=== PATIENT | male | born 1950 | race Caucasian/White ===

== ENCOUNTER 2024-08-12 08:40 | Outpatient (AMB) | payer OTHER, SELFPAY ==
--- OUTSIDE RECORDS SUMMARY | 2024-08-12 08:44 | XMS_ITS | Encounter Summary ---
Author Name [facility] [place] [facility] [place] [facility] [place] Address [address] [place] [address] Care Team Providers Care Train Planner Name Role Phone LUCITA BLANCHARD Primary Care Provider Unavailab le Insurance Providers: All historical and current Section Date Range: From patient's date of to the date document was created. This section includes the names of all active insurance providers for the patient. Insurance Provider Type of Coverage Plan Name Start of Policy Coverage End of Policy Coverage Group Number Member ID Insurance Provider's Telephone Number Policy Mills's Name Patient's Relationship to Policy Mills AN[place] OF [place] ([place]) [facility] H[facility]PS HIRE COUNT Y INS Dec 22, [id number] ARCHIE , SPOUSE BCBS AR [employer] CE ORGANIZAT ION HAMPS HIRE COUNT Y INS Dec 22, 2020 [id number] [phone] BEULAH OLIVARES SPOUSE BCBS [facility] [employer] CE ORGANIZAT ION HAMPS HIRE COUNT Y INS Dec 22, 2020 [id number] ALEJANDRA OLIVARES SPOUSE [place] PRESCRIPT ION HAMPS HIRE COUNT Y INS Dec 22, 2020 [id number] BEULAH OLIVARES SPOUSE [place] PRESCRIPT ION HAMPS HIRE COUNT Y INS Dec 22, 2020 [id number] BEULAH OLIVARES SPOUSE [place] PRESCRIPT ION HAMPS HIRE COUNT Y INS Dec 22, 2020 [id number] JOSETTE OLIVARES PATIENT [place] PRESCRIPT ION HAMPS HIRE COUNT Y INS Dec 22, 2020 [id number] BEULAH OLIVARES SPOUSE [employer] ([id number]) PRESCRIPT ION L4TA* Sep 22, 2013 [id number] [id number] [phone] BEULAH OLIVARES SPOUSE [employer] ([id number]) PRESCRIPT ION L4TA* Sep 22, 2013 L4TA [id number] BEULAH OLIVARES SPOUSE MEDICARE (WNR) MEDICARE (M) PART A Feb 23, 2016 PART A [id number] JOSETTE OLIVARES PATIENT MEDICARE (WNR) MEDICARE (M) PART A Feb 23, 2016 PART A [id number] [phone] JOSETTE OLIVARES PATIENT Selected Encounter This section includes the information on record at [place] for the Encounter. Date/Time Encounter Type Encounter Description Reason Pro vider Source November 04, 2023 12:30 PM Outpatient Encounter CARDIOLOGY IHE Encounter Template Text not used by [place] Plan of Treatment: Future Appointments (+ 6 months) and Future Tests (+/- 45 days) The Plan of Treatment section includes future care activities for the patient from all [place] treatmentfacilities. This section includes future appointments and future orders which are active, pending or scheduled. Future Appointments This section includes appointments that were scheduled to occur 6 months from the date of the Encounter, up to a maximum of 20 appointments. The data comes from all [place] treatment facilities. Appointment Date/Time Appointment Type Appointme nt Facility Name November 06, 2023 10:30 AM AMBULATORY [place]ICINE [place] [facility] November 14, 2023 12:30 PM AMBULATORY - NONE [place] [facility] November 19, 2023 01:00 PM [facility] Nov 26, 2023 01:00 PM [facility]UL[place] - [place]IC[place] [facility] Nov 26, 2023 01:00 PM AMBULATORY - NONE [place] [facility] [place] [facility] Dec 03, 2023 09:00 AM AMBULATORY - MEDICINE [place] [facility] [place] [place] [facility] Dec 06, 2023 10:30 AM AMBULATORY - NONE [place] [facility] [place] [facility] Dec 06, 2023 11:00 AM AMBULATORY - NONE [place] [facility] [facility] Jan 08, 2024 10:30 AM AMBULATORY - MEDICINE [place] [facility] [place] [place] [facility] Jan 16, 2024 03:00 PM AMBULATORY - MEDICINE [place] [facility] [place] [place] [facility] Feb 03, 2024 12:30 PM AMBULATORY - MEDICINE [place] [facility] [place] [place] [facility] Feb 11, 2024 01:00 PM AMBULATORY - MEDICINE [facility] Feb 19, 2024 12:00 PM AMBULATORY - MEDICINE [place] [facility] Feb 26, 2024 10:00 AM AMBULATORY - MEDICINE [place] [facility] [place] [place] [facility] Apr 29, 2024 01:30 PM AMBULATORY - MEDICINE [facility] ([facility] Lab Results: +/- 30 days of the encounter This section includes the Chemistry and Hematology Lab Results on record with [place] for the patient. Radiology Reports and Pathology Reports are provided separately, in subsequent sections. Lab Results This section contains the Chemistry/Hematology Results that were resulted 30 days before or 30 daysafter the date of the Encounter. Date/Time Source Result Type Result - Unit Interpretation Reference Range Comment November 19, 2023 01:46 PM [facility] ([facility]) PT & INR (PROTIME) Specimen Type: PLASMA No comment entered. Ordering Provider: KEITH BLANCHARD Report Released Date/Time: November 19, 2023 01:37 PM Reporting Lab: [place] [facility] [facility] [address] [facility] [address] [facility]forming [facility]: [facility] [address] [address] INR 1.1 PROTIME 12.0 s 10.0-13.1 November 19, 2023 01:41 PM [facility] ([facility]) CERULOPLASMIN Specimen Type: SERUM No comment entered. Ordering Provider: KEITH BLANCHARD Report Released Date/Time: November 19, 2023 01:37 PM Reporting Lab: [facility] [address] [facility] [address] Performing Lab: [facility] [address] [facility] [address] CERULOPLASMIN 18 mg/dL L 20-60 November 19, 2023 01:41 PM [facility] ([facility]) HEPATITIS B SURFACE ANTIBODY (HBsAb)- Specimen Type: SERUM No comment entered. Ordering Provider: KEITH BLANCHARD Report Released Date/Time: November 19, 2023 01:37 PM Reporting Lab: [address] [address] Performing Lab: [facility] November 19, 2023 01:41 PM [place] ([facility]) HEPATITIS B SURFACE ANTIGEN (HBsAg)- Specimen Type: SERUM Comment: A 'Reactive' result indicates HBsAb results >/= 12.0 mIU/mL and immunity to HBV infection. A Reactive result ( Positive prior to 04/06/13) is diagnostic of acute or chronic hepatitis B infection. The presence of Hepatitis B surface antigen is frequently associated with infectivity. Ordering Provider: KEITH BLANCHARD Report Released Date/Time: November 19, 2023 01:37 PM Reporting Lab: [address] [address] Performing Lab: [address] [address] HBsAg Non Reactive Non Reactive November 19, 2023 01:41 PM [facility] ([facility]) VIDAL SCREEN/TITER Specimen Type: SERUM No comment entered. Ordering Provider: KEITH BLANCHARD Report Released Date/Time: November 19, 2023 01:37 PM Reporting Lab: [facility] [address] [facility] [address] Performing Lab: [facility] [address] [facility] [address] VIDAL SCREEN NEG November 19, 2023 01:41 PM [facility] ([facility]) ALPHA 1 ANTITRYPSIN Specimen Type: SERUM No comment entered. Ordering Provider: KEITH BLANCHARD Report Released Date/Time: November 19, 2023 01:37 PM Reporting Lab: [facility] [address] [facility] [address] Performing Lab: [facility] [place] [address] [facility] [address] ALPHA 1 ANTITRYPSIN 125 mg/dL 90-200 November 19, 2023 01:41 PM [facility] ([facility]) HEPATITIS A ANTIBODY (IGG) Specimen Type: SERUM Comment: Hep A IgG: A 'Reactive' result indicates previous exposure to Hepatitis A virus through infection or vaccination. Ordering Provider: KEITH BLANCHARD Report Released Date/Time: November 19, 2023 01:37 PM Reporting Lab: [address] [address] Performing Lab: [facility] [address] [facility] [address] HEPATITIS A ANTIBODY (IGG) REACTIVE Non Reactive November 19, 2023 01:41 PM [facility] ([facility]) PSA Specimen Type: SERUM No comment entered. Ordering Provider: KEITH BLANCHARD Report Released Date/Time: November 19, 2023 01:30 PM Reporting Lab: [address] [address] Performing Lab: [address] [address] PSA 159.64 ng/mL H 0.00-4.00 November 19, 2023 01:41 PM [facility] ([facility]) HEPATITIS C ANTIBODY (HCV)-ARC Specimen Type: SERUM Comment: Hep C Ab: No HCV antibody detected. If recent infection is suspected or other evidence suggests HCV infection, consider HCV nucleic acid testing Ordering Provider: KEITH BLANCHARD Report Released Date/Time: November 19, 2023 01:37 PM Reporting Lab: [address] [address] Performing Lab: [facility] [address] [address] HEPATITIS C ANTIBODY NON-REACTIVE NON-REACTIV E November 19, 2023 01:41 PM [facility] ([facility]) FERRITIN Specimen Type: SERUM No comment entered. Ordering Provider: KEITH BLANCHARD Report Released Date/Time: November 19, 2023 01:37 PM Reporting Lab: [facility] [address] Performing Lab: [facility] [address] FERRITIN 221 ng/mL 20-300 November 19, 2023 01:41 PM [facility] ([facility]) IRON & TIBC PANEL Specimen Type: SERUM No comment entered. Ordering Provider: KEITH BLANCHARD Report Released Date/Time: November 19, 2023 01:37 PM Reporting Lab: [facility] [address] [address] Performing Lab: [facility] [address] TIBC 300 ug/dL 204-475 IRON 101 ug/dL 40-160 Transferrin Saturation 33.7 20.0-50.0 November 19, 2023 01:41 PM [facility] ([facility]) ALBUMIN Specimen Type: SERUM No comment entered. Ordering Provider: KEITH BLANCHARD Report Released Date/Time: November 19, 2023 01:37 PM Reporting Lab: [facility] [address] Performing Lab: [facility] [address] ALBUMIN 3.9 g/dL 3.5-5.0 November 19, 2023 01:41 PM [facility] ([facility]) LIVER FUNCTION Specimen Type: SERUM No comment entered. Ordering Provider: KEITH BLANCHARD Report Released Date/Time: November 19, 2023 01:37 PM Reporting Lab: [facility] [address] [address] Performing Lab: [facility] [address] PROTEIN,TOTAL 6.6 g/dL 6.0-8.3 ALBUMIN 3.9 g/dL 3.5-5.0 ALKALINE PHOSPHATASE 125 U/L 40-150 AST 13 U/L 5-34 ALT <6 U/L BILIRUBIN, TOTAL 0.8 mg/dL 0.2-1.2 November 19, 2023 01:41 PM [facility] ([facility]) BASIC METABOLIC PANEL (non-fasting) Specimen Type: SERUM No comment entered. Ordering Provider: KEITH BLANCHARD Report Released Date/Time: November 19, 2023 01:37 PM Reporting Lab: [address] [address] Performing Lab: [place] [phone] UREA NITROGEN 14 mg/dL 7-25 GLUCOSE 149 mg/dL H 65-100 SODIUM 139 mmol/L 135-145 POTASSIUM 4.1 mmol/L 3.5-5.0 CHLORIDE 108 mmol/L 100-110 CO2 23 meq/L 20-30 CREATININE, Serum 0.73 mg/dL 0.50-1.40 eGFR(CKD-EPI 2020) >90 mL/min >60 November 19, 2023 01:41 PM [facility] ([facility]) CBC AND DIFF (AUTO) Specimen Type: BLOOD No comment entered. Ordering Provider: KEITH BLANCHARD Report Released Date/Time: November 19, 2023 01:37 PM Reporting Lab: [address] [address] Performing Lab: [address] [address] WBC 6.28 10*3/uL 4.50-11.00 RBC 4.40 10*6/uL 4.23-5.66 HGB 13.9 g/dL 12.8-17 HCT 42.0 39.2-50.4 MCV 95.5 fL 82-99 MCHC 33.1 g/dL 30.8-35.1 PLT 192 10*3/uL 140-360 RDW-CV 13.3 12.0-16.0 [place], Abs 0.52 10*3/uL 0.30-1.10 MCH 31.6 pg 26.2-32.6 Neut % 72.2 43.7-75.8 Lymph % 17.7 14.0-42.3 [place] % 8.3 5.1-13.7 Eos % 1.0 0.4-6.8 Baso % 0.3 0.1-2.0 Neut, Abs 4.54 10*3/uL 2.20-7.60 Lymph, Abs 1.11 10*3/uL 1.00-3.20 Eos, Abs 0.06 10*3/uL 0.03-0.44 Baso, Abs 0.02 10*3/uL 0.01-0.13 Immature Gran % 0.5 0.0-0.7 Immature Gran, Abs 0.03 10*3/uL 0.00-0.06 Encounter Notes: All associated encounter notes This section contains the clinical notes associated to the Encounter. Date/Time Encounter Note(s) Provider Source November 04, 2023 10:29 AM ADDENDUM: LOCAL TITLE: Addendum STANDARD TITLE: ADDENDUM DATE OF NOTE: NOVEMBER 04, 2023@10:29:39 ENTRY DATE: NOVEMBER 04, 2023@10:29:40 AUTHOR: ELLI LRAKIN EXP COSIGNER: URGENCY: STATUS: COMPLETED Can you swethaldy add the following email address to the Veterans demographics please and thank you! [email or web address] ELLI LARKIN RN Referral Coordination Initiative Nurse Signed: 11/04/2023 10:30 Receipt Acknowledged By: 11/04/2023 10:43 /es/ YANA BATEMAN ADVANCED DIRECTOR OF STRATEGIC MARKETING --- Original Document --- 11/04/23 PATIENT LETTER (T): JOSETTE OLIVARES [address], [place], [address] Dear Josette Olivares, This is a reminder of your upcoming TELEHEALTH TO HOME VIDEO APPOINTMENT with your VA Provider on: Date/Time: TUESDAY NOVEMBER 14, 2023 12:30 PM [facility]: V01 BLANCA VALLE MD 1 Telephone Ext.: [phone] Please DO NOT COME TO THE [facility] for this appointment. This is a TELEHEALTH TO HOME APPOINTMENT. Your VA Provider will send you an EMAIL LINK to connect to the VIRTUAL medical room for this appointment with your computer, tablet or smart phone. Please ensure you are in a safe and private location where you have internet access and able to speak freely with your provider. Please have ready, a list of your current medical prescriptions , a list of all over the counter medications you take. Please contact the Patient Call Center at [phone]( follow the prompts), Saturday-Saturday, 8:00AM-4:00PM if you have questions regarding this appointment, need to change the appointment or if you cannot keep this appointment. The Call Center can also help if you have questions regarding your health or medical condition. Thank you. Respectfully, The staff at [facility] the staff at the [facility] ELLI LARKIN [place] [facility] November 04, 2023 08:55 AM LETTERS: LOCAL TITLE: PATIENT LETTER (T) STANDARD TITLE: LETTERS DATE OF NOTE: NOVEMBER 04, 2023@08:55 ENTRY DATE: NOVEMBER 04, 2023@08:55:40 AUTHOR: ELLI LARKIN EXP COSIGNER: URGENCY: STATUS: COMPLETED PATIENT LETTER (T) Has ADDENDA DEPARTMENT OF [facility] Toll Free Number Primary Care Telephone Assistance can be reached at extension [phone] [facility] scheduling can be reached at extension [phone] [facility] scheduling can be reached at ext [phone] JOSETTE OLIVARES [address], [place], [address] Dear Josette Olivares, This is a reminder of your upcoming TELEHEALTH TO HOME VIDEO APPOINTMENT with your VA Provider on: Date/Time: TUESDAY NOVEMBER 14, 2023 12:30 PM [facility]: V01 BLANCA VALLE MD 1 Telephone Ext.: [phone] Please DO NOT COME TO THE [facility] for this appointment. This is a TELEHEALTH TO HOME APPOINTMENT. Your VA Provider will send you an EMAIL LINK to connect to the VIRTUAL medical room for this appointment with your computer, tablet or smart phone. Please ensure you are in a safe and private location where you have internet access and able to speak freely with your provider. Please have ready, a list of your current medical prescriptions , a list of all over the counter medications you take. Please contact the Patient Call Center at [phone]( follow the prompts), Saturday-Saturday, 8:00AM-4:00PM if you have questions regarding this appointment, need to change the appointment or if you cannot keep this appointment. The Call Center can also help if you have questions regarding your health or medical condition. Thank you. Respectfully, The staff at [facility] the staff at the [facility] 11/04/2023 ADDENDUM STATUS: COMPLETED Can you kinldy add the following email address to the Veterans demographics please and thank you! /es/ ELLI LARKIN RN Referral Coordination Initiative Nurse Signed: 11/04/2023 10:30 Receipt Acknowledged By: * AWAITING SIGNATURE * YANA BATEMAN Sincerely, Your Primary Care Team [facility] [address] [facility] [address] [place] [address] [place] [address] [phone] [place] [facility] [address] [place] [address] [place] [address] [facility] [address] [facility] [place] [address] [place] [address] ELLI LARKIN [facility]
--- OUTSIDE RECORDS SUMMARY | 2024-08-12 08:45 | XMS_ITS | Encounter Summary ---
Author Name [facility] [place] [facility] [place] Address [address] [place] [address] Care Team Providers Care Rotary Shear Cutter Name Role Phone LUCITA BLANCHARD Primary Care [...] Relationship to Policy [place] ANTHEM [place] OF [place] ([place]UECARD) [facility] CE ORGANIZAT ION HAMPS HIRE COUNT Y INS Dec 22, 2020 [id number] ARCHIE , SPOUSE BCBS [employer] MAINTENAN CE ORGANIZAT ION HAMPS HIRE COUNT Y INS Dec 22, 2020 [id number] BEULAH ALMANZA SPOUSE BCBS OF [facility] MAINTENA[place] CE ORGANIZAT ION HAMPS HIRE COUNT Y INS Dec 22, 2020 [id number] ALEJANDRA ALMANZA SPOUSE [employer] PRESCRIPT ION HAMPS HIRE COUNT Y INS Dec 22, 2020 RX21AT [id number] [phone] BEULAH ALMANZA SPOUSE [employer] PRESCRIPT ION HAMPS HIRE COUNT Y INS Dec 22, 2020 RX21AT [id number] BEULAH ALMANZA SPOUSE [employer] PRESCRIPT ION HAMPS HIRE COUNT Y INS Dec 22, 2020 RX21AT [id number] JOSETTE ALMANZA PATIENT [employer] PRESCRIPT ION HAMPS HIRE COUNT Y INS Dec 22, 2020 RX21AT [id number] [phone] BEULAH ALMANZA SPOUSE [employer] ([id number]) PRESCRIPT ION L4TA* Sep 22, 2013 L4TA [id number] [phone] BEULAH ALMANZA SPOUSE [employer] ([id number]) PRESCRIPT ION L4TA* Sep 22, 2013 L4TA [id number] [phone] BEULAH ALMANZA SPOUSE MEDICARE (WN) MEDICARE (M) PART A Feb 23, 2016 PART A [id number] VE JOSETTE ALMANZA PATIENT MEDICARE (WNR) MEDICARE (M) PART A Feb 23, 2016 PART A [id number] VE JOSETTE ALMANZA PATIENT Selected Encounter This section includes the information on record at [place] for the Encounter. Date/Time Encounter Type Encounter Description Reason Provider Source Jun 05, 2024 01:30 PM COMPRE OPH EXAM EST PT 1/> OPTOMETRY ICD-10-CM E11.9 Type 2 diabetes mellitus without complications JOHN ZAMORA Kunal Encounter Template Text not used by [place] Assessments - Encounter Diagnoses This section includes the primary and secondary diagnoses documented for the Encounter. Date/Time Primary/Secondary Diagnosis Diagnosis Name Provider Source Jul 04, 2024 07:25 AM PRIMARY Type 2 diabetes mellitus without complications JOHN ZAMORA [facility] Jul 04, 2024 07:25 AM SECONDARY Dry eye syndrome of bilateral lacrimal glands JOHN ZAMORA [facility] [place] [facility] Jul 04, 2024 07:25 AM SECONDARY Endothelial corneal dystrophy, bilateral JOHN ZAMORA [facility] Jul 04, 2024 07:25 AM SECONDARY Presbyopia JOHN ZAMORA [place] [facility] [place] [facility] Jul 04, 2024 07:25 AM SECONDARY Presence of intraocular lens JOHN ZAMORA [place] [facility] [place] [facility] Plan of Treatment: Future Appointments (+ 6 months) and Future Tests (+/- 45 days) The Plan of Treatment section includes future care activities for the patient from all [place] treatmentfacilities. This section includes future appointments and future orders which are active, pending or scheduled. Future Appointments This section includes appointments that were scheduled to occur 6 months from the date of the Encounter, up to a maximum of 20 appointments. The data comes from all [place] treatment facilities. Appointment Date/Time Appointment Type Appointme nt Facility Name Jul 09, 2024 10:30 AM AM[place]ULATORY - [place]ICINE [place] [facility] [place] [facility] Jul 27, 2024 01:30 PM AMBULATORY - MEDICINE [facility] Aug 12, 2024 08:30 AM AMBULATORY - [place]ICINE [place] [facility] [place] [facility] Sep 10, 2024 11:00 AM AMBULATORY - [place]ICINE [place] [facility] [place] [facility] November 12, 2024 02:00 PM AMBULATORY - NONE [place] [facility] [place] [facility] Encounter Notes: All associated encounter notes This section contains the clinical notes associated to the Encounter. Date/Time Encounter Note(s) Provider Source Jun 05, 2024 01:27 PM OPTOMETRY NOTE: LOCAL TITLE: OPTOMETRY NOTE STANDARD TITLE: OPTOMETRY NOTE DATE OF NOTE: JUN 05, 2024@13:27 ENTRY DATE: JUN 05, 2024@13:27:20 AUTHOR: JOHN ZAMORA EXP COSIGNER: URGENCY: STATUS: COMPLETED Eye Examination for: JOSETTE ALMANZA, 74 year old WHITE MALE MHx: Code Description R97.20 Elevated PSA (SCT [id number]) C61. 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 ([facility] [id number]) E55.9 Vitamin D Deficiency ([facility] [id number]) E53.8 Vitamin B12 Deficiency ([facility] [id number]) I35.0 Aortic valve stenosis ([facility] [id number]) Q61.8 Kidney lesion ([facility] [id number]) Q45.2 Pancreatic cyst ([facility] [id number]) M54.16 Lumbar radiculopathy ([facility] [id number]) K76.0 Fatty liver ([facility] [id number]) E11.9 Diabetes mellitus type 2 ([facility] [id number]) E78.5 Hyperlipidemia ([facility] [id number]) G20.A1 Parkinsons disease ([facility] [id number]) I10. Benign hypertension ([facility] [id number]) SYSTEMIC MEDICATIONS/OCULAR MEDICATIONS: Active Outpatient Medications (including Supplies): Active Outpatient Medications Status === 1) ABIRATERONE ACETATE 250MG TAB TAKE FOUR TABLETS BY MOUTH ACTIVE ONCE DAILY DIRECTED BY PROVIDER 2) ACCU-CHEK GUIDE (GLUCOSE) TEST STRIP USE 1 STRIP TO TEST ACTIVE BLOOD SUGARS TWICE A WEEK NEEDED Indication: DIABETES 3) AMMONIUM LACTATE 12% LOTION APPLY SMALL AMOUNT TOPICALLY ACTIVE ONCE DAILY FOR DRY IRRITATED SKIN APPLY TO SKIN OF FEET ANKLE AND LOWER LEGS DAILY Indication: FOR DRY SKIN 4) ATORVASTATIN CALCIUM 80MG TAB TAKE ONE-HALF TABLET BY MOUTH ACTIVE AT BEDTIME FOR CHOLESTEROL 5) BRIEF,PROTECTIVE SUPER ABS LG ATTENDS USE 1 BRIEF ACTIVE DIRECTED ONCE DAILY NEEDED FOR PERSONAL CARE 6) CARBIDOPA 25/LEVODOPA 100MG TAB TAKE 3 TABLETS BY MOUTH FOUR ACTIVE TIMES A DAY ### 7) CARBIDOPA 50/LEVODOPA 200MG SA TAB TAKE 1 TABLET BY MOUTH AT ACTIVE BEDTIME Indication: FOR PARKINSON'S DISEASE 8) CHOLECALCIF 25MCG (D3-1,000UNIT) TAB TAKE ONE TABLET BY ACTIVE MOUTH ONCE DAILY FOR VITAMIN SUPPLEMENTATION 9) CLOTRIMAZOLE 1% TOP SOLN APPLY 1 DROP TOPICALLY ONCE DAILY ACTIVE FOR FUNGAL INFECTION APPLY TO TOE NAIL WHEN DRY Indication: TOE NAIL FUNGUS 10) CYANOCOBALAMIN 1000MCG TAB TAKE ONE TABLET BY MOUTH ONCE ACTIVE DAILY FOR VITAMIN SUPPLEMENTATION 11) DOXYCYCLINE HYCLATE 50MG CAP TAKE ONE CAPSULE BY MOUTH TWICE ACTIVE DAILY Indication: FOR INFECTION CAUSED BY BACTERIA 12) MELATONIN 3MG CAP/TAB TAKE ONE TABLET BY MOUTH AT BEDTIME ACTIVE 13) METFORMIN HCL 1000MG TAB TAKE ONE TABLET BY MOUTH ONCE DAILY ACTIVE (S) (NOTE DOSE) Indication: FOR TYPE 2 DIABETES MELLITUS 14) PRAMIPEXOLE DIHYDROCHLORIDE 0.5MG TAB TAKE ONE TABLET BY ACTIVE MOUTH THREE TIMES A DAY 15) PREDNISONE 5MG TAB TAKE ONE TABLET BY MOUTH ONCE DAILY ACTIVE DIRECTED WITH ABIRATERONE. TAKE WITH FOOD OR MILK. 16) RASAGILINE MESYLATE 0.5MG TAB TAKE ONE TABLET BY MOUTH ONCE ACTIVE DAILY 17) TAMSULOSIN HCL 0.4MG CAP TAKE ONE CAPSULE BY MOUTH ONCE ACTIVE DAILY Indication: FOR ENLARGED PROSTATE Active Non-VA Medications Status === 1) Non-VA ALBUTEROL 90MCG (CFC-F) 200D ORAL INHL 2 PUFFS BY ACTIVE MOUTH EVERY 4 HOURS NEEDED 2) Non-VA FISH OIL 1000MG (500MG DHA/EPA) CAP 1000MG BY MOUTH ACTIVE ONCE DAILY 3) Non-VA FLUTICASONE PROP 50MCG 120D NASAL INHL 1 SPRAY INTO ACTIVE EACH NOSTRIL ONCE DAILY NEEDED 4) Non-VA TRIAMCINOLONE ACETONIDE 0.1% CREAM THIN LAYER ACTIVE TOPICALLY TWICE DAILY NEEDED 21 Total Medications ALLERGIES: PENICILLIN VITALS (most recent, as listed in the electronic record): B/P: 106/68 (04/29/2024 13:37) Pulse: 87 (04/29/2024 13:37) Temperature: 97 F [36.1 C] (04/29/2024 13:37) Weight: 168.6 lb [76.48 kg] (04/29/2024 13:37) Height: 67 in [170.2 cm] (09/04/2021 09:55) BMI: BMI: 26.5 PERTINENT LABS: HEMOGLOBIN A1C TREND Collection DT Spec HGBA1c 02/03/2024 13:41 BLOOD 6.1 H 10/04/2023 09:55 BLOOD 6.5 H 03/05/2023 07:25 BLOOD 6.7 H 09/03/2022 10:49 BLOOD 6.9 H 03/02/2022 07:52 BLOOD 6.6 H Forw gregorio from note, checked by Attending * This 74 year old MALE is 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 Distance vision is fairly stable. Would like new progressives, happy with current frame. No other ocular complaints today. Reports he is still taking antibiotic BID for previous left eye infection. Using AT's daily for dry eyes, mostly in the morning, would like more refills. HISTORY AND REVIEW OF SYSTEMS: 1) DM without retinopathy OU 2) pseudophakia OU 3) rosacea vs eczema with conjunctivitis OU 4) guttata OU with some reduction in vision 5) OTN OS 6) astigmatism OU/presbyopia (-) Pain: (-) VELEZ: (-) Diplopia: (-) Flashes: (-) Floaters: (-) Amaurosis Fugax/Tia's: (-) Eye Injury: (-) Eye Surgery: (-) TBI (+) FOHx: ?Brother Glaucoma (-) Smoker/Length of Time: DIABEIC: Yes LAST A1C: Results HEMOGLOBIN A1C PANEL BLOOD (LAV-BLOOD) MELI SMYTH #[id number] Collection time: Feb 03, 2024@13:41 Test Name Result Units Range --------- ------ ----- ----- HEMOGLOBIN A1C 6.1 H % 4.0 - 5.6 NEW ALLERGIES TO REPORT: No EYE MEDICATION(S): AT's daily CURRENT RX WITH BCVA: OD: PLANO -0.50 X150 20/25-2 OS: -0.50 -0.50 X148 20/25 ADD: +3.00 20/25 OU DVA: ( )SC ( )CC (X)Phoropter ( )CL OD: 20/30-2 OS: 20/40-2 NVA OU: 20/30+2 MANIFEST REFRACTION(MRx): OD: NI OS: -1.00 -0.50 x145 20/40+2 slow ADD: +3.00 20/20-1 OU CVF: Appear FTFC OU EOMS: Appear Full OU PUPILS: Appear ERRL(-)APD INTRAOCULAR PRESSURE (IOP) METHOD: Goldmann Time: 1:27PM OD: 13 OS: 12 ANTERIOR CHAMBER (AC): Penlight or slit lamp (if available) exam appears unremarkable. Pupils are dilated. Dilation and driving precautions reviewed with patient and patient expresses understanding. Medication: 1% Tropicamide, 2.5% Phenylephrine OU Time: 1:30PM Visual Imaging Performed Today: Additional Comments: Strongly encouraged to increase ATs to QID OU Final Rx: OD: plano-0.53l063 20/30-2 OS: -1.00-0.86d017 20/40+2 Add: +3.00 SLE: Lids/Lashes: dermatochalasis OU, MGD OU Conjunctiva: white and quiet bulbar conj OU quiet palpebral conj OU Corneas: clear OU Iris: flat and clear OU, (-)NVI OU AC: D & Q OU Angles: 4x4 OU Dilated Fundus Exam: Vit: syneresis OU Lens: PCIOL OU C/D (Size and Rim Description) OD 0.15 pink and healthy OS 0.15 pink and healthy (-)NVD OU PPole OD clear OS clear (-)DBH/CWS/YOLANDA/VB Macula OD flat and clear OS flat and clear (-)CSME OU A/V: normal caliber OU Periphery: flat and intact (-)NVE, holes, tears, detachments 360 OU Assessment/Plan: 1. Type II Diabetes without evidence of retinopathy or macular edema OU -Pt ed re today's findings and the possible ocular health and visual complications associated with diabetes as well as importance of attending follow up appointments -Encouraged blood sugar, blood pressure and lipid control as directed by provider managing diabetes. -Pt ed to report any vision changes PAUL. - repeated back the plan and education. -Monitor 2. Pseudophakia OU -Pt ed re today's findings and the importance of UV protection -Petrolia repeated back the plan and education. -Monitor 3. Dry Eye Syndrome OU with h/o rosacea vs eczema with conjunctivitis - symptomatic -Pt ed re today's findings -Recommend Artificial Tears QID OU, ed not to wait until symptoms increase -Petrolia repeated back the plan and education. -Monitor 4. Fuch's corneal dystrophy OU - functioning well on ATs currently but understands [id number] may be indicated in future. -Pt ed re today's findings -Petrolia repeated back the plan and education. -Monitor 5. Refractive Error and Presbyopia OU -Rx updated and ordered per pt request -Monitor RTC 1 yr or earlier PRN ----- Glasses adjusted/repaired in office: () Yes (x) No If yes, how many pairs: ----- Education: Diabetes: Patient was educated regarding diabetes and related ocular complications including retinopathy and cataract formation as well as other related systemic complications. The importance of good blood sugar control, blood sugar testing as recommended by their PCP and the importance of timely follow up were all emphasized. Medication Reconciliation: Outpatient: Has the patient been taking medications as documented in the EMLR? YES: The patient has been taking medications as documented in the EMLR. Essential Medication List for Review used to complete this medication reconciliation. INCLUDED IN THIS LIST: Alphabetical list of active outpatient prescriptions dispensed from this [place] (local) and dispensed from another [place] or [place] facility (remote) as well as inpatient orders (local, pending and active), local clinic medications, locally documented non-VA medications, and local prescriptions that have or been discontinued in the past 90 days. - All changes in medications, including all non-VA/Herbal/OTC medications were entered into CPRS. - If there were any medications the patient should no longer take, they were discontinued. - The patient/caregiver was instructed to update this list, discard old lists, and take this list to the next appointment, whether with a VA or non-VA provider. Medication List: JLV Link Data on this list may not be complete. Please check JLV. Allergies/ADRs (Tool #5) FACILITY ALLERGY/ADR -------- No Remote Allergy/ADR Data available for this patient [place] [facility] [place] [facility] PENICILLIN Med. Reconciliation (Tool #1) INCLUDED IN THIS LIST: Alphabetical list of active outpatient prescriptions dispensed from this [place] (local) and dispensed from another VA or DoD facility (remote) as well as inpatient orders (local pending and active), local clinic medications, locally documented non-VA medications, and local prescriptions that have or been discontinued in the past 90 days. Non-VA Meds Last Documented On: Sep 19, 2020 NOTE The display of VA prescriptions dispensed from another VA or DoD facility (remote) is limited to active outpatient prescription entries matched to National Drug File at the originating site and may not include some items such as investigational drugs, compounds, etc. NOT INCLUDED IN THIS LIST: Medications self-entered by the patient into personal health records (i.e. [email or web address]) are NOT included in this list. Non-VA medications documented outside this [place], remote inpatient orders (regardless of status) and remote clinic medications are NOT included in this list. The patient and provider must always discuss medications the patient is taking, regardless of where the medication was dispensed or obtained. OUTPT ABIRATERONE ACETATE 250MG TAB (Status = Active) TAKE FOUR TABLETS BY MOUTH ONCE DAILY DIRECTED BY PROVIDER Rx# [id number] Last Released: 04/22/24 Qty/Days Supply: Rx Expiration Date: 02/27/25 Refills Remainin Non-VA ALBUTEROL 90MCG (CFC-F) 200D ORAL INHL INHALE 2 PUFFS BY MOUTH EVERY 4 HOURS NEEDED Dec 28, 2019 Medication prescribed by Non-VA provider. OUTPT AMMONIUM LACTATE 12% LOTION (Status = Active) APPLY SMALL AMOUNT TOPICALLY ONCE DAILY FOR DRY IRRITATED SKIN APPLY TO SKIN OF FEET ANKLE AND LOWER LEGS DAILY Rx# [id number] Last Released: 03/27/24 Qty/Days Supply: Rx Expiration Date: 01/08/25 Refills Remainin Indication: FOR DRY SKIN OUTPT ATORVASTATIN CALCIUM 80MG TAB (Status = Active) TAKE ONE-HALF TABLET BY MOUTH AT BEDTIME FOR CHOLESTEROL Rx# [id number] Last Released: 04/22/24 Qty/Days Supply: 45 Rx Expiration Date: 02/12/25 Refills Remainin OUTPT CARBIDOPA 25/LEVODOPA 100MG TAB (Status = Active) TAKE 3 TABLETS BY MOUTH FOUR TIMES A DAY ### Rx# [id number] Last Released: 04/22/24 Qty/Days Supply: Rx Expiration Date: 08/05/24 Refills Remainin OUTPT CARBIDOPA 50/LEVODOPA 200MG SA TAB (Status = Active) TAKE 1 TABLET BY MOUTH AT BEDTIME FOR PARKINSON'S DISEASE Rx# [id number] Last Released: 04/29/24 Qty/Days Supply: Rx Expiration Date: 08/05/24 Refills Remainin Indication: FOR PARKINSON'S DISEASE OUTPT CHOLECALCIF 25MCG (D3-1,000UNIT) TAB (Status = Discontinued) TAKE ONE TABLET BY MOUTH ONCE DAILY FOR VITAMIN SUPPLEMENTATION Rx# [id number] Last Released: 02/26/24 Qty/Days Supply: Rx Expiration Date: 03/13/24 Refills Remainin OUTPT CHOLECALCIF 25MCG (D3-1,000UNIT) TAB (Status = Active) TAKE ONE TABLET BY MOUTH ONCE DAILY FOR VITAMIN SUPPLEMENTATION Rx# [id number] Last Released: Qt Supply: Rx Expiration Date: 06/04/25 Refills Remainin OUTPT CLOTRIMAZOLE 1% TOP SOLN (Status = Active) APPLY 1 DROP TOPICALLY ONCE DAILY FOR FUNGAL INFECTION APPLY TO TOE NAIL WHEN DRY Rx# [id number] Last Released: 03/28/24 Qty/Days Supply: Rx Expiration Date: 01/08/25 Refills Remainin Indication: TOE NAIL FUNGUS OUTPT CYANOCOBALAMIN 1000MCG TAB (Status = Discontinued) TAKE ONE TABLET BY MOUTH ONCE DAILY FOR VITAMIN SUPPLEMENTATION Rx# [id number] Last Released: 02/26/24 Qty/Days Supply: Rx Expiration Date: 03/13/24 Refills Remainin OUTPT CYANOCOBALAMIN 1000MCG TAB (Status = Active) TAKE ONE TABLET BY MOUTH ONCE DAILY FOR VITAMIN SUPPLEMENTATION Rx# [id number] Last Released: Supply: Rx Expiration Date: 06/04/25 Refills Remainin OUTPT DOXYCYCLINE HYCLATE 50MG CAP (Status = Active) TAKE ONE CAPSULE BY MOUTH TWICE DAILY FOR INFECTION CAUSED BY BACTERIA Rx# [id number] Last Released: 04/29/24 Qty/Days Supply: Rx Expiration Date: 02/19/25 Refills Remainin Indication: FOR INFECTION CAUSED BY BACTERIA Non-VA FISH OIL 1000MG (500MG DHA/EPA) CAP TAKE 1 CAPSULE BY MOUTH ONCE DAILY Non-VA FLUTICASONE PROP 50MCG 120D NASAL INHL INSTILL 1 SPRAY INTO EACH NOSTRIL ONCE DAILY NEEDED OUTPT LISINOPRIL 5MG TAB (Status = Discontinued) TAKE ONE TABLET BY MOUTH ONCE DAILY TO CONTROL BLOOD PRESSURE (NOTE DOSE) Rx# [id number] Last Released: 10/10/23 Qty/Days Supply: Rx Expiration Date: 10/08/24 Refills Remainin Indication: FOR HIGH BLOOD PRESSURE OUTPT MELATONIN 3MG CAP/TAB (Status = Active) TAKE ONE TABLET BY MOUTH AT BEDTIME Rx# [id number] Last Released: 08/09/23 Qty/Days Supply: 120/ Rx Expiration Date: 08/05/24 Refills Remainin OUTPT METFORMIN HCL 1000MG TAB (Status = Discontinued) TAKE ONE TABLET BY MOUTH ONCE DAILY FOR TYPE 2 DIABETES MELLITUS (NOTE DOSE) Rx# [id number] Last Released: 03/19/24 Qty/Days Supply: Rx Expiration Date: 10/08/24 Refills Remainin Indication: FOR TYPE 2 DIABETES MELLITUS OUTPT METFORMIN HCL 1000MG TAB (Status = Active/Suspended) TAKE ONE TABLET BY MOUTH ONCE DAILY FOR TYPE 2 DIABETES MELLITUS (NOTE DOSE) Rx# [id number] Last Released: Qty/Days Supply: Rx Expiration Date: 06/04/25 Refills Remainin Indication: FOR TYPE 2 DIABETES MELLITUS OUTPT PRAMIPEXOLE DIHYDROCHLORIDE 0.5MG TAB (Status = Active) TAKE ONE TABLET BY MOUTH THREE TIMES A DAY Rx# [id number] Last Released: 04/06/24 Qty/Days Supply: Rx Expiration Date: 08/05/24 Refills Remainin OUTPT PREDNISONE 5MG TAB (Status = Discontinued) TAKE ONE TABLET BY MOUTH ONCE DAILY Rx# [id number] Last Released: 03/31/24 Qty/Days Supply: Rx Expiration Date: 02/27/25 Refills Remainin OUTPT PREDNISONE 5MG TAB (Status = Active) TAKE ONE TABLET BY MOUTH ONCE DAILY DIRECTED WITH ABIRATERONE. TAKE WITH FOOD OR MILK. Rx# [id number] Last Released: 04/22/24 Qty/Days Supply: Rx Expiration Date: 03/26/25 Refills Remainin OUTPT RASAGILINE MESYLATE 0.5MG TAB (Status = Active) TAKE ONE TABLET BY MOUTH ONCE DAILY Rx# [id number] Last Released: 05/29/24 Qty/Days Supply: Rx Expiration Date: 08/05/24 Refills Remainin OUTPT TAMSULOSIN HCL 0.4MG CAP (Status = Active) TAKE ONE CAPSULE BY MOUTH ONCE DAILY FOR ENLARGED PROSTATE Rx# [id number] Last Released: 04/29/24 Qty/Days Supply: Rx Expiration Date: 11/19/24 Refills Remainin Indication: FOR ENLARGED PROSTATE Non-VA TRIAMCINOLONE ACETONIDE 0.1% CREAM APPLY A THIN LAYER TOPICALLY TWICE DAILY NEEDED SUPPLIES OUTPT ACCU-CHEK GUIDE (GLUCOSE) TEST STRIP (Status = Active) USE 1 STRIP TO TEST BLOOD SUGARS TWICE A WEEK NEEDED DIABETES Rx# [id number] Last Released: 09/18/23 Qty/Days Supply: 50/180 Rx Expiration Date: 09/15/24 Refills Remainin Indication: DIABETES OUTPT BRIEF,PROTECTIVE SUPER ABS LG ATTENDS (Status = Active) USE 1 BRIEF DIRECTED ONCE DAILY NEEDED FOR PERSONAL CARE Rx# [id number] Last Released: 02/13/24 Qty/Days Supply: 144/60 Rx Expiration Date: 02/11/25 Refills Remainin PHARMACY TERMS AND POSSIBLE PATIENT ACTIONS INPT = [place] inpatient order IV = [place] intravenous medication OUTPT = [place] outpatient prescription PHARMACY POSSIBLE PATIENT TERMS EXPLANATION ACTIONS -------- ------- ACTIVE A prescription that can be If you have refills, filled at the local [place] pharmacy. you may request a refill of this prescription from your [place] pharmacy. CLINIC A medication you received during If you have questions a visit to a [place] clinic or about this medication emergency department. contact your [place] healthcare team. DISCONTINUED A prescription your provider has Contact your VA stopped. It is no longer healthcare team if you available to be sent to you or need more of this picked up at the [place] pharmacy medication. window. A prescription which is too old Contact your VA to fill. This does not refer to healthcare team if you the expiration date of the need more of this medication in the container. medication. NON-VA A medication that came from If this medication someplace other than a VA information is pharmacy. This may be a incorrect or out of prescription from either the VA date, please tell your or non VA providers that was VA healthcare team. filled outside the VA. Or, it may be an mvec-azg-kxfclex (OTC), herbal, dietary supplements or sample medication. ON HOLD An active prescription that will Contact your VA not be filled until pharmacy pharmacy when you need resolves the issue. more of this medication. PARKED An active prescription that will Contact your VA not be filled until the patient pharmacy when you need requests it. this medication. PENDING This prescription order has been If you have been sent to the pharmacy for review instructed to start and is not ready yet. this medication now, contact your VA pharmacy. SUSPENDED An active prescription that is Contact your [place] not scheduled to be filled yet. pharmacy if you need You should receive it before this medication now. you run out. (x) Printed Medication Reconciliation List Offered and Declined by Petrolia () Medication Reconciliation List Printed for [facility]ia at Exam () Optometry HT Please Print and Mail Copy of Medication Reconciliation List () AMSA Please Print and Mail Copy of Medication Reconciliation List /es/ JOHN ZAMORA OD ECOMMERCE ANALYST Signed: 06/05/2024 14:07 JOHN ZAMORA [place] [facility] [place] [facility] Jun 05, 2024 10:11 AM OPTOMETRY NOTE: LOCAL TITLE: OPTOMETRY NOTE STANDARD TITLE: OPTOMETRY NOTE DATE OF NOTE: JUN 05, 2024@10:11 ENTRY DATE: JUN 05, 2024@10:11:55 AUTHOR: RENY,ROSA ISELA CHR EXP COSIGNER: URGENCY: STATUS: COMPLETED Active problems - Computerized Problem List is the source for the followin. Elevated PSA 2. Prostate carcinoma 3. 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 Vitamin D Deficiency ([facility] [id number]) 6. Vitamin B12 Deficiency ([facility] [id number]) 7. Aortic valve stenosis 8. Kidney lesion 9. Pancreatic cyst 10. Lumbar radiculopathy 11. Fatty liver 12. Diabetes mellitus type 2 13. Hyperlipidemia 14. Parkinsons disease 15. Benign hypertension Active Outpatient Medications (including Supplies): Active Outpatient Medications Status === 1) ABIRATERONE ACETATE 250MG TAB TAKE FOUR TABLETS BY MOUTH ACTIVE ONCE DAILY DIRECTED BY PROVIDER 2) ACCU-CHEK GUIDE (GLUCOSE) TEST STRIP USE 1 STRIP TO TEST ACTIVE BLOOD SUGARS TWICE A WEEK NEEDED Indication: DIABETES 3) AMMONIUM LACTATE 12% LOTION APPLY SMALL AMOUNT TOPICALLY ACTIVE ONCE DAILY FOR DRY IRRITATED SKIN APPLY TO SKIN OF FEET ANKLE AND LOWER LEGS DAILY Indication: FOR DRY SKIN 4) ATORVASTATIN CALCIUM 80MG TAB TAKE ONE-HALF TABLET BY MOUTH ACTIVE AT BEDTIME FOR CHOLESTEROL 5) BRIEF,PROTECTIVE SUPER ABS LG ATTENDS USE 1 BRIEF ACTIVE DIRECTED ONCE DAILY NEEDED FOR PERSONAL CARE 6) CARBIDOPA 25/LEVODOPA 100MG TAB TAKE 3 TABLETS BY MOUTH FOUR ACTIVE TIMES A DAY ### 7) CARBIDOPA 50/LEVODOPA 200MG SA TAB TAKE 1 TABLET BY MOUTH AT ACTIVE BEDTIME Indication: FOR PARKINSON'S DISEASE 8) CHOLECALCIF 25MCG (D3-1,000UNIT) TAB TAKE ONE TABLET BY ACTIVE MOUTH ONCE DAILY FOR VITAMIN SUPPLEMENTATION 9) CLOTRIMAZOLE 1% TOP SOLN APPLY 1 DROP TOPICALLY ONCE DAILY ACTIVE FOR FUNGAL INFECTION APPLY TO TOE NAIL WHEN DRY Indication: TOE NAIL FUNGUS 10) CYANOCOBALAMIN 1000MCG TAB TAKE ONE TABLET BY MOUTH ONCE ACTIVE DAILY FOR VITAMIN SUPPLEMENTATION 11) DOXYCYCLINE HYCLATE 50MG CAP TAKE ONE CAPSULE BY MOUTH TWICE ACTIVE DAILY Indication: FOR INFECTION CAUSED BY BACTERIA 12) MELATONIN 3MG CAP/TAB TAKE ONE TABLET BY MOUTH AT BEDTIME ACTIVE 13) METFORMIN HCL 1000MG TAB TAKE ONE TABLET BY MOUTH ONCE DAILY ACTIVE (S) (NOTE DOSE) Indication: FOR TYPE 2 DIABETES MELLITUS 14) PRAMIPEXOLE DIHYDROCHLORIDE 0.5MG TAB TAKE ONE TABLET BY ACTIVE MOUTH THREE TIMES A DAY 15) PREDNISONE 5MG TAB TAKE ONE TABLET BY MOUTH ONCE DAILY ACTIVE DIRECTED WITH ABIRATERONE. TAKE WITH FOOD OR MILK. 16) RASAGILINE MESYLATE 0.5MG TAB TAKE ONE TABLET BY MOUTH ONCE ACTIVE DAILY 17) TAMSULOSIN HCL 0.4MG CAP TAKE ONE CAPSULE BY MOUTH ONCE ACTIVE DAILY Indication: FOR ENLARGED PROSTATE Active Non-VA Medications Status === 1) Non-VA ALBUTEROL 90MCG (CFC-F) 200D ORAL INHL 2 PUFFS BY ACTIVE MOUTH EVERY 4 HOURS NEEDED 2) Non-VA FISH OIL 1000MG (500MG DHA/EPA) CAP 1000MG BY MOUTH ACTIVE ONCE DAILY 3) Non-VA FLUTICASONE PROP 50MCG 120D NASAL INHL 1 SPRAY INTO ACTIVE EACH NOSTRIL ONCE DAILY NEEDED 4) Non-VA TRIAMCINOLONE ACETONIDE 0.1% CREAM THIN LAYER ACTIVE TOPICALLY TWICE DAILY NEEDED 21 Total Medications Allergies: PENICILLIN All medications including those prescribed by outside VA's, community providers, and all OTC meds were reviewed and reconciled with patient to the best of their abilities. 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 Distance vision is fairly stable. Would like new progressives, happy with current frame. No other ocular complaints today. Reports he is still taking antibiotic BID for previous left eye infection. Using AT's daily for dry eyes, mostly in the morning, would like more refills. HISTORY AND REVIEW OF SYSTEMS: 1) DM without retinopathy OU 2) pseudophakia OU 3) rosacea vs eczema with conjunctivitis OU 4) guttata OU with some reduction in vision 5) OTN OS 6) astigmatism OU/presbyopia (-) Pain: (-) VELEZ: (-) Diplopia: (-) Flashes: (-) Floaters: (-) Amaurosis Fugax/Tia's: (-) Eye Injury: (-) Eye Surgery: (-) TBI (+) FOHx: ?Brother Glaucoma (-) Smoker/Length of Time: DIABEIC: Yes LAST A1C: Results HEMOGLOBIN A1C PANEL BLOOD (LAV-BLOOD) [facility] #[id number] Collection time: Feb 03, 2024@13:41 Test Name Result Units Range --------- ------ ----- ----- HEMOGLOBIN A1C 6.1 H % 4.0 - 5.6 NEW ALLERGIES TO REPORT: No EYE MEDICATION(S): AT's daily CURRENT RX WITH BCVA: OD: PLANO -0.50 X150 20/25-2 OS: -0.50 -0.50 X148 20/25 ADD: +3.00 20/25 OU DVA: ( )SC ( )CC (X)Phoropter ( )CL OD: 20/30-2 OS: 20/40-2 NVA OU: 20/30+2 MANIFEST REFRACTION(MRx): OD: NI OS: -1.00 -0.50 x145 20/40+2 slow ADD: +3.00 20/20-1 OU CVF: Appear FTFC OU EOMS: Appear Full OU PUPILS: Appear ERRL(-)APD INTRAOCULAR PRESSURE (IOP) METHOD: Goldmann Time: 1:27PM OD: 13 OS: 12 ANTERIOR CHAMBER (AC): Penlight or slit lamp (if available) exam appears unremarkable. Pupils are dilated. Dilation and driving precautions reviewed with patient and patient expresses understanding. Medication: 1% Tropicamide, 2.5% Phenylephrine OU Time: 1:30PM Visual Imaging Performed Today: Additional Comments: /rashid/ Rosa Isela Joseph [facility] Health Casting Wheel Operator Signed: 06/05/2024 13:32 ROSA ISELA [facility]
--- OUTSIDE RECORDS SUMMARY | 2024-08-12 08:45 | XMS_ITS | Encounter Summary ---
Author Name [facility] [facility] [place] Address [address] [place] [address] Care Team Providers Care Jewel Hole Cornerer Name Role Phone LUCITA BLANCHARD Primary Care [...] Mills's Name Patient's Relationship to Policy Mills [place] ([place] [facility]GANIZAT ION HAMPS HIRE COUNT Y INS Dec 22, 2020 [id number] ARCHIE , SPOUSE BCBS [place] [employer] MAIN[employer]ivoAN CE ORGANIZAT ION HAMPS HIRE COUNT Y INS Dec 22, 2020 [id number] BEULAH ALMANZA SPOUSE BCBS OF [facility] [employer] [place]IN[place] CE ORGANIZAT ION HAMPS HIRE COUNT Y INS Dec 22, 2020 [id number] ALEJANDRA ALMANZA SPOUSE [place] PRESCRIPT ION HAMPS HIRE COUNT Y INS Dec 22, 2020 RX21AT [id number] [phone] BEULAH ALMANZA SPOUSE [place] PRESCRIPT ION HAMPS HIRE COUNT Y INS Dec 22, 2020 RX21AT [phone] BEULAH ALMANZA SPOUSE [place] PRESCRIPT ION HAMPS HIRE COUNT Y INS Dec 22, 2020 RX21AT [id number] JOSETTE ALMANZA PATIENT [place] PRESCRIPT ION HAMPS HIRE COUNT Y INS Dec 22, 2020 RX21AT [id number] BEULAH ALMANZA SPOUSE [employer] ([id number]) PRESCRIPT ION L4TA* Sep 22, 2013 L4TA [id number] [phone] BEULAH ALMANZA SPOUSE [employer] ([id number]) PRESCRIPT ION L4TA* Sep 22, 2013 L4TA [id number] BEULAH ALMANZA SPOUSE MEDICARE (WNR) MEDICARE (M) PART A Feb 23, 2016 PART A [id number] JOSETTE ALMANZA PATIENT MEDICARE (WNR) MEDICARE (M) PART A Feb 23, 2016 PART A [id number] JOSETTE ALMANZA PATIENT Selected Encounter This section includes the information on record at [place] for the Encounter. Date/Time Encounter Type Encounter Description Reason Pro vider Source Aug 03, 2024 11:33 AM Outpatient Encounter PAIN CLINIC IHE Encounter Template Text not used by [place] Plan of Treatment: Future Appointments (+ 6 months) and Future Tests (+/- 45 days) The Plan of Treatment section includes future care activities for the patient from all [place] treatmentfacilities. This section includes future appointments and future orders which are active, pending or scheduled. Future Appointments This section includes appointments that were scheduled to occur 6 months from the date of the Encounter, up to a maximum of 20 appointments. The data comes from all [place] treatment facilities. Appointment Date/Time Appointment Type Appointme nt Facility Name Aug 12, 2024 08:30 AM [facility] Sep 10, 2024 11:00 AM AMBULATORY MEDICINE [facility] November 12, 2024 02:00 PM AMBULATORY - NONE [facility] Active, Pending, and Scheduled Orders This section includes a listing of several types of active, pending, and scheduled orders, including clinic medications orders, diagnostic test orders, procedure orders and consult orders; where the start date of the order is 45 days before the date of the Encounter or 45 days after the date of theEncounter. The data comes from all [place] treatment facilities. Test Date/Time Test Type Test Details Facility Name Jul 29, 2024 02:55 PM Consult Order PAIN CLINI C/[facility] OUTPT Cons Corporate Events Director's Choice [place] [facility] Lab Results: +/- 30 days of the encounter This section includes the Chemistry and Hematology Lab Results on record with [place] for the patient. Radiology Reports and Pathology Reports are provided separately, in subsequent sections. Lab Results This section contains the Chemistry/Hematology Results that were resulted 30 days before or 30 daysafter the date of the Encounter. Date/Time Source Result Type Result - Unit Interpretation Reference Range Comment Jul 08, 2024 10:53 AM [place] [facility] CALCIUM Specimen Type: SERUM No comment entered. Ordering Provider: KEITH BLANCHARD Report Released Date/Time: Jul 07, 2024 04:05 PM Reporting Lab: [address] [address] Performing Lab: [address] [address] CALCIUM 9.4 mg/dL 8.5-10.2 Jul 08, 2024 10:53 AM [place] [facility] LIVER FUNCTION Specimen Type: SERUM No comment entered. Ordering Provider: KEITH BLANCHARD Report Released Date/Time: Jul 07, 2024 04:05 PM Reporting Lab: [address] [address] Performing Lab: [address] [address] PROTEIN,TOTAL 7.0 g/dL 6.0-8.3 ALBUMIN 4.0 g/dL 3.5-5.0 ALKALINE PHOSPHATASE 223 U/L H 40-150 AST 20 U/L 5-34 ALT <6 U/L BILIRUBIN, TOTAL 1.1 mg/dL 0.2-1.2 Jul 08, 2024 10:53 AM [place] [facility] BASIC METABOLIC PANEL (non-fasting) Specimen Type: SERUM No comment entered. Ordering Provider: KEITH BLANCHARD Report Released Date/Time: Jul 07, 2024 04:05 PM Reporting Lab: [address] [address] Performing Lab: [address] [address] UREA NITROGEN 22 mg/dL 7-25 GLUCOSE 120 mg/dL H 65-100 SODIUM 140 mmol/L 135-145 POTASSIUM 4.3 mmol/L 3.5-5.0 CHLORIDE 107 mmol/L 100-110 CO2 25 meq/L 20-30 CREATININE, Serum 0.67 mg/dL 0.50-1.40 eGFR(CKD-EPI 2020) >90 mL/min >60 Jul 08, 2024 10:53 AM [place] [facility] URINALYSIS Specimen Type: URINE Comment: If Glucose = >500 and Ketones are positive, please alert the Physician. Ordering Provider: KEITH BLANCHARD Report Released Date/Time: Jul 07, 2024 03:18 PM Reporting Lab: [address] [address] Performing Lab: [address] [address] UA COLOR Light-[place] Yellow UA APPEARANCE Turbid Clear UA GLUCOSE Normal mg/dL Negative UA KETONES TRACE mg/dL Negative UA BLOOD NEGATIVE mg/dL Negative UA PROTEIN 20 mg/dL Negative UA NITRITE NEGATIVE mg/dL Negative UA BILIRUBIN NEGATIVE mg/dL Negative UA SPECIFIC GRAVITY 1.023 H 1.016-1.022 UA pH 6.0 5.0-9.0 UA UROBILINOGEN Normal mg/dL <2.0 UA LEUKOCYTE NEGATIVE Negative Jul 08, 2024 10:53 AM [place] [facility] MICROSCOPIC AUTOMATED, URINE Specimen Type: URINE Comment: If Glucose = >500 and Ketones are positive, please alert the Physician. Ordering Provider: KEITH BLANCHARD Report Released Date/Time: Jul 07, 2024 03:18 PM Reporting Lab: [facility] [address] [facility] [address] Performing Lab: [address] [address] UA WBC 0-5 /[HPF] 0-5 UA MUCUS FEW /[LPF] Trace UA RBC 0-2 /[HPF] 0-3 UA SQUAMOUS EPITH FEW /[HPF] UA AMORPHOUS CRYSTALS MODERATE /[HPF] Not Established Jul 08, 2024 10:53 AM [place] ([facility]) CBC AND DIFF (AUTO) Specimen Type: BLOOD No comment entered. Ordering Provider: KEITH BLANCHARD Report Released Date/Time: Jul 07, 2024 04:05 PM Reporting Lab: [address] [address] Performing Lab: [address] [address] WBC 9.54 10*3/uL 4.50-11.00 RBC 4.04 10*6/uL L 4.23-5.66 HGB 13.4 g/dL 12.8-17 HCT 40.7 39.2-50.4 MCV 100.7 fL H 82-99 MCHC 32.9 g/dL 30.8-35.1 PLT 173 10*3/uL 140-360 RDW-CV 13.2 12.0-16.0 MONO, ABS 0.54 10*3/uL 0.30-1.10 MCH 33.2 pg H 26.2-32.6 NEUT % 78.6 H 43.7-75.8 LYMPH % 14.0 14.0-42.3 MONO % 5.7 5.1-13.7 EOS % 1.0 0.4-6.8 BASO % 0.3 0.1-2.0 NEUT, ABS 7.49 10*3/uL 2.20-7.60 LYMPH, ABS 1.34 10*3/uL 1.00-3.20 EOS, ABS 0.10 10*3/uL 0.03-0.44 BASO, ABS 0.03 10*3/uL 0.01-0.13 IMMATURE GRAN % 0.4 0.0-0.7 IMMATURE GRAN, ABS 0.04 10*3/uL 0.00-0.06 NRBC % 0.0 0.0-0.0 NRBC, ABS 0.00 10*3/uL 0.00-0.00 Radiology Reports: +/- 30 days of the encounter Radiology Reports For cases when an order for radiology services may have been completed prior to the date of the Encounter, the report list includes the Radiology Reports that were completed up to 30 days before dateof the Encounter. For cases when an order for radiology services may have been completed after the date of the Encounter, the report list also includes the Radiology Reports that were completed up to30 days after date of the Encounter. The data comes from all [place] treatment facilities. 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 Comparison: None. Findings: There are 5 lumbar vertebral bodies. There is a moderate lumbar dextroscoliotic curvature present. There is intervertebral disc space narrowing, vertebral endplate sclerosis and anterior osteophytosis throughout the visualized thoracic and the entire lumbar spine consistent with degenerative disc disease. This is moderate to severe in degree and is most prominent at the L4-5 level. There is grade 1 anterolisthesis of L3 on L4 and L4 on L5 with overall straightening of the normal lumbar spine lordosis, likely secondary to degenerative disc disease changes. The vertebral heights are normal. There is severe facet joint hypertrophic change. The bony mineralization is normal. No bony fracture, dislocation or subluxation is identified. The visualized sacrum is normal and the visualized sacroiliac joints are normal for age. Impression: Advanced multilevel degenerative changes to the lumbar spine, as described above. Primary Diagnostic Code: No immediate attention required Primary Interpreting Staff: MIHIR BOOTH JR, Radiologist (Geopolitics Teacher) /[facility]IR [facility] Encounter Notes: All associated encounter notes This section contains the clinical notes associated to the Encounter. Date/Time Encounter Note(s) Provider Source Aug 03, 2024 11:33 AM LETTERS: LOCAL TITLE: PATIENT LETTER (B) STANDARD TITLE: LETTERS DATE OF NOTE: AUG 03, 2024@11:33 ENTRY DATE: AUG 03, 2024@11:33:20 AUTHOR: HILARIO DE SANTIAGO COSIGNER: URGENCY: STATUS: COMPLETED [facility] Toll Free Number ext [phone] [facility] scheduling can be reached at ext. [phone] [facility]- ext. [phone] [facility]- ext. [phone] [facility]- ext. [phone] AUG 03, 2024 JOSETTE ALMANZA [address], [place] [address] Dear JOSETTE ALMANZA Thank you for choosing the Department of [facility] ([place]) [facility] as your primary choice for health care. As a partner in your health care, we are contacting you in writing since we have been unsuccessful in our attempts to reach you to date. We want to assure you we are doing everything possible to schedule Veterans for their VA medical care appointments. Our records indicate you are due for an appointment in pain clinic. If you would like to be seen, please contact [place] Call Center at ext. [phone] to schedule an appointment. Thank you for your service to our nation, and we look forward to hearing from you soon. Sincerely, [facility] [address] [place] [id number] [place] [address] ext [phone] [facility] [address] [facility] [address] [place] [address] [place] [address] ext. [phone] [facility] [address] [address] [place] [address] ext. [phone] HILARIO DE SANTIAGO [facility]
--- OUTSIDE RECORDS SUMMARY | 2024-08-12 08:45 | XMS_ITS ---
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 Name Role Phone LUCITA BLANCHARD Primary Care [...] Relationship to [place] AN[place] [facility] H[facility]PS HIRE COUNT Y INS Dec 22, 2020 [id number] [phone] BRNALLELY , SPOUSE [place] MC2 MAINAnheloAN CE ORGANIZAT ION HAMPS HIRE COUNT Y INS Dec 22, 2020 [id number] BEULAH ALMANZA SPOUSE BCBS OF [facility] MC2 MAINAnheloAN CE ORGANIZAT ION HAMPS HIRE COUNT Y INS Dec 22, 2020 [id number] ALEJANDRA ALMANZA SPOUSE [place] PRESCRIPT ION HAMPS HIRE COUNT Y INS Dec 22, 2020 RX21AT [id number] [phone] BEULAH ALMANZA SPOUSE [place] PRESCRIPT ION HAMPS HIRE COUNT Y INS Dec 22, 2020 RX21AT [id number] BEULAH ALMANZA SPOUSE [place] PRESCRIPT ION HAMPS HIRE COUNT Y INS Dec 22, 2020 RX21AT [id number] [phone] JOSETTE ALMANZA PATIENT [place] PRESCRIPT ION HAMPS HIRE COUNT Y INS Dec 22, 2020 RX21AT [id number] BEULAH ALMANZA SPOUSE [employer] ([id number]) PRESCRIPT ION L4TA* Sep 22, 2013 L4TA [id number] BEULAH ALMANZA SPOUSE [employer] ([id number]) PRESCRIPT ION L4TA* Sep 22, 2013 L4TA [id number] [phone] BEULAH ALMANZA SPOUSE MEDICARE (WNR) MEDICARE (M) PART A Feb 23, 2016 PART A [id number] [facility] [phone] JOSETTE ALMANZA PATIENT MEDICARE (WNR) MEDICARE (M) PART A Feb 23, 2016 PART A [id number] VE JOSETTE ALMANZA PATIENT Selected Encounter This section includes the information on record at [place] for the Encounter. Date/Time Encounter Type Encounter Description Reason Provider Source Jan 16, 2024 03:00 PM INTRM OPH EXAM EST PATIENT OPTOMETRY ICD-10-CM H04.322 Acute dacryocystitis of left lacrimal passage CÉSAR TEJEDA E Encounter Template Text not used by [place] Assessments - Encounter Diagnoses This section includes the primary and secondary diagnoses documented for the Encounter. Date/Time Primary/Secondary Diagnosis Diagnosis Name Provider Source Feb 14, 2024 11:47 AM PRIMARY Acute dacryocystitis of left lacrimal passage CÉSAR TEJEDA [place] [facility] [place] [facility] Plan of Treatment: Future Appointments (+ 6 months) and Future Tests (+/- 45 days) The Plan of Treatment section includes future care activities for the patient from all [facility] treatmentfacilities. This section includes future appointments and future orders which are active, pending or scheduled. Future Appointments This section includes appointments that were scheduled to occur 6 months from the date of the Encounter, up to a maximum of 20 appointments. The data comes from all [place] treatment facilities. Appointment Date/Time Appointment Type Appointme nt Facility Name Feb 03, 2024 12:30 PM AMBULATORY - MEDICINE [place] [facility] [place] [facility] Feb 11, 2024 01:00 PM AMBULATORY - MEDICINE [facility] Feb 19, 2024 12:00 PM AMBULATORY - MEDICINE [place] [facility] [place] [facility] Feb 26, 2024 10:00 AM AMBULATORY - MEDICINE [place] [facility] [place] [facility] Apr 29, 2024 01:30 PM AMBULATORY - MEDICINE [facility] Jun 02, 2024 10:45 AM AMBULATORY - MEDICINE [place] [facility] [place] [facility] Jun 05, 2024 01:30 PM AMBULATORY - MEDICINE [place] [facility] [place] [facility] Jul 09, 2024 10:30 AM AMBULATORY - MEDICINE [place] [facility] [place] [facility] Lab Results: +/- 30 days of the [...] Result - Unit Interpretation Reference Range Comment Feb 03, 2024 01:49 PM [place] ([facility] MICROALBUMIN CREATININE RATIO PANEL Specimen Type: URINE No comment entered. Ordering Provider: NEHEMIAS BLANCHARD Report Released Date/Time: Jan 27, 2024 11:47 AM Reporting Lab: [facility] [address] [facility] [address] Performing Lab: [facility] [address] [facility] [address] MICROALBUMIN/C REATININE RATIO 89.4 mg/g H 0-29.9 MICROALBUMIN,Q UANTITATIVE 9.0 mg/dL RR UNAVAIL CREATININE URINE 100.67 mg/dL Feb 03, 2024 01:49 PM [place] ([facility]) URINALYSIS Specimen Type: URINE Comment: If Glucose = >500 and Ketones are positive, please alert the Physician. Ordering Provider: NEHEMIAS BLANCHARD Report Released Date/Time: Jan 27, 2024 11:47 AM Reporting Lab: [address] [address] Performing Lab: [address] [address] UA COLOR Light-Yellow Yellow UA APPEARANCE Clear Clear UA GLUCOSE Normal mg/dL Negative UA KETONES TRACE mg/dL Negative UA BLOOD NEGATIVE mg/dL Negative UA PROTEIN 20 mg/dL Negative UA NITRITE NEGATIVE mg/dL Negative UA BILIRUBIN NEGATIVE mg/dL Negative UA SPECIFIC GRAVITY 1.026 H 1.016-1.022 UA pH 5.5 5.0-9.0 UA UROBILINOGEN Normal mg/dL <2.0 UA LEUKOCYTE NEGATIVE Negative Feb 03, 2024 01:41 PM [place] ([facility]) VITAMIN B12 Specimen Type: SERUM No comment entered. Ordering Provider: NEHEMIAS BLANCHARD Report Released Date/Time: Jan 27, 2024 11:47 AM Reporting Lab: [address] [address] Performing Lab: [address] [address] VITAMIN B12 869 pg/mL 200-900 Feb 03, 2024 01:41 PM [place] ([facility]) VITAMIN D (25-OH) Specimen Type: SERUM No comment entered. Ordering Provider: NEHEMIAS BLANCHARD Report Released Date/Time: Jan 27, 2024 11:47 AM Reporting Lab: [address] [address] Performing Lab: [address] [address] VITAMIN D (25-OH) 25 ng/mL 20-50 Feb 03, 2024 01:41 PM [place] ([facility]) HEMOGLOBIN A1C PANEL Specimen Type: BLOOD Comment: Values obtained from A1C measurements can vary. For atypical A1C assays, a reported value of 7.0 could actually be between 6.72 and 7.28 if measured by a reference method. A reported value of 9.0 could actually be between 8.73 and 9.27. Ref: http://www.ngs p.org/CAPdata. asp Ordering Provider: NEHEMIAS BLANCHARD Report Released Date/Time: Jan 27, 2024 11:47 AM Reporting Lab: [facility] [address] Performing Lab: [facility] [address] [address] HEMOGLOBIN A1C 6.1 H 4.0-5.6 Feb 03, 2024 01:41 PM [place] ([facility]) TSH Specimen Type: SERUM No comment entered. Ordering Provider: NEHEMIAS BLANCHARD Report Released Date/Time: Jan 27, 2024 11:47 AM Reporting Lab: [facility]ITALTRN [address] [address] Performing Lab: [facility]ERN [address] [address] TSH 1.45 u[IU]/mL 0.35-5.00 Feb 03, 2024 01:41 PM [place] ([facility]) PSA Specimen Type: SERUM No comment entered. Ordering Provider: NEHEMIAS BLANCHARD Report Released Date/Time: Jan 27, 2024 11:47 AM Reporting Lab: [facility] TRN [address] [address] Performing Lab: [facility] TRN [facility] [address] PSA 221.85 ng/mL H 0.00-4.00 Feb 03, 2024 01:41 PM [place] ([facility]) CBC AND DIFF (AUTO) Specimen Type: BLOOD No comment entered. Ordering Provider: NEHEMIAS BLANCHARD Report Released Date/Time: Jan 27, 2024 11:47 AM Reporting Lab: [facility]TR[facility] [address] Performing Lab: [facility]ITAL[facility] TRN [facility] [address] WBC 8.15 10*3/uL 4.50-11.00 RBC 4.59 10*6/uL 4.23-5.66 HGB 14.4 g/dL 12.8-17 HCT 44.4 39.2-50.4 MCV 96.7 fL 82-99 MCHC 32.4 g/dL 30.8-35.1 PLT 177 10*3/uL 140-360 RDW-CV 13.4 12.0-16.0 MONO, ABS 0.55 10*3/uL 0.30-1.10 MCH 31.4 pg 26.2-32.6 NEUT % 77.2 H 43.7-75.8 LYMPH % 14.0 14.0-42.3 MONO % 6.7 5.1-13.7 EOS % 1.3 0.4-6.8 BASO % 0.2 0.1-2.0 NEUT, ABS 6.28 10*3/uL 2.20-7.60 LYMPH, ABS 1.14 10*3/uL 1.00-3.20 EOS, ABS 0.11 10*3/uL 0.03-0.44 BASO, ABS 0.02 10*3/uL 0.01-0.13 IMMATURE GRAN % 0.6 0.0-0.7 IMMATURE GRAN, ABS 0.05 10*3/uL 0.00-0.06 NRBC % 0.0 0.0-0.0 NRBC, ABS 0.00 10*3/uL 0.00-0.00 Feb 03, 2024 01:41 PM [place] ([facility]) LIPID PANEL, NON FASTING Specimen Type: SERUM No comment entered. Ordering Provider: NEHEMIAS BLANCHARD Report Released Date/Time: Jan 27, 2024 11:47 AM Reporting Lab: [facility] [email or web address] [address] Performing Lab: [facility] [email or web address] [address] CHOLESTEROL 126 mg/dL TRIGLYCERIDE 71 mg/dL 0-150 LDL calculated 54 mg/dL 0-129 CHOL/HDL 2.2 HDL CHOLESTEROL 58 mg/dL 40-60 Feb 03, 2024 01:41 PM [place] ([facility]) BASIC METABOLIC PANEL (non-fasting) Specimen Type: SERUM No comment entered. Ordering Provider: NEHEMIAS BLANCHARD Report Released Date/Time: Jan 27, 2024 11:47 AM Reporting Lab: [address] [address] Performing Lab: [address] [address] UREA NITROGEN 21 mg/dL 7-25 GLUCOSE 166 mg/dL H 65-100 SODIUM 139 mmol/L 135-145 POTASSIUM 4.3 mmol/L 3.5-5.0 CHLORIDE 103 mmol/L 100-110 CO2 25 meq/L 20-30 CREATININE, Serum 0.77 mg/dL 0.50-1.40 eGFR(CKD-EPI 2020) >90 mL/min >60 Feb 03, 2024 01:41 PM [place] ([facility]) LIVER FUNCTION Specimen Type: SERUM No comment entered. Ordering Provider: NEHEMIAS BLANCHARD Report Released Date/Time: Jan 27, 2024 11:47 AM Reporting Lab: [address] [address] Performing Lab: [address] [address] PROTEIN,TOTAL 7.0 g/dL 6.0-8.3 ALBUMIN 4.1 g/dL 3.5-5.0 ALKALINE PHOSPHATASE 170 U/L H 40-150 AST 15 U/L 5-34 ALT 9 U/L BILIRUBIN, TOTAL 0.7 mg/dL 0.2-1.2 Encounter Notes: All associated encounter notes This section contains the clinical notes associated to the Encounter. Date/Time Encounter Note(s) Provider Source Jan 16, 2024 03:06 PM OPTOMETRY NOTE: LOCAL TITLE: OPTOMETRY NOTE STANDARD TITLE: OPTOMETRY NOTE DATE OF NOTE: JAN 16, 2024@15:06 ENTRY DATE: JAN 16, 2024@15:06:57 AUTHOR: JACOB ALTAMIRANO JR EXP COSIGNER: CÉSAR TEJEDA URGENCY: STATUS: COMPLETED OPTOMETRY NOTE Has ADDENDA Active problems - Computerized Problem List is the source for the followin. 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 Vitamin D Deficiency ([facility] [id number]) 4. Vitamin B12 Deficiency ([facility] [id number]) 5. Aortic valve stenosis 6. Kidney lesion 7. Pancreatic cyst 8. Lumbar radiculopathy 9. Fatty liver 10. Diabetes mellitus type 2 11. Hyperlipidemia 12. Parkinsons disease 13. Benign hypertension Active Outpatient Medications (including Supplies): Active Outpatient Medications Status 1) ACCU-CHEK GUIDE (GLUCOSE) TEST STRIP USE 1 STRIP TO ACTIVE TEST BLOOD SUGARS TWICE A WEEK NEEDED DIABETES 2) AMMONIUM LACTATE 12% LOTION APPLY SMALL AMOUNT ACTIVE TOPICALLY ONCE DAILY FOR DRY IRRITATED SKIN APPLY TO SKIN OF FEET ANKLE AND LOWER LEGS DAILY 3) ATORVASTATIN CALCIUM 80MG TAB TAKE ONE-HALF TABLET BY ACTIVE MOUTH AT BEDTIME FOR CHOLESTEROL 4) CARBIDOPA 25/LEVODOPA 100MG TAB TAKE 3 TABLETS BY ACTIVE MOUTH FOUR TIMES A DAY ### 5) CARBIDOPA 50/LEVODOPA 200MG SA TAB TAKE 1 TABLET BY ACTIVE (S) MOUTH AT BEDTIME FOR PARKINSON'S DISEASE 6) CHOLECALCIF 25MCG (D3-1,000UNIT) TAB TAKE ONE TABLET ACTIVE BY MOUTH ONCE DAILY FOR VITAMIN SUPPLEMENTATION 7) CLOTRIMAZOLE 1% TOP SOLN APPLY 1 DROP TOPICALLY ONCE ACTIVE DAILY FOR FUNGAL INFECTION APPLY TO TOE NAIL WHEN DRY 8) CYANOCOBALAMIN 1000MCG TAB TAKE ONE TABLET BY MOUTH ACTIVE ONCE DAILY FOR VITAMIN SUPPLEMENTATION 9) LISINOPRIL 5MG TAB TAKE ONE TABLET BY MOUTH ONCE ACTIVE DAILY TO CONTROL BLOOD PRESSURE (NOTE DOSE) 10) MELATONIN 3MG CAP/TAB TAKE ONE TABLET BY MOUTH AT ACTIVE BEDTIME 11) METFORMIN HCL 1000MG TAB TAKE ONE TABLET BY MOUTH ACTIVE ONCE DAILY FOR TYPE 2 DIABETES MELLITUS (NOTE DOSE) 12) PRAMIPEXOLE DIHYDROCHLORIDE 0.5MG TAB TAKE ONE TABLET ACTIVE BY MOUTH THREE TIMES A DAY 13) RASAGILINE MESYLATE 0.5MG TAB TAKE ONE TABLET BY ACTIVE MOUTH ONCE DAILY 14) TAMSULOSIN HCL 0.4MG CAP TAKE ONE CAPSULE BY MOUTH ACTIVE ONCE DAILY FOR ENLARGED PROSTATE Active Non-VA Medications Status 1) Non-VA ALBUTEROL 90MCG (CFC-F) 200D ORAL INHL 2 PUFFS ACTIVE BY MOUTH EVERY 4 HOURS NEEDED 2) Non-VA FISH OIL 1000MG (500MG DHA/EPA) CAP 1000MG BY ACTIVE MOUTH ONCE DAILY 3) Non-VA FLUTICASONE PROP 50MCG 120D NASAL INHL 1 SPRAY ACTIVE INTO EACH NOSTRIL ONCE DAILY NEEDED 4) Non-VA TRIAMCINOLONE ACETONIDE 0.1% CREAM THIN LAYER ACTIVE TOPICALLY TWICE DAILY NEEDED 18 Total Medications Allergies: PENICILLIN All medications including those prescribed by outside VA's, community providers, and all OTC meds were reviewed and reconciled with patient to the best of their abilities. This 73 year old MALE is seen today for problem focused visit OSVALDO: 10/2022 Dr. Carr Chief Complaint: Pt. states OS has an open sore on lower eyelid x 1 week. Originally it was swollen, feels the swelling interfered with vision. Then it seemed to be getting better, however it has not healed up. It produces whiteish discharge. Causing mild discomfort, minimal itch. Has not tried any therapy for it but takes artificial tears daily. 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 Ocular Medications: - Artificial tears prn: last taken this morning (-) Pain: (-) VELEZ: (-) Diplopia: (-) Flashes: (-) Floaters: (-) Amaurosis Fugax/Tia's: (-) Eye Injury: (-) Eye Surgery: (-) TBI FOHx: (-) Glaucoma/ARMD/Blindness VITALS (most recent, as listed in the electronic record): B/P: 133/80 (11/26/2023 12:56) Pulse: 99 (11/26/2023 12:56) Temperature: 98.1 F [36.7 C] (11/26/2023 12:56) Weight: 166.4 lb [75.48 kg] (11/26/2023 12:56) Height: 67 in [170.2 cm] (09/04/2021 09:55) BMI: BMI: 26.1 PERTINENT LABS: HEMOGLOBIN A1C TREND Collection DT Spec HGBA1c 10/04/2023 09:55 BLOOD 6.5 H 03/05/2023 07:25 BLOOD 6.7 H 09/03/2022 10:49 BLOOD 6.9 H 03/02/2022 07:52 BLOOD 6.6 H 08/29/2021 07:48 BLOOD 6.6 H (-) Smoker/Length of Time/PPD: Current Rx with last BCVA: OD:plano - 0.50 x150 20/25-2 OS:-0.50-0.13i174 20/25 Add:+3.00 DVA ( )sc ( x )cc - phoropter OD: 20/40+2 OS: 20/40-2 Subjective Refraction: Defer All the above performed by student, reviewed by attending Anterior segment: Performed by student, repeated by attending * Lids: OD: Dermatochalasis OS: mucopurulent discharge in U/L lashes nasally Conj: OD: clear & quiet OS: inferior medial punctum inflammed with overlying scab and mucopurulent discharge present. mildly injected inferior palpebral conj with retained discharge in fornix. minimal discomfort on palpation Cornea: OD: guttata OS: guttata, no infiltrates or epithelial defect AC: D&Q OU Angles: 4x4 OU Iris: flat and clear (-)NVI OU Lens: Not viewed Tonometry: Not required Fundus exam: Not required Assessment/Plan: 1. Acute Dacryocystitis OS - Pt. has allergy to penicillin, longstanding from [facility] but unsure of reaction if taken. - Ed. pt. to use Doxycycline 100mg BID PO x 10 days - Ed. pt. to use Polytrim QID OS x 10 days - Educated patient on findings and to call if worsening - Will RTC in 10 days to evaluate improvement vs potential for cancerous lesion Return to Clinic 10-14 days or earlier PRN Not addressed today: - Type 2 DM without retinopathy or diabetic macular edema OU - Pseudophakia OU - Refractive error & presbyopia OU /es/ JACOB ALTAMIRANO JR OPTOMETRY STUDENT Signed: 01/16/2024 16:45 /es/ CÉSAR TEJEDA OD Screwhead Polisher Cosigned: 01/28/2024 07:45 01/28/2024 ADDENDUM STATUS: COMPLETED The optometry digital marketing intern participated in this exam, I saw this [facility] in conjunction with the optometry student. The entrance tests and refraction were performed by the student and reviewed by me. I personally met with the patient, confirmed the history, complaints and the student's findings, and performed slit lamp and fundus evaluation as indicated. I reviewed and agree with the stated findings, assessment and plan. I have added/edited the documentation to reflect my exam findings and changes to the assessment and plan. patient offered and declined printed medication list Medication Reconciliation: Outpatient: Has the patient been [...] whether with a VA or non-VA provider. JLV Link Data on this list may not be complete. Please check JLV. Allergies/ADRs (Tool #5) FACILITY ALLERGY/ADR -------- No Remote Allergy/ADR Data available for this patient [place] [facility] [place] [facility] PENICILLIN Med Recon NoGlossary (Tool #1) INCLUDED IN THIS LIST: Alphabetical [...] the patient into personal health records (i.e. [employer]) are NOT included in this list. Non-VA medications documented outside this [place], remote inpatient orders (regardless of status) and remote clinic medications are NOT included in this list. The patient and provider must always discuss medications the patient is taking, regardless of where the medication was dispensed or obtained. Non-VA ALBUTEROL 90MCG (CFC-F) 200D ORAL INHL INHALE 2 PUFFS BY MOUTH EVERY 4 HOURS NEEDED Dec 28, 2019 Medication prescribed by Non-VA provider. OUTPT AMMONIUM LACTATE 12% LOTION (Status = Active) APPLY SMALL AMOUNT TOPICALLY ONCE DAILY FOR DRY IRRITATED SKIN APPLY TO SKIN OF FEET ANKLE AND LOWER LEGS DAILY Rx# [id number] Last Released: 01/10/24 Qty/Days Supply: Rx Expiration Date: 01/08/25 Refills Remainin Indication: FOR DRY SKIN OUTPT ATORVASTATIN CALCIUM 80MG TAB (Status = Active) TAKE ONE-HALF TABLET BY MOUTH AT BEDTIME FOR CHOLESTEROL Rx# [id number] Last Released: 09/16/23 Qty/Days Supply: 45 Rx Expiration Date: 03/13/24 Refills Remainin OUTPT CARBIDOPA 25/LEVODOPA 100MG TAB (Status = Active) TAKE 3 TABLETS BY MOUTH FOUR TIMES A DAY ### Rx# [id number] Last Released: 12/23/23 Qty/Days Supply: Rx Expiration Date: 08/05/24 Refills Remainin OUTPT CARBIDOPA 50/LEVODOPA 200MG SA TAB (Status = Active/Suspended) TAKE 1 TABLET BY MOUTH AT BEDTIME FOR PARKINSON'S DISEASE Rx# [id number] Last Released: 11/23/23 Qty/Days Supply: Rx Expiration Date: 08/05/24 Refills Remainin Indication: FOR PARKINSON'S DISEASE OUTPT CHOLECALCIF 25MCG (D3-1,000UNIT) TAB (Status = Active) TAKE ONE TABLET BY MOUTH ONCE DAILY FOR VITAMIN SUPPLEMENTATION Rx# [id number] Last Released: 11/23/23 Qty/Days Supply: Rx Expiration Date: 03/13/24 Refills Remainin OUTPT CLOTRIMAZOLE 1% TOP SOLN (Status = Active) APPLY 1 DROP TOPICALLY ONCE DAILY FOR FUNGAL INFECTION APPLY TO TOE NAIL WHEN DRY Rx# [id number] Last Released: 01/10/24 Qty/Days Supply: Rx Expiration Date: 01/08/25 Refills Remainin Indication: TOE NAIL FUNGUS OUTPT CYANOCOBALAMIN 1000MCG TAB (Status = Active) TAKE ONE TABLET BY MOUTH ONCE DAILY FOR VITAMIN SUPPLEMENTATION Rx# [id number] Last Released: 11/23/23 Qty/Days Supply: Rx Expiration Date: 03/13/24 Refills Remainin OUTPT DOXYCYCLINE HYCLATE 100MG TAB (Status = Active) TAKE ONE TABLET BY MOUTH TWICE DAILY FOR INFECTION CAUSED BY BACTERIA Rx# [id number] Last Released: 01/16/24 Qty/Days Supply: Rx Expiration Date: 02/15/24 Refills Remainin Indication: FOR INFECTION CAUSED BY BACTERIA Non-VA FISH OIL 1000MG (500MG DHA/EPA) CAP TAKE 1 CAPSULE BY MOUTH ONCE DAILY Non-VA FLUTICASONE PROP 50MCG 120D NASAL INHL INSTILL 1 SPRAY INTO EACH NOSTRIL ONCE DAILY NEEDED OUTPT LISINOPRIL 5MG TAB (Status = Active) TAKE ONE TABLET BY MOUTH ONCE DAILY TO CONTROL BLOOD PRESSURE (NOTE DOSE) Rx# [id number] Last Released: 10/10/23 Qty/Days Supply: Rx Expiration Date: 10/08/24 Refills Remainin Indication: FOR HIGH BLOOD PRESSURE OUTPT MELATONIN 3MG CAP/TAB (Status = Active) TAKE ONE TABLET BY MOUTH AT BEDTIME Rx# [id number] Last Released: 08/09/23 Qty/Days Supply: 120 Rx Expiration Date: 08/05/24 Refills Remainin OUTPT METFORMIN HCL 1000MG TAB (Status = Active) TAKE ONE TABLET BY MOUTH ONCE DAILY FOR TYPE 2 DIABETES MELLITUS (NOTE DOSE) Rx# [id number] Last Released: 12/23/23 Qty/Days Supply: Rx Expiration Date: 10/08/24 Refills Remainin Indication: FOR TYPE 2 DIABETES MELLITUS OUTPT POLYMYXIN/TRIMETHOPRIM 0.1% OPH SOLN (Status = Active) INSTILL 1 DROP INTO THE LEFT EYE FOUR TIMES A DAY FOR EYE INFECTION CAUSED BY BACTERIA Rx# [id number] Last Released: 01/16/24 Qty/Days Supply: 03/30 Rx Expiration Date: 01/16/25 Refills Remainin Indication: FOR EYE INFECTION CAUSED BY BACTERIA OUTPT PRAMIPEXOLE DIHYDROCHLORIDE 0.5MG TAB (Status = Active) TAKE ONE TABLET BY MOUTH THREE TIMES A DAY Rx# [id number] Last Released: 12/05/23 Qty/Days Supply: 270/ Rx Expiration Date: 08/05/24 Refills Remainin OUTPT RASAGILINE MESYLATE 0.5MG TAB (Status = Active) TAKE ONE TABLET BY MOUTH ONCE DAILY Rx# [id number] Last Released: 11/23/23 Qty/Days Supply: Rx Expiration Date: 08/05/24 Refills Remainin OUTPT TAMSULOSIN HCL 0.4MG CAP (Status = Active) TAKE ONE CAPSULE BY MOUTH ONCE DAILY FOR ENLARGED PROSTATE Rx# [id number] Last Released: 11/22/23 Qty/Days Supply: Rx Expiration Date: 11/19/24 Refills Remainin Indication: FOR ENLARGED PROSTATE Non-VA TRIAMCINOLONE ACETONIDE 0.1% CREAM APPLY A THIN LAYER TOPICALLY TWICE DAILY NEEDED SUPPLIES OUTPT ACCU-CHEK GUIDE (GLUCOSE) TEST STRIP (Status = Active) USE 1 STRIP TO TEST BLOOD SUGARS TWICE A WEEK NEEDED DIABETES Rx# [id number] Last Released: 09/18/23 Qty/Days Supply: 50/180 Rx Expiration Date: 09/15/24 Refills Remainin Indication: DIABETES OUTPT LANCET,SOFTCLIX (Status = ) USE 1 LANCET DIRECTED TWICE A WEEK NEEDED TO TEST BLOOD SUGAR Rx# [id number] Last Released: 09/18/23 Qty/Days Supply: Rx Expiration Date: 12/14/23 Refills Remainin /rashid/ CÉSAR TEJEDA OD Screwhead Polisher Signed: 01/28/2024 07:45 JACOB ALTAMIRANO JR [place] [facility]
--- OUTSIDE RECORDS SUMMARY | 2024-08-12 08:45 | XMS_ITS | Encounter Summary ---
Author Name [facility] Organization [facility] Address [address] [place] [address] Care Team Providers Care Bike Mechanic Name Role Phone LUCITA BLANCHARD Primary Care [...] Relationship to Policy [place] [facility]GAN[facility] HAMPS HIRE COUNT Y INS Dec 22, 2020 [id number] ARCHIE , SPOUSE [place] FANCR[place] MAINNativisAN CE ORGANIZAT ION HAMPS HIRE COUNT Y INS Dec 22, 2020 [id number] [phone] BEULAH ALMANZA SPOUSE BCBS OF [facility] FANCRU MAINTENAN CE ORGANIZAT ION HAMPS HIRE COUNT Y INS Dec 22, 2020 [id number] SIDRA ALMANZA SPOUSE [place] PRESCRIPT ION HAMPS HIRE COUNT Y INS Dec 22, 2020 RX21AT [id number] [phone] BEULAH ALMANZA SPOUSE [place] PRESCRIPT ION HAMPS HIRE COUNT Y INS Dec 22, 2020 RX21AT [id number] BEULAH ALMANZA SPOUSE [place] PRESCRIPT ION HAMPS HIRE COUNT Y INS Dec 22, 2020 RX21AT [id number] [phone] JOSETTE ALMANZA PATIENT [place] PRESCRIPT ION HAMPS HIRE COUNT Y INS Dec 22, 2020 RX21AT [id number] BEULAH ALMANZA SPOUSE [employer] ([id number]) PRESCRIPT ION L4TA* Sep 22, 2013 L4TA [id number] [phone] BEULAH ALMANZA SPOUSE [employer] ([id number]) PRESCRIPT ION L4TA* Sep 22, 2013 L4TA [id number] BEULAH ALMANZA SPOUSE MEDICARE (WNR) MEDICARE (M) PART A Feb 23, 2016 PART A [id number] JOSETTE ALMANZA PATIENT MEDICARE (WNR) MEDICARE (M) PART A Feb 23, 2016 PART A [id number] JOSETTE ALMANZA PATIENT Selected Encounter This section includes the information on record at [place] for the Encounter. Date/Time Encounter Type Encounter Description Reason Provider Source Jul 09, 2024 10:30 AM OFFICE O/P EST MOD 30 MIN PRIMARY CARE/MEDICINE ICD-10-CM M54.50 Low back pain, unspecified NEHEMISA BLANCHARD Encounter Template Text not used by [place] Assessments - Encounter Diagnoses This section includes the primary and secondary diagnoses documented for the Encounter. Date/Time Primary/Secondary Diagnosis Diagnosis Name Provider Source Aug 11, 2024 07:21 AM PRIMARY Low back pain, unspecified NEHEMIAS BLANCHARD ([facility]) Aug 11, 2024 07:21 AM SECONDARY Left lower quadrant pain NEHEMIAS BLANHCARD ([facility]) Plan of Treatment: Future Appointments (+ 6 [...] 20 appointments. The data comes from all [facility]. Appointment Date/Time Appointment Type Appointme nt Facility Name Jul 27, 2024 01:30 PM AMBULATORY - MEDICINE [facility] ([facility]) Aug 12, 2024 08:30 AM [place] [facility] [facility] Sep 10, 2024 11:00 AM [place] [facility] [place] [facility] November 12, 2024 02:00 PM [facility] Active, Pending, and Scheduled Orders This section includes a listing of several types of active, pending, and scheduled orders, including clinic medications orders, diagnostic test orders, procedure orders and consult orders; where the start date of the order is 45 days before the date of the Encounter or 45 days after the date of theEncounter. The data comes from all [facility]. Test Date/Time Test Type Test Details Facility Name Jul 29, 2024 02:55 PM Consult Order PAIN CLINI C/[facility] OUTPT Cons Auditing Specialist's Choice [facility] ([facility]) Lab Results: +/- 30 days of the encounter This section includes the Chemistry and Hematology Lab Results on record with [place] for the patient. Radiology Reports and Pathology Reports are provided separately, in subsequent sections. Lab Results This section contains the Chemistry/Hematology Results that were resulted 30 days before or 30 daysafter the date of the Encounter. Date/Time Source Result Type Result - Unit Interpretation Reference Range Comment Jul 08, 2024 10:53 AM [facility] ([facility]) CALCIUM Specimen Type: SERUM No comment entered. Ordering Provider: KEITH BLANCHARD Report Released Date/Time: Jul 07, 2024 04:05 PM Reporting Lab: [address] [address] Performing Lab: [address] [address] CALCIUM 9.4 mg/dL 8.5-10.2 Jul 08, 2024 10:53 AM [facility] ([facility]) LIVER FUNCTION Specimen Type: SERUM No comment entered. Ordering Provider: KEITH BLANCHARD Report Released Date/Time: Jul 07, 2024 04:05 PM Reporting Lab: [address] [address] Performing Lab: [address] [address] PROTEIN,TOTAL 7.0 g/dL 6.0-8.3 ALBUMIN 4.0 g/dL 3.5-5.0 ALKALINE PHOSPHATASE 223 U/L H 40-150 AST 20 U/L 5-34 ALT <6 U/L BILIRUBIN, TOTAL 1.1 mg/dL 0.2-1.2 Jul 08, 2024 10:53 AM [facility] ([facility]) BASIC METABOLIC PANEL (non-fasting) Specimen Type: SERUM No comment entered. Ordering Provider: KEITH BLANCHARD Report Released Date/Time: Jul 07, 2024 04:05 PM Reporting Lab: [address] [address] Performing Lab: [address] [address] UREA NITROGEN 22 mg/dL 7-25 GLUCOSE 120 mg/dL H 65-100 SODIUM 140 mmol/L 135-145 POTASSIUM 4.3 mmol/L 3.5-5.0 CHLORIDE 107 mmol/L 100-110 CO2 25 meq/L 20-30 CREATININE, Serum 0.67 mg/dL 0.50-1.40 eGFR(CKD-EPI 2020) >90 mL/min >60 Jul 08, 2024 10:53 AM [facility] ([facility]) URINALYSIS Specimen Type: URINE Comment: If Glucose = >500 and Ketones are positive, please alert the Physician. Ordering Provider: KEITH BLANCHARD Report Released Date/Time: Jul 07, 2024 03:18 PM Reporting Lab: [address] [address] Performing Lab: [address] [address] UA COLOR Light-Sekiu Yellow UA APPEARANCE Turbid Clear UA GLUCOSE Normal mg/dL Negative UA KETONES TRACE mg/dL Negative UA BLOOD NEGATIVE mg/dL Negative UA PROTEIN 20 mg/dL Negative UA NITRITE NEGATIVE mg/dL Negative UA BILIRUBIN NEGATIVE mg/dL Negative UA SPECIFIC GRAVITY 1.023 H 1.016-1.022 UA pH 6.0 5.0-9.0 UA UROBILINOGEN Normal mg/dL <2.0 UA LEUKOCYTE NEGATIVE Negative Jul 08, 2024 10:53 AM [facility] ([facility]) MICROSCOPIC AUTOMATED, URINE Specimen Type: URINE Comment: If Glucose = >500 and Ketones are positive, please alert the Physician. Ordering Provider: KEITH BLANCHARD Report Released Date/Time: Jul 07, 2024 03:18 PM Reporting Lab: [address] [address] Performing Lab: [address] [address] UA WBC 0-5 /[HPF] 0-5 UA MUCUS FEW /[LPF] Trace UA RBC 0-2 /[HPF] 0-3 UA SQUAMOUS EPITH FEW /[HPF] UA AMORPHOUS CRYSTALS MODERATE /[HPF] Not Established Jul 08, 2024 10:53 AM [facility] ([facility]) CBC AND DIFF (AUTO) Specimen Type: BLOOD No comment entered. Ordering Provider: KEITH BLANCHARD Report Released Date/Time: Jul 07, 2024 04:05 PM Reporting Lab: [address] [address] Performing Lab: [address] [address] WBC 9.54 10*3/uL 4.50-11.00 RBC 4.04 10*6/uL [...] 0.0 0.0-0.0 NRBC, ABS 0.00 10*3/uL 0.00-0.00 Social History: Smoking Status (Most current) and Tobacco Use (All prior to encounter date) This section includes the most current, and the historical, smoking and tobacco- related health factors from the [place] facility where the Encounter took place. Current Smoking Status This section includes the most current smoking, or tobacco-related health factor, from the [place] facility where the Encounter took place. Date/Time Current Smoking Status Comment Facil ity Oct 07, 2023 03:00 PM [facility] NEVER USED [facility] ([facility]) Tobacco Use History This section includes a history of the smoking, or tobacco-related health factors, that were collected on or before the date of the Encounter. The data comes from the [place] facility where the Encounter took place. Date/Time Smoking Status/Tobacco Use Comment F acility Mar 08, 2023 10:30 AM [facility]BACCO NEVER USED [facility] ([facility]) Mar 07, 2022 10:00 AM [facility]CO NEVER USED [facility] ([facility]) Mar 07, 2021 09:30 AM [facility]CO NEVER USED [facility] ([facility]) Mar 18, 2019 12:16 PM [facility]-TO[facility]ACCO NEVER USED [facility] ([facility]) Radiology Reports: +/- 30 days of the [...] the Encounter. The data comes from all [place] treatment facilities. Date/Time Radiology Report Provider Source Jul 08, 2024 11:08 AM SPINE LUMBOSACRAL MIN 2 VIEWS: JOSETTE ALMANZA [id number] -[id number] M Exm Date: JUL 08, 2024@11:08 Req Phys: LUCITA BLANCHARD Pat Loc: C[facility]/GO/PACT 1 [facility] (Req'g Loc) Img Loc: [facility]/BUILDING 1 Service: [place] [address] (Case 169 COMPLETE) SPINE LUMBOSACRAL MIN 2 VIEWS (RAD Detailed) CPT:92598 Reason for Study: back pain Clinical History: Covering resident, fellow, STORE ADMINISTRATIVE ASSISTANT or attending: [facility] Pager: [phone] Backup pager: History: left lower back pain Report Status: Verified Date Reported: JUL 08, 2024 Date Verified: JUL 08, 2024 Pulmonary Physician E-Sig:/ES/MIHIR BOOTH JR Report: Study: AP, lateral [...] Primary Interpreting Staff: MIHIR BOOTH JR, Radiologist (Pulmonary Physician) /MIHIR CASAS JR [facility] Encounter Notes: All associated encounter notes This section contains the clinical notes associated to the Encounter. Date/Time Encounter Note(s) Provider Source Jul 09, 2024 10:35 AM TELEHEALTH NOTE: LOCAL TITLE: [place] VIDEO CONNECT PRIMARY CARE STANDARD TITLE: TELEHEALTH NOTE DATE OF NOTE: JUL 09, 2024@10:35 ENTRY DATE: JUL 09, 2024@10:36:02 AUTHOR: LUCITA BLANCHARD EXP COSIGNER: URGENCY: STATUS: COMPLETED [facility] Video Connect (VVC) Standard Documentation VVC Clinician Resources Only: E911 (Emergency Call Relay Center): [phone] [facility] Crisis Line - 988 then press #1. CW Suicide Coordinator - [phone], Ext. [phone]; Back-up Ext. [phone] [place] Police, BLANCA, David - [phone] Introduction: Visit is being conducted by ADARTIS. identified with 2 identifiers: [X] Full Name [X] Date of [ ] VA ID Card Emergency Plan: confirmed and/or provided the following information in case of emergency or technology failure. PATIENT PHONE - [phone] PHONE NUMBER [CELLULAR] - Is patient phone number correct, if not, enter below: Armada's phone number: [address], [place] [address] Armada's present location and address for appointment: [address] [place] [address] [place]'s emergency contact name and phone number: Sidra Nicole [phone] [place] reported that location is private and safe: Yes Informed Consent: [place] informed of the risks and benefits of Telehealth video care. [place] has the right to refuse video services. If refuses video visit, a [id number] visit will be scheduled. [place] verbalized consent for this video visit: Yes [place] provided consent for any other persons present for visit: N/A If yes, who and relationship to patient: Secure visit: Visit was locked for security and privacy:Yes Vital Signs Visualized during video visit: PRIMARY CARE VISIT JOSETTE ALMANZA, is a 74 yo WHITE MALE who [facility] at the [facility]. TYPE OF VISIT: Video 74-year-old here to follow-up with video visit regarding his left-sided back pain. We did a lumbar spine x-ray and labs. Since the pain started it has now changed. States that the pain in the left lower back has improved. Yesterday however he felt a popping sensation in the lower back and now there is a pain in the left lower quadrant near the groin above the crease is provide room he states the pain is constant in this area and it hurts to move. Spine x-ray results: There are 5 lumbar vertebral bodies. There [...] the visualized sacroiliac joints are normal for age Recent labs and all medications were reconciled during this visit. HEALTHCARE PROVIDERS: Social Hx: MARITAL STATUS - HISTORY: PERIOD OF SERVICE - [facility] [employer] FROM May TO May COMBAT SERVICE INDICATED: No VITAL SIGNS: Temperature 97 F [36.1 C] (04/29/2024 13:37) Blood Pressure 106/68 (04/29/2024 13:37) Pulse 87 (04/29/2024 13:37) Respiration 20 (04/29/2024 13:37) Pain 0 (04/29/2024 13:37) BMI BMI: 26.5 Weight 168.6 lb [76.48 kg] (04/29/2024 13:37) Pulse Oximetry 97% (04/29/2024 13:37) ASSISTIVE DEVICES: REVIEW OF SYSTEMS: CONSTITUTIONAL: No fevers, chills, weight loss/gain ENT: No sore throat, sneezing, congestion, rhinorrhea, anosmia, or ageusia. CARDIOVASCULAR: No chest pain, palpitations, or increased pedal edema RESPIRATORY: No SOB, cough, sputum, wheeze. GASTROINTESTINAL: Denies N/V/D. No melena or hematochezia. No tenesmus or constipation. + Left lower quadrant pain GENITOURINARY: No burning micturition. + Incontinence MUSCULOSKELETAL: + Back pain PSYCHIATRIC: No new anxiety or depression. No sleep disturbance. NEUROLOGIC: No headaches, dizziness, numbness or tingling in the extremities, or unilateral weakness. EXAMINATION General: Well-appearing [place] in no obvious distress. Mental Status: Alert and oriented x4. Head: Normocephalic. Eyes: PERRLA. EOMI. Anicteric sclerae. Neck: Supple. Lungs: Normal effort Breathing is non laboured Ext: No cyanosis or clubbing. No gross deformities. Neuro: CN II through XII grossly intact. Normal speech Integument: Skin warm and dry. No rashes or lesions on visible areas. Psych: Normal mood and affect. Normal judgment. ALLERGIES: ========= PENICILLIN >> HEALTH MAINTENANCE PREVENTIVE MEDICINE GOALS Medication Reconciliation DUE NOW (Optional) Whole Health Documentation DUE NOW ASSESSMENT/PLAN: Active problems - Computerized Problem List is the source for the followin. Elevated PSA 2. Prostate carcinoma 3. 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 Vitamin D Deficiency ([facility] [[email or web address]] [id number]) 6. Vitamin B12 Deficiency ([facility] [[email or web address]] [id number]) 7. Aortic valve stenosis 8. Kidney lesion 9. Pancreatic cyst 10. Lumbar radiculopathy 11. Fatty liver 12. Diabetes mellitus type 2 13. Hyperlipidemia 14. Parkinsons disease 15. Benign hypertension == Left lower quadrant pain: Unable to appropriately evaluate with video visit. Video visit had been converted to telephone due to poor connectivity. It seems [place] is locating pain in the left lower quadrant or groin. Cannot rule out diverticulitis versus inguinal hernia and needs further imaging and evaluation. He was advised to go to emergency room. He is in agreement and will go to [facility] ER == Back pain improved: Reviewed x-ray with . Significant degenerative disc disease. FOLLOW UP: RTC Below & sooner PRN UPCOMING APPOINTMENTS: 07/27/2024 13:30 CWM/GO/PACT 1 [facility] 07/30/2024 14:00 CWM/NO/PODIATRY/NAIL 08/12/2024 08:[address] [facility]UROLOGY 11/12/2024 14:00 CWM V01 VVC [facility] CARD 1 06/15/2025 13:30 [facility]/OPTOMETRY/[facility]AMORA/ minutes spent in patient evaluation, data review, and patient education. All medications were reconciled during this visit. No barriers; Patient understands and agrees to current treatment plan. If pt has any questions, concerns, or changes in current health status he/she will call or come [facility]. Additional comment: /es/ LUCITA BLANCHARD MD PHYSICIAN Signed: 07/10/2024 12:26 LUCITA BLANCHARD ([facility])
--- OUTSIDE RECORDS SUMMARY | 2024-08-12 08:45 | XMS_ITS | Encounter Summary ---
Author Name [facility] [place] [facility] [place] Address [address] [place] [address] Care Team Providers Care Tower Cleaner Name Role Phone LUCITA BLANCHARD Primary Care [...] Mills's Name Patient's Relationship to Policy Mills [place] [facility] [place] [employer] HAMPS HIRE COUNT Y INS Dec 22, 2020 [id number] [phone] ARCHIE , SPOUSE [place] [employer] CE ORGANIZAT ION HAMPS HIRE COUNT Y INS Dec 22, 2020 [id number] [phone] BEULAH ALMANZA SPOUSE BCBS OF [facility] [employer] CE ORGANIZAT ION HAMPS HIRE COUNT Y INS Dec 22, 2020 [id number] ALEJANDRA ALMANZA SPOUSE [place] PRESCRIPT ION HAMPS HIRE COUNT Y INS Dec 22, 2020 RX21AT [id number] [phone] BEULAH ALMANZA SPOUSE [place] PRESCRIPT ION HAMPS HIRE COUNT Y INS Dec 22, 2020 RX21AT [id number] [id number] BEULAH ALMANZA SPOUSE [place] PRESCRIPT ION HAMPS HIRE COUNT Y INS Dec 22, 2020 RX21AT [id number] [phone] JOSETTE ALMANZA PATIENT [place] PRESCRIPT ION HAMPS HIRE COUNT Y INS Dec 22, 2020 RX21AT [id number] [phone] BEULAH ALMANZA SPOUSE [employer] ([id number]) PRESCRIPT ION L4TA* Sep 22, 2013 L4TA [id number] [phone] BEULAH ALMANZA SPOUSE [employer] ([id number]) PRESCRIPT ION L4TA* Sep 22, 2013 L4TA [id number] BEULAH ALMANZA SPOUSE MEDICARE (WNR) MEDICARE (M) PART A Feb 23, 2016 PART A [id number] JOSETTE ALMANZA PATIENT MEDICARE (WNR) MEDICARE (M) PART A Feb 23, 2016 PART A [id number] JOSETTE ALMANZA PATIENT Selected Encounter This section includes the information on record at [place] for the Encounter. Date/Time Encounter Type Encounter Description Reason Pro vider Source Jul 31, 2024 09:47 AM Outpatient Encounter PODIATRY IHE Encounter Template Text not used by [place] Plan of Treatment: Future Appointments (+ 6 months) and Future Tests (+/- 45 days) The Plan of Treatment section includes future care activities for the patient from all [place] treatmentfacilities. This section includes future appointments and future orders which are active, pending or scheduled. Future Appointments This section includes appointments that were scheduled to occur 6 months from the date of the Encounter, up to a maximum of 20 appointments. The data comes from all [place] treatment facilities. Appointment Date/Time Appointment Type Appointme nt Facility Name Aug 12, 2024 08:30 AM [facility]BUL[facility] Sep 10, 2024 11:00 AM AMBULATORY MEDICINE [facility] November 12, 2024 02:00 PM AMBULATORY - NONE [facility] Active, Pending, and Scheduled Orders This section includes a listing of several types of active, pending, and scheduled orders, including clinic medications orders, diagnostic test orders, procedure orders and consult orders; where the start date of the order is 45 days before the date of the Encounter or 45 days after the date of theEncounter. The data comes from all [place] treatment facilities. Test Date/Time Test Type Test Details Facility Name Jul 29, 2024 02:55 PM Consult Order PAIN CLINI C/[facility] OUTPT Cons Printing Bindery Assistant's Choice [place] ([facility]) Lab Results: +/- 30 days of the encounter This section includes the Chemistry and Hematology Lab Results on record with [place] for the patient. Radiology Reports and Pathology Reports are provided separately, in subsequent sections. Lab Results This section contains the Chemistry/Hematology Results that were resulted 30 days before or 30 daysafter the date of the Encounter. Date/Time Source Result Type Result - Unit Interpretation Reference Range Comment Jul 08, 2024 10:53 AM [place] ([facility]) CALCIUM Specimen Type: SERUM No comment entered. Ordering Provider: KEITH BLANCHARD Report Released Date/Time: Jul 07, 2024 04:05 PM Reporting Lab: [address] [address] Performing Lab: [address] [address] CALCIUM 9.4 mg/dL 8.5-10.2 Jul 08, 2024 10:53 AM [place] ([facility]) LIVER FUNCTION Specimen Type: SERUM No comment entered. Ordering Provider: KEITH BLANCHARD Report Released Date/Time: Jul 07, 2024 04:05 PM Reporting Lab: [address] [address] Performing Lab: [address] [address] PROTEIN,TOTAL 7.0 g/dL 6.0-8.3 ALBUMIN 4.0 g/dL 3.5-5.0 ALKALINE PHOSPHATASE 223 U/L H 40-150 AST 20 U/L 5-34 ALT <6 U/L BILIRUBIN, TOTAL 1.1 mg/dL 0.2-1.2 Jul 08, 2024 10:53 AM [place] ([facility]) BASIC METABOLIC PANEL (non-fasting) Specimen Type: SERUM No comment entered. Ordering Provider: KEITH BLANCHARD Report Released Date/Time: Jul 07, 2024 04:05 PM Reporting Lab: [address] [address] Performing Lab: [address] [address] UREA NITROGEN 22 mg/dL 7-25 GLUCOSE 120 mg/dL H 65-100 SODIUM 140 mmol/L 135-145 POTASSIUM 4.3 mmol/L 3.5-5.0 CHLORIDE 107 mmol/L 100-110 CO2 25 meq/L 20-30 CREATININE, Serum 0.67 mg/dL 0.50-1.40 eGFR(CKD-EPI 2020) >90 mL/min >60 Jul 08, 2024 10:53 AM [place] ([facility]) URINALYSIS Specimen Type: URINE Comment: If Glucose = >500 and Ketones are positive, please alert the Physician. Ordering Provider: KEITH BLANCHARD Report Released Date/Time: Jul 07, 2024 03:18 PM Reporting Lab: [address] [address] Performing Lab: [address] [address] UA COLOR Light-Mohave Yellow UA APPEARANCE Turbid Clear UA GLUCOSE Normal mg/dL Negative UA KETONES TRACE mg/dL Negative UA BLOOD NEGATIVE mg/dL Negative UA PROTEIN 20 mg/dL Negative UA NITRITE NEGATIVE mg/dL Negative UA BILIRUBIN NEGATIVE mg/dL Negative UA SPECIFIC GRAVITY 1.023 H 1.016-1.022 UA pH 6.0 5.0-9.0 UA UROBILINOGEN Normal mg/dL <2.0 UA LEUKOCYTE NEGATIVE Negative Jul 08, 2024 10:53 AM [place] ([facility]) MICROSCOPIC AUTOMATED, URINE Specimen Type: URINE Comment: If Glucose = >500 and Ketones are positive, please alert the Physician. Ordering Provider: KEITH BLANCHARD Report Released Date/Time: Jul 07, 2024 03:18 PM Reporting Lab: [facility] [address] [facility] [address] Performing Lab: [address] [address] UA WBC 0-5 /[HPF] 0-5 UA MUCUS FEW /[LPF] Trace UA RBC 0-2 /[HPF] 0-3 UA SQUAMOUS EPITH FEW /[HPF] UA AMORPHOUS CRYSTALS MODERATE /[HPF] Not Established Jul 08, 2024 10:53 AM [place] ([facility]) CBC AND DIFF (AUTO) Specimen Type: BLOOD No comment entered. Ordering Provider: KEITH BLANCHARD Report Released Date/Time: Jul 07, 2024 04:05 PM Reporting Lab: [address] [address] Performing Lab: [address] [address] WBC 9.54 10*3/uL 4.50-11.00 RBC 4.04 10*6/uL [...] the Encounter. The data comes from all [place] treatment facilities. 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 Date/Time Encounter Note(s) Provider Source Jul 31, 2024 09:48 AM LETTERS: LOCAL TITLE: PATIENT LETTER (B) STANDARD TITLE: LETTERS DATE OF NOTE: JUL 31, 2024@09:48 ENTRY DATE: JUL 31, 2024@09:48:17 AUTHOR: DEBORAH DE LA GARZA COSIGNER: URGENCY: STATUS: COMPLETED [facility] Toll Free Number [facility] scheduling can be reached at ext. [phone] [facility]- ext. [phone] [facility]- ext. [phone] [facility]- ext. [phone] JUL 31, 2024 JOSETTE ALMANZA [address], [place] [address] Dear JOSETTE ALMANZA Thank you for choosing the Department of [facility] ([place]) [facility] as your primary choice for health care. As a partner in your health care, we are contacting you in writing since we have been unsuccessful in our attempts to reach you to date. We want to assure you we are doing everything possible to schedule Veterans for their VA medical care appointments. Our records indicate you are due for an appointment in Podiatry [place]. If you would like to be seen, please contact [facility] at ext. [phone] to schedule an appointment. Thank you for your service to our nation, and we look forward to hearing from you soon. Sincerely, [facility] [address] [address] [place] [address] [facility] [address] [place] [address] [place] [address] ext. [phone] [facility] [address] [place] [address] [place] [address] ext. [phone] DEBORAH DE LA GARZA [facility] Jul 31, 2024 09:47 AM TELEPHONE ENCOUNTER NOTE: LOCAL TITLE: TELEPHONE NOTE/SPECIALTY CLINIC STANDARD TITLE: TELEPHONE ENCOUNTER NOTE DATE OF NOTE: JUL 31, 2024@09:47 ENTRY DATE: JUL 31, 2024@09:47:49 AUTHOR: DEBORAH DE LA GARZA EXP COSIGNER: URGENCY: STATUS: COMPLETED RTC orders: Unable to contact patient: Attempts to contact: 1st attempt: Left voicemail 2nd attempt: Letter mailedDisposition onJul 3rd attempt: 4th attempt: /rashid/ DEBORAH DE LA GARZA DIRECTOR OF DISTANCE LEARNING Signed: 07/31/2024 09:48 [facility]AH [facility]AR[facility]
--- OUTSIDE RECORDS SUMMARY | 2024-08-12 08:45 | XMS_ITS | Encounter Summary ---
Author Name [facility] [place] Address [address] [place] [address] Care Team Providers Care Pit Recorder Name Role Phone LUCITA ANGELO Primary Care Provider Unavailab le Insurance Providers: [...] Relationship to Policy Mills ANTHTAMI BCBS OF [place] (BLUECARD) [facility] ORGANIZAT ION HAMPS HIRE COUNT Y INS Dec 22, 2020 [id number] [phone] ARCHIE , SPOUSE [place] [employer] [place] CE ORGANIZAT ION HAMPS HIRE COUNT Y INS Dec 22, 2020 [id number] BEULAH ALMANZA SPOUSE BCBS OF [facility] [employer] MA[place] CE ORGANIZAT ION HAMPS HIRE COUNT Y INS Dec 22, 2020 [id number] ALEJANDRA ALMANZA SPOUSE [place] PRESCRIPT ION HAMPS HIRE COUNT Y INS Dec 22, 2020 RX21AT [id number] BEULAH ALMANZA SPOUSE [place] PRESCRIPT ION HAMPS HIRE COUNT Y INS Dec 22, 2020 RX21AT [id number] BEULAH ALMANZA SPOUSE [place] PRESCRIPT ION HAMPS HIRE COUNT Y INS Dec 22, 2020 RX21AT [id number] JOSETTE ALMANZA PATIENT [place] PRESCRIPT ION HAMPS HIRE COUNT Y INS Dec 22, 2020 RX21AT [id number] BEULAH ALMANZA SPOUSE EXPRESS SCRIPTS ([id number]) PRESCRIPT ION L4TA* Sep 22, 2013 L4TA [id number] BEULAH ALMANZA SPOUSE EXPRESS SCRIPTS ([id number]) PRESCRIPT ION L4TA* Sep 22, 2013 L4TA [id number] BEULAH ALMANZA SPOUSE MEDICARE (WNR) MEDICARE (M) PART A Feb 23, 2016 PART A [id number] JOSETTE ALMANZA PATIENT MEDICARE (WNR) MEDICARE (M) PART A Feb 23, 2016 PART A [id number] JOSETTE ALMANZA PATIENT Selected Encounter This section includes the information on record at [place] for the Encounter. Date/Time Encounter Type Encounter Description Reason Provider Source November 14, 2023 12:30 PM OFF/OP CNSLTJ NEW/EST MOD 40 CARDIOLOGY ICD-10-CM I35.0 Nonrheumatic aortic (valve) stenosis [facility] Encounter Template Text not used by [place] Assessments - Encounter Diagnoses This section includes the primary and secondary diagnoses documented for the Encounter. Date/Time Primary/Secondary Diagnosis Diagnosis Name Provider Source Dec 12, 2023 10:28 AM PRIMARY Nonrheumatic aortic (valve) stenosis MELVIN MCKENZIE [place] [facility] Plan of Treatment: Future Appointments (+ 6 months) and Future Tests (+/- 45 days) The Plan of Treatment section includes future care activities for the patient from all [place] treatmentfacilities. This section includes future appointments and future orders which are active, pending or scheduled. Future Appointments This section includes appointments that were scheduled to occur 6 months from the date of the Encounter, up to a maximum of 20 appointments. The data comes from all [place] treatment facilities. Appointment Date/Time Appointment Type Appointme nt Facility Name November 19, 2023 01:00 PM AMBULATORY - MEDICINE [facility] Nov 26, 2023 01:00 PM [facility] Nov 26, 2023 01:00 PM AMBULATORY - NONE [facility] [place] [facility] Dec 03, 2023 09:00 AM AMBULATORY - MEDICINE [facility] [place] [facility] Dec 06, 2023 10:30 AM AMBULATORY - NONE [facility] [place] [facility] Dec 06, 2023 11:00 AM AMBULATORY - NONE [facility] [place] [facility] Jan 08, 2024 10:30 AM AMBULATORY - MEDICINE [place] [facility] [place] [facility] Jan 16, 2024 03:00 PM AMBULATORY - MEDICINE [place] [facility] [place] [facility] Feb 03, 2024 12:30 PM AMBULATORY - MEDICINE [place] [facility] [place] [facility] Feb 11, 2024 01:00 PM AMBULATORY - MEDICINE [facility] ([facility]) Feb 19, 2024 12:00 PM AMBULATORY - MEDICINE [place] [facility] [place] [facility] Feb 26, 2024 10:00 AM AMBULATORY - MEDICINE [place] [facility] [place] [facility] Apr 29, 2024 01:30 PM AMBULATORY - MEDICINE [facility] ([facility]) Lab Results: +/- 30 days of the encounter This section includes the Chemistry and Hematology Lab Results on record with [place] for the patient. Radiology Reports and Pathology Reports are provided separately, in subsequent sections. Lab Results This section contains the Chemistry/Hematology Results that were resulted 30 days before or 30 daysafter the date of the Encounter. Date/Time Source Result Type Result - Unit Interpretation Reference Range Comment November 19, 2023 01:46 PM [facility] ([facility]) PT & INR (PROTIME) Specimen Type: PLASMA No comment entered. Ordering Provider: KEITH ANGELO Report Released Date/Time: November 19, 2023 01:37 PM Reporting Lab: [facility] [place] [address] [place] [address] Performing Lab: [address] [address] INR 1.1 PROTIME 12.0 s 10.0-13.1 November 19, 2023 01:41 PM [facility] ([facility]) CERULOPLASMIN Specimen Type: SERUM No comment entered. Ordering Provider: KEITH ANGELO Report Released Date/Time: November 19, 2023 01:37 PM Reporting Lab: [facility] [address] [facility] [address] Performing Lab: [facility] [address] [facility] [address] CERULOPLASMIN 18 mg/dL L 20-60 November 19, 2023 01:41 PM [facility] ([facility]) HEPATITIS B SURFACE ANTIBODY (HBsAb)- Specimen Type: SERUM No comment entered. Ordering Provider: KEITH ANGELO Report Released Date/Time: November 19, 2023 01:37 PM Reporting Lab: [address] [address] Performing Lab: [facility] November 19, 2023 01:41 PM [facility] ([facility]) VIDAL SCREEN/TITER Specimen Type: SERUM No comment entered. Ordering Provider: KEITH ANGELO Report Released Date/Time: November 19, 2023 01:37 PM Reporting Lab: [address] [address] Performing Lab: [facility] [address] [facility] [address] VIDAL SCREEN NEG November 19, 2023 01:41 [...] frequently associated with infectivity. Ordering Provider: KEITH ANGELO Report Released Date/Time: November 19, 2023 01:37 PM Reporting Lab: [facility] [address] [facility] [address] Performing Lab: [facility] [address] [facility] [address] HBsAg Non Reactive Non Reactive November 19, 2023 01:41 PM [facility] ([facility]) ALPHA 1 ANTITRYPSIN Specimen Type: SERUM No comment entered. Ordering Provider: KEITH ANGELO Report Released Date/Time: November 19, 2023 01:37 PM Reporting Lab: [facility] [address] [facility] [address] Performing Lab: [facility] [address] [facility] [address] [address] ALPHA 1 ANTITRYPSIN 125 mg/dL 90-200 November 19, 2023 01:41 PM [facility] ([facility]) HEPATITIS A ANTIBODY (IGG) Specimen Type: SERUM Comment: Hep A IgG: A 'Reactive' result indicates previous exposure to Hepatitis A virus through infection or vaccination. Ordering Provider: KEITH ANGELO Report Released Date/Time: November 19, 2023 01:37 PM Reporting Lab: [address] [address] Performing Lab: [address] [address] HEPATITIS A ANTIBODY (IGG) REACTIVE Non Reactive November 19, 2023 01:41 PM [facility] ([facility]) PSA Specimen Type: SERUM No comment entered. Ordering Provider: KEITH ANGELO Report Released Date/Time: November 19, 2023 01:30 PM Reporting Lab: [address] [address] Performing Lab: [address] [address] PSA 159.64 ng/mL H 0.00-4.00 November 19, 2023 01:41 PM [facility] ([facility]) HEPATITIS C ANTIBODY (HCV)-ARC Specimen Type: SERUM Comment: Hep C Ab: No HCV antibody detected. If recent infection is suspected or other evidence suggests HCV infection, consider HCV nucleic acid testing Ordering Provider: KEITH ANGELO Report Released Date/Time: November 19, 2023 01:37 PM Reporting Lab: [address] [address] Performing Lab: [address] [address] HEPATITIS C ANTIBODY NON-REACTIVE NON-REACTIV E November 19, 2023 01:41 PM [facility] ([facility]) FERRITIN Specimen Type: SERUM No comment entered. Ordering Provider: KEITH ANGELO Report Released Date/Time: November 19, 2023 01:37 PM Reporting Lab: [address] [address] Performing Lab: [address] [address] FERRITIN 221 ng/mL 20-300 November 19, 2023 01:41 PM [facility] ([facility]) IRON & TIBC PANEL Specimen Type: SERUM No comment entered. Ordering Provider: KEITH ANGELO Report Released Date/Time: November 19, 2023 01:37 PM Reporting Lab: [address] [address] Performing Lab: [address] [address] TIBC 300 ug/dL 204-475 IRON 101 ug/dL 40-160 Transferrin Saturation 33.7 20.0-50.0 November 19, 2023 01:41 PM [facility] ([facility]) LIVER FUNCTION Specimen Type: SERUM No comment entered. Ordering Provider: KEITH ANGELO Report Released Date/Time: November 19, 2023 01:37 PM Reporting Lab: [address] [address] Performing Lab: [address] [address] PROTEIN,TOTAL 6.6 g/dL 6.0-8.3 ALBUMIN 3.9 g/dL 3.5-5.0 ALKALINE PHOSPHATASE 125 U/L 40-150 AST 13 U/L 5-34 ALT <6 U/L BILIRUBIN, TOTAL 0.8 mg/dL 0.2-1.2 November 19, 2023 01:41 PM [facility] ([facility]) BASIC METABOLIC PANEL (non-fasting) Specimen Type: SERUM No comment entered. Ordering Provider: KEITH ANGELO Report Released Date/Time: November 19, 2023 01:37 PM Reporting Lab: [address] [address] Performing Lab: [address] [address] UREA NITROGEN 14 mg/dL 7-25 GLUCOSE 149 mg/dL H 65-100 SODIUM 139 mmol/L 135-145 POTASSIUM 4.1 mmol/L 3.5-5.0 CHLORIDE 108 mmol/L 100-110 CO2 23 meq/L 20-30 CREATININE, Serum 0.73 mg/dL 0.50-1.40 eGFR(CKD-EPI 2020) >90 mL/min >60 November 19, 2023 01:41 PM [place] ([facility]) ALBUMIN Specimen Type: SERUM No comment entered. Ordering Provider: KEITH ANGELO Report Released Date/Time: November 19, 2023 01:37 PM Reporting Lab: [address] [address] Performing Lab: [address] [address] ALBUMIN 3.9 g/dL 3.5-5.0 November 19, 2023 01:41 PM [facility] ([facility]) CBC AND DIFF (AUTO) Specimen Type: BLOOD No comment entered. Ordering Provider: KEITH ANGELO Report Released Date/Time: November 19, 2023 01:37 PM Reporting Lab: [address] [address] Performing Lab: [address] [address] WBC 6.28 10*3/uL 4.50-11.00 RBC 4.40 10*6/uL 4.23-5.66 HGB 13.9 g/dL 12.8-17 HCT 42.0 39.2-50.4 MCV 95.5 fL 82-99 MCHC 33.1 g/dL 30.8-35.1 PLT 192 10*3/uL 140-360 RDW-CV 13.3 12.0-16.0 [place], Abs 0.52 10*3/uL 0.30-1.10 MCH 31.6 pg 26.2-32.6 Neut % 72.2 43.7-75.8 Lymph % 17.7 14.0-42.3 [place] % 8.3 5.1-13.7 Eos % 1.0 0.4-6.8 Baso % 0.3 0.1-2.0 Neut, Abs 4.54 10*3/uL 2.20-7.60 Lymph, Abs 1.11 10*3/uL 1.00-3.20 Eos, Abs 0.06 10*3/uL 0.03-0.44 Baso, Abs 0.02 10*3/uL 0.01-0.13 Immature Gran % 0.5 0.0-0.7 Immature Gran, Abs 0.03 10*3/uL 0.00-0.06 Radiology Reports: +/- 30 days of the [...] the Encounter. The data comes from all [place] treatment facilities. Date/Time Radiology Report Provider Source Dec 06, 2023 09:38 AM ULTRASOUND ABDOMEN LIMITED: JOSETTE ALMANZA [id number] -[id number] M Exm Date: DEC 06, 2023@09:38 Req Phys: LUCITA ANGELO Pat Loc: CWM/GO/PACT 1 WH (Req'g Loc) Img Loc: ULTRASOUND Service: [facility] [place] [facility] ([facility] [id number] COM[facility]TE[facility] ULTRASOUND ABDOMEN LIMITED (US Detailed) CPT:19383 Reason for Study: Liver fibrosis Clinical History: Some ultrasound tests require a prep. Report Status: Verified Date Reported: DEC 06, 2023 Date Verified: DEC 06, 2023 Kennel Staff Member E-Sig:/ES/MIHIR BOOTH JR Report: Study: Abdomen ultrasound. Comparison: Abdominal ultrasound from October 26, 2022 and December 14, 2021 and April 25, 2021. Findings: The liver is normal in size. The liver is again diffusely increased in echogenicity consistent with hepatic steatosis/fibrosis with no focal abnormality. No intrahepatic bile duct dilatation is seen. No hepatic mass is seen. The portal vein is patent with normal hepatopedal flow. The common hepatic duct measures 0.45 cm, which is normal. The gallbladder is normal. No gallstones are identified. There is a negative sonographic Russell sign present. The visualized pancreas is normal. The spleen is normal and measures 8.0 cm in length. No ascites is identified. Impression: No new abnormality identified, as described above. Primary Diagnostic Code: No immediate attention required Primary Interpreting Staff: MIHIR BOOTH JR, Radiologist (Kennel Staff Member) /EAMIHIR LICONA JR [facility] Dec 06, 2023 09:36 AM WRIST 3 OR MORE VIEWS(RIGHT): JOSETTE ALMANZA [id number] -[id number] M Ex Date: DEC 06, 2023@09:36 Req Phys: LUCITA ANGELO Loc: CWM/GO/PACT 1 (Req'g Loc) [facility] Service: 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 Comparison: None. Findings: The bony mineralization is normal. Mild degenerative changes are present to the first CMC joint. Small bony ossicle posterior to the triquetrum seen only on the lateral projection could represent accessory ossicle or remote prior trauma. No radiopaque foreign body or abnormal soft tissue calcifications are identified. The carpal bones appear in normal alignment. Mild degenerative narrowing is present to the radiocarpal joint. No acute bony abnormality is seen. Impression: No acute abnormality, as described above. Primary Diagnostic Code: No immediate attention required Primary Interpreting Staff: MIHIR BOOTH JR, Radiologist (Kennel Staff Member) /MIHIR CASAS JR [facility] [place] [facility] Encounter Notes: All associated encounter notes This section contains the clinical notes associated to the Encounter. Date/Time Encounter Note(s) Provider Source November 14, 2023 12:50 PM CARDIOLOGY CONSULT : LOCAL TITLE: CONSULT REPORT/CARDIOLOGY STANDARD TITLE: CARDIOLOGY CONSULT DATE OF NOTE: NOVEMBER 14, 2023@12:50 ENTRY DATE: NOVEMBER 14, 2023@12:50:49 AUTHOR: MELVIN MCKENZIE COSIGNER: LUCITA ANGELO URGENCY: STATUS: COMPLETED [facility] (VVC) Standard Documentation VVC Clinician Resources Only: E911 (Emergency Call Relay Center): [phone] [facility] Crisis Line - 988 then press #1. [facility] Suicide Coordinator [phone], Ext. [phone]; Back-up Ext. [phone] [place] Police, [place], [place] [phone] Introduction: Visit is being conducted by [place] Way[employer]cted. [place] identified with 2 identifiers: [X] Full Name [X] Date of [ ] [place] ID Card Emergency Plan: confirmed and/or provided the following information in case of emergency or technology failure. PATIENT PHONE - [phone] Is patient phone number correct, if not, enter below: 's phone number as shown above is correct. 's present location and address for appointment: [address] [place] [address] Residence as above. 's emergency contact name and phone number: reported that location is private and safe: Yes Informed Consent: [place] informed of the risks and benefits of Telehealth video care. has the right to refuse video services. If refuses video visit, a [id number] visit will be scheduled. [place] verbalized consent for this video visit: Yes provided consent for any other persons present for visit: Yes. If yes, who and relationship to patient: , daughter, [id number] Secure visit: Visit was locked for security and privacy: Yes Asked by Dr. Angelo to see this pleasant 73-year-old man because of a diagnosis of aortic stenosis. The patient reports today that he is very active at home. He is currently in the midst of remodeling 2 rooms in his house. He has no exertional dyspnea except for extreme exertion. He feels that his activity tolerance has not changed significantly in the last 2 to 3 years. He denies any chest discomfort symptoms with activity, lightheadedness, or syncope. At his primary care visit in September his blood pressure was in the 80s systolic, and his lisinopril dose was reduced from 10 mg to 5 mg. His blood pressure remained low after that dose reduction and so he stopped taking the lisinopril completely on instructions from Dr. Angelo. He has recorded his blood pressure at home regularly and we reviewed those values, most of the systolic readings are between 120 and 140. There were no blood pressure readings lower than 110 systolic. Current medications: Metformin 500 mg once a day Sinemet Pramipexole 0.5 mg 3 times a day Rasagiline 0.5 mg once a day Atorvastatin 40 mg once a day Vitamin D Vitamin B12 Melatonin 3 mg 1 tablet at bedtime PMHx: 1. 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 Vitamin D Deficiency ([facility] [id number]) 4. Vitamin B12 Deficiency ([facility] [id number]) 5. Aortic valve stenosis 6. Kidney lesion 7. Pancreatic cyst 8. Lumbar radiculopathy 9. Fatty liver 10. Diabetes mellitus type 2 11. Hyperlipidemia 12. Parkinsons disease 13. Benign hypertension Echocardiogram from October 21, 2023: The study shows normal left ventricular systolic function. There is moderate aortic stenosis with a peak velocity of 3.3 m/s, With a mean gradient of 25 mmHg. He aortic valve area was estimated at 1.4 cm??.There were no other valvular abnormalities. Recent lab work from September 2023: LDL 51 Hemoglobin A1c 6.5 Creatinine 0.8 EKG from October 2023: Sinus rhythm, right bundle branch block, left anterior fascicular block, with no prior tracings for comparison Impression: This 73-year-old man has progression on his echocardiogram over the last 2 years from mild aortic stenosis to moderate aortic stenosis. Based on the parameters from the current echocardiogram, we would not not expect symptoms to be related to aortic stenosis. We did discuss the possible symptoms of aortic stenosis including exercise intolerance, with dyspnea, chest discomfort, or syncope. The clinical picture may be clouded in the future by his Parkinson's disease and associated autonomic neuropathy with fluctuations in blood pressure. He and his family understand that his blood pressure may drop with change in position and he understands that he needs to be careful for any symptoms associated with orthostatic blood pressure changes. I did reassure him that there is no concern regarding this degree of aortic stenosis at present, but he does deserve a reassessment in 1 year. Plan: No changes to medications Repeat echocardiogram in 1 year He would qualify for another [facility] visit following his echocardiogram next year. /rashid/ Melvin Mckenzie MD Attending Physician, Cardiovascular Medicine Signed: 11/14/2023 13:08 /rashid/ LUCITA ANGELO MD PHYSICIAN Cosigned: 11/14/2023 14:40 MELVIN MCKENZIE CNTRL [facility]
--- OUTSIDE RECORDS SUMMARY | 2024-08-12 08:45 | XMS_ITS | Encounter Summary ---
Author Name [place] Address [address] [place] [address] Care Team Providers Care Expense Clerk Name Role Phone LUCITA BLANCHARD Primary Care [...] Relationship to Policy Mills ANTHEM BCBS OF [place] ([place]ARD) [facility] CE ORGANIZAT ION HAMPS HIRE COUNT Y INS Dec 22, 2020 [id number] [phone] ARCHIE , SPOUSE [place] [employer] [place] CE ORGANIZAT ION HAMPS HIRE COUNT Y INS Dec 22, 2020 [id number] BEULAH ALMANZA SPOUSE BCBS OF [facility] [employer] MA[place] CE ORGANIZAT ION HAMPS HIRE COUNT Y INS Dec 22, 2020 [id number] [phone] ALEJANDRA ALMANZA SPOUSE [place] PRESCRIPT ION HAMPS HIRE COUNT Y INS Dec 22, 2020 RX21AT [id number] BEULAH ALMANZA SPOUSE [place] PRESCRIPT ION HAMPS HIRE COUNT Y INS Dec 22, 2020 RX21AT [id number] [phone] BEULAH ALMANZA SPOUSE [place] PRESCRIPT ION HAMPS HIRE COUNT Y INS Dec 22, 2020 RX21AT [id number] [phone] JOSETTE ALMANZA PATIENT [place] PRESCRIPT ION HAMPS HIRE COUNT Y INS Dec 22, 2020 RX21AT [id number] BEULAH ALMANZA SPOUSE EXPRESS SCRIPTS ([id number]) PRESCRIPT ION L4TA* Sep 22, 2013 L4TA [id number] [phone] BEULAH ALMANZA SPOUSE EXPRESS SCRIPTS ([id number]) PRESCRIPT ION L4TA* Sep 22, 2013 L4TA [id number] BEULAH ALMANZA SPOUSE MEDICARE (WNR) MEDICARE (M) PART A Feb 23, 2016 PART A [id number] JOSETTE ALMANZA PATIENT MEDICARE (WNR) MEDICARE (M) PART A Feb 23, 2016 PART A [id number] JOSETTE ALMANZA PATIENT Selected Encounter This section includes the information on record at [place] for the Encounter. Date/Time Encounter Type Encounter Description Reason Pro vider Source Jun 03, 2024 01:09 PM Outpatient Encounter ADMIN PAT ACTIVTIES (MASNONCT) IHE Encounter Template Text not used by [place] Plan of Treatment: Future Appointments (+ 6 months) and Future Tests (+/- 45 days) The Plan of Treatment section includes future care activities for the patient from all [place] treatmentfacilities. This section includes future appointments and future orders which are active, pending or scheduled. Future Appointments This section includes appointments that were scheduled to occur 6 months from the date of the Encounter, up to a maximum of 20 appointments. The data comes from all [place] treatment facilities. Appointment Date/Time Appointment Type Appointme nt Facility Name Jun 05, 2024 01:30 PM AMBULATORY - MEDICINE [place] [facility] Jul 09, 2024 10:30 AM AMBULATORY - MEDICINE [place] [facility] [place] [facility] Jul 27, 2024 01:30 PM [facility] ([facility] Aug 12, 2024 08:30 AM AMBULATORY - MEDICINE [place] [facility] [facility] Sep 10, 2024 11:00 AM AMBULATORY - MEDICINE [place] [facility] [place] [facility] November 12, 2024 02:00 PM [facility] Encounter Notes: All associated encounter notes This section contains the clinical notes associated to the Encounter. Date/Time Encounter Note(s) Provider Source Jun 03, 2024 01:09 PM PHARMACY NOTE: LOCAL TITLE: PHARMACY CUSTOMER CARE MEDICATION RENEWAL STANDARD TITLE: PHARMACY NOTE DATE OF NOTE: JUN 03, 2024@13:09 ENTRY DATE: JUN 03, 2024@13:09:28 AUTHOR: LAYTON MCINTOSH EXP COSIGNER: URGENCY: STATUS: COMPLETED Date: May Division: [facility] referred by Pharmacy Call Center for medication renewal: Non-controlled/maintenance medication Medications requested: [id number] CYANOCOBALAMIN 1000MCG TAB [id number] CHOLECALCIF 25MCG (D3-1,000UNIT) TAB Defer to primary care provider To be mailed . Please review and renew if appropriate. *This note was generated by [facility] Pharm[facility] Customer Care. If you have any questions or need assistance, do not contact this author. Please refer all questions to your local, on-site pharmacy departments. /rashid/ LAYTON MCINTOSH CPhT GOLF COURSE PATROLLER, [place]/PHARMACY CUSTOMER CARE Signed: 06/03/2024 13:09 Receipt Acknowledged By: 06/03/2024 14:43 /rashid/ SARAH WALKER, RN REGISTERED NURSE 06/03/2024 16:15 /rashid/ LUCITA BLANCHARD MD PHYSICIAN LAYTON MCINTOSH [facility]
--- OUTSIDE RECORDS SUMMARY | 2024-08-12 08:45 | XMS_ITS | Encounter Summary ---
Author Name Department of [facility] [facility] [place] Organization [facility] of [place] Address [address] [place] [address] Care Team Providers Care Metrologist Name Role Phone LUCITA BLANCHARD Primary Care [...] Relationship to Policy [employer] ANTHEM BCBS OF [place] (BLUECARD) [facility] CE ORGANIZAT ION HAMPS HIRE COUNT Y INS Dec 22, 2020 [id number] [phone] ARCHIE , SPOUSE BCBS PR [employer] [place] CE ORGANIZAT ION HAMPS HIRE COUNT Y INS Dec 22, 2020 [id number] [phone] BEULAH ALMANZA SPOUSE BCBS OF [facility] [employer] [place]IN[place] CE ORGANIZAT ION HAMPS HIRE COUNT Y INS Dec 22, 2020 [id number] [phone] ALEJANDRA ALMANZA SPOUSE [place] PRESCRIPT ION HAMPS HIRE COUNT Y INS Dec 22, 2020 RX21AT [id number] [phone] BEULAH ALMANZA SPOUSE [place] PRESCRIPT ION HAMPS HIRE COUNT Y INS Dec 22, 2020 RX21AT [id number] [phone] BEULAH ALMANZA SPOUSE [place] PRESCRIPT ION HAMPS HIRE COUNT Y INS Dec 22, 2020 RX21AT [id number] JOSETTE ALMANZA PATIENT [place] PRESCRIPT ION HAMPS HIRE COUNT Y INS Dec 22, 2020 RX21AT [id number] BEULAH ALMANZA SPOUSE EXPRESS SCRIPTS ([id number]) PRESCRIPT ION L4TA* Sep 22, 2013 L4TA [id number] [phone] BEULAH ALMANZA SPOUSE EXPRESS SCRIPTS ([id number]) PRESCRIPT ION L4TA* Sep 22, 2013 L4TA [id number] BEULAH ALMANZA SPOUSE MEDICARE (WNR) MEDICARE (M) PART A Feb 23, 2016 PART A [id number] [phone] JOSETTE ALMANZA PATIENT MEDICARE (WNR) MEDICARE (M) PART A Feb 23, 2016 PART A [id number] JOSETTE ALMANZA PATIENT Selected Encounter This section includes the information on record at OR for the Encounter. Date/Time Encounter Type Encounter Description Reason Pro vider Source Aug 04, 2024 12:03 PM Outpatient Encounter ADMIN PAT ACTIVTIES (MASNONCT) IHE Encounter Template Text not used by [place] Plan of Treatment: Future Appointments (+ 6 months) and Future Tests (+/- 45 days) The Plan of Treatment section includes future care activities for the patient from all [place] treatmentfacilities. This section includes future appointments and future orders which are active, pending or scheduled. Future Appointments This section includes appointments that were scheduled to occur 6 months from the date of the Encounter, up to a maximum of 20 appointments. The data comes from all [place] treatment facilities. Appointment Date/Time Appointment Type Appointme nt Facility Name Aug 12, 2024 08:30 AM AMBULATORY - MEDICINE [place] C [facility]L [facility] Sep 10, 2024 11:00 AM AMBULATORY - MEDICINE OR C N[facility]L [facility] November 12, 2024 02:00 PM AMBULATORY - NONE [facility] Active, Pending, and Scheduled Orders This section includes a listing of several types of active, pending, and scheduled orders, including clinic medications orders, diagnostic test orders, procedure orders and consult orders; where the start date of the order is 45 days before the date of the Encounter or 45 days after the date of theEncounter. The data comes from all [place] treatment facilities. Test Date/Time Test Type Test Details Facility Name Jul 29, 2024 02:55 PM Consult Order PAIN CLINI C/[facility] OUTPT Cons [employer] Fabric[employer] Choice [facility] ([facility]) Lab Results: +/- 30 days of the encounter This section includes the Chemistry and Hematology Lab Results on record with [place] for the patient. Radiology Reports and Pathology Reports are provided separately, in subsequent sections. Lab Results This section contains the Chemistry/Hematology Results that were resulted 30 days before or 30 daysafter the date of the Encounter. Date/Time Source Result Type Result - Unit Interpretation Reference Range Comment Jul 08, 2024 10:53 AM [facility] ([facility]) CALCIUM Specimen Type: SERUM No comment entered. Ordering Provider: KEITH BLANCHARD Report Released Date/Time: Jul 07, 2024 04:05 PM Reporting Lab: [facility] [address] [address] Performing Lab: [address] [address] CALCIUM 9.4 mg/dL 8.5-10.2 Jul 08, 2024 10:53 AM [facility] ([facility]) LIVER FUNCTION Specimen Type: SERUM No comment entered. Ordering Provider: KEITH BLANCHARD Report Released Date/Time: Jul 07, 2024 04:05 PM Reporting Lab: [address] [address] Performing Lab: [address] [address] PROTEIN,TOTAL 7.0 g/dL 6.0-8.3 ALBUMIN 4.0 g/dL 3.5-5.0 ALKALINE PHOSPHATASE 223 U/L H 40-150 AST 20 U/L 5-34 ALT <6 U/L BILIRUBIN, TOTAL 1.1 mg/dL 0.2-1.2 Jul 08, 2024 10:53 AM [facility] ([facility]) BASIC METABOLIC PANEL (non-fasting) Specimen Type: SERUM No comment entered. Ordering Provider: KEITH BLANCHARD Report Released Date/Time: Jul 07, 2024 04:05 PM Reporting Lab: [address] [address] Performing Lab: [address] [address] UREA NITROGEN 22 mg/dL 7-25 GLUCOSE 120 mg/dL H 65-100 SODIUM 140 mmol/L 135-145 POTASSIUM 4.3 mmol/L 3.5-5.0 CHLORIDE 107 mmol/L 100-110 CO2 25 meq/L 20-30 CREATININE, Serum 0.67 mg/dL 0.50-1.40 eGFR(CKD-EPI 2020) >90 mL/min >60 Jul 08, 2024 10:53 AM [facility] ([facility]) URINALYSIS Specimen Type: URINE Comment: If Glucose = >500 and Ketones are positive, please alert the Physician. Ordering Provider: KEITH BLANCHARD Report Released Date/Time: Jul 07, 2024 03:18 PM Reporting Lab: [address] [address] Performing Lab: [address] [address] UA COLOR Light-[place] Yellow UA APPEARANCE Turbid Clear UA GLUCOSE Normal mg/dL Negative UA KETONES TRACE mg/dL Negative UA BLOOD NEGATIVE mg/dL Negative UA PROTEIN 20 mg/dL Negative UA NITRITE NEGATIVE mg/dL Negative UA BILIRUBIN NEGATIVE mg/dL Negative UA SPECIFIC GRAVITY 1.023 H 1.016-1.022 UA pH 6.0 5.0-9.0 UA UROBILINOGEN Normal mg/dL <2.0 UA LEUKOCYTE NEGATIVE Negative Jul 08, 2024 10:53 AM [facility] ([facility]) MICROSCOPIC AUTOMATED, URINE Specimen Type: URINE Comment: If Glucose = >500 and Ketones are positive, please alert the Physician. Ordering Provider: KEITH BLANCHARD Report Released Date/Time: Jul 07, 2024 03:18 PM Reporting Lab: [facility] [address] [address] Performing Lab: [address] [address] UA WBC 0-5 /[HPF] 0-5 UA MUCUS FEW /[LPF] Trace UA RBC 0-2 /[HPF] 0-3 UA SQUAMOUS EPITH FEW /[HPF] UA AMORPHOUS CRYSTALS MODERATE /[HPF] Not Established Jul 08, 2024 10:53 AM [facility] ([facility]) CBC AND DIFF (AUTO) Specimen Type: BLOOD No comment entered. Ordering Provider: KEITH BLANCHARD Report Released Date/Time: Jul 07, 2024 04:05 PM Reporting Lab: [address] [address] Performing Lab: [address] [address] WBC 9.54 10*3/uL 4.50-11.00 RBC 4.04 10*6/uL [...] the Encounter. The data comes from all [place] treatment facilities. 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 Date/Time Encounter Note(s) Provider Source Aug 04, 2024 12:03 PM ADMINISTRATIVE NOT E: LOCAL TITLE: CCC: SCHEDULING ADMINISTRATION STANDARD TITLE: ADMINISTRATIVE NOTE DATE OF NOTE: AUG 04, 2024@12:03:36 ENTRY DATE: AUG 04, 2024@12:03:37 AUTHOR: MICHEAL GRIMES EXP COSIGNER: URGENCY: STATUS: COMPLETED Patient Demographics Patient Name: JOSETTE ALMANZA Patient Primary Phone: [phone] Patient Primary Address: [place] [address] Patient : 1950 Patient Age: 74 Caller/Recipient Relation to Patient: Self Caller Name: JOSETTE ALMANZA Administrative Administrative Note Reason: Medication Renewal OR Medications Refill/Renewal Request: Rx # - Medication Name - Dosage - SIG - Number of Refills - Facility - Status [id number] - RASAGILINEMESYLATE0.5MGTAB - 1 TABLET - TAKE ONE TABLET BY MOUTH ONCE DAILY - 0 - [facility] - 631 - ACTIVE Administrative Note Comments: MAIL OUT IMPORTANT: This note was created by [facility] staff. Please do not alert the staff member by adding them as a signer for future communications. Alerts are not monitored by this user. /rashid/ MICHEAL GRIMES Signed: 08/04/2024 12:03 Receipt Acknowledged By: * AWAITING SIGNATURE * AJAY PATINO LARRY L [facility]
--- OUTSIDE RECORDS SUMMARY | 2024-08-12 08:45 | XMS_ITS | Encounter Summary ---
Author Name [place] Organization [place] Address [address] [place] [address] Care Team Providers Care Inspector Aide Name Role Phone LUCITA BLANCHARD Primary Care [...] Relationship to [employer] ANTHEM BCBS OF [place] (BLUECARD) [facility] CE ORGANIZAT ION HAMPS HIRE COUNT Y INS Dec 22, 2020 [id number] ARCHIE , SPOUSE BCBS [place] [employer] MA[place]TENA[place] CE ORGANIZAT ION HAMPS HIRE COUNT Y INS Dec 22, 2020 [id number] [phone] BEULAH ALMANZA SPOUSE BCBS OF [facility] Genome MAINTENAN CE ORGANIZAT ION HAMPS HIRE COUNT Y INS Dec 22, 2020 [id number] ALEJANDRA ALMANZA SPOUSE [place] PRESCRIPT ION HAMPS HIRE COUNT Y INS Dec 22, 2020 RX21AT [id number] BEULAH ALMANZA SPOUSE [place] PRESCRIPT ION HAMPS HIRE COUNT Y INS Dec 22, 2020 RX21AT [id number] BEULAH ALMANZA SPOUSE [place] PRESCRIPT ION HAMPS HIRE COUNT Y INS Dec 22, 2020 RX21AT [id number] [phone] JOSETTE ALMANZA PATIENT [place] PRESCRIPT ION HAMPS HIRE COUNT Y INS Dec 22, 2020 RX21AT [id number] BEULAH ALMANZA SPOUSE EXPRESS SCRIPTS ([id number]) PRESCRIPT ION L4TA* Sep 22, 2013 L4TA [id number] [phone] BEULAH ALMANZA SPOUSE EXPRESS SCRIPTS ([id number]) PRESCRIPT ION L4TA* Sep 22, 2013 L4TA [id number] BEULAH ALMANZA SPOUSE MEDICARE (WNR) MEDICARE (M) PART A Feb 23, 2016 PART A [id number] [phone] JOSETTE ALMANZA PATIENT MEDICARE (WNR) MEDICARE (M) PART A Feb 23, 2016 PART A [id number] [phone] JOSETTE ALMANZA PATIENT Selected Encounter This section includes the information on record at [place] for the Encounter. Date/Time Encounter Type Encounter Description Reason Pro vider Source Jul 17, 2024 11:28 AM Outpatient Encounter ADMIN PAT ACTIVTIES (MASNONCT) IHE Encounter Template Text not used by [place] Plan of Treatment: Future Appointments (+ 6 months) and Future Tests (+/- 45 days) The Plan of Treatment section includes future care activities for the patient from all [place] treatmentfacilities. This section includes future appointments and future orders which are active, pending or scheduled. Future Appointments This section includes appointments that were scheduled to occur 6 months from the date of the Encounter, up to a maximum of 20 appointments. The data comes from all [place] treatment facilities. Appointment Date/Time Appointment Type Appointme nt Facility Name Jul 27, 2024 01:30 PM [facility] Aug 12, 2024 08:30 AM [facility] Sep 10, 2024 11:00 AM AMBULATORY - MEDICINE [place] [facility] November 12, 2024 02:00 PM [facility]ORY - [facility]ONE [facility] Active, Pending, and Scheduled Orders This section includes a listing of several types of active, pending, and scheduled orders, including clinic medications orders, diagnostic test orders, procedure orders and consult orders; where the start date of the order is 45 days before the date of the Encounter or 45 days after the date of theEncounter. The data comes from all [place] treatment facilities. Test Date/Time Test Type Test Details Facility Name Jul 29, 2024 02:55 PM Consult Order PAIN CLINI C/[facility] OUTPT Cons [employer] ([facility]) Lab Results: +/- 30 days of the encounter This section includes the Chemistry and Hematology Lab Results on record with [place] for the patient. Radiology Reports and Pathology Reports are provided separately, in subsequent sections. Lab Results This section contains the Chemistry/Hematology Results that were resulted 30 days before or 30 daysafter the date of the Encounter. Date/Time Source Result Type Result - Unit Interpretation Reference Range Comment Jul 08, 2024 10:53 AM [facility] ([facility]) CALCIUM Specimen Type: SERUM No comment entered. Ordering Provider: KEITH BLANCHARD Report Released Date/Time: Jul 07, 2024 04:05 PM Reporting Lab: [address] [address] Performing Lab: [address] [address] CALCIUM 9.4 mg/dL 8.5-10.2 Jul 08, 2024 10:53 AM [facility] ([facility]) LIVER FUNCTION Specimen Type: SERUM No comment entered. Ordering Provider: KEITH BLANCHARD Report Released Date/Time: Jul 07, 2024 04:05 PM Reporting Lab: [address] [address] Performing Lab: [address] [address] PROTEIN,TOTAL 7.0 g/dL 6.0-8.3 ALBUMIN 4.0 g/dL 3.5-5.0 ALKALINE PHOSPHATASE 223 U/L H 40-150 AST 20 U/L 5-34 ALT <6 U/L BILIRUBIN, TOTAL 1.1 mg/dL 0.2-1.2 Jul 08, 2024 10:53 AM [facility] ([facility]) BASIC METABOLIC PANEL (non-fasting) Specimen Type: SERUM No comment entered. Ordering Provider: KEITH BLANCHARD Report Released Date/Time: Jul 07, 2024 04:05 PM Reporting Lab: [address] [address] Performing Lab: [address] [address] UREA NITROGEN 22 mg/dL 7-25 GLUCOSE 120 mg/dL H 65-100 SODIUM 140 mmol/L 135-145 POTASSIUM 4.3 mmol/L 3.5-5.0 CHLORIDE 107 mmol/L 100-110 CO2 25 meq/L 20-30 CREATININE, Serum 0.67 mg/dL 0.50-1.40 eGFR(CKD-EPI 2020) >90 mL/min >60 Jul 08, 2024 10:53 AM [facility] ([facility]) URINALYSIS Specimen Type: URINE Comment: If Glucose = >500 and Ketones are positive, please alert the Physician. Ordering Provider: KEITH BLANCHARD Report Released Date/Time: Jul 07, 2024 03:18 PM Reporting Lab: [address] [address] Performing Lab: [address] [address] UA COLOR Light-[place] Yellow UA APPEARANCE Turbid Clear UA GLUCOSE Normal mg/dL Negative UA KETONES TRACE mg/dL Negative UA BLOOD NEGATIVE mg/dL Negative UA PROTEIN 20 mg/dL Negative UA NITRITE NEGATIVE mg/dL Negative UA BILIRUBIN NEGATIVE mg/dL Negative UA SPECIFIC GRAVITY 1.023 H 1.016-1.022 UA pH 6.0 5.0-9.0 UA UROBILINOGEN Normal mg/dL <2.0 UA LEUKOCYTE NEGATIVE Negative Jul 08, 2024 10:53 AM [facility] ([facility]) MICROSCOPIC AUTOMATED, URINE Specimen Type: URINE Comment: If Glucose = >500 and Ketones are positive, please alert the Physician. Ordering Provider: KEITH BLANCHARD Report Released Date/Time: Jul 07, 2024 03:18 PM Reporting Lab: [address] [address] Performing Lab: [address] [address] UA WBC 0-5 /[HPF] 0-5 UA MUCUS FEW /[LPF] Trace UA RBC 0-2 /[HPF] 0-3 UA SQUAMOUS EPITH FEW /[HPF] UA AMORPHOUS CRYSTALS MODERATE /[HPF] Not Established Jul 08, 2024 10:53 AM [facility] ([facility]) CBC AND DIFF (AUTO) Specimen Type: BLOOD No comment entered. Ordering Provider: KEITH BLANCHARD Report Released Date/Time: Jul 07, 2024 04:05 PM Reporting Lab: [address] [address] Performing Lab: [address] [address] WBC 9.54 10*3/uL 4.50-11.00 RBC 4.04 10*6/uL [...] the Encounter. The data comes from all [place] treatment facilities. 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 Date/Time Encounter Note(s) Provider Source Jul 17, 2024 12:44 PM ADDENDUM: LOCAL TITLE: Addendum STANDARD TITLE: ADDENDUM DATE OF NOTE: JUL 17, 2024@12:44:14 ENTRY DATE: JUL 17, 2024@12:44:16 AUTHOR: CÉSAR TEJEDA EXP COSIGNER: URGENCY: STATUS: COMPLETED deferring to provider who saw patient most recently - did you want him to continue taking doxycycline? /rashid/ CÉSAR TEJEDA OD Operations Technician Signed: 07/17/2024 12:44 Receipt Acknowledged By: 07/17/2024 13:55 /rashid/ JOHN ZAMORA OD RISK ADJUSTMENT SPECIALIST ====== --- Original Document --- 07/17/24 V1 PHARMACY CUSTOMER CARE MEDICATION RENEWAL: Date: Jun Division: [place] referred by Pharmacy Call Center for medication renewal: Non-controlled/maintenan ce medication Medications requested: [id number] DOXYCYCLINE HYCLATE 50MG CAP Defer to specialty clinic To be mailed . Please review and renew if appropriate. *This note was generated by [facility]/[place] Pharmacy Customer Care. If you have any questions or need assistance, do not contact this author. Please refer all questions to your local, on-site pharmacy departments. /lexa FRAUSTO [facility] Toddler Teacher, [place]/Pharmacy Customer Care Signed: 07/17/2024 11:31 Receipt Acknowledged By: 07/17/2024 12:45 /lexa TEJEDA OD Operations Technician CÉSAR TEJEDA [facility] Jul 17, 2024 11:30 AM PHARMACY NOTE: LOCAL TITLE: V1 PHARMACY CUSTOMER CARE MEDICATION RENEWAL STANDARD TITLE: PHARMACY NOTE DATE OF NOTE: JUL 17, 2024@11:30 ENTRY DATE: JUL 17, 2024@11:30:50 AUTHOR: RICH FRAUSTO COSIGNER: URGENCY: STATUS: COMPLETED V1 PHARMACY CUSTOMER CARE MEDICATION RENEWAL Has ADDENDA Date: Jun Division: [place] Pt referred by Pharmacy Call Center for medication renewal: Non-controlled/maintenan ce medication Medications requested: [id number] DOXYCYCLINE HYCLATE 50MG CAP Defer to specialty clinic To be mailed . Please review and renew if appropriate. *This note was generated by [facility]/[place] Pharmacy Customer Care. If you have any questions or need assistance, do not contact this author. Please refer all questions to your local, on-site pharmacy departments. /lexa FRAUSTO [facility] Toddler Teacher, [place]/Pharmacy Customer Care Signed: 07/17/2024 11:31 Receipt Acknowledged By: 07/17/2024 12:45 /lexa TEJEDA OD Operations Technician 07/17/2024 ADDENDUM STATUS: COMPLETED deferring to provider who saw patient most recently - did you want him to continue taking doxycycline? /lexa TEJEDA OD Operations Technician Signed: 07/17/2024 12:44 Receipt Acknowledged By: * AWAITING SIGNATURE * JOHN ZAMORA ANDREA R [facility] W[facility] Jul 17, 2024 11:28 AM PHARMACY NOTE: LOCAL TITLE: V1 PHARMACY CUSTOMER CARE MEDICATION RENEWAL STANDARD TITLE: PHARMACY NOTE DATE OF NOTE: JUL 17, 2024@11:28 ENTRY DATE: JUL 17, 2024@11:28:53 AUTHOR: RICH FRAUSTO COSIGNER: URGENCY: STATUS: COMPLETED Date: Jun Division: [place] Pt referred by Pharmacy Call Center for medication renewal: Non-controlled/maintenan ce medication Medications requested: [id number] TAMSULOSIN HCL 0.4MG CAP Defer to primary care provider To be mailed . Please review and renew if appropriate. *This note was generated by [facility] Pharmacy Customer Care. If you have any questions or need assistance, do not contact this author. Please refer all questions to your local, on-site pharmacy departments. /rashid/ RICH FRAUSTO [facility] Toddler Teacher, [place]/Pharmacy Customer Care Signed: 07/17/2024 11:29 Receipt Acknowledged By: 07/17/2024 14:14 /es/ HAM JACKSON, RN REGISTERED NURSE for SARAH WALKER 07/20/2024 12:52 /rashid/ LUCITA BLANCHARD MD PHYSICIAN RICH FRAUSTO [place] [facility]
--- OUTSIDE RECORDS SUMMARY | 2024-08-12 08:45 | XMS_ITS | Data Portability ---
Author Organization [facility] [employer], TARIS Biomed[employer] Address [address] [place] [address] Care Team Providers Care Spice Mixer Name Role Phone ELADIO PINA Referring Provider Unavailable ELADIO PINA Referring Provider ELADIO PINA Primary Care Provider [facility] (OUTPATIENT SERVICES) Ne urologist Assessment Encounter Date Assessment Date Assessment LastModified by Organization Details LastModified Time 01/19/2021 01/19/2021 IMPRESSION: Likely early Parkinsons disease explaining right sided rest tremor superimposed on pre-existing essential tremor. He is grieving for his son. He seems to be handling it well. He says he has plenty of support, sometimes too much but he is able to politely say he wants to be by himself. However, he is continue with daily activities to keep him busy. I will monitor. We agreed to send him back to [facility] physical therapy for his worsened back pain. We will make no medication changes. Details: Pramipexole continues to help tremor enough. We are at maximum doses: Levodopa =1200 mg/day; pramipexole: has previously had side effects of stuttering and feeling out of sorts at a pramipexole higher dose? g oing up 50% to 3 tablets (0.75 mg) 3 times a day. Should there be breakthrough symptoms, we would discuss referral for deep brain stimulation (including the possibility of relatively new ultrasound methods). Azilect 0.5 mg daily helped his tremor a little. It is on board also because it may slow down the progression of Parkinsons disease a little according to data. We will not increase as he is on lisinopril which interacts with Azilect so that a higher dose is contraindicated . There are very occasional memory lapses as he describes. I have asked him to discuss with his that if he or she are concerned that he might be making mistakes with medication that she start helping out. He has said that he has already had this discussion. I have asked him to focus on bringing his to follow-up so I can have her perspective. DIAGNOSTIC PATHWAY: Sinemet has helped although only had a very large dose, 1200 mg per day. IAN positivity, with Sinemet responsiveness, makes Parkinsons disease more likely. To review, the likelihood had emerged with 50% benefit for levodopa/carbid opa for right hand rest tremor. This would have been sufficient data normally, but the complicating circumstance has been that such benefit only emerged in a very large dose, 1200 mg per day, versus less than 10% benefit for 900 mg per day of levodopa or smaller doses. There is also additional more nonspecific parkinsonism with bilateral mild limb rigidity and mild slowing and face movements. Essential tremor is made less likely, not only because of the benefit of Sinemet, but also because the tremor is not modifiable by distraction and the tremor convincingly abolishes when the patient as his right arm at rest but suddenly extends ( dorsiflexes) his wrist. On the other hand, the rest tremor is not clearly of a different frequency than his action tremor. Cortical basal degeneration remains less likely by the absence of any focal left sided parietal atrophy when I reviewed the images on line and by the absence of any symptomatic alien limb feeling. PLAN Dustin Littlerussell January 19, 2021 Physical therapy, with home exercises several times a day, for long history of fluctuating back pain, previously helped by physical therapy, now worsened again, mild but daily and continuous, worsened by sudden moves [facility] (Physical Therapy) [address], [place] [address] Ph. , Referral is sent. A phone call from you is still needed to them, at the number above, to set up initial consultation. MEDICATIONS ALL PRESCRIBED BY [facility]: CONTINUE , to help right hand tremor: Sinemet (generic levodopa/carbid opa), 25/100 tablets, 3 tablets 4 times daily CONTINUE, For more help on your right hand tremor: Pramipexole 0.25 mg tablets, 2 tabs 3 times a day CONTINUE, To help slow down Parkinson's disease, Azilect 0.5 mg tablets, One full tablet every morning with food MEDICATION SAFETY Your already has an idea about your medications, what and when you take them. If you start to have any trouble remembering your medications or taking them accurately or forgetting if you took them please talk to your about starting to help you and be with you when you take your medications so you can avoid any mistakes that cause harm. BRAIN HEALTH AND HEART HEALTH ARE HELPED BY 20 MINUTE WALKS EVERY DAY Please continue your focus on daily exercise, at least 20 minutes, either with your carpentry/work around the house or at least with 20 minute walks every day This is good for your neurological health and is also good for your heart health. SLEEP HYGIENE Continue minimizing naps as this increases your likelihood of staying asleep longer at night. Follow-up in 6 months, or sooner for any neurological issues. Please try to bring your with you to neurology follow-up. fer Not available 01/19/2021 13:17:12 Plan of Treatment Reminders Order Date Submit Date Provider Last Modified By Organization Details Last Modified Time Details Appointments None recorded. Lab None recorded. Referral neurologic physical therapist referral - Physical therapy, with home exercises several times a day, for long history of fluctuating back pain, previously helped by physical therapy, now worsened again, mild but daily and continuous, worsened by sudden moves 2020 021 [email or web address] 1 [facility] (Physical Therapy), [address] [place] [address], [id number], 22:34:32 Procedures None recorded. Surgeries None recorded. Imaging None recorded. Medication Orders None recorded. Patient TargetsNo targets recorded. Patient InstructionsNo instructions recorded. Reason for Referral Physical therapy, with home exercises several times a day, for long history of fluctuating back pain, previously helped by physical therapy, now worsened again, mild but daily and continuous, worsened by sudden moves Referring Physician: Darrel Pruett, Neurology, Encounter Date: 01/19/2021 Procedures Surgical History Date Name Laterality Status Provider Name and Address Organization Details Recorded Time 01/19/2021 DATA REVIEW completed Darrel Pruett MD [address] [place], [place] [address]Jose TOMMY, [phone], [facility] Neurology [facility] 01/19/2021 12:56:24 Imaging Results None recorded. Procedure Notes None recorded. Medical Equipment None Reported. Medications Name Sig Start Date Stop Date Status Note LastModified by Organization Details LastModified Time atorvastatin 80 mg tablet active Not Available Not Available Not Available aspirin 81 mg tablet,delayed release active Not Available Not Available Not Available ketorolac 0.5 % eye drops INSTILL 1 DROPS IN LEFT EYE FOUR TIMES DAILY active Not Available Not Available No t Available pramipexole 0.5 mg tablet active Not Available Not Availabl e Not Available lisinopril 10 mg tablet active Not Available Not Available No t Available polyethylene glycol 3350 17 gram/dose oral powder active Not Available Not Available Not Available albuterol sulfate HFA 90 mcg/actuation aerosol inhaler INHALE 2 PUFFS BY MOUTH EVERY 4 HOURS active Not Available Not Available No t Available metformin ER 500 mg tablet,extende d release 24 hr TAKE 4 TABLETS BY MOUTH EVERY DAY active Not Available Not Available No t Available rasagiline 0.5 mg tablet active Not Available Not Available No t Available OneTouch Verio test strips USE TO TEST BLOOD SUGAR TWICE A DAY active Not Available Not Available No t Available OneTouch Delica Plus Lancet 33 gauge USE TO TEST TWICE DAILY active Not Available Not Available No t Available Vitals None Recorded Social History None recorded. Functional Status None recorded. Mental Status None recorded. Family History Nothing Reported. Medical History No medical history recorded. Past Encounters Encounter ID Performer Location Encounter Start Date Encounter Closed Date Diagnosis/Indication Diagnosis SNOMED-CT Code Diagnosis ICD10 Code Diagnosis Note [id number] Darrel Pruett MD [facility] [address] [place] [address] Rebeca HACKETTJOSETOMMY ABEL [phone] 01/19/2021 12:08:19 01/19/2021 13:42:50 Parkinson's disease 04260200 G20 Dystonia 67788422 G24.1 Health Concerns Section Related Observation LastModified by Organization Detai ls LastModified Time None Recorded Concern Status LastModified by Organization Details LastModified Time None Recorded Advance Directives Directive None Recorded Payers Encounter Date Sequence Insurance Name Policy Number Policy Mills Covered Member ID Mills Member ID Guarantor Name 01/19/2021 1 [place] [facility] [id number] Wilmer Olivares [id number] Dustin Olivares Notes Date Note Type Note Provider Name and Address Organization Details Recorded Time 01/19/2021 text/html Follow up of rig ht hand tremor. He is not accompanied by his , Soledad. Since July 28, 2020 neurology follow-up encounter, his son has in September. It has been tough but he is doing okay. Occasionally he gets angry at the world but then he reminds himself to move on. His is doing okay? t his was her stepson. He has another daughter by his first marriage. She has a daughter and a son, also by previous marriage. He is keeping busy with building projects, power washing, woodwork, on a ladder. He is walking well without any imbalance and has no imbalance on the ladder. He has had no falls. He occasionally notices tremor but it is not bothering him. He has learned tricks so that his residual tremor does not bother him putting a screw onto the tip of a screwdriver. He has eliminated naps. His sleep at night is nevertheless unchanged, only ? o yvan. He sleeps for ~3.5-4 hours, is up for a few minutes up to 2 hours and then gets back to sleep. He is still rested about 80% of the time when he wakes finally in the morning. He still occasionally notices worsened memory but not very often and there has been no worsening. There has been no recurrence of him having trouble writing something in his checkbook that occurred in late 2019. He notices no mistakes with medication. He has no hallucination. Back pain that had only been occasionally, going away with sitting down and resting, is now daily and continuous. It is mostly mild, 1-2/10 but it increases transiently if he moves too quickly in a certain way. Physical therapy at [facility] has helped in a similar situation in the past. Presenting symptomatology is reviewed from initial neurology consultation September 29, 2018: In ~2016, he began to notice a slight shaking or tremor bilaterally in his hands when he held them outstretched. This has slowly worsened. However, a few months ago, ~the beginning of 2018, he noticed onset of a different and more pronounced tremor of his right hand that has since worsened and become daily and near continuous. The tremor is predominantly when his hand is at rest but also comes on with use. The tremor has higher magnitude and intrudes significantly on his daily activities (he is right-handed). He can no longer perform many tasks previously easy for him that require fine manipulation. He cannot write. Sometimes when he lays down to sleep and relaxes completely the tremor goes away. In general, he has no problems getting to sleep, and in particular no restless legs. He wakes often during the night, he is unsure why. His says he snores only rarely. In recent times, he has made a brief oral utterance during what she assumes was a dream. This has not happened before. He does not make gestures with his limbs during sleep. He walks without any problems. His memory is okay. His mood is even. He has no hallucinations. (As of December 17, 2018) is: His bladder control is fine; he has no significant dizziness. (As of December 17, 2018) is: His bladder control is fine; he has no significant dizziness. He has no sensation that his right hand is not part of them or in any way alien feeling. In general, he has no problems getting to sleep, and in particular no restless legs. He wakes often during the night, he is unsure why. His says he snores only rarely. In recent times, he has made a brief oral utterance during what she assumes was a dream. This has not happened before. He does not make gestures with his limbs during sleep. He walks without any problems. His memory is okay. His mood is even. He has no hallucinations. (As of December 17, 2018) is: His bladder control is fine; he has no significant dizziness. (As of December 17, 2018) is: His bladder control is fine; he has no significant dizziness. He has no sensation that his right hand is not part of them or in any way alien feeling. Darrel Pruett MD [address] [place] [address] [place], [phone], [facility] Neurology [facility] 06/12/2021 16:52:57
--- OUTSIDE RECORDS SUMMARY | 2024-08-12 08:45 | XMS_ITS | Encounter Summary ---
Author Name [facility] [place] [facility] [place] Address [address] [place] [address] Care Team Providers Care Acid Correction Hand Name Role Phone LUCITA BLANCHARD Primary Care [...] Relationship to Policy [place] AN[place] [facility] CE ORGANIZAT ION HAMPS HIRE COUNT Y INS Dec 22, 2020 [id number] [phone] ARCHIE , SPOUSE [place] [email or web address] [place] CE ORGANIZAT ION HAMPS HIRE COUNT Y INS Dec 22, 2020 [id number] [phone] BEULAH ALMANZA SPOUSE BCBS OF [facility] [place] CE ORGANIZAT ION HAMPS HIRE COUNT Y INS Dec 22, 2020 [id number] [phone] ALEJANDRA ALMANZA SPOUSE [place] PRESCRIPT ION HAMPS HIRE COUNT Y INS Dec 22, 2020 RX21AT [id number] BEULAH ALMANZA SPOUSE [place] PRESCRIPT ION HAMPS HIRE COUNT Y INS Dec 22, 2020 RX21AT [id number] BEULAH ALMANZA SPOUSE [place] PRESCRIPT ION HAMPS HIRE COUNT Y INS Dec 22, 2020 RX21AT [id number] [phone] JOSETTE ALMANZA PATIENT [place] PRESCRIPT ION HAMPS HIRE COUNT Y INS Dec 22, 2020 RX21AT [id number] BEULAH ALMANZA SPOUSE [employer] ([id number]) PRESCRIPT ION L4TA* Sep 22, 2013 L4TA [id number] BEULAH ALMANZA SPOUSE [employer] ([id number]) PRESCRIPT ION L4TA* Sep 22, 2013 L4TA [id number] BEULAH ALMANZA SPOUSE MEDICARE (WNR) MEDICARE (M) PART A Feb 23, 2016 PART A [id number] JOSETTE ALMANZA PATIENT MEDICARE (WNR) MEDICARE (M) PART A Feb 23, 2016 PART A [id number] JOSETTE ALMANZA PATIENT Selected Encounter This section includes the information on record at [place] for the Encounter. Date/Time Encounter Type Encounter Description Reason Provider Source Mar 03, 2024 08:15 AM QNHP OL DIG ASSMT&MGMT 11-20 CLINICAL PHARMACY ICD-10-CM C61 Malignant neoplasm of prostate DUY KENNEDY Kunal Encounter Template Text not used by [place] Assessments - Encounter Diagnoses This section includes the primary and secondary diagnoses documented for the Encounter. Date/Time Primary/Secondary Diagnosis Diagnosis Name Provider Source Mar 03, 2024 08:22 AM PRIMARY Malignant neoplasm of prostate DUY KENNEDY [place] [facility] [place] [facility] Plan of Treatment: Future Appointments (+ 6 months) and Future Tests (+/- 45 days) The Plan of Treatment section includes future care activities for the patient from all [place] treatmentfacilities. This section includes future appointments and future orders which are active, pending or scheduled. Future Appointments This section includes appointments that were scheduled to occur 6 months from the date of the Encounter, up to a maximum of 20 appointments. The data comes from all [place] treatment facilities. Appointment Date/Time Appointment Type Appointme nt Facility Name Apr 29, 2024 01:30 PM [facility] Jun 02, 2024 10:45 AM AMBULATORY - MEDICINE [place] [facility] [place] [facility] Jun 05, 2024 01:30 PM AMBULATORY - MEDICINE [facility] [place] [facility] Jul 09, 2024 10:30 AM AM[facility]ULATORY - MEDICINE [facility] [place] [facility] Jul 27, 2024 01:30 PM [facility]) Aug 12, 2024 08:30 AM AMBULATORY - MEDICINE [place] [facility] [place] [facility] Lab Results: +/- 30 days of the encounter This section includes the Chemistry and Hematology Lab Results on record with [place] for the patient. Radiology Reports and Pathology Reports are provided separately, in subsequent sections. Lab Results This section contains the Chemistry/Hematology Results that were resulted 30 days before or 30 daysafter the date of the Encounter. Date/Time Source Result Type Result - Unit Interpretation Reference Range Comment Feb 03, 2024 01:49 PM [place] ([facility]) MICROALBUMIN CREATININE RATIO PANEL Specimen Type: URINE No comment entered. Ordering Provider: NEHEMIAS BLANCHARD Report Released Date/Time: Jan 27, 2024 11:47 AM Reporting Lab: [address] [address] Performing [facility]: [facility] [address] [address] MICROALBUMIN/C REATININE RATIO 89.4 mg/g H 0-29.9 MICROALBUMIN,Q UANTITATIVE 9.0 mg/dL RR UNAVAIL CREATININE URINE 100.67 mg/dL Feb 03, 2024 01:49 PM [place] ([facility]) URINALYSIS Specimen Type: URINE Comment: If Glucose = >500 and Ketones are positive, please alert the Physician. Ordering Provider: NEHEMIAS BLANCHARD Report Released Date/Time: Jan 27, 2024 11:47 AM Reporting Lab: [facility] [address] [address] Performing Lab: [address] [address] UA COLOR Light-Yellow Yellow UA APPEARANCE Clear [...] Jan 27, 2024 11:47 AM Reporting Lab: [address] [address] Performing Lab: [address] [address] VITAMIN B12 869 pg/mL 200-900 Feb 03, 2024 01:41 PM [place] ([facility]) VITAMIN D (25-OH) Specimen Type: SERUM No comment entered. Ordering Provider: NEHEMIAS BLANCHARD Report Released Date/Time: Jan 27, 2024 11:47 AM Reporting Lab: [address] [address] Performing Lab: [address] [address] VITAMIN D (25-OH) 25 ng/mL 20-50 Feb 03, 2024 01:41 PM [place] ([facility]) HEMOGLOBIN A1C PANEL Specimen Type: BLOOD [...] Jan 27, 2024 11:47 AM Reporting Lab: [facility] [address] [address] Performing [facility]: [facility] [address] HEMOGLOBIN A1C 6.1 H 4.0-5.6 Feb 03, 2024 01:41 PM [place] ([facility]) TSH Specimen Type: SERUM No comment entered. Ordering Provider: NEHEMIAS BLANCHARD Report Released Date/Time: Jan 27, 2024 11:47 AM Reporting Lab: [facility] [address] [address] Performing Lab: [facility] [address] [address] TSH 1.45 u[IU]/mL 0.35-5.00 Feb 03, 2024 01:41 PM [place] ([facility]) PSA Specimen Type: SERUM No comment entered. Ordering Provider: NEHEMIAS BLANCHARD Report Released Date/Time: Jan 27, 2024 11:47 AM Reporting Lab: [facility] [address] [address] Performing Lab: [facility] [address] [address] PSA 221.85 ng/mL H 0.00-4.00 Feb 03, 2024 01:41 PM [place] ([facility]) CBC AND DIFF (AUTO) Specimen Type: BLOOD No comment entered. Ordering Provider: NEHEMIAS BLANCHARD Report Released Date/Time: Jan 27, 2024 11:47 AM Reporting Lab: [facility] [address] [address] Performing Lab: [facility] [address] [address] WBC 8.15 10*3/uL 4.50-11.00 RBC 4.59 10*6/uL [...] 10*3/uL 0.00-0.00 Feb 03, 2024 01:41 PM [place] ([facility]) BASIC METABOLIC PANEL (non-fasting) Specimen Type: SERUM No comment entered. Ordering Provider: NEHEMIAS BLANCHARD Report Released Date/Time: Jan 27, 2024 11:47 AM Reporting Lab: [address] [address] Performing Lab: [address] [address] UREA NITROGEN 21 mg/dL 7-25 GLUCOSE 166 mg/dL H 65-100 SODIUM 139 mmol/L 135-145 POTASSIUM 4.3 mmol/L 3.5-5.0 CHLORIDE 103 mmol/L 100-110 CO2 25 meq/L 20-30 CREATININE, Serum 0.77 mg/dL 0.50-1.40 eGFR(CKD-EPI 2020) >90 mL/min >60 Feb 03, 2024 01:41 PM [place] ([facility]) LIPID PANEL, NON FASTING Specimen Type: SERUM No comment entered. Ordering Provider: NEHEMIAS BLANCHARD Report Released Date/Time: Jan 27, 2024 11:47 AM Reporting Lab: [facility] [address] [facility] [address] Performing Lab: [address] [address] CHOLESTEROL 126 mg/dL TRIGLYCERIDE 71 mg/dL 0-150 LDL calculated 54 mg/dL 0-129 CHOL/HDL 2.2 HDL CHOLESTEROL 58 mg/dL 40-60 Feb 03, 2024 01:41 PM [place] ([facility]) LIVER FUNCTION Specimen Type: SERUM No comment entered. Ordering Provider: NEHEMIAS BLANCHARD Report Released Date/Time: Jan 27, 2024 11:47 AM Reporting Lab: [address] [address] Performing Lab: [address] [address] PROTEIN,TOTAL 7.0 g/dL 6.0-8.3 ALBUMIN 4.1 g/dL 3.5-5.0 ALKALINE PHOSPHATASE 170 U/L H 40-150 AST 15 U/L 5-34 ALT 9 U/L BILIRUBIN, TOTAL 0.7 mg/dL 0.2-1.2 Encounter Notes: All associated encounter notes This section contains the clinical notes associated to the Encounter. Date/Time Encounter Note(s) Provider Source Mar 03, 2024 08:22 AM ADDENDUM: LOCAL TITLE: Addendum STANDARD TITLE: ADDENDUM DATE OF NOTE: MAR 03, 2024@08:22:52 ENTRY DATE: MAR 03, 2024@08:22:52 AUTHOR: DUY KENNEDY EXP COSIGNER: URGENCY: STATUS: COMPLETED Alerting [employer] telecom field technician to approval. Please fax copy to office along with suggested monitoring. Narrative has been updated, but RX not entered yet. RX can be processed when available. Thank you /rashid/ DUY KENNEDY PHARMD, BCPS CLINICAL PHARMACIST PRACTITIONER Signed: 03/03/2024 08:24 Receipt Acknowledged By: 03/03/2024 09:05 /rashid/ PRITESH VILLARREAL CC Box Hinge And Lock Attacher --- Original Document --- 03/03/24 CONSULT REPORT/PRIOR AUTH FACILITY PADR: The medical record has been reviewed with regard to this restricted drug request. This prior authorization drug request originated with a [facility] provider. 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 01/29/24 PSA level was 264, currently treated with leuprolide and bicalutamide combination therapy. Mild improvement in PSA and feeling somewhat better . - Per 02/26/24 Hematology/Oncology notes, pt has incurable advanced castrate naicve prostate cancer. Pt does not qualify for systemic chemotherapy give history of parkinson;s (neuropathy from treatment may further affect mobility and increase risk of falls), Discussed androgen synthesis inhibitor albiraterone plus prednisone 5 mg daily. Discussed potential toxicities including hepatic, vasomotor, and fatigue - LFT and Scr WNL from 02/26/24 labs - Must be prescribed with prednisone. Concurrent use of steroids is important to mitigate secondary mineralocorticoid excess caused by abiraterone. LATITUDE trial: At a median follow-up of 52 months, overall survival, the primary endpoint of the study, was significantly increased with the addition of abiraterone plus prednisone (median survival 53.3 versus 36.5 months, HR 0.66, 95% CI 0.56-0.78). STAMPEDE trial: Overall survival was significantly increased with the addition of abiraterone (three-year survival 83 versus 76 percent with ADT alone, HR 0.63, 95% CI 0.52-0.76), benefits which were confirmed with longer follow-up [72]. Results were similar for those with nonmetastatic and metastatic disease (HR 0.75 and 0.61, respectively). Failure-free survival was also significantly increased in the ADT plus abiraterone arm of the trial (three-year failure-free survival rate 75 versus 45 percent for ADT alone, HR 0.29, 95% CI 0.25-0.34). Improvement in failure-free survival was noted in males with metastatic disease and those with locally advanced nonmetastatic disease. Suggested monitoring: - ALT, AST, and bilirubin prior to treatment, every 2 weeks for 3 months and monthly thereafter. - Serum potassium (prior to treatment and at least monthly). - Monitor blood glucose (in patients with diabetes) during and after discontinuation of abiraterone therapy. - Monitor BP and monitor for fluid retention (prior to treatment and at least monthly). The request is approved x 12 months - A documented therapeutic failure of the preferred formulary alternative(s) exists Comment: ADT (bicalutamide plus lueprolide) Time spent: 15 minutes /rashid/ DUY KENNEDY, PHARMD, BCPS CLINICAL PHARMACIST PRACTITIONER Signed: 03/03/2024 08:22 DUY KENNEDY [facility] [place] [facility] Mar 03, 2024 08:15 AM PHARMACY CONSULT: LOCAL TITLE: CONSULT REPORT/PRIOR AUTH FACILITY PADR STANDARD TITLE: PHARMACY CONSULT DATE OF NOTE: MAR 03, 2024@08:15 ENTRY DATE: MAR 03, 2024@08:15:21 AUTHOR: DUY KENNEDY EXP COSIGNER: URGENCY: STATUS: COMPLETED CONSULT REPORT/PRIOR AUTH FACILITY PADR Has ADDENDA The medical record has been reviewed with regard to this restricted drug request. This prior authorization drug request originated with a [facility] provider. 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 01/29/24 PSA level was 264, currently treated with leuprolide and bicalutamide combination therapy. Mild improvement in PSA and feeling somewhat better . - Per 02/26/24 Hematology/Oncology notes, pt has incurable advanced castrate naicve prostate cancer. Pt does not qualify for systemic chemotherapy give history of parkinson;s (neuropathy from treatment may further affect mobility and increase risk of falls), Discussed androgen synthesis inhibitor albiraterone plus prednisone 5 mg daily. Discussed potential toxicities including hepatic, vasomotor, and fatigue - LFT and Scr WNL from 02/26/24 labs - Must be prescribed with prednisone. Concurrent use of steroids is important to mitigate secondary mineralocorticoid excess caused by abiraterone. LATITUDE trial: At a median follow-up of 52 months, overall survival, the primary endpoint of the study, was significantly increased with the addition of abiraterone plus prednisone (median survival 53.3 versus 36.5 months, HR 0.66, 95% CI 0.56-0.78). STAMPEDE trial: Overall survival was significantly increased with the addition of abiraterone (three-year survival 83 versus 76 percent with ADT alone, HR 0.63, 95% CI 0.52-0.76), benefits which were confirmed with longer follow-up [72]. Results were similar for those with nonmetastatic and metastatic disease (HR 0.75 and 0.61, respectively). Failure-free survival was also significantly increased in the ADT plus abiraterone arm of the trial (three-year failure-free survival rate 75 versus 45 percent for ADT alone, HR 0.29, 95% CI 0.25-0.34). Improvement in failure-free survival was noted in males with metastatic disease and those with locally advanced nonmetastatic disease. Suggested monitoring: - ALT, AST, and bilirubin prior to treatment, every 2 weeks for 3 months and monthly thereafter. - Serum potassium (prior to treatment and at least monthly). - Monitor blood glucose (in patients with diabetes) during and after discontinuation of abiraterone therapy. - Monitor BP and monitor for fluid retention (prior to treatment and at least monthly). The request is approved x 12 months - A documented therapeutic failure of the preferred formulary alternative(s) exists Comment: ADT (bicalutamide plus lueprolide) Time spent: 15 minutes /lexa KENNEDY PHARMD, ROBYN CLINICAL PHARMACIST PRACTITIONER Signed: 03/03/2024 08:22 03/03/2024 ADDENDUM STATUS: COMPLETED Alerting [employer] telecom field technician to approval. Please fax copy to office along with suggested monitoring. Narrative has been updated, but RX not entered yet. RX can be processed when available. Thank you /lexa KENNEDY PHARMD, ROBYN CLINICAL PHARMACIST PRACTITIONER Signed: 03/03/2024 08:24 Receipt Acknowledged By: * AWAITING SIGNATURE * PRITESH VILLARREAL [facility]
[2024-08-12 08:46] VITALS: BP 122/70; PULSE 86; O2SAT 99; BMI 24.5
--- NOTE | 2024-08-12 08:46 | A.OFFVIS_ITS ---
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 73y/o M w/Parkinson's disease, stable on Sinemet IR 4x/day for tremors and Mirapex additionally for RLS Allergies Penicillins Allergy (Unknown, Verified 08/12/24 08:49) Unknown Medication List - Last Reconciled 08/12/24 by Erendira Shafer MD albuterol sulfate 90 mcg/actuation 2 puffs inhalation Q6H PRN atorvastatin 40 mg (1/2 x 80 mg) PO BEDTIME carbidopa-levodopa 25-100 mg 2 tabs PO QID carbidopa-levodopa 50-200 mg ER 1 tab PO BEDTIME cholecalciferol (vitamin D3) 25 mcg PO DAILY cyanocobalamin (vitamin B-12) 1,000 mcg PO DAILY fluticasone propionate 50 mcg/actuation 1 spray intranasal DAILY PRN metformin 1,000 mg PO BID pramipexole 0.5 mg PO TID rasagiline 0.5 mg PO DAILY triamcinolone acetonide 0.1% 1 appl topical BID HPI Comments Details: 74y/o Right handed male comes for further management of parkinsons disease.He was diagnosed with Parkinsons about 7-8 years ago. His first symptoms were tremors in his left hand . He was seen by Dr. Dior which treated him with carbidopa/levodopa , pramipexole and rasagiline. He also has REM behavior disorder- fighting in sleep, screaming , yeling etc. Memory- slow thinking , word finding Mood- normal Drooling- none Speech- softer and slurred Handwriting- fluctuates, smaller Dressing- difficult Showering- slower Turning in bed- OK Using utensils- slower Gait- slower , off balance , uses a cane , no recent falls. Bowel movements- constipation Urinary - increased frequency He also has prostrate cancer and that contributes also. No hallucinations Mild dizziness with position change No diplopia or vertigo. He has dyskinesias when he is stressed. 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 Vitamin D deficiency Type 2 diabetes mellitus Radiculopathy, lumbar region Parkinson's disease without dyskinesia Other ehrlichiosis Other cystic kidney diseases Nonrheumatic aortic (valve) stenosis Other and unspecified hyperlipidemia Fatty liver HTN (hypertension) Deficiency of other specified B group vitamins Congenital pancreatic cyst Surgical History H/O hand surgery Hx of appendectomy Family History Mother HTN (hypertension) Father HTN (hypertension) Sister Diabetes Social History Alcohol intake: current Patient Tobacco Use Status: Never used Tobacco Physical Exam Vital Signs: Last Vital Signs Pulse 86 08/12/24 08:46 BP 122/70 08/12/24 08:46 Pulse Ox 99 08/12/24 08:46 Oxygen Delivery Method Room Air 08/12/24 08:46 BMI result Body Mass Index 24.5 Const General: cooperative, healthy appearing, comfortable and no acute distress Nutritional Appearance: average body habitus Orientation/consciousness: patient oriented x3 Eyes Pupils: Equal, round and reactive pupils present Neuro Other: Mild decreased facial expression and blink Moderate dyskinesias. No tremors Mild hypophonia Mild to moderate bradykinesia FFM and foot taps - decreased gait- can walk without cane , mild stoop, narrow based ,dyskinetic and mild off balance General: patient oriented x3, tone normal, moves all extremities and no focal motor deficits Cranial nerves: Yes Facial sensation intact/muscles of mastication intact, Yes Equal, round and reactive pupils present, Yes Bilaterally intact EOM present, Yes Nystagmus not present, Yes Normal facial strength present, Yes Midline tongue present, Yes Symmetric palate elevation present and Yes Ability to bilaterally elevate shoulders present Cognition (Neuro): normal cognition Motor exam (neuro): 5/5 motor strength present throughout and Normal motor muscle tone present throughout Deep tendon reflexes (DTR's): Right triceps reflex intensity grade: 1+, Left triceps reflex intensity grade: 1+, Rt Biceps (C5, C6): 1+, Left biceps reflex intensity grade: 1+, Right brachioradialis reflex intensity grade: 1+, Left brachioradialis reflex intensity grade: 1+, Right patellar reflex intensity grade: 1+ and Left patellar reflex intensity grade: 1+ Coordination: [id number] test normal Assessment & Plan Assessment & Plan (1) Parkinson's disease with dyskinesia: Code(s): G20.B1 - Parkinson's disease with dyskinesia, without mention of fluctuations Category: Medical Qualifiers: Fluctuating manifestations: with fluctuating manifestations Qualified Code(s): G20.B2 - Parkinson's disease with dyskinesia, with fluctuations (2) REM behavioral disorder: Code(s): G47.52 - REM sleep behavior disorder Category: Medical Plan Change Carbidopa/levodopa 25/100 to 3 tabs 8am 2 tabs 12 noon 3 tabs 4 pm and 2 tabs 8 Pm Carbidopa/levodopa ER 50/200 at 10 pm Pramipexole 0.5 mg 8am, 1 2, 4pm rasagiline 0.5 mg 8am I will trial melatonin 5mg qhs for RBD PT for gait and balance training Orders: Orders PT Evaluation and Treatment Today Erendira Shafer MD G20.B2 - Parkinson's disease with dyskinesia, with fluctuations Medications: New cyanocobalamin (vitamin B-12) 1,000 mcg PO DAILY 90 caps 0RF DEON Fleming metformin 1,000 mg PO BID 180 tabs 0RF DEON Fleming rasagiline 0.5 mg PO DAILY 90 tabs 0RF DEON Fleming triamcinolone acetonide 0.1% 1 appl topical BID 15 grams 0RF DEON Fleming albuterol sulfate 90 mcg/actuation 2 puffs inhalation Q6H PRN 6.7 grams 0RF shortness of breath or wheezing DEON Fleming carbidopa-levodopa 25-100 mg 3 tabs at 8am 2 tabs at 12 noon 3tabs 4 pm,2 tabs at 8 pm orally 4 times a day; 300 tabs 6RF Erendira Shafer MD atorvastatin 40 mg (1/2 x 80 mg) PO BEDTIME 45 tabs 0RF DEON Fleming carbidopa-levodopa 50-200 mg ER 1 tab PO BEDTIME 18 tabs 0RF DEON Fleming cholecalciferol (vitamin D3) 25 mcg PO DAILY 90 caps 0RF DEON Fleming fluticasone propionate 50 mcg/actuation administer into each nostril 1 spray intranasal DAILY PRN 16 grams 0RF allergy symptoms DEON Fleming melatonin 5 mg PO .qhs 30 caps 3RF Erendira Shafer MD Coding Level of Care Code New Pt Level 4 (47731) Complex EM visit Add On G2211 Diagnoses Parkinson's disease with dyskinesia and fluctuating manifestations G20.B2 Fluctuating manifestations: with fluctuating manifestations REM behavioral disorder G47.52
--- OUTSIDE RECORDS SUMMARY | 2024-08-12 08:46 | XMS_ITS | Encounter Summary ---
Author Name [facility] [place] [facility] [place] Address [address] [place] [address] Care Team Providers Care Testing Shaking Shipping Name Role Phone LUCITA BLANCHARD Primary Care [...] Relationship to [employer] [place] ([place] [facility] ION HAMPS HIRE COUNT Y INS Dec 22, 2020 [id number] ARCHIE , SPOUSE [place]BS [place] [employer] [employer] CE ORGANIZAT ION HAMPS HIRE COUNT Y INS Dec 22, 2020 [id number] BEULAH ALMANZA SPOUSE BCBS OF [facility] Ayudarum [place] CE ORGANIZAT ION HAMPS HIRE COUNT Y INS Dec 22, 2020 [id number] ALEJANDRA ALMANZA SPOUSE [place] PRESCRIPT ION HAMPS HIRE COUNT Y INS Dec 22, 2020 RX21AT [id number] BEULAH ALMANZA SPOUSE [place] PRESCRIPT ION HAMPS HIRE COUNT Y INS Dec 22, 2020 RX21AT [id number] BEULAH ALMANZA SPOUSE [place] PRESCRIPT ION HAMPS HIRE COUNT Y INS Dec 22, 2020 RX21AT [id number] JOSETTE ALMANZA PATIENT [place] PRESCRIPT ION HAMPS HIRE COUNT Y INS Dec 22, 2020 RX21AT [id number] BEULAH ALMANZA SPOUSE [employer] ([id number]) PRESCRIPT ION L4TA* Sep 22, 2013 L4TA [id number] [phone] BEULAH ALMANZA SPOUSE [employer] ([id number]) PRESCRIPT ION L4TA* Sep 22, 2013 L4TA [id number] [phone] BEULAH ALMANZA SPOUSE MEDICARE (WNR) MEDICARE (M) PART A Feb 23, 2016 PART A [id number] JOSETTE ALMANZA PATIENT MEDICARE (WNR) MEDICARE (M) PART A Feb 23, 2016 PART A [id number] [phone] JOSETTE ALMANZA PATIENT Selected Encounter This section includes the information on record at [place] for the Encounter. Date/Time Encounter Type Encounter Description Reason Provider Source Jul 27, 2024 01:30 PM OFFICE O/P EST MOD 30 MIN PRIMARY CARE/MEDICINE ICD-10-CM C61 Malignant neoplasm of prostate NEHEMIAS BLANCHARD Encounter Template Text not used by [place] Assessments - Encounter Diagnoses This section includes the primary and secondary diagnoses documented for the Encounter. Date/Time Primary/Secondary Diagnosis Diagnosis Name Provider Source Jul 29, 2024 02:52 PM PRIMARY Malignant neoplasm of prostate KEITH BLANCHARD ([facility]) Jul 29, 2024 02:52 PM SECONDARY Congenital pancreatic cyst KEITH BLANCHARD ([facility]) Jul 29, 2024 02:52 PM SECONDARY Essential (primary) hypertension KEITH BLANCHARD ([facility]) Jul 29, 2024 02:52 PM SECONDARY Fatty (change of) liver, not elsewhere classified KEITH BLANCHARDFIELD ([facility]) Jul 29, 2024 02:52 PM SECONDARY Hyperlipidemia, unspecified KEITH BLANCHARDFIELD ([facility]) Jul 29, 2024 02:52 PM SECONDARY Nonrheumatic aortic (valve) stenosis KEITH BLANCHARDFIELD ([facility]) Jul 29, 2024 02:52 PM SECONDARY Parkinson's dis w/o dyskinesia, w/o mention of fluctuations KEITH BLANCHARDFIELD ([place]) Jul 29, 2024 02:52 PM SECONDARY Type 2 diabetes mellitus without complications KEITH BLANCHARD [facility] ([facility]) Plan of Treatment: Future Appointments (+ 6 months) and Future Tests (+/- 45 days) The Plan of Treatment section includes future care activities [facility] the [facility] [place] [facility] This section includes future appointments and future orders which are active, pending or scheduled. Future Appointments This section includes appointments that were scheduled to occur 6 months from the date of the Encounter, up to a maximum of 20 appointments. The data comes from all [facility]. Appointment Date/Time Appointment Type Appointme nt Facility Name Aug 12, 2024 08:30 AM AM[facility]ULATORY - [facility] Sep 10, 2024 11:00 AM AM[facility]ULATORY - [facility] November 12, 2024 02:00 PM [facility]ORY - [facility] Active, Pending, and Scheduled Orders This section includes a listing of several types of active, pending, and scheduled orders, including clinic medications orders, diagnostic test orders, procedure orders and consult orders; where the start date of the order is 45 days before the date of the Encounter or 45 days after the date of theEncounter. The data comes from all [facility]. Test Date/Time Test Type Test Details Facility Name Jul 29, 2024 02:55 PM Consult Order PAIN CLINI C/[facility] OUTPT Cons V [employer] [facility] ([facility]) Lab Results: +/- 30 days of the encounter This section includes the Chemistry and Hematology Lab Results on record with [place] for the patient. Radiology Reports and Pathology Reports are provided separately, in subsequent sections. Lab Results This section contains the Chemistry/Hematology Results that were resulted 30 days before or 30 daysafter the date of the Encounter. Date/Time Source Result Type Result - Unit Interpretation Reference Range Comment Jul 08, 2024 10:53 AM [facility] [facility]) CALCIUM Specimen Type: SERUM No comment entered. Ordering Provider: KEITH BLANCHARD Report Released Date/Time: Jul 07, 2024 04:05 PM Reporting Lab: [address] [address] Performing Lab: [address] [address] CALCIUM 9.4 mg/dL 8.5-10.2 Jul 08, 2024 10:53 AM [facility]) LIVER FUNCTION Specimen Type: SERUM No comment entered. Ordering Provider: KEITH BLANCHARD Report Released Date/Time: Jul 07, 2024 04:05 PM Reporting Lab: [address] [address] Performing Lab: [address] [address] PROTEIN,TOTAL 7.0 g/dL 6.0-8.3 ALBUMIN 4.0 g/dL 3.5-5.0 ALKALINE PHOSPHATASE 223 U/L H 40-150 AST 20 U/L 5-34 ALT <6 U/L BILIRUBIN, TOTAL 1.1 mg/dL 0.2-1.2 Jul 08, 2024 10:53 AM [facility]) BASIC METABOLIC PANEL (non-fasting) Specimen Type: SERUM No comment entered. Ordering Provider: KEITH BLANCHARD Report Released Date/Time: Jul 07, 2024 04:05 PM Reporting Lab: [address] [address] Performing Lab: [address] [address] UREA NITROGEN 22 mg/dL 7-25 GLUCOSE 120 mg/dL H 65-100 SODIUM 140 mmol/L 135-145 POTASSIUM 4.3 mmol/L 3.5-5.0 CHLORIDE 107 mmol/L 100-110 CO2 25 meq/L 20-30 CREATININE, Serum 0.67 mg/dL 0.50-1.40 eGFR(CKD-EPI 2020) >90 mL/min >60 Jul 08, 2024 10:53 AM [facility] [facility]) URINALYSIS Specimen Type: URINE Comment: If Glucose = >500 and Ketones are positive, please alert the Physician. Ordering Provider: KEITH BLANCHARD Report Released Date/Time: Jul 07, 2024 03:18 PM Reporting Lab: [address] [address] Performing Lab: [address] [address] UA COLOR Light-Stephenson Yellow UA APPEARANCE Turbid Clear UA GLUCOSE Normal mg/dL Negative UA KETONES TRACE mg/dL Negative UA BLOOD NEGATIVE mg/dL Negative UA PROTEIN 20 mg/dL Negative UA NITRITE NEGATIVE mg/dL Negative UA BILIRUBIN NEGATIVE mg/dL Negative UA SPECIFIC GRAVITY 1.023 H 1.016-1.022 UA pH 6.0 5.0-9.0 UA UROBILINOGEN Normal mg/dL <2.0 UA LEUKOCYTE NEGATIVE Negative Jul 08, 2024 10:53 AM [facility]) MICROSCOPIC AUTOMATED, URINE Specimen Type: URINE Comment: If Glucose = >500 and Ketones are positive, please alert the Physician. Ordering Provider: KEITH BLANCHARD Report Released Date/Time: Jul 07, 2024 03:18 PM Reporting Lab: [address] [address] Performing Lab: [address] [address] UA WBC 0-5 /[HPF] 0-5 UA MUCUS FEW /[LPF] Trace UA RBC 0-2 /[HPF] 0-3 UA SQUAMOUS EPITH FEW /[HPF] UA AMORPHOUS CRYSTALS MODERATE /[HPF] Not Established Jul 08, 2024 10:53 AM [facility] ([facility]) CBC AND DIFF (AUTO) Specimen Type: BLOOD No comment entered. Ordering Provider: KEITH BLANCHARD Report Released Date/Time: Jul 07, 2024 04:05 PM Reporting Lab: [address] [address] Performing Lab: [facility] [address] [facility] [address] WBC 9.54 10*3/uL 4.50-11.00 RBC 4.04 10*6/uL [...] 0.0 0.0-0.0 NRBC, ABS 0.00 10*3/uL 0.00-0.00 Vital Signs: All taken on the encounter date This section contains inpatient and outpatient Vital Signs collected on the date of the Encounter. Date/Time Temperature Pulse Blood Pressure Respiratory Rate SP02 Pain Height Weight Body Mass Index Source Jul 27, 2024 01:47 PM 97.4 77 132/72 20 97 2 162.2 25 [facility] ([facility] Social History: Smoking Status (Most current) and Tobacco Use (All prior to encounter date) This section includes the most current, and the historical, smoking and tobacco- related health factors from the [place] facility where the Encounter took place. Current Smoking Status This section includes the most current smoking, or tobacco-related health factor, from the [place] facility where the Encounter took place. Date/Time Current Smoking Status Comment Theron ity Oct 07, 2023 03:00 PM VA-TOBACCO NEVER USED [place] ([facility]) Tobacco Use History This section includes a history of the smoking, or tobacco-related health factors, that were collected on or before the date of the Encounter. The data comes from the [place] facility where the Encounter took place. Date/Time [...] the Encounter. The data comes from all [place] treatment facilities. Date/Time Radiology Report Provider Source Jul 08, 2024 11:08 AM SPINE LUMBOSACRAL MIN 2 VIEWS: JOSETTE ALMAZNA МАРИНА [id number] -[phone] M Exm Date: JUL 08, 2024@11:08 Req Phys: LUCITA BLANCHARD Loc: CWM/GO/PACT 1 (Req'g Loc) Img Loc: [facility] 1 Service: [place] [address] (Case 169 COMPLETE) SPINE LUMBOSACRAL MIN 2 VIEWS (RAD Detailed) CPT:92719 Reason for Study: back pain Clinical History: Covering resident, fellow, INSTRUMENT TECH or attending: [place] Pager: [phone] Backup pager: History: left lower back pain Report Status: Verified Date Reported: JUL 08, 2024 Date Verified: JUL 08, 2024 Rag Baler E-Sig:/ES/MIHIR BOOTH JR Report: Study: AP, lateral [...] Primary Interpreting Staff: MIHIR BOOTH JR, Radiologist (Rag Baler) /MIHIR CASAS JR [facility] Encounter Notes: All associated encounter notes This section contains the clinical notes associated to the Encounter. Date/Time Encounter Note(s) Provider Source Jul 27, 2024 01:49 PM PHYSICIAN NOTE: LOCAL TITLE: MD NOTE STANDARD TITLE: PHYSICIAN NOTE DATE OF NOTE: JUL 27, 2024@13:49 ENTRY DATE: JUL 27, 2024@13:49:17 AUTHOR: LUCITA BLANCHARD EXP COSIGNER: URGENCY: STATUS: COMPLETED PRIMARY CARE VISIT JOSETTE MASON ALMANZA, is a 74 yo WHITE MALE [place] who presents at the [place] Clinic. 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 Recent episodes of lower back pain on the left side. He was sent for x-ray which was noncontributory towards the pain as well as went to the ER because pain migrated towards the abdomen. states CT abdomen was negative. Upon review of previous bone scans and PET scan there is prostate cancer metastases to the lower spine and pelvic bones. Likely cause of chronic pain which is intermittent. 12/09/2023 a bone scan showed findings consistent with metastases in the pelvis and ribs bilaterally. There was also an area of uptake at the L1-2 vertebrae suspicious for possible metastatic disease 01/27/[address] scan was done. This showed the prostate cancer with left seminal and bladder extension and extensive bone metastases consistent with what was seen on the bone scan. There are uptake areas in the lungs without clear underlying lesions that were indeterminant Recent labs and all medications were reconciled during this visit. HEALTHCARE PROVIDERS: Urology: Dr. Victor PCP - [facility] non-VA PCP - [facility] - Dr. Jean DIABETES - [facility] NEUROLOGY - Dr. Pruett - [facility] in [place], [place] OPHTHAMOLOGY - Dr. Barrera in [place], [place] Podiatry - [place] Social Hx: MARITAL STATUS - HISTORY: PERIOD OF SERVICE - [facility] [employer] FROM May TO May COMBAT SERVICE INDICATED: No VITAL SIGNS: Temperature 97.4 F [36.3 C] (07/27/2024 13:47) Blood Pressure 132/72 (07/27/2024 13:47) Pulse 77 (07/27/2024 13:47) Respiration 20 (07/27/2024 13:47) Pain 2 (07/27/2024 13:47) BMI BMI: 25.5 Weight 162.2 lb [73.57 kg] (07/27/2024 13:47) Pulse Oximetry 97% (07/27/2024 13:47) ASSISTIVE DEVICES: REVIEW OF SYSTEMS: CONSTITUTIONAL: No fevers, chills, weight loss/gain ENT: No sore throat, sneezing, congestion, rhinorrhea, anosmia, or ageusia. CARDIOVASCULAR: No chest pain, palpitations, or increased pedal edema RESPIRATORY: No SOB, cough, sputum, wheeze. GASTROINTESTINAL: Denies abd pain, N/V/D. No melena or hematochezia. No tenesmus or constipation. GENITOURINARY: No burning micturition. No urinary frequency or urgency. No nocturia. MUSCULOSKELETAL: Chronic pain in lower back and pelvis PSYCHIATRIC: No new anxiety or depression. + Sleep disturbances secondary to nocturia and pain NEUROLOGIC: No headaches, dizziness, numbness or tingling in the extremities, or unilateral weakness. EXAMINATION General: Well-appearing [place] in no obvious distress. Mental Status: Alert and oriented x4. Head: Normocephalic. Eyes: PERRLA. EOMI. Anicteric sclerae. ENT: Moist oral mucosa. Posterior pharynx unremarkable Neck: Supple. No JVD. No LAD. No bruit. Lungs: Clear bilaterally without wheeze or rhonchi. Normal effort and expansion. CV: Heart sounds S1, S2. RRR. No M/G/R. No peripheral edema GI: Abdomen is soft and nontender. No palpable mass. : No CVA tenderness. No tenderness on palpation of the lower spine or the pelvic bones at this time. Ext: No cyanosis or clubbing. No gross deformities. Neuro: CN II through XII grossly intact. Normal speech. Normal gait. Integument: Skin warm and dry. No rashes or lesions on visible areas. Psych: Normal mood and affect. Normal judgment. ALLERGIES: ========= PENICILLIN >> HEALTH MAINTENANCE PREVENTIVE MEDICINE GOALS Medication Reconciliation DUE NOW (Optional) Whole Health Documentation DUE NOW ASSESSMENT/PLAN: Active problems - Computerized Problem List is the source for the followin. Elevated PSA 2. Prostate carcinoma 3. 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 Vitamin D Deficiency ([facility] [id number]) 6. Vitamin B12 Deficiency ([facility] [id number]) 7. Aortic valve stenosis 8. Kidney lesion 9. Pancreatic cyst 10. Lumbar radiculopathy 11. Fatty liver 12. Diabetes mellitus type 2 13. Hyperlipidemia 14. Parkinsons disease 15. Benign hypertension == Low back pain: Reviewed previous PET scan and it appears there is bony metastases this is likely the cause of the pain. The pain is intermittent however it does wake him up from sleep and some days it is intolerable. We discussed pain management consultation which is agreeable to. ==Metastatuc Prostate Cancer: Continues on therapy, regular follow-up with oncology. alkaline phosphatase elevated likely consistent with bony metastasis ==Liver fibrosis: 12/10/23 Fibroscan interpretation Agree with above interpretation by IRVING Mustafa. The patient has no evidence of chronic liver disease and the Fibroscan (transient elastography) rules out any liver fibrosis. ==Pancreatic cystic lesion: last MRCP 2021, no follow up recommended == Diabetes mellitus type 2: HbA1c 6.1%, stable. Metformin 1000mg daily Renal function normal. == Hyperlipidemia: Cholesterol, triglycerides, LDL WNL with normal liver function. c/w atorvastatin 40 mg daily ==. Parkinsons disease: . Follows up with community care neurology . Continue Sinemet, rasagaline, pramipexole. == Benign hypertension: BP at goal. Lisinpril 5mg daily =AORTIC VALVE STENOSIS : up to date with echo last echo September 2023 showing moderate aortic stenosis and normal ejection fraction. Asymptomatic HCM: ==Colonoscopy July 2023 FOLLOW UP: RTC Below & sooner PRN UPCOMING APPOINTMENTS: 07/30/2024 14:00 [facility] PODIATRY NAIL 08/12/2024 08:30 [facility] CARE-NEUROLOGY 11/12/2024 14:00 [facility] V01 VVC CRH CARD 1 06/15/2025 13:30 [facility] OPTOMETRY 3 minutes spent in patient evaluation, data review, and patient education. All medications were reconciled during this visit. No barriers; Patient understands and agrees to current treatment plan. If pt has any questions, concerns, or changes in current health status he/she will call or [facility]. /rashid/ LUCITA BLANCHARD MD PHYSICIAN Signed: 07/29/2024 14:52 LUCITA BLANCHARD ([facility]) Jul 27, 2024 01:48 PM PREVENTIVE MEDICIN E NURSING NOTE: LOCAL TITLE: CLINICAL REMINDERS/NURSING STANDARD TITLE: PREVENTIVE MEDICINE NURSING NOTE DATE OF NOTE: JUL 27, 2024@13:48 ENTRY DATE: JUL 27, 2024@13:48:17 AUTHOR: ANAMARIA MARTIN COSIGNER: URGENCY: STATUS: COMPLETED Advance Directive Screen MH AD: Patient does not have an Advance Directive completed and is requesting more information. Has paper copy at home The patient received education about Advance Directives and written notification of his/her rights. Suicide Screen: C-SSRS Screening [place] Suicide Severity Rating Scale (C-SSRS) screener 1. Over the past month, have you wished you were or wished you could go to sleep and not wake up? No 2. Over the past month, have you had any actual thoughts of killing yourself? No 3. Over the past month, have you been thinking about how you might do this? Response not required due to responses to other questions. 4. Over the past month, have you had these thoughts and had some intention of acting on them? Response not required due to responses to other questions. 5. Over the past month, have you started to work out or worked out the details of how to kill yourself? Response not required due to responses to other questions. 6. If yes, at any time in the past month did you intend to carry out this plan? Response not required due to responses to other questions. 7. In your lifetime, have you ever done anything, started to do anything, or prepared to do anything to end your life (for example, collected pills, obtained a gun, gave away valuables, went to the roof but didn't jump)? No 8. If YES, was this within the past 3 months? Response not required due to responses to other questions. Homelessness/Food Insecurity Screen: In the past 2 months, have you been living in stable housing that you own, rent, or stay in as part of a household? Yes - Living in stable housing. Are you worried or concerned that in the next 2 months you may NOT have stable housing that you own, rent, or stay in as part of a household? No - Not worried about housing near future The reports the following: Within the past 12 months, you worried whether your food would run out before you got money to buy more. Never true Within the past 12 months, the food you bought just didn't last and you didn't have money to get more. Never true Depression Screening: Perform PHQ-2 A PHQ-2 screen was performed. The score was 0 which is a negative screen for depression. Over the past two weeks, how often have you been bothered by the following problems? 1. Little interest or pleasure in doing things Not at all 2. Feeling down, depressed, or hopeless Not at all Alcohol Use Screen (AUDIT-C): Alcohol Screen: SCREEN FOR ALCOHOL (AUDIT-C) An alcohol screening test (AUDIT-C) was negative (score=2). 1. How often did you have a drink containing alcohol in the past year? Consider a drink to be a 12 ounce can or bottle of regular beer, 8 ounces of malt liquor, a 5 ounce glass of table wine, or a 1.5 ounce shot of liquor (like scotch, gin, or vodka). Two to four times a month 2. How many drinks containing alcohol did you have on a typical day when you were drinking in the past year? One or two drinks 3. How often did you have six or more drinks on one occasion in the past year? Never Sexual Orientation: The patient thinks of their sexual orientation as: Straight or Heterosexual RHS Screen: RHS Screen Session Format: Face to Face Environmental Check Upon inquiry, the individual reports that the environment is safe to proceed. Informed Consent to Screen and Document The individual consents to proceed with screening. The individual consents to documentation of responses. PRIMARY SCREEN: In the past 12 months, how often did a current or former intimate partner (e.g., boyfriend, girlfriend, , , sexual partner): 1. Scream or curse at you Never 2. Insult or talk down to you Never 3. Threaten you with harm Never 4. Physically hurt you Never 5. Force or pressure you to have sexual contact against your will, or when you were unable to say no Never ?? The HITS tool (items 1-4 above) is [place] copyright protected by Ej Santiago MD, and the user has full rights to use it throughout the [place] system. PRIMARY SCREEN RESULT: The Primary Screen is NEGATIVE. The individual answered never to all forms of IPV above (i.e., answered never to all 5 items) The individual accepts education and/or resources: No EDUCATION: The individual indicated readiness to learn. Education offered during this session as noted above. The individual indicated understanding by asking relevant questions and making appropriate comments. No barriers to learning were observed or identified. /rashid/ ANAMARIA MARTIN LPN LICENSED PRACTICAL NURSE Signed: 07/27/2024 13:51 ANAMARIA MARTIN ([facility])
--- OUTSIDE RECORDS SUMMARY | 2024-08-12 08:46 | XMS_ITS | Encounter Summary ---
Author Name [facility] [place] [facility] [place] Address [address] [place] [address] Care Team Providers Care Transplant Coordinator Name Role Phone LUCITA BLANCHARD Primary Care [...] Relationship to [employer] [place] ([place] [facility]GANIZAT ION HAMPS HIRE COUNT Y INS Dec 22, 2020 [id number] ARCHIE , SPOUSE [place]BS [place] [employer] CE ORGANIZAT ION HAMPS HIRE COUNT Y INS Dec 22, 2020 [id number] BEULAH ALMANZA SPOUSE BCBS OF [facility] [employer] Platform [facility]GANIZ[facility] ION HAMPS HIRE COUNT Y INS Dec 22, 2020 [id number] ALEJANDRA ALMANZA SPOUSE [place] PRESCRIPT ION HAMPS HIRE COUNT Y INS Dec 22, 2020 [id number] [phone] BEULAH ALMANZA SPOUSE [place] PRESCRIPT ION HAMPS HIRE COUNT Y INS Dec 22, 2020 [id number] [id number] BEULAH ALMANZA SPOUSE [place] PRESCRIPT ION HAMPS HIRE COUNT Y INS Dec 22, 2020 RX21AT [id number] JOSETTE ALMANZA PATIENT [place] PRESCRIPT ION HAMPS HIRE COUNT Y INS Dec 22, 2020 RX21AT [id number] [phone] BEULAH ALMANZA SPOUSE [employer] ([id number]) PRESCRIPT ION L4TA* Sep 22, 2013 L4TA [id number] BEULAH ALMANZA SPOUSE [employer] ([id number]) PRESCRIPT ION L4TA* Sep 22, 2013 L4TA [id number] BEULAH ALMANZA SPOUSE MEDICARE (WNR) MEDICARE (M) PART A Feb 23, 2016 PART A [id number] JOSETTE ALMANZA PATIENT MEDICARE (WNR) MEDICARE (M) PART A Feb 23, 2016 PART A [id number] JOSETTE ALMANZA PATIENT Selected Encounter This section includes the information on record at [place] for the Encounter. Date/Time Encounter Type Encounter Description Reason Provider Source Nov 26, 2023 01:00 PM [facility] ICD-10-CM K76.0 Fatty (change of) liver, not elsewhere classified KAYLA MUSTAFA [facility] Encounter Template Text not used by [place] Assessments - Encounter Diagnoses This section includes the primary and secondary diagnoses documented for the Encounter. Date/Time Primary/Secondary Diagnosis Diagnosis Name Provider Source Dec 17, 2023 07:39 AM PRIMARY Fatty (change of) liver, not elsewhere classified KAYLA MUSTAFA [place] [facility] [place] [facility] Plan of Treatment: Future Appointments (+ 6 months) and Future Tests (+/- 45 days) The Plan of Treatment section includes future care activities for the patient from all [place] treatmentfacilities. This section includes future appointments and future orders which are active, pending or scheduled. Future Appointments This section includes appointments that were scheduled to occur 6 months from the date of the Encounter, up to a maximum of 20 appointments. The data comes from all [place] treatment facilities. Appointment Date/Time Appointment Type Appointme nt Facility Name Dec 03, 2023 09:00 AM AMBULATORY - MEDICINE [place] [facility] [place] [facility] Dec 06, 2023 10:30 AM AMBULATORY - NONE [place] [facility] [place] [facility] Dec 06, 2023 11:00 AM AMBULATORY - NONE [place] [facility] [place] [facility] Jan 08, 2024 10:30 AM AMBULATORY - MEDICINE [place] [facility] [place] [facility] Jan 16, 2024 03:00 PM AMBULATORY - MEDICINE [place] [facility] [place] [facility] Feb 03, 2024 12:30 PM AMBULATORY - MEDICINE [place] [facility] [place] [facility] Feb 11, 2024 01:00 PM AMBULATORY - MEDICINE [facility] Feb 19, 2024 12:00 PM AMBULATORY - MEDICINE [place] [facility] [place] [facility] Feb 26, 2024 10:00 AM AMBULATORY - MEDICINE [place] [facility] [place] [facility] Apr 29, 2024 01:30 PM AMBULATORY - MEDICINE [facility] WITH [facility] ([facility]) Lab Results: +/- 30 days of the encounter This section includes the Chemistry and Hematology Lab Results on record with [place] for the patient. Radiology Reports and Pathology Reports are provided separately, in subsequent sections. Lab Results This section contains the Chemistry/Hematology Results that were resulted 30 days before or 30 daysafter the date of the Encounter. Date/Time Source Result Type Result - Unit Interpretation Reference Range Comment November 19, 2023 01:46 PM [facility] ([facility]) PT & INR (PROTIME) Specimen Type: PLASMA No comment entered. Ordering Provider: KEITH BLANCHARD Report Released Date/Time: November 19, 2023 01:37 PM Reporting Lab: [facility] [address] [address] Performing Lab: [place] [facility]USE[address] [address] INR 1.1 PROTIME 12.0 s 10.0-13.1 November 19, 2023 01:41 PM [facility] ([facility]) CERULOPLASMIN Specimen Type: SERUM No comment entered. Ordering Provider: KEITH BLANCHARD Report Released Date/Time: November 19, 2023 01:37 PM Reporting Lab: [address] [address] Performing Lab: [facility] [address] [facility] [address] CERULOPLASMIN 18 mg/dL L 20-60 November 19, 2023 01:41 PM [facility] ([facility]) HEPATITIS B SURFACE ANTIBODY (HBsAb)- Specimen Type: SERUM No comment entered. Ordering Provider: KEITH BLANCHARD Report Released Date/Time: November 19, 2023 01:37 PM Reporting Lab: [address] [address] Performing Lab: [facility] November 19, 2023 01:41 PM [facility] ([facility]) HEPATITIS B SURFACE ANTIGEN (HBsAg)- Specimen Type: [...] November 19, 2023 01:37 PM Reporting Lab: [address] [address] Performing Lab: [address] [address] HBsAg Non Reactive Non Reactive November 19, 2023 01:41 PM [facility] ([facility]) VIDAL SCREEN/TITER Specimen Type: SERUM No comment entered. Ordering Provider: KEITH BLANCHARD Report Released Date/Time: November 19, 2023 01:37 PM Reporting Lab: [address] [address] Performing Lab: [facility] [address] [facility] [address] VIDAL SCREEN NEG November 19, 2023 01:41 PM [facility] ([facility]) ALPHA 1 ANTITRYPSIN Specimen Type: SERUM No comment entered. Ordering Provider: KEITH BLANCHARD Report Released Date/Time: November 19, 2023 01:37 PM Reporting Lab: [facility] [address] [facility] [address] Performing Lab: [facility] [address] [facility] [address] ALPHA 1 ANTITRYPSIN 125 mg/dL 90-200 November 19, 2023 01:41 PM [facility] ([facility]) HEPATITIS A ANTIBODY (IGG) Specimen Type: SERUM Comment: Hep A IgG: A 'Reactive' result indicates previous exposure to Hepatitis A virus through infection or vaccination. Ordering Provider: KEITH BLANCHARD Report Released Date/Time: November 19, 2023 01:37 PM Reporting Lab: [address] [address] Performing Lab: [facility] [address] [facility] [address] HEPATITIS A ANTIBODY (IGG) REACTIVE Non Reactive November 19, 2023 01:41 PM [facility] ([facility]) PSA Specimen Type: SERUM No comment entered. Ordering Provider: KEITH BLANCHARD Report Released Date/Time: November 19, 2023 01:30 PM Reporting Lab: [facility] [address] [facility] [address] Performing Lab: [facility] [address] [address] PSA 159.64 ng/mL H 0.00-4.00 November 19, 2023 01:41 PM [facility] ([facility]) HEPATITIS C ANTIBODY (HCV)-ARC Specimen Type: SERUM Comment: Hep C Ab: No HCV antibody detected. If recent infection is suspected or other evidence suggests HCV infection, consider HCV nucleic acid testing Ordering Provider: KEITH BLANCHARD Report Released Date/Time: November 19, 2023 01:37 PM Reporting Lab: [address] [address] Performing Lab: [address] [place] [address] HEPATITIS C ANTIBODY NON-REACTIVE NON-REACTIV E November 19, 2023 01:41 PM [facility] ([facility]) FERRITIN Specimen Type: SERUM No comment entered. Ordering Provider: KEITH BLANCHARD Report Released Date/Time: November 19, 2023 01:37 PM Reporting Lab: [address] [address] Performing Lab: [address] [address] FERRITIN 221 ng/mL 20-300 November 19, 2023 01:41 PM [facility] ([facility]) IRON & TIBC PANEL Specimen Type: SERUM No comment entered. Ordering Provider: KEITH BLANCHARD Report Released Date/Time: November 19, 2023 01:37 PM Reporting Lab: [address] [address] Performing Lab: [address] [address] TIBC 300 ug/dL 204-475 IRON 101 ug/dL 40-160 Transferrin Saturation 33.7 20.0-50.0 November 19, 2023 01:41 PM [facility] ([facility]) LIVER FUNCTION Specimen Type: SERUM No comment entered. Ordering Provider: KEITH BLANCHARD Report Released Date/Time: November 19, 2023 01:37 PM Reporting Lab: [address] [address] Performing Lab: [address] [address] PROTEIN,TOTAL 6.6 g/dL 6.0-8.3 ALBUMIN 3.9 g/dL 3.5-5.0 ALKALINE PHOSPHATASE 125 U/L 40-150 AST 13 U/L 5-34 ALT <6 U/L BILIRUBIN, TOTAL 0.8 mg/dL 0.2-1.2 November 19, 2023 01:41 PM [facility] ([facility]) BASIC METABOLIC PANEL (non-fasting) Specimen Type: SERUM No comment entered. Ordering Provider: KEITH BLANCHARD Report Released Date/Time: November 19, 2023 01:37 PM Reporting Lab: [address] [address] Performing Lab: [address] [address] UREA NITROGEN 14 mg/dL 7-25 GLUCOSE 149 mg/dL H 65-100 SODIUM 139 mmol/L 135-145 POTASSIUM 4.1 mmol/L 3.5-5.0 CHLORIDE 108 mmol/L 100-110 CO2 23 meq/L 20-30 CREATININE, Serum 0.73 mg/dL 0.50-1.40 eGFR(CKD-EPI 2020) >90 mL/min >60 November 19, 2023 01:41 PM [facility] ([facility]) ALBUMIN Specimen Type: SERUM No comment entered. Ordering Provider: KEITH BLANCHARD Report Released Date/Time: November 19, 2023 01:37 PM Reporting Lab: [address] [address] Performing Lab: [address] [address] ALBUMIN 3.9 g/dL 3.5-5.0 November 19, 2023 01:41 PM [facility] ([facility]) CBC AND DIFF (AUTO) Specimen Type: BLOOD No comment entered. Ordering Provider: KEITH BLANCHARD Report Released Date/Time: November 19, 2023 01:37 PM Reporting Lab: [address] [address] Performing Lab: [address] [address] WBC 6.28 10*3/uL 4.50-11.00 RBC 4.40 10*6/uL 4.23-5.66 HGB 13.9 g/dL 12.8-17 HCT 42.0 39.2-50.4 MCV 95.5 fL 82-99 MCHC 33.1 g/dL 30.8-35.1 PLT 192 10*3/uL 140-360 RDW-CV 13.3 12.0-16.0 [place], Abs 0.52 10*3/uL 0.30-1.10 MCH 31.6 pg 26.2-32.6 Neut % 72.2 43.7-75.8 Lymph % 17.7 14.0-42.3 [place] % 8.3 5.1-13.7 Eos % 1.0 0.4-6.8 Baso % 0.3 0.1-2.0 Neut, Abs 4.54 10*3/uL 2.20-7.60 Lymph, Abs 1.11 10*3/uL 1.00-3.20 Eos, Abs 0.06 10*3/uL 0.03-0.44 Baso, Abs 0.02 10*3/uL 0.01-0.13 Immature Gran % 0.5 0.0-0.7 Immature Gran, Abs 0.03 10*3/uL 0.00-0.06 Vital Signs: All taken on the encounter date This section contains inpatient and outpatient Vital Signs collected on the date of the Encounter. Date/Time Temperature Pulse Blood Pressure Respiratory Rate SP02 Pain Height Weight Body Mass Index Source Nov 26, 2023 12:56 PM 98.1 99 133/80 16 98 3 166.4 26 [facility] Radiology Reports: +/- 30 days of the [...] the Encounter. The data comes from all [place] treatment facilities. Date/Time Radiology Report Provider Source Dec 06, 2023 09:38 AM ULTRASOUND ABDOMEN LIMITED: JOSETTE ALMANZA [id number] -[id number] M Exm Date: DEC 06, 2023@09:38 Req Phys: LUCITA BLANCHARD Pat Loc: CWM/GO/PACT 1 WH (Req'g Loc) Img Loc: ULTRASOUND Service: Unknown [facility] , (Case [id number] COMPLETE) ULTRASOUND ABDOMEN LIMITED (US Detailed) CPT:22397 Reason for Study: Liver fibrosis Clinical History: Some ultrasound tests require a prep. Report Status: Verified Date Reported: DEC 06, 2023 Date Verified: DEC 06, 2023 Gusto E-Sig:/ES/MIHIR BOOTH JR Report: Study: Abdomen ultrasound. 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 Date/Time Encounter Note(s) Provider Source Nov 26, 2023 12:43 PM HEPATOLOGY INITIAL EVALUATION NOTE: LOCAL TITLE: TELE-HEPATOLOGY INITIAL NOTE STANDARD TITLE: HEPATOLOGY INITIAL EVALUATION NOTE DATE OF NOTE: NOV 26, 2023@12:43 ENTRY DATE: NOV 26, 2023@12:43:48 AUTHOR: KAYLA MUSTAFA EXP COSIGNER: URGENCY: STATUS: COMPLETED Last seen Liver Clinic:New patient HPI:72-year-old male with vitamins D and B12 deficiency, HTN, HLD, aortic valve stenosis, lumbar radiculopathy, hepatic steatosis/fibrosis, DM2, PAD, and a history of anaplasmosis in December 2021 status post doxycycline treatment and COVID-19 in February 2022 not requiring hospitalization used to drink 6 pack of beer for > 40 years, reduced drinking to 3 beers at the most per week now. lost weight due to loss. ROS: Constitutional: Denies f/c, unintentional weight loss, fatigue, night sweats HEENT: Denies changes to vision, hearing, loss of taste/smell GI: Denies jaundice, n/v, bloating, anorexia, abd pain, ascites, change in stoolcolor, melena, hematochezia CV/PULM: Denies chest pain, shortness of breath, cough, TOLENT[place], LE edema DERM: Denies rashes, bruising, jaundice, palmar erythema, pruritus NEURO/PSYCH: Denies confusion, change in gait, falls, tremors : Denies renal colic, hematuria PMH/PSHx: 1. Exposure to potentially hazardous substance ([facility] [id number]) 2. 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 Vitamin D Deficiency ([facility] [id number]) 4. Vitamin B12 Deficiency ([facility] [id number]) 5. Aortic valve stenosis 6. Kidney lesion 7. Pancreatic cyst 8. Lumbar radiculopathy 9. Fatty liver 10. Diabetes mellitus type 2 11. Hyperlipidemia 12. Parkinsons disease 13. Benign hypertension SOCIAL Hx: Social Hx: The is and lives with his . No alcohol, tobacco, MJ. He stays active with home projects. Currently remodeling 2 rooms in his house. States he is up and down ladders daily without problems ALLERGIES : PENICILLIN MEDICATION RECONCILIATION Active and Recently Outpatient Medications (excluding Supplies): Active Outpatient Medications Status 1) ACCU-CHEK GUIDE (GLUCOSE) TEST STRIP USE 1 STRIP TO ACTIVE TEST BLOOD SUGARS TWICE A WEEK NEEDED DIABETES 2) ATORVASTATIN CALCIUM 80MG TAB TAKE ONE-HALF TABLET BY ACTIVE MOUTH AT BEDTIME FOR CHOLESTEROL 3) CARBIDOPA 25/LEVODOPA 100MG TAB TAKE 3 TABLETS BY ACTIVE MOUTH FOUR TIMES A DAY ### 4) CARBIDOPA 50/LEVODOPA 200MG SA TAB TAKE 1 TABLET BY ACTIVE MOUTH AT BEDTIME FOR PARKINSON'S DISEASE 5) CHOLECALCIF 25MCG (D3-1,000UNIT) TAB TAKE ONE TABLET ACTIVE BY MOUTH ONCE DAILY FOR VITAMIN SUPPLEMENTATION 6) CYANOCOBALAMIN 1000MCG TAB TAKE ONE TABLET BY MOUTH ACTIVE ONCE DAILY FOR VITAMIN SUPPLEMENTATION 7) LISINOPRIL 5MG TAB TAKE ONE TABLET BY MOUTH ONCE ACTIVE DAILY TO CONTROL BLOOD PRESSURE (NOTE DOSE) 8) MELATONIN 3MG CAP/TAB TAKE ONE TABLET BY MOUTH AT ACTIVE BEDTIME 9) METFORMIN HCL 1000MG TAB TAKE ONE TABLET BY MOUTH ACTIVE ONCE DAILY FOR TYPE 2 DIABETES MELLITUS (NOTE DOSE) 10) PRAMIPEXOLE DIHYDROCHLORIDE 0.5MG TAB TAKE ONE TABLET ACTIVE (S) BY MOUTH THREE TIMES A DAY 11) RASAGILINE MESYLATE 0.5MG TAB TAKE ONE TABLET BY ACTIVE MOUTH ONCE DAILY 12) TAMSULOSIN HCL 0.4MG CAP TAKE ONE CAPSULE [...] THIN LAYER ACTIVE TOPICALLY TWICE DAILY NEEDED 16 Total Medications Physical Exam VITALS TEMP 98.1 F [36.7 C] (11/26/2023 12:56) HR 99 (11/26/2023 12:56) BP 133/80 (11/26/2023 12:56) RR 16 (11/26/2023 12:56) O2sat:Pulse Oximetry VITAL SIGNS SELECTED Measurement DT POx (L/MIN)(%) 11/26/2023 12:56 98(L/MIN)(%) GEN: NAD, AxOx3, steady gait SKIN: W/D, no jaundice, bruising, palmar erythema or telangiectasias or spider angiomas HEENT: MMM, anicteric sclera/SL area ABD: +BS x 4 quads, NT/ND, no HSM, no CVAT, no Ascites Ext (all 4): WWP, no edema, no tremor or asterixis LABS: ===== HEMATOLOGY: 11/19/2023 13:41 10/04/2023 09:55 03/05/2023 07:25 \ 13.9 / \ 14.4 / \ 13.9 / 6.28 ------ 192 10.17 ------ 192 7.95 ------ 188 / 42.0 \ / 44.1 \ / 42.5 \ Neut %: 72.2 Lymph %: 17.7 [place] %: 8.3 Eos %: 1.0 @ 11/19/2023 13:41 Baso %: 0.3 Immature Gran %: 0.5 Neut, Abs: 4.54 @ 11/19/2023 13:41 Lymph, Abs: 1.11 [place], Abs: 0.52 Eos, Abs: 0.06 @ 11/19/2023 13:41 Baso, Abs: 0.02 Immature Gran, Abs: 0.03 @ 11/19/2023 13:41 RDW-CV: 13.3 @ 11/19/2023 13:41 A1c: 6.5 H @ 10/04/2023 09:55 CHEMISTRY: PROTIME: 12.0 INR: 1.1 @ 11/19/2023 13:46 VIDAL SCREEN: Neg HEPATITIS C ANTIBODY: Neg @ 11/19/2023 13:41 ALPHA 1 ANTITRYPSIN: 125 Ceruloplasmin: 18 L @ 11/19/2023 13:41 HEPATITIS A ANTIBODY (IGG) REACTIVE: Ref: HBsAb: Pos @ 11/19/2023 13:41 HBsAg: Neg PSA: 159.64 H TIBC: 300 Iron: 101 @ 11/19/2023 13:41 Ferritin: 221 CREATININE, Serum: 0.73 @ 11/19/2023 13:41 Transferrin Saturation: 33.7 eGFR(CKD-EPI 2020): >90 @ 11/19/2023 13:41 SODIUM: 139 POTASSIUM: 4.1 CHLORIDE: 108 CO2: 23 @ 11/19/2023 13:41 UREA NITROGEN: 14 Glucose: 149 H Protein: 6.6 @ 11/19/2023 13:41 Albumin: 3.9 ALK: 125 AST: 13 TBil: 0.8 ALT: <6 @ 11/19/2023 13:41 VITAMIN B12: 804 TSH: 2.25 VITAMIN D (25-OH): 27 @ 10/04/2023 09:55 CHOL: 120 T LDL calculated: 51 CHOL/HDL: 2.1 @ 10/04/2023 09:55 HDL: 58 @ 10/04/2023 09:55 URINE STUDIES: mALB/Cr: 63.6 H MICROALBUMIN,QUANTITATIVE: 5.8 @ 10/04/2023 09:55 CREATININE URINE: 91.18 UA COLOR: Light-Yellow @ 10/04/2023 09:55 UA APPEARANCE: Clear UA pH: 6.0 UA GLUCOSE: Neg @ 10/04/2023 09:55 UA KETONES: Neg UA BLOOD: Neg UA PROTEIN: 10 @ 10/04/2023 09:55 UA LEUKOCYTE: Neg UA NITRITE: Neg UA BILIRUBIN: Neg @ 10/04/2023 09:55 UA UROBILINOGEN: <2.0 UA SPECIFIC GRAVITY: 1.018 @ 10/04/2023 09:55 TREND DATA: AST ALT AlkP TBil Alb Prtn = 13 <6 125 0.8 3.9 6.6 @ 11/19/2023 13:41 14 6 133 0.9 4.2 7.3 @ 10/04/2023 09:55 14 6 112 0.8 4.1 6.9 @ 03/05/2023 07:25 DIAGNOSTICS: No recent imaging. Assessment/Plan: ==== 72-year-old male with Hx of parkinson's on Carbidopa, HTN, HLD, aortic valvestenosis, lumbar radiculopathy, hepatic steatosis/fibrosis, DM2, PAD, and a history of anaplasmosis in December 2021 who presents for f/u with us in Liver clinic. - Hx of DM2, HTN, HLD, well controlled, medication dosages lowered by PCP. - Hx of drinking 6 pack beer > 40 years, but has been a while since he reduced to his current intake of 2-3 beers /week. - Hx of hepatic steatosis per US dated 04/2021. Elastography showing moderate or greater fibrosis with LSM by elastography at 1.58m/s - Repeat US w/ Elastography ordered today, also will f/u with a fibroscan to measure LSM. - AT > ALT, AST, ALT < 30, Normal Liver synthetic function. - Last Abd US in 2021 without any nodular liver contour, splenomegaly - Fib 4 - 1.99 fibrosis stg 2-3(advanced fibrosis excluded) - reports loosing ~ 20 pounds between july and now, possibly as a result of his existing parkinson's diagnosis, but also alerting PCP through this note. ===== RTC: ==== Pending fibroscan interpretation will determine liver clinic f/u vs. return to PCP for weight mgmt and metabolic control VERBALIZES AN UNDERSTANDING AND AGREEMENT WITH THE ABOVE POC. Total Visit spent [id number] was 30 minutes TELE-HEALTH VISIT CONDUCTED FROM [facility] OVER CVT /rashid/ Kayla Mustafa Nurse Practitioner, Hepatology/GI Signed: 11/26/2023 13:45 KAYLA MUSTAFA [place] [facility]
--- OUTSIDE RECORDS SUMMARY | 2024-08-12 08:46 | XMS_ITS | Continuity of Care Document ---
Author Name [facility] Organization [facility] Care Team Providers Care Cook Soup Name Role Phone [facility] Unavailable Unavailable Problems Combined list of problems from Department of Defense and Veterans Affairs facilities. It does not include entries that were removed or entered in error. Problem Status Onset Date Problem Type Date of Resolution Comments Source Aortic valve stenosis Active Condition Nov 27, 2021 Entered By: LUZ ROTHMAN Comment: 11/23/21 ECHOCARDIOGRAM: Mild Aortic Stenosis, LVEF 55-60%. Repeat in 2 years; due 2023. [facility] Benign hypertension Active Condition [facility] Diabetes mellitus type 2 Active Condition [facility] [place] Elevated PSA Active Condition [facility] Exposure to potentially hazardous substance ([facility] [id number]) Active Condition Oct 01 4 Entered By: LUIS CODY Comment: Entered automatically through [employer] Problem List documentation program [facility] Fatty liver Active Condition Jan 26, 2020 Entered By: LUZ ROTHMAN Comment: 07/31/19 Ultrasound of Abdomen LIVER ULTRASOUND ELASTOGRAPHY: Moderate to severe fibrotic rangeApr 07, 2020 Entered By: ULZ ROTHMAN Comment: 03/16/20 [facility] GI Dr. Busch. A/P: liver scarring in setting of fatty liver, likely r/t LOZA. Labs ordered to r/o hepatitis/iron overload. Rec: q6m Liver US for hepatoma screeningMay 10, 2021 Entered By: LUZ ROTHMAN Comment: 04/25/21 Abd US: Impression: Negative screen for hepatoma. Evidence of hepatic steatosis. ELASTOGRAPHY: Mod/severe fibrotic range. Several small right renal cysts.Mar 07, 2022 Entered By: LUZ ROTHMAN Comment: 12/14/21 ABD US: No suspicious discrete hepatic masses. Fatty liver. 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 Treated with Doxy x14 days [facility] Hyperlipidemia Active Condition [facility] Kidney lesion Active Condition Jan Entered By: LUZ ROTHMAN Comment: 06/27/19 MRI ABD ordered to follow up on right upper pole renal lesion. Impression: No suspicious renal lesions. Hemorrhagic/protei naceous renal cysts at right upper pole of kidney. 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 [facility] Parkinsons disease Active Condition [facility] Prostate carcinoma Active Condition [place] ([facility]) Vitamin B12 Deficiency ([facility] [id number]) Active Condition [facility] Vitamin D Deficiency ([facility] [id number]) Active Condition [facility] Diagnosis: ICD-10-CM C61 Malignant neoplasm of prostate Active Diagnosis [place] [facility]) Diagnosis: ICD-10-CM M54.50 Low back pain, unspecified Active Diagnosis [place] ([facility]) Diagnosis: ICD-10-CM Z46.0 Encounter for fit/adjst of spectacles and contact lenses Active Diagnosis [facility] Diagnosis: ICD-10-CM E11.9 Type 2 diabetes mellitus without complications Active Diagnosis [facility] Diagnosis: ICD-10-CM H00.015 Hordeolum externum left lower eyelid Active Diagnosis [facility] Diagnosis: ICD-10-CM Z71.9 Counseling, unspecified Active Diagnosis [place] ([facility]) Diagnosis: ICD-10-CM R97.20 Elevated prostate specific antigen [PSA] Active Diagnosis [place] ([facility]) Diagnosis: ICD-10-CM H04.322 Acute dacryocystitis of left lacrimal passage Active Diagnosis [facility] Diagnosis: ICD-10-CM L85.3 Xerosis cutis Active Diagnosis [facility] Diagnosis: ICD-10-CM R94.5 Abnormal results of liver function studies Active Diagnosis [facility] Diagnosis: ICD-10-CM K76.0 Fatty (change of) liver, not elsewhere classified Active Diagnosis [facility] Diagnosis: ICD-10-CM R93.2 Abnormal findings on dx imaging of liver and biliary tract Active Diagnosis [facility] Diagnosis: ICD-10-CM I10 Essential (primary) hypertension Active Diagnosis [place] ([facility]) Diagnosis: ICD-10-CM I35.0 Nonrheumatic aortic (valve) stenosis Active Diagnosis [facility] Diagnosis: ICD-10-CM Z13.6 Encounter for screening for cardiovascular disorders Active Diagnosis [facility] Diagnosis: ICD-10-CM I35.2 Nonrheumatic aortic (valve) stenosis with insufficiency Active Diagnosis [facility] Diagnosis: ICD-10-CM G20.A1 Parkinson's dis w/o dyskinesia, w/o mention of fluctuations Active Diagnosis [facility] Diagnosis: ICD-10-CM Z00.01 Encounter for general adult medical exam w abnormal findings Active Diagnosis [facility] [facility] Diagnosis: ICD-10-CM Z23 Encounter for immunization Active Diagnosis [place] ([facility]) Diagnosis: ICD-10-CM S61.411A Laceration without foreign body of right hand, init encntr Active Diagnosis [facility] [facility] Medications Combined list of outpatient medications from Department of Defense and Veterans Affairs facilities.Medications provided include 1) outpatient medications from the last 15 months, and 2) patient-reported medications. Medication Details Route Status Patient Instructions Prescription Expires Prescription Number Last Dispense Date Ordering Provider Order Date Order Qty Source ABIRATERONE ACETATE 250MG TAB TAKE FOUR TABLETS BY MOUTH ONCE DAILY DIRECTED BY PROVIDER ORAL ACTIVE 02/27/2025 [id number] PAYTON TAVAREZ 2023 120 [facility] ALBUTEROL 90MCG/ACTUA T (CFC-F) INHL,ORAL,8 .5GM DOSE COUNTER INHALE 2 PUFFS BY MOUTH EVERY 4 HOURS NEEDED RESPIR ATORY (INHAL ATION) ACTIVE LUZ ROTHMAN 2019 [facility] AMMONIUM LACTATE 12% LOTION APPLY SMALL AMOUNT TOPICALL Y ONCE DAILY FOR DRY IRRITATE D SKIN APPLY TO SKIN OF FEET ANKLE AND LOWER LEGS DAILY TOPICA L ACTIVE 01/08/2025 [id number] HERNÁN NUÑEZ 2023 240 [facility] ATORVASTATI N CA 80MG TAB TAKE ONE-HALF TABLET BY MOUTH AT BEDTIME FOR CHOLESTE ROL ORAL ACTIVE 02/12/2025 [id number] 5 DWAYNE BLANCHARD 2023 45 [facility] [facility] ATORVASTATI N CA 80MG TAB TAKE ONE-HALF TABLET BY MOUTH AT BEDTIME FOR CHOLESTE ROL ORAL DISCONT INUED 03/13/2024 [id number] 4 Horacio BOYD A 2022 45 [facility] [facility] CARBIDOPA 25MG/LEVODO PA 100MG TAB TAKE 3 TABLETS BY MOUTH FOUR TIMES A DAY ### ORAL DISCONT INUED 11/22/2023 [id number] ROSA PATINO Y 2022 1080 [facility] CARBIDOPA 25MG/LEVODO PA 100MG TAB TAKE 3 TABLETS BY MOUTH FOUR TIMES A DAY ### ORAL 08/05/2024 [id number] 5 ROSA PATINO Y 2023 1080 [facility] CARBIDOPA 50MG/LEVODO PA 200MG TAB,SA TAKE 1 TABLET BY MOUTH AT BEDTIME FOR PARKINSO N'S DISEASE ORAL 08/05/2024 [id number] ROSA PATINO Y 2023 90 [facility] CHOLECALCIF ANTHONY 25MCG (1,000UNIT) TAB TAKE ONE TABLET BY MOUTH ONCE DAILY FOR VITAMIN SUPPLEME NTATION ORAL ACTIVE 06/04/2025 [id number] 4 DWAYNE BLANCHARDN M 2023 90 [facility] [facility] CHOLECALCIF ANTHONY 25MCG (1,000UNIT) TAB TAKE ONE TABLET BY MOUTH ONCE DAILY FOR VITAMIN SUPPLEME NTATION ORAL DISCONT INUED 03/13/2024 [id number] 4 Horacio BOYD AVID A 2022 90 [facility] CLOTRIMAZOL E 1% SOLN,TOP APPLY 1 DROP TOPICALL Y ONCE DAILY FOR FUNGAL INFECTIO N APPLY TO TOE NAIL WHEN DRY TOPICA L ACTIVE 01/08/2025 [id number] 4 HERNÁN NUÑZE 2023 30 [facility] CYANOCOBALA MIN 1000MCG TAB TAKE ONE TABLET BY MOUTH ONCE DAILY FOR VITAMIN SUPPLEME NTATION ORAL ACTIVE 06/04/2025 [id number] 4 DWAYNE BLANCHARD M 2023 90 [facility] CYANOCOBALA MIN 1000MCG TAB TAKE ONE TABLET BY MOUTH ONCE DAILY FOR VITAMIN SUPPLEME NTATION ORAL DISCONT INUED 03/13/2024 [id number] 4 Horacio BOYD AVID A 2022 90 [facility] CYCLOBENZAP RINE HCL 10MG TAB TAKE ONE TABLET BY MOUTH AT BEDTIME NEEDED FOR MUSCLE SPASM ORAL 08/06/2024 [id number] 5 DWAYNE BLANCHARD 2024 15 [facility] [facility] DEXAMETHASO NE 0.1%/TOBRAM YCIN 0.3% OINT,OPH APPLY SMALL AMOUNT INTO THE LEFT EYE TWICE DAILY FOR INFECTIO N OF THE EYE OPHTHA LMIC DISCONT INUED BY PROVIDE R 03/04/2024 [id number] MERHAR,NO AH B 2023 1 [facility] DOXYCYCLINE HYCLATE 100MG TAB TAKE ONE TABLET BY MOUTH TWICE DAILY FOR INFECTIO N CAUSED BY BACTERIA ORAL DISCONT INUED BY PROVIDE R 02/15/2024 [id number] 4 MERHAR,NO AH B 2023 28 [facility] DOXYCYCLINE HYCLATE 50MG CAP TAKE ONE CAPSULE BY MOUTH TWICE DAILY FOR INFECTIO N CAUSED BY BACTERIA ORAL ACTIVE 07/18/2025 [id number] 5 MACIEJ ZAMORA 2024 180 [facility] DOXYCYCLINE HYCLATE 50MG CAP TAKE ONE CAPSULE BY MOUTH TWICE DAILY FOR INFECTIO N CAUSED BY BACTERIA ORAL DISCONT INUED 02/19/2025 [id number] [facility] 2023 180 [facility] FISH OIL 1000MG (500MG DHA/EPA) CAP,ORAL TAKE 1 CAPSULE BY MOUTH ONCE DAILY ORAL ACTIVE LUZ ROTHMAN 2018 [facility] [facility]) FLUTICASONE PROPIONATE 50MCG/SPRAY SOLN,NASAL, 16GM INSTILL 1 SPRAY INTO EACH NOSTRIL ONCE DAILY NEEDED NASAL ACTIVE LUZ ROTHMAN 2020 [facility] [facility]) LISINOPRIL 10MG TAB TAKE ONE TABLET BY MOUTH ONCE DAILY TO CONTROL BLOOD PRESSURE ORAL DISCONT INUED (EDIT) 03/13/2024 [id number] 4 Horacio BOYD 2022 90 [facility] [facility] LISINOPRIL 5MG TAB TAKE ONE TABLET BY MOUTH ONCE DAILY TO CONTROL BLOOD PRESSURE (NOTE DOSE) ORAL DISCONT INUED BY PROVIDE R 10/08/2024 [id number] DWAYNE BLANCHARD 2023 90 [place] [facility] [facility] MELATONIN 3MG CAP/TAB TAKE ONE TABLET BY MOUTH AT BEDTIME ORAL 08/05/2024 [id number] 4 ROSA PATINO Y 2023 120 [facility] METFORMIN HCL 1000MG TAB TAKE ONE TABLET BY MOUTH ONCE DAILY FOR TYPE 2 DIABETES MELLITUS (NOTE DOSE) ORAL ACTIVE 06/04/2025 [id number] 4 DWAYNE BLANCHARD 2024 90 [place] [facility] [facility] METFORMIN HCL 1000MG TAB TAKE ONE TABLET BY MOUTH ONCE DAILY FOR TYPE 2 DIABETES MELLITUS (NOTE DOSE) ORAL DISCONT INUED 10/08/2024 [id number] 4 DWAYNE BLANCHARD 2023 90 [facility] [facility] METFORMIN HCL 1000MG TAB TAKE ONE TABLET BY MOUTH TWICE DAILY FOR DIABETES ORAL DISCONT INUED (EDIT) 03/10/2024 [id number] 4 Horacio BOYD A 2022 180 [facility] [facility]) PEG-3350/EL ECTROLYTES PWDR TAKE CONTENTS OF BOTTLE BY MOUTH ONCE ACCORDIN G TO INSTRUCT IONS FROM PRESCRIB ER - DISSOLVE CONTENTS BEFORE DRINKING ORAL 07/04/2023 [id number] CYDNEY GORDON 2022 1 [facility] POLYMYXIN B SO4 [id number] /TRIMETHOPR IM 0.1% SOLN,OPH INSTILL 1 DROP INTO THE LEFT EYE FOUR TIMES A DAY FOR EYE INFECTIO N CAUSED BY BACTERIA OPHTHA LMIC DISCONT INUED BY PROVIDE R 01/16/2025 [id number] JOSÉ TEJEDA B 2023 10 [facility] PRAMIPEXOLE DIHYDROCHLO RIDE 0.5MG TAB TAKE ONE TABLET BY MOUTH THREE TIMES A DAY ORAL DISCONT INUED 12/26/2023 [id number] 4 ROSA PATINO Y 2022 270 [facility] PRAMIPEXOLE DIHYDROCHLO RIDE 0.5MG TAB TAKE ONE TABLET BY MOUTH THREE TIMES A DAY ORAL 08/05/2024 [id number] 5 ROSA PATINO Y 2023 270 [facility] PREDNISONE 5MG TAB TAKE ONE TABLET BY MOUTH ONCE DAILY DIRECTED WITH ABIKEITH ONE. TAKE WITH FOOD OR MILK. ORAL ACTIVE 03/26/2025 [id number] MAYNOR BIRMINGHAM 2023 90 [facility] PREDNISONE 5MG TAB TAKE ONE TABLET BY MOUTH ONCE DAILY ORAL DISCONT INUED 02/27/2025 [id number] PAYTON TAVAREZ 2023 30 [facility] RASAGILINE MESYLATE 0.5MG TAB TAKE ONE TABLET BY MOUTH ONCE DAILY ORAL DISCONT INUED 11/22/2023 [id number] 3 ROSA PATINO Y 2022 90 [facility] RASAGILINE MESYLATE 0.5MG TAB TAKE ONE TABLET BY MOUTH ONCE DAILY ORAL 08/05/2024 [id number] 4 ROSA PATINO Y 2023 90 [facility] TAMSULOSIN HCL 0.4MG CAP TAKE ONE CAPSULE BY MOUTH ONCE DAILY FOR ENLARGED PROSTATE ORAL ACTIVE 07/21/2025 [id number] 5 DWAYNE BLANCHARD 2024 90 [facility] [facility] TAMSULOSIN HCL 0.4MG CAP TAKE ONE CAPSULE BY MOUTH ONCE DAILY FOR ENLARGED PROSTATE ORAL DISCONT INUED 11/19/2024 [id number] DWAYNE BLANCHARD 2023 90 [place] [facility] TRIAMCINOLO NE ACETONIDE 0.1% CREAM,TOP APPLY A THIN LAYER TOPICALL Y TWICE DAILY NEEDED TOPICA L ACTIVE LUZ ROTHMAN 2018 [facility] [facility] [facility]) Allergies, Adverse Reactions, Alerts Combined list of allergies from Department of Defense and Veterans Affairs facilities. It does not include entries that were removed or entered in error. Substance Category Reaction Severity Reaction type Status Date Reported Comments Source PENICILLIN Propensity to adverse reactions to drug (finding) active 9 [facility] Immunizations Combined list of available immunizations from the Department of Defense and Veterans Affairs facilities. Immunization Series Date Given Administered By Site Reaction Lot Number CVX Code Drug Nurse Discharge Planner Status Comments Source COVID-19 (MODERNA), MRNA, LNP-S, PF, 50 MCG/0.5 ML (AGES 12+ YEARS) 2023 VERONICAKARLI RAZO E LEFT DELTO ID [id number] 312 complet ed [facility] [facility] INFLUENZA, HIGH-DOSE, TRIVALENT, PF 2023 VERONICAKARLI GONZALEZ E RIGHT DELTO ID [id number] 135 complet ed [facility] [facility] COVID-19 (MODERNA), MRNA, LNP-S, PF, 50 MCG/0.5 ML (AGES 12+ YEARS) 2023 VERONICAKARLI RAZO E LEFT DELTO ID [id number] 312 complet ed [facility] [facility] HEP A, ADULT 2022 Hany WALKER LEFT DELTO ID [id number] 52 complet ed [place] [facility] INFLUENZA, HIGH-DOSE, QUADRIVALENT 2022 Hany WALKER RIGHT DELTO ID [id number] 197 complet ed [facility] [facility] COVID-19 (MODERNA), MRNA, LNP-S, BIVALENT BOOSTER, PF, 50 MCG/0.5 ML OR 25MCG/0.25 ML DOSE 1 2022 CARIDAD PERES LEFT DELTO ID [id number] 229 complet ed [facility] HEP A, ADULT 2022 VERONICA,JULI A E RIGHT DELTO ID [id number] 52 complet ed [facility] [facility]) HEP B, ADULT 3 2022 VERONICA,JULI A E LEFT DELTO ID [id number] 43 complet ed [facility] [facility]) HEP B, ADULT 2 2021 43 complet ed [facility] [facility] HEP B, ADULT 1 2021 43 complet ed [facility] [facility] INFLUENZA VACCINE, QUADRIVALENT, ADJUVANTED 2021 205 complet ed [facility] [facility] ZOSTER RECOMBINANT 2 2020 187 complet ed [facility] [facility] INFLUENZA VACCINE, QUADRIVALENT, ADJUVANTED 2020 205 complet ed [facility] [facility] ZOSTER RECOMBINANT 1 2020 187 complet ed [facility] [facility] COVID-19 (MODERNA), MRNA, LNP-S, PF, 100 MCG/0.5 ML DOSE 2 2020 207 complet ed MOD; [id number]; 1 [facility] COVID-19 (MODERNA), MRNA, LNP-S, PF, 100 MCG/0.5 ML DOSE 1 2020 207 complet ed MOD; [id number]; 1 [facility] [place] [facility] INFLUENZA, INJECTABLE, QUADRIVALENT, PRESERVATIVE FREE 2018 150 complet ed Site: Left Deltoid [facility] [facility] PNEUMOCOCCAL POLYSACCHARID E [id number] 2018 33 complet ed [facility] INFLUENZA, SEASONAL, INJECTABLE 2017 141 complet ed [facility] PNEUMOCOCCAL CONJUGATE PCV 13 2016 133 complet [facility] [place] [facility] DTAP, UNSPECIFIED FORMULATION 2015 107 complet ed [facility] TDAP 2015 115 complet ed [facility] [place] [facility] TD(ADULT) UNSPECIFIED FORMULATION 2005 [facility] [place] Results Combined list of recent chemistry, hematology and other laboratory results from Department of Defense and Veterans Affairs, ranging from 15 months to all on record, depending upon the facility. Order Name Results Value Reference Range Date Interpretation Specimen Comments Source CALCIUM CALCIUM [MASS/VOLU ME] IN SERUM OR PLASMA 9.4 mg/dL 8.5 - 10.2 01/15 /2025 Specimen Type: SERUM No comment entered. Ordering Provider: JASON BLANCHARD Report Released Date/Time: Jul 07, 2024 04:05 PM Reporting Lab: [address] [address] Performing Lab: [facility] [address] [address] [facility] LIVER FUNCTION PROTEIN [MASS/VOLU ME] IN SERUM OR PLASMA 7.0 g/dL 6.0 - 8.3 07/08 Specimen Type: SERUM No comment entered. Ordering Provider: JASON BLANCHARD Report Released Date/Time: Jul 07, 2024 04:05 PM Reporting Lab: [address] [address] Performing Lab: [address] [address] [facility] LIVER FUNCTION ALBUMIN [MASS/VOLU ME] IN SERUM OR PLASMA 4.0 g/dL 3.5 - 5.0 07/08 Specimen Type: SERUM No comment entered. Ordering Provider: JASON BLANCHARD Report Released Date/Time: Jul 07, 2024 04:05 PM Reporting Lab: [facility] [address] Performing Lab: [address] [address] [facility] LIVER FUNCTION ALKALINE PHOSPHATAS E [ENZYMATIC ACTIVITY/V OLUME] IN SERUM OR PLASMA 223 U/L 40 - 150 07/08 H Specimen Type: SERUM No comment entered. Ordering Provider: JASON BLANCHARD Report Released Date/Time: Jul 07, 2024 04:05 PM Reporting Lab: [facility] [address] [address] Performing Lab: [address] [address] [facility] LIVER FUNCTION ASPARTATE AMINOTRANS FERASE [ENZYMATIC ACTIVITY/V OLUME] IN SERUM OR PLASMA 20 U/L 5 - 34 07/08 Specimen Type: SERUM No comment entered. Ordering Provider: JASON BLANCHARD Report Released Date/Time: Jul 07, 2024 04:05 PM Reporting Lab: [address] [address] Performing Lab: [address] [address] [facility] LIVER FUNCTION ALANINE AMINOTRANS FERASE [ENZYMATIC ACTIVITY/V OLUME] IN SERUM OR PLASMA <6U/L 07/08 Specimen Type: SERUM No comment entered. Ordering Provider: JASON BLANCHARD Report Released Date/Time: Jul 07, 2024 04:05 PM Reporting Lab: [address] [address] Performing Lab: [address] [address] [facility] LIVER FUNCTION BILIRUBIN. TOTAL [MASS/VOLU ME] IN SERUM OR PLASMA 1.1 mg/dL 0.2 - 1.2 07/08 Specimen Type: SERUM No comment entered. Ordering Provider: JASON BLANCHARD Report Released Date/Time: Jul 07, 2024 04:05 PM Reporting Lab: [address] [address] Performing Lab: [address] [address] [facility] BASIC METABOLI C PANEL (non-fas ting) UREA NITROGEN [MASS/VOLU ME] IN SERUM OR PLASMA 22 mg/dL 7 - 25 07/08 Specimen Type: SERUM No comment entered. Ordering Provider: JASON BLANCHARD Report Released Date/Time: Jul 07, 2024 04:05 PM Reporting Lab: [address] [address] Performing Lab: [address] [address] [facility] BASIC METABOLI C PANEL (non-fas ting) GLUCOSE [MASS/VOLU ME] IN SERUM OR PLASMA 120 mg/dL 65 - 100 07/08 H Specimen Type: SERUM No comment entered. Ordering Provider: JASON BLANCHARD Report Released Date/Time: Jul 07, 2024 04:05 PM Reporting Lab: [address] [address] Performing Lab: [address] [address] [facility] BASIC METABOLI C PANEL (non-fas ting) SODIUM [MOLES/VOL UME] IN SERUM OR PLASMA 140 mmol/L 135 - 145 07/08 Specimen Type: SERUM No comment entered. Ordering Provider: JASON BLANCHARD Report Released Date/Time: Jul 07, 2024 04:05 PM Reporting Lab: [address] [address] Performing Lab: [address] [address] [facility] BASIC METABOLI C PANEL (non-fas ting) POTASSIUM [MOLES/VOL UME] IN SERUM OR PLASMA 4.3 mmol/L 3.5 - 5.0 07/08 Specimen Type: SERUM No comment entered. Ordering Provider: JASON BLANCHARD Report Released Date/Time: Jul 07, 2024 04:05 PM Reporting Lab: [address] [address] Performing Lab: [address] [address] [facility] BASIC METABOLI C PANEL (non-fas ting) CHLORIDE [MOLES/VOL UME] IN SERUM OR PLASMA 107 mmol/L 100 - 110 07/08 Specimen Type: SERUM No comment entered. Ordering Provider: JASON BLANCHARD Report Released Date/Time: Jul 07, 2024 04:05 PM Reporting Lab: [address] [address] Performing Lab: [facility] [address] [facility] [address] [place] [facility] BASIC METABOLI C PANEL (non-fas ting) CARBON DIOXIDE, TOTAL [MOLES/VOL UME] IN SERUM OR PLASMA 25 meq/L 20 - 30 07/08 Specimen Type: SERUM No comment entered. Ordering Provider: JASON BLANCHARD Report Released Date/Time: Jul 07, 2024 04:05 PM Reporting Lab: [address] [address] Performing Lab: [address] [address] [facility] BASIC METABOLI C PANEL (non-fas ting) CREATININE [MASS/VOLU ME] IN SERUM OR PLASMA 0.67 mg/dL 0.50 - 1.40 07/08 Specimen Type: SERUM No comment entered. Ordering Provider: JASON BLANCHARD Report Released Date/Time: Jul 07, 2024 04:05 PM Reporting Lab: [address] [address] Performing Lab: [address] [address] [facility] BASIC METABOLI C PANEL (non-fas ting) GLOMERULAR FILTRATION RATE/1.73 SQ M.PREDICTE D [VOLUME RATE/AREA] IN SERUM, PLASMA OR BLOOD BY CREATININE -BASED FORMULA (CKD-EPI 2020) >90mL/mi n 60 07/08 Specimen Type: SERUM No comment entered. Ordering Provider: JASON BLANCHARD Report Released Date/Time: Jul 07, 2024 04:05 PM Reporting Lab: [address] [address] Performing Lab: [address] [address] [facility] URINALYS IS COLOR OF URINE Light-Or deonte 07/08 Specimen Type: URINE Comment: If Glucose = >500 and Ketones are positive, please alert the Physician. Ordering Provider: JASON BLANCHARD Report Released Date/Time: Jul 07, 2024 03:18 PM Reporting Lab: [address] [address] Performing Lab: [address] [address] [facility] URINALYS IS APPEARANCE OF URINE Turbid 07/08 Specimen Type: URINE Comment: If Glucose = >500 and Ketones are positive, please alert the Physician. Ordering Provider: JASON BLANCHARD Report Released Date/Time: Jul 07, 2024 03:18 PM Reporting Lab: [address] [address] Performing Lab: [address] [address] [facility] URINALYS IS GLUCOSE [MASS/VOLU ME] IN URINE Normalmg /dL 07/08 Specimen Type: URINE Comment: If Glucose = >500 and Ketones are positive, please alert the Physician. Ordering Provider: JASON BLANCHARD Report Released Date/Time: Jul 07, 2024 03:18 PM Reporting Lab: [address] [address] Performing Lab: [address] [address] [facility] URINALYS IS KETONES [MASS/VOLU ME] IN URINE BY TEST STRIP TRACEmg/ dL 07/08 Specimen Type: URINE Comment: If Glucose = >500 and Ketones are positive, please alert the Physician. Ordering Provider: JASON BLANCHARD Report Released Date/Time: Jul 07, 2024 03:18 PM Reporting Lab: [address] [id number] Performing Lab: [address] [phone] [facility] ([facility]) URINALYS IS ERYTHROCYT ES [PRESENCE] IN URINE SEDIMENT BY LIGHT MICROSCOPY NEGATIVE mg/dL 07/08 Specimen Type: URINE Comment: If Glucose = >500 and Ketones are positive, please alert the Physician. Ordering Provider: JASON BLANCHARD Report Released Date/Time: Jul 07, 2024 03:18 PM Reporting Lab: [address] [id number] Performing Lab: [address] [phone] [facility] ([facility]) URINALYS IS PROTEIN [MASS/VOLU ME] IN URINE BY TEST STRIP 20 mg/dL 07/08 Specimen Type: URINE Comment: If Glucose = >500 and Ketones are positive, please alert the Physician. Ordering Provider: JASON BLANCHARD Report Released Date/Time: Jul 07, 2024 03:18 PM Reporting Lab: [address] [phone] Performing Lab: [address] [address] [facility] ([facility]) URINALYS IS NITRITE [PRESENCE] IN URINE NEGATIVE mg/dL 07/08 Specimen Type: URINE Comment: If Glucose = >500 and Ketones are positive, please alert the Physician. Ordering Provider: JASON BLANCHARD Report Released Date/Time: Jul 07, 2024 03:18 PM Reporting Lab: [address] [address] Performing Lab: [address] [address] [facility] ([facility]) URINALYS IS BILIRUBIN. TOTAL [PRESENCE] IN URINE NEGATIVE mg/dL 07/08 Specimen Type: URINE Comment: If Glucose = >500 and Ketones are positive, please alert the Physician. Ordering Provider: JASON BLANCHARD Report Released Date/Time: Jul 07, 2024 03:18 PM Reporting Lab: [address] [address] Performing Lab: [address] [address] [facility] ([facility]) URINALYS IS SPECIFIC GRAVITY OF URINE BY REFRACTOME TRY 1.023 1.016 - 1.022 07/08 H Specimen Type: URINE Comment: If Glucose = >500 and Ketones are positive, please alert the Physician. Ordering Provider: JASON BLANCHARD Report Released Date/Time: Jul 07, 2024 03:18 PM Reporting Lab: [address] [address] Performing Lab: [address] [address] [place] ([facility]) URINALYS IS PH OF URINE BY TEST STRIP 6.0 5.0 - 9.0 07/08 Specimen Type: URINE Comment: If Glucose = >500 and Ketones are positive, please alert the Physician. Ordering Provider: JASON BLANCHARD Report Released Date/Time: Jul 07, 2024 03:18 PM Reporting Lab: [address] [address] Performing Lab: [address] [address] [place] ([facility]) URINALYS IS UROBILINOG EN [MASS/VOLU ME] IN URINE BY TEST STRIP Normalmg /dL <2.0 - 2.0 07/08 Specimen Type: URINE Comment: If Glucose = >500 and Ketones are positive, please alert the Physician. Ordering Provider: JASON BLANCHARD Report Released Date/Time: Jul 07, 2024 03:18 PM Reporting Lab: [address] [address] Performing Lab: [address] [address] [place] ([facility]) URINALYS IS LEUKOCYTE ESTERASE [PRESENCE] IN URINE BY TEST STRIP NEGATIVE 07/08 Specimen Type: URINE Comment: If Glucose = >500 and Ketones are positive, please alert the Physician. Ordering Provider: JASON BLANCHARD Report Released Date/Time: Jul 07, 2024 03:18 PM Reporting Lab: [address] [address] Performing Lab: [address] [address] [place] ([facility]) MICROSCO PIC AUTOMATE D, URINE LEUKOCYTES [#/AREA] IN URINE SEDIMENT BY MICROSCOPY HIGH POWER FIELD 0-5/[HPF ] 0 - 5 07/08 Specimen Type: URINE Comment: If Glucose = >500 and Ketones are positive, please alert the Physician. Ordering Provider: JASON BLANCHARD Report Released Date/Time: Jul 07, 2024 03:18 PM Reporting Lab: [address] [address] Performing Lab: [address] [address] [place] ([facility]) MICROSCO PIC AUTOMATE D, URINE MUCUS [#/AREA] IN URINE SEDIMENT BY MICROSCOPY LOW POWER FIELD FEW/[LPF ] 07/08 Specimen Type: URINE Comment: If Glucose = >500 and Ketones are positive, please alert the Physician. Ordering Provider: JASON BLANCHARD Report Released Date/Time: Jul 07, 2024 03:18 PM Reporting Lab: [address] [address] Performing Lab: [address] [address] [place] ([facility]) MICROSCO PIC AUTOMATE D, URINE ERYTHROCYT ES [#/AREA] IN URINE SEDIMENT BY MICROSCOPY HIGH POWER FIELD 0-2/[HPF ] 0 - 3 07/08 Specimen Type: URINE Comment: If Glucose = >500 and Ketones are positive, please alert the Physician. Ordering Provider: JASON BLANCHARD Report Released Date/Time: Jul 07, 2024 03:18 PM Reporting Lab: [address] [address] Performing Lab: [address] [address] [facility] ([facility]) MICROSCO PIC AUTOMATE D, URINE EPITHELIAL CELLS.SQUA MOUS [#/AREA] IN URINE SEDIMENT BY MICROSCOPY HIGH POWER FIELD FEW/[HPF ] 07/08 Specimen Type: URINE Comment: If Glucose = >500 and Ketones are positive, please alert the Physician. Ordering Provider: JASON BLANCHARD Report Released Date/Time: Jul 07, 2024 03:18 PM Reporting Lab: [address] [address] Performing Lab: [address] [address] [place] ([facility]) MICROSCO PIC AUTOMATE D, URINE AMORPHOUS SEDIMENT [PRESENCE] IN URINE SEDIMENT BY LIGHT MICROSCOPY MODERATE /[HPF] 07/08 Specimen Type: URINE Comment: If Glucose = >500 and Ketones are positive, please alert the Physician. Ordering Provider: JASON BLANCHARD Report Released Date/Time: Jul 07, 2024 03:18 PM Reporting Lab: [address] [address] Performing Lab: [address] [address] [place] ([facility]) CBC AND DIFF (AUTO) LEUKOCYTES [#/VOLUME] IN BLOOD BY AUTOMATED COUNT 9.54 10*3/uL 4.50 - 11.00 07/08 Specimen Type: BLOOD No comment entered. Ordering Provider: JASON BLANCHARD Report Released Date/Time: Jul 07, 2024 04:05 PM Reporting Lab: [address] [address] Performing Lab: [address] [address] [place] ([facility]) CBC AND DIFF (AUTO) ERYTHROCYT ES [#/VOLUME] IN BLOOD BY AUTOMATED COUNT 4.04 10*6/uL 4.23 - 5.66 07/08 L Specimen Type: BLOOD No comment entered. Ordering Provider: JASON BLANCHARD Report Released Date/Time: Jul 07, 2024 04:05 PM Reporting Lab: [facility] [address] [address] Performing Lab: [facility] [address] [address] [place] [facility] ([facility]) CBC AND DIFF (AUTO) HEMOGLOBIN [MASS/VOLU ME] IN BLOOD 13.4 g/dL 12.8 - 17 07/08 Specimen Type: BLOOD No comment entered. Ordering Provider: JASON BLANCHARD Report Released Date/Time: Jul 07, 2024 04:05 PM Reporting Lab: [facility] [address] [address] Performing Lab: [facility] [address] [address] [place] [facility] ([facility]) CBC AND DIFF (AUTO) HEMATOCRIT [VOLUME FRACTION] OF BLOOD BY AUTOMATED COUNT 40.7 39.2 - 50.4 07/08 Specimen Type: BLOOD No comment entered. Ordering Provider: JASON BLANCHARD Report Released Date/Time: Jul 07, 2024 04:05 PM Reporting Lab: [facility]N [address] [address] Performing Lab: [facility]N [address] [address] [place] [facility] ([facility]) CBC AND DIFF (AUTO) MCV [ENTITIC VOLUME] BY AUTOMATED COUNT 100.7 fL 82 - 99 07/08 H Specimen Type: BLOOD No comment entered. Ordering Provider: JASON BLANCHARD Report Released Date/Time: Jul 07, 2024 04:05 PM Reporting Lab: [facility]TRN [address] [address] Performing Lab: [facility]N [address] [address] [place] [facility] ([facility]) CBC AND DIFF (AUTO) MCHC [MASS/VOLU ME] BY AUTOMATED COUNT 32.9 g/dL 30.8 - 35.1 01/15 /2025 Specimen Type: BLOOD No comment entered. Ordering Provider: JASON BLANCHARD Report Released Date/Time: Jul 07, 2024 04:05 PM Reporting Lab: [facility]N [address] [address] Performing Lab: [address] [address] [place] [facility] ([facility]) CBC AND DIFF (AUTO) PLATELETS [#/VOLUME] IN BLOOD BY AUTOMATED COUNT 173 10*3/uL 140 - 360 07/08 Specimen Type: BLOOD No comment entered. Ordering Provider: JASON BLANCHARD Report Released Date/Time: Jul 07, 2024 04:05 PM Reporting Lab: [address] [address] Performing Lab: [address] [address] [place] ([facility]) CBC AND DIFF (AUTO) ERYTHROCYT E DISTRIBUTI ON WIDTH [RATIO] BY AUTOMATED COUNT 13.2 12.0 - 16.0 07/08 Specimen Type: BLOOD No comment entered. Ordering Provider: JASON BLANCHARD Report Released Date/Time: Jul 07, 2024 04:05 PM Reporting Lab: [address] [address] Performing Lab: [facility] [address] [address] [place] [facility] ([facility]) CBC AND DIFF (AUTO) MONOCYTES [#/VOLUME] IN BLOOD BY AUTOMATED COUNT 0.54 10*3/uL 0.30 - 1.10 07/08 Specimen Type: BLOOD No comment entered. Ordering Provider: JASON BLANCHARD Report Released Date/Time: Jul 07, 2024 04:05 PM Reporting Lab: [facility]N [address] [address] Performing Lab: [address] [address] [place] [facility] ([facility]) CBC AND DIFF (AUTO) MCH [ENTITIC MASS] BY AUTOMATED COUNT 33.2 pg 26.2 - 32.6 07/08 H Specimen Type: BLOOD No comment entered. Ordering Provider: JASON BLANCHARD Report Released Date/Time: Jul 07, 2024 04:05 PM Reporting Lab: [facility]N [address] [address] Performing Lab: [facility] [address] [address] [place] [facility] ([facility]) CBC AND DIFF (AUTO) NEUTROPHIL S/100 LEUKOCYTES IN BLOOD BY AUTOMATED COUNT 78.6 43.7 - 75.8 07/08 H Specimen Type: BLOOD No comment entered. Ordering Provider: JASON BLANCHARD Report Released Date/Time: Jul 07, 2024 04:05 PM Reporting Lab: [address] [address] Performing Lab: [facility] [address] [address] [place] [facility] ([facility]) CBC AND DIFF (AUTO) LYMPHOCYTE S/100 LEUKOCYTES IN BLOOD BY AUTOMATED COUNT 14.0 14.0 - 42.3 07/08 Specimen Type: BLOOD No comment entered. Ordering Provider: JASON BLANCHARD Report Released Date/Time: Jul 07, 2024 04:05 PM Reporting Lab: [facility] [address] [address] Performing Lab: [facility]N [address] [address] [place] [facility] ([facility]) CBC AND DIFF (AUTO) MONOCYTES/ 100 LEUKOCYTES IN BLOOD BY AUTOMATED COUNT 5.7 5.1 - 13.7 07/08 Specimen Type: BLOOD No comment entered. Ordering Provider: JASON BLANCHARD Report Released Date/Time: Jul 07, 2024 04:05 PM Reporting Lab: [facility] [address] [address] Performing Lab: [facility] [address] [address] [place] [facility] ([facility]) CBC AND DIFF (AUTO) EOSINOPHIL S/100 LEUKOCYTES IN BLOOD BY AUTOMATED COUNT 1.0 0.4 - 6.8 07/08 Specimen Type: BLOOD No comment entered. Ordering Provider: JASON BLANCHARD Report Released Date/Time: Jul 07, 2024 04:05 PM Reporting Lab: [address] [address] Performing Lab: [facility] [address] [address] [place] [facility] ([facility]) CBC AND DIFF (AUTO) BASOPHILS/ 100 LEUKOCYTES IN BLOOD BY AUTOMATED COUNT 0.3 0.1 - 2.0 07/08 Specimen Type: BLOOD No comment entered. Ordering Provider: JASON BLANCHARD Report Released Date/Time: Jul 07, 2024 04:05 PM Reporting Lab: [address] [address] Performing Lab: [address] [address] [place] [facility] ([facility]) CBC AND DIFF (AUTO) NEUTROPHIL S [#/VOLUME] IN BLOOD BY AUTOMATED COUNT 7.49 10*3/uL 2.20 - 7.60 07/08 Specimen Type: BLOOD No comment entered. Ordering Provider: JASON BLANCHARD Report Released Date/Time: Jul 07, 2024 04:05 PM Reporting Lab: [address] [address] Performing Lab: [address] [address] [place] [facility] ([facility]) CBC AND DIFF (AUTO) LYMPHOCYTE S [#/VOLUME] IN BLOOD BY AUTOMATED COUNT 1.34 10*3/uL 1.00 - 3.20 07/08 Specimen Type: BLOOD No comment entered. Ordering Provider: JASON BLANCHARD Report Released Date/Time: Jul 07, 2024 04:05 PM Reporting Lab: [address] [address] Performing Lab: [facility]ITALRH[facility]ENTERTRN [facility]USE[facility] [address] [address] [place] [facility] ([facility]) CBC AND DIFF (AUTO) EOSINOPHIL S [#/VOLUME] IN BLOOD BY AUTOMATED COUNT 0.10 10*3/uL 0.03 - 0.44 07/08 Specimen Type: BLOOD No comment entered. Ordering Provider: JASON BLANCHARD Report Released Date/Time: Jul 07, 2024 04:05 PM Reporting Lab: [facility]ITALN [address] [address] Performing Lab: [facility] [address] [address] [place] [facility] ([facility]) CBC AND DIFF (AUTO) BASOPHILS [#/VOLUME] IN BLOOD BY AUTOMATED COUNT 0.03 10*3/uL 0.01 - 0.13 07/08 Specimen Type: BLOOD No comment entered. Ordering Provider: JASON BLANCHARD Report Released Date/Time: Jul 07, 2024 04:05 PM Reporting Lab: [facility] [address] [address] Performing Lab: [facility] [address] [address] [place] [facility] ([facility]) CBC AND DIFF (AUTO) IMMATURE GRANULOCYT ES/100 LEUKOCYTES IN BLOOD BY AUTOMATED COUNT 0.4 0.0 - 0.7 07/08 Specimen Type: BLOOD No comment entered. Ordering Provider: JASON BLANCHARD Report Released Date/Time: Jul 07, 2024 04:05 PM Reporting Lab: [facility] [address] [address] Performing Lab: [facility] [address] [address] [place] [facility] ([facility]) CBC AND DIFF (AUTO) IMMATURE GRANULOCYT ES [#/VOLUME] IN BLOOD 0.04 10*3/uL 0.00 - 0.06 07/08 Specimen Type: BLOOD No comment entered. Ordering Provider: JASON BLANCHARD Report Released Date/Time: Jul 07, 2024 04:05 PM Reporting Lab: [address] [address] Performing Lab: [address] [address] [place] [facility] ([facility]) CBC AND DIFF (AUTO) NRBC % 0.0 0.0 - 0.0 07/08 Specimen Type: BLOOD No comment entered. Ordering Provider: JASON BLANCHARD Report Released Date/Time: Jul 07, 2024 04:05 PM Reporting Lab: [address] [address] Performing Lab: [address] [address] [place] [facility] ([facility]) CBC AND DIFF (AUTO) NRBC, ABS 0.00 10*3/uL 0.00 - 0.00 07/08 Specimen Type: BLOOD No comment entered. Ordering Provider: JASON BLANCHARD Report Released Date/Time: Jul 07, 2024 04:05 PM Reporting Lab: [address] [address] Performing Lab: [address] [address] [place] [facility] ([facility]) MICROALB UMIN CREATINI NE RATIO PANEL MICROALBUM IN/CREATIN INE [MASS RATIO] IN URINE 89.4 mg/g 0 - 29.9 02/02 H Specimen Type: URINE No comment entered. Ordering Provider: JASON BLANCHARD Report Released Date/Time: Jan 27, 2024 11:47 AM Reporting Lab: [address] [address] Performing Lab: [address] [address] [place] [facility] ([facility]) MICROALB UMIN CREATINI NE RATIO PANEL MICROALBUM IN [MASS/VOLU ME] IN URINE 9.0 mg/dL 02/02 Specimen Type: URINE No comment entered. Ordering Provider: JASON BLANCHARD Report Released Date/Time: Jan 27, 2024 11:47 AM Reporting Lab: [address] [address] Performing Lab: [address] [address] [place] [facility] ([facility]) MICROALB UMIN CREATINI NE RATIO PANEL CREATININE [MASS/VOLU ME] IN URINE 100.67 mg/dL 02/02 Specimen Type: URINE No comment entered. Ordering Provider: JASON BLANCHARD Report Released Date/Time: Jan 27, 2024 11:47 AM Reporting Lab: [address] [address] Performing Lab: [address] [address] [place] [facility] ([facility]) URINALYS IS COLOR OF URINE Light-Ye llow 02/02 Specimen Type: URINE Comment: If Glucose = >500 and Ketones are positive, please alert the Physician. Ordering Provider: JASON BLANCHARD Report Released Date/Time: Jan 27, 2024 11:47 AM Reporting Lab: [address] [address] Performing Lab: [address] [address] [place] [facility] ([facility]) URINALYS IS APPEARANCE OF URINE Clear 02/02 Specimen Type: URINE Comment: If Glucose = >500 and Ketones are positive, please alert the Physician. Ordering Provider: JASON BLANCHARD Report Released Date/Time: Jan 27, 2024 11:47 AM Reporting Lab: [address] [address] Performing Lab: [address] [address] [place] [facility] ([facility]) URINALYS IS GLUCOSE [MASS/VOLU ME] IN URINE Normalmg /dL 02/02 Specimen Type: URINE Comment: If Glucose = >500 and Ketones are positive, please alert the Physician. Ordering Provider: JASON BLANCHARD Report Released Date/Time: Jan 27, 2024 11:47 AM Reporting Lab: [address] [address] Performing Lab: [address] [address] [place] [facility] ([facility]) URINALYS IS KETONES [MASS/VOLU ME] IN URINE BY TEST STRIP TRACEmg/ dL 02/02 Specimen Type: URINE Comment: If Glucose = >500 and Ketones are positive, please alert the Physician. Ordering Provider: JASON BLANCHARD Report Released Date/Time: Jan 27, 2024 11:47 AM Reporting Lab: [address] [address] Performing Lab: [address] [address] [place] [facility] ([facility]) URINALYS IS ERYTHROCYT ES [PRESENCE] IN URINE SEDIMENT BY LIGHT MICROSCOPY NEGATIVE mg/dL 02/02 Specimen Type: URINE Comment: If Glucose = >500 and Ketones are positive, please alert the Physician. Ordering Provider: JASON BLANCHARD Report Released Date/Time: Jan 27, 2024 11:47 AM Reporting Lab: [address] [address] Performing Lab: [address] [address] [place] [facility] ([facility]) URINALYS IS PROTEIN [MASS/VOLU ME] IN URINE BY TEST STRIP 20 mg/dL 02/02 Specimen Type: URINE Comment: If Glucose = >500 and Ketones are positive, please alert the Physician. Ordering Provider: JASON BLANCHARD Report Released Date/Time: Jan 27, 2024 11:47 AM Reporting Lab: [address] [address] Performing Lab: [address] [address] [place] [facility] ([facility]) URINALYS IS NITRITE [PRESENCE] IN URINE NEGATIVE mg/dL 02/02 Specimen Type: URINE Comment: If Glucose = >500 and Ketones are positive, please alert the Physician. Ordering Provider: JASON BLANCHARD Report Released Date/Time: Jan 27, 2024 11:47 AM Reporting Lab: [address] [address] Performing Lab: [address] [address] [place] [facility] ([facility]) URINALYS IS BILIRUBIN. TOTAL [PRESENCE] IN URINE NEGATIVE mg/dL 02/02 Specimen Type: URINE Comment: If Glucose = >500 and Ketones are positive, please alert the Physician. Ordering Provider: JASON BLANCHARD Report Released Date/Time: Jan 27, 2024 11:47 AM Reporting Lab: [address] [address] Performing Lab: [address] [address] [place] [facility] ([facility]) URINALYS IS SPECIFIC GRAVITY OF URINE BY REFRACTOME TRY 1.026 1.016 - 1.022 02/02 H Specimen Type: URINE Comment: If Glucose = >500 and Ketones are positive, please alert the Physician. Ordering Provider: JASON BLANCHARD Report Released Date/Time: Jan 27, 2024 11:47 AM Reporting Lab: [address] [address] Performing Lab: [address] [address] [place] [facility] ([facility]) URINALYS IS PH OF URINE BY TEST STRIP 5.5 5.0 - 9.0 02/02 Specimen Type: URINE Comment: If Glucose = >500 and Ketones are positive, please alert the Physician. Ordering Provider: JASON BLANCHARD Report Released Date/Time: Jan 27, 2024 11:47 AM Reporting Lab: [facility] [address] Performing Lab: [address] [address] [place] [facility] ([facility]) URINALYS IS UROBILINOG EN [MASS/VOLU ME] IN URINE BY TEST STRIP Normalmg /dL <2.0 - 2.0 02/02 Specimen Type: URINE Comment: If Glucose = >500 and Ketones are positive, please alert the Physician. Ordering Provider: JASON BLANCHARD Report Released Date/Time: Jan 27, 2024 11:47 AM Reporting Lab: [address] [address] Performing Lab: [address] [address] [place] [facility] ([facility]) URINALYS IS LEUKOCYTE ESTERASE [PRESENCE] IN URINE BY TEST STRIP NEGATIVE 02/02 Specimen Type: URINE Comment: If Glucose = >500 and Ketones are positive, please alert the Physician. Ordering Provider: JASON BLANCHARD Report Released Date/Time: Jan 27, 2024 11:47 AM Reporting Lab: [address] [address] Performing Lab: [address] [address] [place] [facility] ([facility]) VITAMIN B12 COBALAMIN (VITAMIN B12) [MASS/VOLU ME] IN SERUM OR PLASMA 869 pg/mL 200 - 900 02/02 Specimen Type: SERUM No comment entered. Ordering Provider: JASON BLANCHARD Report Released Date/Time: Jan 27, 2024 11:47 AM Reporting Lab: [address] [address] Performing Lab: [address] [address] [place] [facility] ([facility]) HEMOGLOB IN A1C PANEL HEMOGLOBIN A1C/HEMOGL OBIN.TOTAL IN BLOOD BY HPLC 6.1 4.0 - 5.6 02/02 H Specimen Type: BLOOD Comment: Values obtained from A1C measurement s can vary. For atypical A1C assays, a reported value of 7.0 could actually be between 6.72 and 7.28 if measured by a reference method. A reported value of 9.0 could actually be between 8.73 and 9.27. Ref: http://www. ngsp.org/[place] Pdata.asp Ordering Provider: JASON BLANCHARD Report Released Date/Time: Jan 27, 2024 11:47 AM Reporting Lab: [facility] [address] [address] Performing Lab: [address] [address] [facility] ([facility]) Vital Signs Combined list of inpatient and outpatient Vital Signs from Department of Defense and Veterans Affairs, ranging from 12 months to all on record, depending upon the facility. Vital Sign Value Date Comments Source SYSTOLIC BLOOD PRESSURE 132 07/27/19 25 13:47:28 [place] ([facility]) DIASTOLIC BLOOD PRESSURE 72 025 13:47:28 [place] ([facility]) PULSE OXIMETRY 97 07/27/2024 13:47:28 [place] ([facility]) WEIGHT 162.2 07/27/2024 13:47:28 [place] ([facility]) BMI 25 kg/m2 07/27/2024 13:47:28 [place] ([facility]) PAIN 2 07/27/2024 13:47:28 [place] ([facility]) TEMPERATURE 97.4 07/27/2024 13:47:28 [place] ([facility]) PULSE 77 07/27/2024 13:47:28 [place] ([facility]) RESPIRATION 20 07/27/2024 13:47:28 [place] ([facility]) SYSTOLIC BLOOD PRESSURE 106 04/29/20 24 13:37:56 [place] ([facility]) DIASTOLIC BLOOD PRESSURE 68 024 13:37:56 [place] ([facility]) PULSE OXIMETRY 97 04/29/2024 13:37:56 [place] ([facility]) WEIGHT 168.6 04/29/2024 13:37:56 [place] ([facility]) BMI 26 kg/m2 04/29/2024 13:37:56 [place] ([facility]) PAIN 0 04/29/2024 13:37:56 [place] ([facility]) TEMPERATURE 97 04/29/2024 13:37:56 [place] ([facility]) PULSE 87 04/29/2024 13:37:56 [place] ([facility]) RESPIRATION 20 04/29/2024 13:37:56 [place] ([facility]) SYSTOLIC BLOOD PRESSURE 115 02/11/20 24 12:51:44 [place] ([facility]) DIASTOLIC BLOOD PRESSURE 71 024 12:51:44 [place] ([facility]) PULSE OXIMETRY 97 02/11/2024 12:51:44 [place] ([facility]) WEIGHT 168.8 02/11/2024 12:51:44 [place] ([facility]) BMI 26 kg/m2 02/11/2024 12:51:44 [place] ([facility]) PAIN 0 02/11/2024 12:51:44 [place] ([facility]) TEMPERATURE 96.9 02/11/2024 12:51:44 [place] ([facility]) PULSE 74 02/11/2024 12:51:44 [place] ([facility]) RESPIRATION 20 02/11/2024 12:51:44 [place] ([facility]) SYSTOLIC BLOOD PRESSURE 133 11/26/19 12:56:01 [facility] DIASTOLIC BLOOD PRESSURE 80 024 12:56:01 [facility] PULSE OXIMETRY 98 11/26/2023 12:56:01 [facility] WEIGHT 166.4 11/26/2023 12:56:01 [facility] BMI 26 kg/m2 11/26/2023 12:56:01 [facility] PAIN 3 11/26/2023 12:56:01 [facility] TEMPERATURE 98.1 11/26/2023 12:56:01 [facility] PULSE 99 11/26/2023 12:56:01 [facility] RESPIRATION 16 11/26/2023 12:56:01 [facility] SYSTOLIC BLOOD PRESSURE 111 11/19/19 24 12:58:48 [place] ([facility]) DIASTOLIC BLOOD PRESSURE 71 024 12:58:48 [place] ([facility]) PULSE OXIMETRY 96 11/19/2023 12:58:48 [place] ([facility]) WEIGHT 169.4 11/19/2023 12:58:48 [place] ([facility]) BMI 27 kg/m2 11/19/2023 12:58:48 [place] ([facility]) PAIN 3 11/19/2023 12:58:48 [place] ([facility]) TEMPERATURE 97 11/19/2023 12:58:48 [place] ([facility]) PULSE 71 11/19/2023 12:58:48 [place] ([facility]) RESPIRATION 20 11/19/2023 12:58:48 [facility] ([facility]) Encounters Combined list of: 1) [facility] going backup to the last 18 months, not all [place] inpatient encounters are included; 2) Encounters from the [facility] of [facility] facilities going backup to 280 months. Location Location Details Encounter Type Encounter Number Reason For Visit Attending Provider ADM Date DC Date Status Disposition Source [place] [facility] [place] [facility] Outpatient Encounter [id number] [facility] [place] [facility] ([facility]) OFF/OP EST OCTOBER X REQ PHY/QHP [id number] Diagnos is: ICD-10- CM S61.411 A Lacerat ion without foreign body of right hand, init encntr JESUS VICK 03/04 [place] ([facility]) [facility] ([facility]) IMMUNIZATI ON ADMIN EACH ADD [id number] Diagnos is: ICD-10- CM Z23 Encount er for immuniz atSARAH Ambrocio 03/08 [place] ([facility]) [facility] [place] [facility] Outpatient Encounter [id number] 03/08 [place] [facility] [place] [facility] ([facility]) OFFICE O/P EST LOW 20-29 MIN [id number] Diagnos is: ICD-10- CM Z00.01 Encount er for general adult medical exam w abnorma l finding s DEB,DA VID A 03/13 [facility] En[facility] [id number] 04/10 [facility] [id number] 04/10 [facility] En[facility] [id number] 06/02 [facility] [id number] 06/03 [facility] [id number] 06/04 [facility] [id number] 06/05 [facility] [place] Encounter [id number] 07/23 [facility] OFFICE O/P EST MOD 30 MIN [id number] Diagnos is: ICD-10- CM G20.A1 Jose on's dis w/o dyskine ann, w/o mention of fluctua tiBASILIA Diaz IEL Y 08/05 [facility] Out[facility] Encounter [id number] 08/16 [facility] Out[facility] Encounter [id number] 08/16 [facility] Out[facility] Encounter [id number] 09/12 [facility] Out[facility] Encounter [id number] MABEL NUÑEZ 10/01 [facility] Out[facility] Encounter [id number] 10/01 [facility] [place] [facility] OFFICE O/P EST MOD 30 MIN [id number] Diagnos is: ICD-10- CM I10 Essenti al (primar y) hyperte nsion KEALY,SHEV AUGHN M 10/06 [place] ([facility]) [facility] Outpatient Encounter [id number] 10/09 [facility] TTE W/DOPPLER COMPLETE [id number] Diagnos is: ICD-10- CM I35.0 Nonrheu matic aortic (valve) stenosi s CHRISTOPHER COLON 10/20 [facility] OFFICE O/P EST LOW 20 MIN [id number] Diagnos is: ICD-10- CM I35.2 Nonrheu matic aortic (valve) stenosi s with insuffi ciency ERICA RUST 10/20 [facility] [facility] Out[facility] Encounter [id number] 10/24 [facility] ELECTROCAR DIOGRAM REPORT [id number] Diagnos is: ICD-10- CM Z13.6 Encount er for screeni ng for cardiov ascular disorde ivan ANDRADE CHA RLFIDEL 10/30 [place] [facility] [place] ([facility]) ELECTROCAR DIOGRAM TRACING [id number] VERONICASegun RAZO E 10/30 [place] [facility] Outpatient Encounter [id number] 10/30 [facility] Outpatient Encounter [id number] SHANNON BLANCHARD 10/31 [facility] Out[facility] Encounter [id number] 11/03 [facility] Out[facility] Encounter [id number] 11/05 [facility] Out[facility] Encounter [id number] 11/05 [facility] OFF/OP CNSLTJ NEW/EST MOD 40 [id number] Diagnos is: ICD-10- CM I35.0 Nonrheu matic aortic (valve) stenosi s SIOBHAN MCKENZIE E 11/13 [facility] [place] ([facility] OFFICE O/P EST MOD 30 MIN [id number] Diagnos is: ICD-10- CM I10 Essenti al (primar y) hyperte nsion SHANNON BLANCHARD 11/18 [place] OFFICE O/P NEW MOD 45 MIN [id number] Diagnos is: ICD-10- CM R93.2 Abnorma l finding s on dx imaging of liver and biliary tract LAMIN BESS 11/25 [facility] FEE [id number] Diagnos is: ICD-10- CM K76.0 Fatty (change of) liver, not elsewhe re classif ied LAMIN BESS CHRISEvy 11/25 [facility] Out[facility] Encounter [id number] 1.12/02 [facility] Outpatient Encounter [id number] 12/05 [facility] [place] [id number] Diagnos is: ICD-10- CM K76.0 Fatty (change of) liver, not elsewhe re classif ied PAYTON ANDRADE 12/05 [facility] OFFICE O/P NEW MOD 45 MIN [id number] Diagnos is: ICD-10- CM R94.5 Abnorma l results of liver functio n studies LAMIN BESS CHRISEvy 12/09 [place] [facility] Encounter [id number] 1.12/24 [facility] Out[facility] Encounter [id number] 12/30 [facility] Outpatient Encounter [id number] 12/30 [facility] OFFICE O/P EST LOW 20 MIN [id number] Diagnos is: ICD-10- CM L85.3 Xerosis cutis ADALBERTO NUÑEZ RLES D 01/07 [facility] INTRM OPH EXAM EST PATIENT [id number] Diagnos is: ICD-10- CM H04.322 Acute dacryoc ystitis of left lacrima l passage MERSONIA,TIMOTEO H B 01/15 [facility] Outpatient Encounter [id number] [facility] INTRM OPH EXAM EST PATIENT [id number] Diagnos is: ICD-10- CM H00.015 Hordeol um externu m left lower eyelid NIKHIL,TIMOTEO H B 02/02 [facility] Outpatient Encounter [id number] MERSONIA,TIMOTEO H B 02/03 [facility] Outpatient Encounter [id number]/04 [facility] [place] ([facility] OFFICE O/P EST MOD 30 MIN [id number] Diagnos is: ICD-10- CM R97.20 Elevate d prostat e specifi c antigen [PSA] DWAYNE BLANCHARDRamon Schwartz 02/10 [place] [facility] Outpatient Encounter [id number] 02/11 [facility] [place] ([facility] HC PRO PHONE CALL 5-10 MIN [id number] Diagnos is: ICD-10- CM 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 KENNEDY,JERAD JIL 03/03 [facility] Out[facility] Encounter [id number] 04/16 [facility] Outpatient Encounter [id number] 04/22 [facility] Out[facility] Encounter [id number] 04/26 [facility] [place] OFFICE O/P EST MOD 30 MIN [id number] Diagnos is: ICD-10- CM 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 KEALY,SHERamon AUGHN M 04/29 [place] ([facility]) [facility] Out[facility] Encounter [id number] 06/01 [facility] Out[facility] Encounter [id number] 06/02 [facility] Out[facility] Encounter [id number] 1.06/03 [facility] COMPRE OPH EXAM EST PT 1/ [id number] Diagnos is: ICD-10- CM E11.9 Type 2 diabete s mellitu s without complic ations JAQUELINE ZAMORA 06/05 [facility] FIT SPECTACLES MULTIFOCAL [id number] 1. Diagnos is: ICD-10- CM Z46.0 Encount er for fit/adj st of spectac les and contact lenses JAQUELINE ZAMORA 06/05 [facility] Outpatient Encounter [id number] 07/07 [facility] Outpatient Encounter [id number] 07/09 [facility] [place] OFFICE O/P EST MOD 30 MIN [id number] Diagnos is: ICD-10- CM M54.50 Low back pain, unspeci fied SHANNON BLANCHARD M 07/09 [place] ([facility]) [facility] Out[facility] Encounter [id number] 07/09 [facility] Outpatient Encounter [id number] 07/17 [facility] Outpatient Encounter [id number] 07/17 [facility] [place] ([facility]) OFFICE O/P EST MOD 30 MIN [id number] Diagnos is: ICD-10- CM 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 KEALY,SHEV AUGHN M 07/27 [place] ([facility] Outpatient Encounter [id number] [facility] Outpatient Encounter [id number] 1.08/03 [facility] Outpatient Encounter [id number] 1.08/04 [facility] Social History Combined list of available smoking, tobacco, and other social history from Department of Defense and Veterans Affairs facilities. Social History Type Response Date Comment Sourc e Tobacco smoking status [facility] VA-TOBACCO NEVER USED 10/07/2023 [place] ([facility]) History of tobacco use VA-TOBACCO NEVER USED 03/08/2023 [place] ([facility]) History of tobacco use VA-TOBACCO NEVER USED 03/07/2022 [place] ([facility]) History of tobacco use VA-TOBACCO NEVER USED 03/07/2021 [place] ([facility]) History of tobacco use VA-TOBACCO NEVER USED 03/18/2019 [place] ([facility]) Plan of Care List of future care activities from Department of Veterans Affairs facilities. Additional future care activities may be listed in the Assessment and Plan section. Date/Time Care Activity Care Activity Detail Facili ty 08/12/2024 AMBULATORY - MEDICINE [facility] 09/10/2024 AMBULATORY - MEDICINE [facility]12[facility]2024 [facility]ULAT[facility] - NONE [facility] 02/08/2025 AMBULATORY - MEDICINE AMBULATORY - MEDICI [facility]STI PORTILLO ([facility]) 07/29/2024 Consult Order PAIN CLINIC/[facility] OUTPT Cons Lumber Driver's Choice [place] ([place])
--- OUTSIDE RECORDS SUMMARY | 2024-08-12 08:46 | XMS_ITS | Encounter Summary ---
Author Name [facility] [place] [facility] [place] Address [address] [place] [address] Care Team Providers Care Ballet Soloist Name Role Phone LUCITA BLANCHARD Primary Care [...] Relationship to [employer] ([place]) [facility] CE ORGANIZAT ION HAMPS HIRE COUNT Y INS Dec 22, 2020 [id number] ARCHIE , SPOUSE [place] [employer] [place] CE ORGANIZAT ION HAMPS HIRE COUNT Y INS Dec 22, 2020 [id number] [phone] BEULAH ALMANZA SPOUSE BCBS OF [employer] [place] CE ORGANIZAT ION HAMPS HIRE COUNT Y INS Dec 22, 2020 [id number] [phone] ALEJANDRA ALMANZA SPOUSE [place] PRESCRIPT ION HAMPS HIRE COUNT Y INS Dec 22, 2020 [id number] BEULAH ALMANZA SPOUSE [place] PRESCRIPT ION HAMPS HIRE COUNT Y INS Dec 22, 2020 [id number] [id number] [phone] BEULAH ALMANZA SPOUSE [place] PRESCRIPT ION HAMPS HIRE COUNT Y INS Dec 22, 2020 RX21AT [id number] JOSETET ALMANZA PATIENT [employer] PRESCRIPT ION HAMPS HIRE COUNT Y INS Dec 22, 2020 RX21AT [id number] BEULAH ALMANZA SPOUSE [employer] ([id number]) PRESCRIPT ION L4TA* Sep 22, 2013 L4TA [id number] [phone] BEULAH ALMANZA SPOUSE [employer] ([id number]) PRESCRIPT ION L4TA* Sep 22, 2013 L4TA [id number] [phone] BEULAH ALMANZA SPOUSE MEDICARE (WNR) MEDICARE (M) PART A Feb 23, 2016 PART A [id number] JOSETTE ALMANZA PATIENT MEDICARE (WNR) MEDICARE (M) PART A Feb 23, 2016 PART A [id number] JOSETTE ALMANZA PATIENT Selected Encounter This section includes the information on record at [place] for the Encounter. Date/Time Encounter Type Encounter Description Reason Pro vider Source Jul 17, 2024 02:14 PM Outpatient Encounter PRIMARY CARE/MEDICINE IHE Encounter Template Text not used by ME Plan of Treatment: Future Appointments (+ 6 months) and Future Tests (+/- 45 days) The Plan of Treatment section includes future care activities for the patient from all [place] treatmentfacilities. This section includes future appointments and future orders which are active, pending or scheduled. Future Appointments This section includes appointments that were scheduled to occur 6 months from the date of the Encounter, up to a maximum of 20 appointments. The data comes from all [place] treatment facilities. Appointment Date/Time Appointment Type Appointme nt Facility Name Jul 27, 2024 01:30 PM AMBULATORY - MEDICINE [facility] ([facility]) Aug 12, 2024 08:30 AM AMBULATORY - MEDICINE [facility] Sep 10, 2024 11:00 AM AMBULATORY - MEDICINE [facility] November 12, 2024 02:00 PM [facility]ONE [facility] Active, Pending, and Scheduled Orders This section includes a listing of several types of active, pending, and scheduled orders, including clinic medications orders, diagnostic test orders, procedure orders and consult orders; where the start date of the order is 45 days before the date of the Encounter or 45 days after the date of theEncounter. The data comes from all [place] treatment facilities. Test Date/Time Test Type Test Details Facility Name Jul 29, 2024 02:55 PM Consult Order PAIN CLINI C/[facility] OUTPT Cons Cash Reconciliation Specialist's Choice [place] ([facility]) Lab Results: +/- 30 days of the encounter This section includes the Chemistry and Hematology Lab Results on record with [place] for the patient. Radiology Reports and Pathology Reports are provided separately, in subsequent sections. Lab Results This section contains the Chemistry/Hematology Results that were resulted 30 days before or 30 daysafter the date of the Encounter. Date/Time Source Result Type Result - Unit Interpretation Reference Range Comment Jul 08, 2024 10:53 AM [place] ([facility]) CALCIUM Specimen Type: SERUM No comment entered. Ordering Provider: KEITH BLANCHARD Report Released Date/Time: Jul 07, 2024 04:05 PM Reporting Lab: [facility] [address] [address] Performing Lab: [facility] [address] CALCIUM 9.4 mg/dL 8.5-10.2 Jul 08, 2024 10:53 AM [place] ([facility]) LIVER FUNCTION Specimen Type: SERUM No comment entered. Ordering Provider: KEITH BLANCHARD Report Released Date/Time: Jul 07, 2024 04:05 PM Reporting Lab: [facility] [address] [address] Performing Lab: [address] [address] PROTEIN,TOTAL 7.0 g/dL 6.0-8.3 ALBUMIN 4.0 g/dL 3.5-5.0 ALKALINE PHOSPHATASE 223 U/L H 40-150 AST 20 U/L 5-34 ALT <6 U/L BILIRUBIN, TOTAL 1.1 mg/dL 0.2-1.2 Jul 08, 2024 10:53 AM [place] ([facility]) BASIC METABOLIC PANEL (non-fasting) Specimen Type: SERUM No comment entered. Ordering Provider: KEITH BLANCHARD Report Released Date/Time: Jul 07, 2024 04:05 PM Reporting Lab: [address] [address] Performing Lab: [address] [address] UREA NITROGEN 22 mg/dL 7-25 GLUCOSE 120 mg/dL H 65-100 SODIUM 140 mmol/L 135-145 POTASSIUM 4.3 mmol/L 3.5-5.0 CHLORIDE 107 mmol/L 100-110 CO2 25 meq/L 20-30 CREATININE, Serum 0.67 mg/dL 0.50-1.40 eGFR(CKD-EPI 2020) >90 mL/min >60 Jul 08, 2024 10:53 AM [place] ([facility]) URINALYSIS Specimen Type: URINE Comment: If Glucose = >500 and Ketones are positive, please alert the Physician. Ordering Provider: KEITH BLANCHARD Report Released Date/Time: Jul 07, 2024 03:18 PM Reporting Lab: [address] [address] Performing Lab: [address] [address] UA COLOR Light-Nicollet Yellow UA APPEARANCE Turbid Clear UA GLUCOSE Normal mg/dL Negative UA KETONES TRACE mg/dL Negative UA BLOOD NEGATIVE mg/dL Negative UA PROTEIN 20 mg/dL Negative UA NITRITE NEGATIVE mg/dL Negative UA BILIRUBIN NEGATIVE mg/dL Negative UA SPECIFIC GRAVITY 1.023 H 1.016-1.022 UA pH 6.0 5.0-9.0 UA UROBILINOGEN Normal mg/dL <2.0 UA LEUKOCYTE NEGATIVE Negative Jul 08, 2024 10:53 AM [place] ([facility]) MICROSCOPIC AUTOMATED, URINE Specimen Type: URINE Comment: If Glucose = >500 and Ketones are positive, please alert the Physician. Ordering Provider: KEITH BLANCHARD Report Released Date/Time: Jul 07, 2024 03:18 PM Reporting Lab: [address] [address] Performing Lab: [address] [address] UA WBC 0-5 /[HPF] 0-5 UA MUCUS FEW /[LPF] Trace UA RBC 0-2 /[HPF] 0-3 UA SQUAMOUS EPITH FEW /[HPF] UA AMORPHOUS CRYSTALS MODERATE /[HPF] Not Established Jul 08, 2024 10:53 AM [place] ([facility]) CBC AND DIFF (AUTO) Specimen Type: BLOOD No comment entered. Ordering Provider: KEITH BLANCHARD Report Released Date/Time: Jul 07, 2024 04:05 PM Reporting Lab: [address] [address] Performing Lab: [address] [address] WBC 9.54 10*3/uL 4.50-11.00 RBC 4.04 10*6/uL [...] the Encounter. The data comes from all [place] treatment facilities. Date/Time Radiology Report Provider Source Jul 08, 2024 11:08 AM SPINE LUMBOSACRAL MIN 2 VIEWS: JOSETTE ALMANZA МАРИНА [id number] -[id number] M Exm Date: JUL 08, 2024@11:08 Req Phys: LUCITA BLANCHARD Pat Loc: [facility]/GO/PACT 1 WH (Req'g Loc) Img Loc: [facility]/BUILDING 1 Service: [facility] [place] [address] (Case 169 COMPLETE) SPINE LUMBOSACRAL MIN 2 VIEWS (RAD Detailed) CPT:98632 Reason for Study: back pain Clinical History: Covering resident, fellow, RN LACTATION or attending: bl[place] Pager: [phone] Backup pager: History: left lower back pain Report Status: Verified Date Reported: JUL 08, 2024 Date Verified: JUL 08, 2024 Diamond Picker E-Sig:/ES/MIHIR BOOTH JR Report: Study: AP, lateral [...] Primary Interpreting Staff: MIHIR BOOTH JR, Radiologist (Diamond Picker) /MIHIR CASAS JR [place] [facility] Encounter Notes: All associated encounter notes This section contains the clinical notes associated to the Encounter. Date/Time Encounter Note(s) Provider Source Jul 17, 2024 02:14 PM MEDICATION MGT NOT E: LOCAL TITLE: OUTPATIENT MEDICATION RENEWAL STANDARD TITLE: MEDICATION MGT NOTE DATE OF NOTE: JUL 17, 2024@14:14 ENTRY DATE: JUL 17, 2024@14:14:30 AUTHOR: HAM JACKSON EXP COSIGNER: URGENCY: STATUS: COMPLETED Medications requested: [id number] TAMSULOSIN HCL 0.4MG CAP Defer to primary care provider To be mailed . /rashid/ HAM JACKSON RN REGISTERED NURSE Signed: 07/17/2024 14:14 Receipt Acknowledged By: 07/20/2024 12:52 /rashid/ LUCITA BLANCHARD MD PHYSICIAN HAM [facility]ACK[facility] ([facility])
--- OUTSIDE RECORDS SUMMARY | 2024-08-12 08:46 | XMS_ITS | Encounter Summary ---
Author Name [facility] [place] [facility] [place] [facility] [place] [facility] [place] Address [address] [place] [address] Care Team Providers Care Metal Bonding Crib Attendant Name Role Phone LUCITA BLANCHARD Primary Care [...] Relationship to Policy [employer] ANTHEM [place] ([place]ARD) [facility] CE ORGANIZAT ION HAMPS HIRE COUNT Y INS Dec 22, 2020 [id number] ARCHIE , SPOUSE [place]BS [place] [employer] CE ORGANIZAT ION HAMPS HIRE COUNT Y INS Dec 22, 2020 [id number] [phone] BEULAH ALMANZA SPOUSE BCBS OF [facility] Message [employer] CE ORGANIZAT ION HAMPS HIRE COUNT Y INS Dec 22, 2020 [id number] ALEJANDRA ALMANZA SPOUSE [place] PRESCRIPT ION HAMPS HIRE COUNT Y INS Dec 22, 2020 [id number] [phone] BEULAH ALMANZA SPOUSE [place] PRESCRIPT ION HAMPS HIRE COUNT Y INS Dec 22, 2020 [id number] [id number] BEULAH ALMANZA SPOUSE [place] PRESCRIPT ION HAMPS HIRE COUNT Y INS Dec 22, 2020 [id number] [id number] JOSETTE ALMANZA PATIENT [place] PRESCRIPT ION HAMPS HIRE COUNT Y INS Dec 22, 2020 [id number] [id number] BEULAH ALMANZA SPOUSE [employer] ([id number]) PRESCRIPT ION L4TA* Sep 22, 2013 L4TA [id number] [phone] BEULAH ALMANZA SPOUSE [employer] ([id number]) PRESCRIPT ION L4TA* Sep 22, 2013 L4TA [id number] BEULAH ALMANZA SPOUSE MEDICARE (WNR) MEDICARE (M) PART A Feb 23, 2016 PART A [id number] JOSETTE ALMANZA PATIENT MEDICARE (WNR) MEDICARE (M) PART A Feb 23, 2016 PART A [id number] JOSETTE ALMANZA PATIENT Selected Encounter This section includes the information on record at [place] for the Encounter. Date/Time Encounter Type Encounter Description Reason Pro vider Source Sep 13, 2023 04:10 PM Outpatient Encounter ADMIN PAT ACTIVTIES (MASNONCT) IHE Encounter Template Text not used by [place] Plan of Treatment: Future Appointments (+ 6 months) and Future Tests (+/- 45 days) The Plan of Treatment section includes future care activities for the patient from all [place] treatmentfacilities. This section includes future appointments and future orders which are active, pending or scheduled. Future Appointments This section includes appointments that were scheduled to occur 6 months from the date of the Encounter, up to a maximum of 20 appointments. The data comes from all [place] treatment facilities. Appointment Date/Time Appointment Type Appointme nt Facility Name Oct 07, 2023 03:00 PM [facility] Oct 21, 2023 01:00 PM [facility] NONE [facility] October 31, 2023 09:00 AM AMBULATORY - MEDICINE [facility] November 06, 2023 10:30 AM [facility] November 14, 2023 12:30 PM AMBULATORY - NONE [facility] November 19, 2023 01:00 PM AMBULATORY - MEDICINE [facility]) Nov 26, 2023 01:00 PM [facility] Nov 26, 2023 01:00 PM AMBULATORY - NONE [facility] Dec 03, 2023 09:00 AM [facility] Dec 06, 2023 10:30 AM AMBULATORY - NONE [facility] Dec 06, 2023 11:00 AM AMBULATORY - NONE [facility] Jan 08, 2024 10:30 AM [facility] Jan 16, 2024 03:00 PM [facility] Feb 03, 2024 12:30 PM [facility] Feb 11, 2024 01:00 PM AMBULATORY - MEDICINE [facility] Feb 19, 2024 12:00 PM [facility] Feb 26, 2024 10:00 AM [facility] Active, Pending, and Scheduled Orders This section includes a listing of several types of active, pending, and scheduled orders, including clinic medications orders, diagnostic test orders, procedure orders and consult orders; where the start date of the order is 45 days before the date of the Encounter or 45 days after the date of theEncounter. The data comes from all [place] treatment facilities. Test Date/Time Test Type Test Details Facility Name Aug 05, 2023 11:21 AM Consult Order COMMUNITY CARE-NEUROLOGY Cons Private Advisor's Choice [facility] Lab Results: +/- 30 days of the encounter This section includes the Chemistry and Hematology Lab Results on record with [facility] for the patient. Radiology Reports and Pathology Reports are provided separately, in subsequent sections. Lab Results This section contains the Chemistry/Hematology Results that were resulted 30 days before or 30 daysafter the date of the Encounter. Date/Time Source Result Type Result - Unit Interpretation Reference Range Comment Oct 04, 2023 09:55 AM [facility] ([facility]) MICROALBUMIN CREATININE RATIO PANEL Specimen Type: URINE No comment entered. Ordering Provider: NEHEMIAS BLANCHARD Report Released Date/Time: Oct 03, 2023 01:50 PM Reporting Lab: [address] [address] Performing Lab: [address] [address] MICROALBUMIN/C REATININE RATIO 63.6 mg/g H 0-29.9 MICROALBUMIN,Q UANTITATIVE 5.8 mg/dL RR UNAVAIL CREATININE URINE 91.18 mg/dL Oct 04, 2023 09:55 AM [facility] ([facility]) VITAMIN D (25-OH) Specimen Type: SERUM No comment entered. Ordering Provider: NEHEMIAS BLANCHARD Report Released Date/Time: Oct 03, 2023 01:50 PM Reporting Lab: [address] [address] Performing Lab: [address] [address] VITAMIN D (25-OH) 27 ng/mL 20-50 Oct 04, 2023 09:55 AM [facility] ([facility]) URINALYSIS Specimen Type: URINE Comment: If Glucose = >500 and Ketones are positive, please alert the Physician. Ordering Provider: NEHEMIAS BLANCHARD Report Released Date/Time: Oct 03, 2023 01:50 PM Reporting Lab: [address] [address] Performing Lab: [address] [address] UA COLOR Light-Yellow Yellow UA APPEARANCE Clear Clear UA GLUCOSE NEGATIVE mg/dL Negative UA KETONES NEGATIVE mg/dL Negative UA BLOOD NEGATIVE mg/dL Negative UA PROTEIN 10 mg/dL Negative UA NITRITE NEGATIVE mg/dL Negative UA BILIRUBIN NEGATIVE mg/dL Negative UA SPECIFIC GRAVITY 1.018 1.016-1.022 UA pH 6.0 5.0-9.0 UA UROBILINOGEN <2.0 mg/dL <2.0 UA LEUKOCYTE NEGATIVE Negative Oct 04, 2023 09:55 AM [facility] ([facility]) VITAMIN B12 Specimen Type: SERUM No comment entered. Ordering Provider: NEHEMIAS BLANCHARD Report Released Date/Time: Oct 03, 2023 01:50 PM Reporting Lab: [address] [address] Performing Lab: [address] [address] VITAMIN B12 804 pg/mL 200-900 Oct 04, 2023 09:55 AM [facility] ([facility]) TSH Specimen Type: SERUM No comment entered. Ordering Provider: NEHEMIAS BLANCHARD Report Released Date/Time: Oct 03, 2023 01:50 PM Reporting Lab: [address] [address] Performing Lab: [address] [address] TSH 2.25 u[IU]/mL 0.35-5.00 Oct 04, 2023 09:55 AM [facility] ([facility]) HEMOGLOBIN A1C PANEL Specimen Type: BLOOD Comment: Values obtained from A1C measurements can vary. For atypical A1C assays, a reported value of 7.0 could actually be between 6.72 and 7.28 if measured by a reference method. A reported value of 9.0 could actually be between 8.73 and 9.27. Ref: http://www.ngs p.org/CAPdata. asp Ordering Provider: NEHEMIAS BLANCHARD Report Released Date/Time: Oct 03, 2023 01:50 PM Reporting Lab: [address] [address] Performing Lab: [address] [address] HEMOGLOBIN A1C 6.5 H 4.0-5.6 Oct 04, 2023 09:55 AM [facility] ([facility]) BASIC METABOLIC PANEL (non-fasting) Specimen Type: SERUM No comment entered. Ordering Provider: NEHEMIAS BLANCHARD Report Released Date/Time: Oct 03, 2023 01:50 PM Reporting Lab: [address] [address] Performing Lab: [address] [address] UREA NITROGEN 19 mg/dL 7-25 GLUCOSE 118 mg/dL H 65-100 SODIUM 140 mmol/L 135-145 POTASSIUM 5.0 mmol/L 3.5-5.0 CHLORIDE 104 mmol/L 100-110 CO2 26 meq/L 20-30 CREATININE, Serum 0.78 mg/dL 0.50-1.40 eGFR(CKD-EPI 2020) >90 mL/min >60 Oct 04, 2023 09:55 AM [facility] ([facility]) LIVER FUNCTION Specimen Type: SERUM No comment entered. Ordering Provider: NEHEMIAS BLANCHARD Report Released Date/Time: Oct 03, 2023 01:50 PM Reporting Lab: [address] [address] Performing Lab: [address] [address] PROTEIN,TOTAL 7.3 g/dL 6.0-8.3 ALBUMIN 4.2 g/dL 3.5-5.0 ALKALINE PHOSPHATASE 133 U/L 40-150 AST 14 U/L 5-34 ALT 6 U/L BILIRUBIN, TOTAL 0.9 mg/dL 0.2-1.2 Oct 04, 2023 09:55 AM [facility] ([facility]) CBC AND DIFF (AUTO) Specimen Type: BLOOD No comment entered. Ordering Provider: NEHEMIAS BLANCHARD Report Released Date/Time: Oct 03, 2023 01:50 PM Reporting Lab: [address] [address] Performing Lab: [address] [address] WBC 10.17 10*3/uL 4.50-11.00 RBC 4.53 10*6/uL 4.23-5.66 HGB 14.4 g/dL 12.8-17 HCT 44.1 39.2-50.4 MCV 97.4 fL 82-99 MCHC 32.7 g/dL 30.8-35.1 PLT 192 10*3/uL 140-360 RDW-CV 12.8 12.0-16.0 [place], Abs 0.83 10*3/uL 0.30-1.10 MCH 31.8 pg 26.2-32.6 Neut % 66.8 43.7-75.8 Lymph % 22.6 14.0-42.3 [place] % 8.2 5.1-13.7 Eos % 1.6 0.4-6.8 Baso % 0.4 0.1-2.0 Neut, Abs 6.80 10*3/uL 2.20-7.60 Lymph, Abs 2.30 10*3/uL 1.00-3.20 Eos, Abs 0.16 10*3/uL 0.03-0.44 Baso, Abs 0.04 10*3/uL 0.01-0.13 Immature Gran % 0.4 0.0-0.7 Immature Gran, Abs 0.04 10*3/uL 0.00-0.06 Oct 04, 2023 09:55 AM [facility] ([facility]) LIPID PANEL, NON FASTING Specimen Type: SERUM No comment entered. Ordering Provider: NEHEMIAS BLANCHARD Report Released Date/Time: Oct 03, 2023 01:50 PM Reporting Lab: [address] [address] Performing Lab: [address] [address] CHOLESTEROL 120 mg/dL TRIGLYCERIDE 57 mg/dL 0-150 LDL calculated 51 mg/dL 0-129 CHOL/HDL 2.1 HDL CHOLESTEROL 58 mg/dL 40-60 Encounter Notes: All associated encounter notes This section contains the clinical notes associated to the Encounter. Date/Time Encounter Note(s) Provider Source Sep 13, 2023 04:10 PM PHARMACY NOTE: LOCAL TITLE: V1 PHARMACY CUSTOMER CARE MEDICATION RENEWAL STANDARD TITLE: PHARMACY NOTE DATE OF NOTE: SEP 13, 2023@16:10 ENTRY DATE: SEP 13, 2023@16:10:33 AUTHOR: ARMINDA DUNLAP EXP COSIGNER: URGENCY: STATUS: COMPLETED Date: Aug Division: [place] Pt referred by Pharmacy Call Center for medication renewal: Non-controlled/maintenanc e medication Medications requested: [id number] ACCU-CHEK GUIDE (GLUCOSE) TEST STRIP [id number] LANCET,SOFTCLIX Defer to primary care provider To be mailed . Please review and renew if appropriate. *This note was generated by [facility]/[place] [facility] Customer Care. If you have any questions or need assistance, do not contact this author. Please refer all questions to your local, on-site pharmacy departments. /rashid/ ARMINDA DUNLAP Manager Visual, [place]/Pharmacy Customer Care Signed: 09/13/2023 16:11 Receipt Acknowledged By: 09/13/2023 16:16 /rashid/ SARAH WALKER, SELV[place] REGISTERED NURSE 09/15/2023 21:51 /rashid/ LUCITA BLANCHARD MD PHYSICIAN ARMINDA DUNLAP [place] [facility]
--- OUTSIDE RECORDS SUMMARY | 2024-08-12 08:46 | XMS_ITS | Encounter Summary ---
Author Name [facility] Organization [facility] Address [address] [place] [address] Care Team Providers Care Brand Manager Name Role Phone LUCITA BLANCHARD Primary Care [...] Policy [place]) [facility]GANIZAT ION HAMPS HIRE COUNT Y INS Dec 22, 2020 [id number] ARCHIE , SPOUSE [place] [employer] [employer] MAINInternAN CE ORGANIZAT ION HAMPS HIRE COUNT Y INS Dec 22, 2020 [id number] BEULAH ALMANZA SPOUSE BCBS OF [facility] [employer] MAINTENAN CE ORGANIZAT ION HAMPS HIRE COUNT Y INS Dec 22, 2020 [id number] ALEJANDRA ALMANZA SPOUSE [place] PRESCRIPT ION HAMPS HIRE COUNT Y INS Dec 22, 2020 RX21AT [id number] BEULAH ALMANZA SPOUSE [place] PRESCRIPT ION HAMPS HIRE COUNT Y INS Dec 22, 2020 RX21AT [id number] [phone] BEULAH ALMANZA SPOUSE [place] PRESCRIPT ION HAMPS HIRE COUNT Y INS Dec 22, 2020 RX21AT [id number] JOSETTE ALMANZA PATIENT [place] PRESCRIPT ION HAMPS HIRE COUNT Y INS Dec 22, 2020 RX21AT [id number] [phone] BEULAH ALMANZA SPOUSE [employer] ([id number]) PRESCRIPT ION L4TA* Sep 22, 2013 L4TA [id number] [phone] BEULAH ALMANZA SPOUSE [employer] ([id number]) PRESCRIPT ION L4TA* Sep 22, 2013 L4TA [id number] BEULAH ALMANZA SPOUSE MEDICARE (WNR) MEDICARE (M) PART A Feb 23, 2016 PART A [id number] [phone] JOSETTE ALMANZA PATIENT MEDICARE (WNR) MEDICARE (M) PART A Feb 23, 2016 PART A [id number] [phone] JOSETTE ALMANZA PATIENT Selected Encounter This section includes the information on record at ID for the Encounter. Date/Time Encounter Type Encounter Description Reason Provider Source Apr 29, 2024 01:30 PM OFFICE O/P EST MOD 30 MIN PRIMARY CARE/MEDICINE ICD-10-CM C61 Malignant neoplasm of prostate NEHEMIAS BLANCHARD Encounter Template Text not used by ID Assessments - Encounter Diagnoses This section includes the primary and secondary diagnoses documented for the Encounter. Date/Time Primary/Secondary Diagnosis Diagnosis Name Provider Source May 12, 2024 04:09 PM PRIMARY Malignant neoplasm of prostate KEITH BLANCHARD ([facility]) May 12, 2024 04:09 PM SECONDARY Encounter for immunization KARLI GRIGGS ([facility]) May 12, 2024 04:09 PM SECONDARY Hyperlipidemia, unspecified KEITH BLANCHARD ([facility]) May 12, 2024 04:09 PM SECONDARY Nonrheumatic aortic (valve) stenosis KEITH BLANCHARD ([facility]) May 12, 2024 04:09 PM SECONDARY Parkinson's dis w/o dyskinesia, w/o mention of fluctuations KEITH BLANCHARD ([facility]) May 12, 2024 04:09 PM SECONDARY Type 2 diabetes mellitus without complications KEITH BLANCHARDFIELD ([facility]) Plan of Treatment: Future Appointments (+ 6 months) and Future Tests (+/- 45 days) The Plan of Treatment section includes future care activities for the patient from all [facility]. This section includes future appointments and future orders which are active, pending or scheduled. Future Appointments This section includes appointments that were scheduled to occur 6 months from the date of the Encounter, up to a maximum of 20 appointments. The data comes from all ID treatment facilities. Appointment Date/Time Appointment Type Appointme nt Facility Name Jun 02, 2024 10:45 AM AMBULATORY - MEDICINE [facility] [place] [facility] Jun 05, 2024 01:30 PM AMBULATORY MEDICINE [facility] [place] [facility] Jul 09, 2024 10:30 AM AMBULATORY - MEDICINE [facility] [place] [facility] Jul 27, 2024 01:30 PM [facility]ULATORY - MEDICINE [facility] ([facility]) Aug 12, 2024 08:30 AM AMBULATORY MEDICINE [facility] [place] [facility] Sep 10, 2024 11:00 AM [facility] Vital Signs: All taken on the encounter date This section contains inpatient and outpatient Vital Signs collected on the date of the Encounter. Date/Time Temperature Pulse Blood Pressure Respiratory Rate SP02 Pain Height Weight Body Mass Index Source Apr 29, 2024 01:37 PM 97 87 106/68 20 97 0 168.6 26 CAROL JACOME ([facility]) Immunizations: All administered on the encounter date This section contains immunizations associated to the Encounter. Immunization Series Date Issued Reaction Comments COVID-19 (MODERNA), MRNA, LN P-S, PF, 50 MCG/0.5 ML (AGES 12+ YEARS) Apr 29, 2024 INFLUENZA, HIGH-DOSE, TRIVALENT, PF Apr 29 Social History: Smoking Status (Most current) and Tobacco Use (All prior to encounter date) This section includes the most current, and the historical, smoking and tobacco- related health factors from the ID facility where the Encounter took place. Current Smoking Status This section includes the most current smoking, or tobacco-related health factor, from the ID facility where the Encounter took place. Date/Time Current Smoking Status Comment Theron romeroy Oct 07, 2023 03:00 PM VA-TOBACCO NEVER USED [place] ([facility]) Tobacco Use History This section includes a history of the smoking, or tobacco-related health factors, that were collected on or before the date of the Encounter. The data comes from the ID facility where the Encounter took place. Date/Time Smoking Status/Tobacco Use Comment F acility Mar 08, 2023 10:30 AM VA-TOBACCO NEVER USED [facility] ([facility]) Mar 07, 2022 10:00 AM VA-TOBACCO NEVER USED [place] ([facility]) Mar 07, 2021 09:30 AM VA-TOBACCO NEVER USED [facility] ([facility]) Mar 18, 2019 12:16 PM VA-TOBACCO NEVER USED [facility] ([facility]) Encounter Notes: All associated encounter notes This section contains the clinical notes associated to the Encounter. Date/Time Encounter Note(s) Provider Source Jul 07, 2024 03:08 PM PHYSICIAN NOTE: LOCAL TITLE: MD NOTE STANDARD TITLE: PHYSICIAN NOTE DATE OF NOTE: JUL 07, 2024@15:08 ENTRY DATE: JUL 07, 2024@15:08:23 AUTHOR: LUCITA BLANCHARD COSIGNER: URGENCY: STATUS: COMPLETED Spoke to [place] regarding his left lower back pain. It started about 2 weeks ago. He says he might have twisted his back getting out of bed but he is not exactly sure. He denies lifting any heavy objects or falls. He states that his left lower back and sometimes it wraps around to the front. He states it is better when he is still and worse when he is moving around. He states the pain does feel superficial and there is pain when he palpates the area. There is no history of kidney stones, no blood in the urine and he states there is no pain in his abdomen, no nausea no vomiting and no diarrhea.. Heating pad helps and he has not been taking any analgesics for the pain. He also states that there is some pain in his left thigh. He says that pain comes and goes. Kistler does have a history of lumbar radiculopathy. CT scan done in 2019 showing moderate degenerative changes, unchanged grade 1 anterior listhesis of L4 on L5 with lumbar dextroscoliosis. Discussed the differential with the , which includes kidney stones given the history of flank pain radiating around to the front however the pain seems to be worse with movement and he denies blood in his urine which makes this less likely. Possibly this is musculoskeletal, will order an x-ray to evaluate and advised to start cyclobenzaprine 10 mg nightly. He can take during the day only if he is not driving. Also to take ibuprofen 600 mg every 6 hours as needed for the pain and use heating pad. If the pain gets any worse though he should go to the emergency room or if he develops any fevers chills change in urinary symptoms such as hematuria or any abdominal pain or any other symptoms that concern him that he should go to the emergency room. Will also obtain a urine sample and labs while he is at [place] tomorrow to get an x-ray we will follow-up with a video visit on to review. /rashid/ LUCITA BLANCHARD MD PHYSICIAN Signed: 07/07/2024 16:09 LUCITA BLANCHARD ([facility]) Apr 29, 2024 02:31 PM PREVENTIVE MEDICIN E NURSING NOTE: LOCAL TITLE: CLINICAL REMINDERS/NURSING STANDARD TITLE: PREVENTIVE MEDICINE NURSING NOTE DATE OF NOTE: APR 29, 2024@14:31 ENTRY DATE: APR 29, 2024@14:31:35 AUTHOR: ANAMARIA GRIGGS EXP COSIGNER: URGENCY: STATUS: COMPLETED Influenza Immunization: Influenza, High-Dose, Trivalent, Preservative Free (Fluzone-Syringe) Administered: INFLUENZA, HIGH-DOSE, TRIVALENT, PF Date Administered: Apr 29, 2024 13:30 Branch Account Manager: SANOFI PASTEUR Lot: [id number] Exp Date: Dec 21, 2024 [facility]: [phone] Admin Route/Site: INTRAMUSCULAR/RIGHT DELTOID Dosage: 0.5mL Vaccine Information Statement(s): INFLUENZA(FLU) VACC(INACTIVATED OR RECOMBINANT)VIS Jan 27, 2021 ([place]IZ[place]) Order By: Policy Administered By: Anamaria Griggs The Influenza Vaccine Information Statement (VIS) was reviewed with the patient/caregiver which lists the benefits and risks of the vaccine and the risks of not receiving the Influenza vaccine. The patient/caregiver denied any prior severe reaction to this vaccine or its components or a severe allergic reaction, such as anaphylaxis, to any vaccine or any injectable therapy. The patient/caregiver gave verbal consent to receive the vaccine. COVID-19 Immunization: Moderna Monovalent (Spikevax) Administered: COVID-19 (MODERNA), MRNA, LNP-S, PF, 50 MCG/0.5 ML (AGES 12+ YEARS) Date Administered: Apr 29, 2024 13:30 Branch Account Manager: MODERNA [employer]. Lot: [id number] Exp Date: Nov 28, 2024 [facility]: [phone] Admin Route/Site: INTRAMUSCULAR/LEFT DELTOID Dosage: 0.5mL Vaccine Information Statement(s): COVID-19 MRNA VACCINE (12+ YRS) VACCINE VIS Apr 09, 2024 ([place] CITIZ[place]) Order By: Policy Administered By: Anamaria Griggs Vaccine administered without complications. /rashid/ ANAMARIA GRIGGS LPN LICENSED PRACTICAL NURSE Signed: 04/29/2024 14:33 ANAMARIA GRIGGS ([facility]) Apr 29, 2024 01:46 PM PHYSICIAN NOTE: LOCAL TITLE: MD NOTE STANDARD TITLE: PHYSICIAN NOTE DATE OF NOTE: APR 29, 2024@13:46 ENTRY DATE: APR 29, 2024@13:46:34 AUTHOR: LUCITA BLANCHARD EXP COSIGNER: URGENCY: STATUS: COMPLETED PRIMARY CARE VISIT JOSETTE MASON ALMANZA, is a 74 yo WHITE MALE who [facility] the [facility]. 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 He has started treatments with oncology. His PSA has come down significantly HEALTHCARE PROVIDERS: Urology: Dr. Victor PCP - [facility] PCP - [facility] - Dr. Jean DIABETES - [facility] - Dr. Pruett - [facility] in [place], [place] OPHTHAMOLOGY - Dr. Barrera in [place], [place] Podiatry - [facility] Social Hx: MARITAL STATUS - HISTORY: PERIOD OF SERVICE - [facility] FROM May TO May COMBAT SERVICE INDICATED: [...] urinary frequency or urgency. No nocturia. MUSCULOSKELETAL: No myalgias or arthralgias. PSYCHIATRIC: No new anxiety or depression. No sleep disturbance. NEUROLOGIC: No headaches, dizziness, numbness or tingling in the extremities, or unilateral weakness. EXAMINATION General: Well-appearing Kistler in no obvious distress. Mental Status: Alert and oriented x4. Head: Normocephalic. Eyes: PERRLA. EOMI. Anicteric sclerae. ENT: Moist oral mucosa. Posterior pharynx unremarkable Neck: Supple. No JVD. No LAD. No bruit. Lungs: Clear bilaterally without wheeze or rhonchi. Normal effort and expansion. CV: Heart sounds S1, S2. RRR. + Ejection systolic murmur no peripheral edema Ext: No cyanosis or clubbing. No gross deformities. Neuro: CN II through XII grossly intact. Normal speech. Normal gait. Integument: Skin warm and dry. No rashes or lesions on visible areas. Psych: Normal mood and affect. Normal judgment. ALLERGIES: ========= PENICILLIN >> HEALTH MAINTENANCE PREVENTIVE MEDICINE GOALS Influenza Immunization DUE NOW Medication Reconciliation DUE NOW COVID-19 Immunization DUE NOW (Optional) Whole Health Documentation DUE NOW ASSESSMENT/PLAN: Active problems - Computerized Problem List is the source for the followin. Elevated PSA 2. Prostate carcinoma 3. 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 Vitamin D Deficiency ([facility] [id number]) 6. Vitamin B12 Deficiency ([facility] [id number]) 7. Aortic valve stenosis 8. Kidney lesion 9. Pancreatic cyst 10. Lumbar radiculopathy 11. Fatty liver 12. Diabetes mellitus type 2 13. Hyperlipidemia 14. Parkinsons disease 15. Benign hypertension ==Metastatuc Prostate Cancer: started hormone therapy. following up with Dr. Maravilla he has been seeing the blood tester fowl and he feels like his weight has stabilized. ==Liver fibrosis: 12/10/23 Fibroscan interpretation The patient has no evidence of chronic liver disease and the Fibroscan (transient elastography) rules out any liver fibrosis. ==Pancreatic cystic lesion: last MRCP 2021, no follow up recommended == Diabetes mellitus type 2: HbA1c 6.1%, stable. Metformin 1000mg daily Renal function normal. == Hyperlipidemia: Cholesterol, triglycerides, LDL WNL with normal liver function. c/w atorvastatin 40 mg daily ==. Parkinsons disease: . Continue Sinemet, rasagaline, pramipexole. Follow- up July 2024 Dr. Dior =AORTIC VALVE STENOSIS : up to date with echo last echo September 2023 showing moderate aortic stenosis and normal ejection fraction. Asymptomatic HCM: ==Colonoscopy July 2023 UPCOMING APPOINTMENTS: 06/05/2024 13:30 NHM/OPTOMETRY/ZAMORA/ 07/30/2024 14:00 CWM/NO/PODIATRY/NAIL 08/12/2024 08:30 [facility] C[facility]-NEUROLOGY minutes spent in patient evaluation, data review, and patient education. All medications were reconciled during this visit. No barriers; Patient understands and agrees to current treatment plan. If pt has any questions, concerns, or changes in current health status he/she will call or [facility]. /rashid/ LUCITA BLANCHARD MD PHYSICIAN Signed: 04/30/2024 18:15 LUCITA BLANCHARD ([facility])
--- OUTSIDE RECORDS SUMMARY | 2024-08-12 08:46 | XMS_ITS | Encounter Summary ---
Author Name [facility] [place] [facility] [place] [facility] [facility] [place] Address [address] [place] [address] Care Team Providers Care Data Designer Name Role Phone LUCITA BLANCHARD Primary Care [...] Policy [employer] ANTH[place] OF [place] ([place]) [facility] CE ORGANIZAT ION HAMPS HIRE COUNT Y INS Dec 22, 2020 [id number] [phone] ARCHIE , SPOUSE BCBS MD No [employer] MAINPulse 8AN CE ORGANIZAT ION HAMPS HIRE COUNT Y INS Dec 22, 2020 [id number] BEULAH ALMANZA SPOUSE BCBS OF [facility] No [employer] MAINTENAN CE ORGANIZAT ION HAMPS HIRE COUNT Y INS Dec 22, 2020 [id number] ALEJANDRA ALMANZA SPOUSE [place] PRESCRIPT ION HAMPS HIRE COUNT Y INS Dec 22, 2020 [id number] BEULAH ALMANZA SPOUSE [place] PRESCRIPT ION HAMPS HIRE COUNT Y INS Dec 22, 2020 RX21AT [id number] BEULAH ALMANZA SPOUSE [place] PRESCRIPT ION HAMPS HIRE COUNT Y INS Dec 22, 2020 RX21AT [id number] [phone] JOSETTE ALMANZA PATIENT [place] PRESCRIPT ION HAMPS HIRE COUNT Y INS Dec 22, 2020 RX21AT [id number] [phone] BEULAH ALMANZA SPOUSE [employer] ([id number]) PRESCRIPT ION L4TA* Sep 22, 2013 L4TA [id number] [phone] BEULAH ALMANZA SPOUSE [employer] ([id number]) PRESCRIPT ION L4TA* Sep 22, 2013 L4TA [id number] [phone] BEULAH ALMANZA SPOUSE MEDICARE (WNR) MEDICARE (M) PART A Feb 23, 2016 PART A [id number] [phone] JOSETTE ALMANZA PATIENT MEDICARE (WNR) MEDICARE (M) PART A Feb 23, 2016 PART A [id number] JOSETTE ALMANZA PATIENT Selected Encounter This section includes the information on record at [place] for the Encounter. Date/Time Encounter Type Encounter Description Reason Provider Source November 19, 2023 01:00 PM OFFICE O/P EST MOD 30 MIN PRIMARY CARE/MEDICINE ICD-10-CM I10 Essential (primary) hypertension KEITH BLANCHARD Encounter Template Text not used by [facility] Assessments - Encounter Diagnoses This section includes the primary and secondary diagnoses documented for the Encounter. Date/Time Primary/Secondary Diagnosis Diagnosis Name Provider Source Dec 10, 2023 12:39 PM PRIMARY Essential (primary) hypertension KEITH BLANCHARD ([facility]) Dec 10, 2023 12:39 PM SECONDARY Congenital pancreatic cyst KEITH BLANCHARD ([facility]) Dec 10, 2023 12:39 PM SECONDARY Fatty (change of) liver, not elsewhere classified KEITH BLANCHARD ([facility]) Dec 10, 2023 12:39 PM SECONDARY Hyperlipidemia, unspecified KEITH BLANCHARDFIELD ([facility]) Dec 10, 2023 12:39 PM SECONDARY Nonrheumatic aortic (valve) stenosis KEITH BLANCHARDFIELD ([facility]) Dec 10, 2023 12:39 PM SECONDARY Type 2 diabetes mellitus without complications KEITH BLANCHARDFIELD ([facility]) Plan of Treatment: Future Appointments (+ 6 months) and Future Tests (+/- 45 days) The Plan of Treatment section includes future care activities for the patient from [facility] [place] [facility]. This section includes future appointments and future orders which are active, pending or scheduled. Future Appointments This section includes appointments that were scheduled to occur 6 months from the date of the Encounter, up to a maximum of 20 appointments. The data comes from all [place] treatment facilities. Appointment Date/Time Appointment Type Appointme nt Facility Name Nov 26, 2023 01:00 PM AMBULATORY - MEDICINE [facility] [place] [facility] Nov 26, 2023 01:00 PM AMBULATORY - NONE [facility] [place] [facility] Dec 03, 2023 09:00 AM AMBULATORY [facility] MEDICINE [facility] [place] [facility] Dec 06, 2023 10:30 AM AMBULATORY - NONE [facility] [place] [facility] Dec 06, 2023 11:00 AM AMBULATORY - NONE [facility] [place] [facility] Jan 08, 2024 10:30 AM [place] [facility] [place] [facility] Jan 16, 2024 03:00 PM [place] [facility] [place] [facility] Feb 03, 2024 12:30 PM AM[facility]UL[facility] [place]IC[place] [facility] [place] [facility] Feb 11, 2024 01:00 PM AMBULATORY - MEDICINE [facility] ([facility]) Feb 19, 2024 12:00 PM AM[place] [facility] [place] [facility] Feb 26, 2024 10:00 AM AM[place] [facility] [place] [facility] Apr 29, 2024 01:30 PM AMBULATORY - MEDICINE [facility] ([facility]) Lab Results: +/- 30 days of the encounter This section includes the Chemistry and Hematology Lab Results on record with [place] for the patient. Radiology Reports and Pathology [...] November 19, 2023 01:37 PM Reporting Lab: [facility] [address] [facility] [address] Performing Lab: [facility]USE[address] [address] INR 1.1 PROTIME 12.0 s 10.0-13.1 November 19, 2023 01:41 PM [place] [facility] CERULOPLASMIN Specimen Type: SERUM No comment entered. Ordering Provider: KEITH BLANCHARD Report Released Date/Time: November 19, 2023 01:37 PM Reporting Lab: [facility] [address] [facility] [address] Performing Lab: [facility] [address] [facility] [address] CERULOPLASMIN 18 mg/dL L 20-60 November 19, 2023 01:41 PM [place] [facility]) HEPATITIS B SURFACE ANTIBODY (HBsAb)-WH Specimen Type: SERUM No comment entered. Ordering Provider: KEITH BLANCHARD Report Released Date/Time: November 19, 2023 01:37 PM Reporting Lab: [facility] [address] [facility] [address] Performing Lab: [facility]TR[facility]ITALUS[facility] November 19, 2023 01:41 PM [place] ([facility]) VIDAL SCREEN/TITER Specimen Type: SERUM No comment entered. Ordering Provider: KEITH BLANCHARD Report Released Date/Time: November 19, 2023 01:37 PM Reporting Lab: [facility]ITALRBE[facility]ITALTRN [facility]ITALUSETS [facility] [address] [facility] [address] Performing Lab: [facility] [address] [facility] [address] VIDAL SCREEN NEG November 19, 2023 01:41 PM [place] ([facility]) HEPATITIS B SURFACE ANTIGEN (HBsAg)-WH Specimen Type: SERUM Comment: A 'Reactive' result indicates HBsAb results >/= 12.0 mIU/mL and immunity to HBV infection. A Reactive result ( Positive prior to 04/06/13) is diagnostic of acute or chronic hepatitis B infection. The presence of Hepatitis B surface antigen is frequently associated with infectivity. Ordering Provider: KEITH BLANCHARD Report Released Date/Time: November 19, 2023 01:37 PM Reporting Lab: [facility] [address] [facility] [address] Performing Lab: [facility] [address] [facility] [address] HBsAg Non Reactive Non Reactive November 19, 2023 01:41 PM [place] [facility] ALPHA 1 ANTITRYPSIN Specimen Type: SERUM No comment entered. Ordering Provider: KEITH BLANCHARD Report Released Date/Time: November 19, 2023 01:37 PM Reporting Lab: [facility] [address] [facility] [address] Performing Lab: [facility] [address] [facility] [address] ALPHA 1 ANTITRYPSIN 125 mg/dL 90-200 November 19, 2023 01:41 PM [place] [facility]) HEPATITIS A ANTIBODY (IGG) Specimen Type: SERUM Comment: Hep A IgG: A 'Reactive' result indicates previous exposure to Hepatitis A virus through infection or vaccination. Ordering Provider: KEITH BLANCHARD Report Released Date/Time: November 19, 2023 01:37 PM Reporting Lab: [facility] [address] [facility] [address] Performing Lab: [facility] [address] [facility] [address] HEPATITIS A ANTIBODY (IGG) REACTIVE Non Reactive November 19, 2023 01:41 PM [place] [facility]) PSA Specimen Type: SERUM No comment entered. Ordering Provider: EKITH BLANCHARD Report Released Date/Time: November 19, 2023 01:30 PM Reporting Lab: [facility] [address] [address] Performing Lab: [address] [address] PSA 159.64 ng/mL H 0.00-4.00 November 19, 2023 01:41 PM [place] [facility]) HEPATITIS C ANTIBODY (HCV)-ARC Specimen Type: SERUM Comment: Hep C Ab: No HCV antibody detected. If recent infection is suspected or other evidence suggests HCV infection, consider HCV nucleic acid testing Ordering Provider: KEITH BLANCHARD Report Released Date/Time: November 19, 2023 01:37 PM Reporting Lab: [address] [address] Performing Lab: [address] [address] HEPATITIS C ANTIBODY NON-REACTIVE NON-REACTIV E November 19, 2023 01:41 PM [place] [facility]) FERRITIN Specimen Type: SERUM No comment entered. Ordering Provider: KEITH BLANCHARD Report Released Date/Time: November 19, 2023 01:37 PM Reporting Lab: [address] [address] Performing Lab: [address] [address] FERRITIN 221 ng/mL 20-300 November 19, 2023 01:41 PM [place] ([facility]) IRON & TIBC PANEL Specimen Type: SERUM No comment entered. Ordering Provider: KEITH BLANCHARD Report Released Date/Time: November 19, 2023 01:37 PM Reporting Lab: [address] [address] Performing Lab: [address] [address] TIBC 300 ug/dL 204-475 IRON 101 ug/dL 40-160 Transferrin Saturation 33.7 20.0-50.0 November 19, 2023 01:41 PM [place] [facility]) LIVER FUNCTION Specimen Type: SERUM No comment entered. Ordering Provider: KEITH BLANCHARD Report Released Date/Time: November 19, 2023 01:37 PM Reporting Lab: [address] [address] Performing Lab: [address] [address] PROTEIN,TOTAL 6.6 g/dL 6.0-8.3 ALBUMIN 3.9 g/dL 3.5-5.0 ALKALINE PHOSPHATASE 125 U/L 40-150 AST 13 U/L 5-34 ALT <6 U/L BILIRUBIN, TOTAL 0.8 mg/dL 0.2-1.2 November 19, 2023 01:41 PM [place] [facility]) ALBUMIN Specimen Type: SERUM No comment entered. Ordering Provider: KEITH BLANCHARD Report Released Date/Time: November 19, 2023 01:37 PM Reporting Lab: [address] [address] Performing Lab: [address] [address] ALBUMIN 3.9 g/dL 3.5-5.0 November 19, 2023 01:41 PM [place] [facility]) BASIC METABOLIC PANEL (non-fasting) Specimen Type: SERUM No comment entered. Ordering Provider: KEITH BLANCHARD Report Released Date/Time: November 19, 2023 01:37 PM Reporting Lab: [address] [address] Performing Lab: [address] [address] UREA NITROGEN 14 mg/dL 7-25 GLUCOSE 149 [...] November 19, 2023 01:37 PM Reporting Lab: [facility]AN[facility] [address] [facility] [address] Performing Lab: [facility]AN[facility] [address] [facility] [address] WBC 6.28 10*3/uL 4.50-11.00 RBC 4.40 10*6/uL 4.23-5.66 HGB 13.9 g/dL 12.8-17 HCT 42.0 39.2-50.4 MCV 95.5 fL 82-99 MCHC 33.1 g/dL 30.8-35.1 PLT 192 10*3/uL 140-360 RDW-CV 13.3 12.0-16.0 [place], Abs 0.52 10*3/uL 0.30-1.10 MCH 31.6 pg 26.2-32.6 Neut % 72.2 43.7-75.8 Lymph % 17.7 14.0-42.3 [place] % 8.3 5.1-13.7 Eos % 1.0 0.4-6.8 [...] Pain Height Weight Body Mass Index Source November 19, 2023 12:58 PM 97 71 111/71 20 96 3 169.4 27 [place]EN[place] E[place] ([facility]) Social History: Smoking Status (Most current) and Tobacco Use (All prior to encounter date) This section includes the most current, and the historical, smoking and tobacco- related health factors from the [place] facility where the Encounter took place. Current Smoking Status This section includes the most current smoking, or tobacco-related health factor, from the [place] facility where the Encounter took place. Date/Time Current Smoking Status Comment Theron ity Oct 07, 2023 03:00 PM VA-TOBACCO NEVER USED [place] ([facility]) Tobacco Use History This section includes a history of the smoking, or tobacco-related health factors, that were collected on or before the date of the Encounter. The data comes from the [place] facility where the Encounter took place. Date/Time [...] the Encounter. The data comes from all [place] treatment facilities. Date/Time Radiology Report Provider Source Dec 06, 2023 09:38 AM ULTRASOUND ABDOMEN LIMITED: JOSETTE ALMANZA [id number] -[id number] M Exm Date: DEC 06, 2023@09:38 Req Phys: LUCITA BLANCHARD Pat Loc: CWM/GO/PACT 1 [facility] (Req'g Loc) Img Loc: ULTRASOUND Service: Unknown [place] [facility] , (Case [id number] COMPLETE) ULTRASOUND ABDOMEN LIMITED (US Detailed) CPT:69620 Reason for Study: Liver fibrosis Clinical History: Some ultrasound tests require a prep. Report Status: Verified Date Reported: DEC 06, 2023 Date Verified: DEC 06, 2023 Thoracic Surgeon E-Sig:/ES/MIHIR BOOTH JR Report: Study: Abdomen ultrasound. [...] Primary Interpreting Staff: MIHIR BOOTH JR, Radiologist (Thoracic Surgeon) /MIHIR CASAS JR [facility] Dec 06, 2023 09:36 AM WRIST 3 OR MORE VIEWS(RIGHT): JOSETTE ALMANZA МАРИНА [id number] -1950 M Exm Date: DEC 06, 2023@09:36 Req Phys: LUCITA BLANCHARD Pat Loc: CWM/GO/PACT 1 [facility] (Req'g Loc) Img Loc: [facility] 1 Service: Unknown [facility] , (Case [id number] COMPLETE) WRIST 3 OR MORE VIEWS(RIGHT) (RAD Detailed) CPT:68093 Reason for Study: Right wrist swelling Clinical History: Covering resident, fellow, CERAMIC ARTIST or attending: blair [place] Pager: [phone] Backup pager: History: Bump right wrist, non tender Report Status: Verified Date Reported: DEC 06, 2023 Date Verified: DEC 06, 2023 Thoracic Surgeon E-Sig:/ES/MIHIR BOOTH JR Report: Study: AP, lateral, [...] Primary Interpreting Staff: MIHIR BOOTH JR, Radiologist (Thoracic Surgeon) /MIHIR CASAS JR [facility] Encounter Notes: All associated encounter notes This section contains the clinical notes associated to the Encounter. Date/Time Encounter Note(s) Provider Source Dec 06, 2023 01:07 PM ADDENDUM: LOCAL TITLE: Addendum STANDARD TITLE: ADDENDUM DATE OF NOTE: DEC 06, 2023@13:07:39 ENTRY DATE: DEC 06, 2023@13:07:40 AUTHOR: LUCITA BLANCHARD EXP COSIGNER: URGENCY: STATUS: COMPLETED Also please notify that liver Ultrasound was stable, no changes from previous /es/ LUCITA BLANCHARD MD PHYSICIAN Signed: 12/06/2023 13:08 Receipt Acknowledged By: 12/13/2023 10:29 /es/ YAIMA [place], SELVIN REGISTERED NURSE for SARAH Clement DENISE --- Original Document --- 11/19/23 NOTE: PRIMARY CARE VISIT JOSETTE ALMANZA, is a 73 yo WHITE MALE who presents at the [place] [facility]. TYPE OF VISIT: 72-year-old male with vitamins D and B12 deficiency, HTN, HLD, aortic valve stenosis, lumbar radiculopathy, hepatic steatosis/fibrosis, DM2, PAD, and a history of anaplasmosis in December 2021 status post doxycycline treatment and COVID-19 in February 2022 not requiring hospitalization here for follow up. Concers today: tired all the time. Sleeps 2-3 hours at a time. Nightmares wake him up. And has to urinate 4 rimes a night , has been happening about one year. No PSA on file Recent labs and all medications were reconciled during this visit. HEALTHCARE PROVIDERS: [facility]CP [facility] PCP - [facility] - Dr. Jean DIABETES - [facility] - Dr. Pruett - [facility] in [place], [place] OPHTHAMOLOGY - Dr. Barrera in [place], [place] Podiatry - [place] Social Hx: The is and lives with his . No alcohol, tobacco, MJ. He stays active with home projects. Currently remodeling 2 rooms in his house. States he is up and down ladders daily without problems Recent labs and all medications were reconciled during this visit. HEALTHCARE PROVIDERS: Social Hx: MARITAL STATUS - HISTORY: PERIOD OF SERVICE - [employer] FROM May TO May COMBAT SERVICE INDICATED: No VITAL SIGNS: Temperature 97 F [36.1 C] (11/19/2023 12:58) Blood Pressure 111/71 (11/19/2023 12:58) Pulse 71 (11/19/2023 12:58) Respiration 20 (11/19/2023 12:58) Pain 3 (11/19/2023 12:58) BMI BMI: 26.6 Weight 169.4 lb [76.84 kg] (11/19/2023 12:58) Pulse Oximetry 96% (11/19/2023 12:58) ASSISTIVE DEVICES: REVIEW OF SYSTEMS: CONSTITUTIONAL: No [...] extremities, or unilateral weakness. EXAMINATION General: Well-appearing [place] in no obvious distress. Mental Status: Alert and oriented x4. Head: Normocephalic. Eyes: PERRLA. EOMI. Anicteric sclerae. ENT: Moist oral mucosa. Posterior pharynx unremarkable Neck: Supple. No JVD. No LAD. No bruit. Lungs: Clear bilaterally without wheeze or rhonchi. Normal effort and expansion. CV: Heart sounds S1, S2. + Ejection systolic murmur, no peripheral edema GI: Abdomen is soft and nontender. No palpable mass. : No CVA tenderness. Ext: No cyanosis or clubbing. No gross deformities. Neuro: CN II through XII grossly intact. Normal speech. Normal gait. Integument: Skin warm and dry. No rashes or lesions on visible areas. Psych: Normal mood and affect. Normal judgment. ALLERGIES: ========= PENICILLIN >> HEALTH MAINTENANCE PREVENTIVE MEDICINE GOALS Medication Reconciliation DUE NOW PAVE Foot Check DUE NOW (Optional) Whole Health Documentation DUE NOW ASSESSMENT/PLAN: Active problems - Computerized Problem List is the source for the followin. 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 Vitamin D Deficiency ([facility] [id number]) 4. Vitamin B12 Deficiency ([facility] [id number]) 5. Aortic valve stenosis 6. Kidney lesion 7. Pancreatic cyst 8. Lumbar radiculopathy 9. Fatty liver 10. Diabetes mellitus type 2 11. Hyperlipidemia 12. Parkinsons disease 13. Benign hypertension ==Liver fibrosis: Due for follow up ultrasound, Referral to hepatology to monitor. ==Pancreatic cystic lesion: last MRCP 2021, no follow up recommended == Diabetes mellitus type 2: HbA1c 6.5%, stable. Metformin 1000mg daily Renal function normal. == Hyperlipidemia: Cholesterol, triglycerides, LDL WNL with normal liver function. c/w atorvastatin 40 mg daily ==. Parkinsons disease: Followed with [place] neurology with last visit 07/2023 No changes were made at that time. Continue Sinemet, rasagaline, pramipexole. == Benign hypertension: BP at goal. Feeling better and no hypotension on Lisinpril 5mg daily ==BPH: Start Tamsulosin 0.4 mg , and check PSA today. I see no PSA in labs done ever. =AORTIC VALVE STENOSIS : up to date with echo , annual cardio consult recommended ==PT for lower back and strength == Fatty liver : Last US 10/26/2022 showed no change from previous from 11/2021 Abdomen LIVER ULTRASOUND ELASTOGRAPHY: MOderate to severe fibrotic change scarring in setting of fatty liver, likely r/t LOZA. hepatology Referral. ==PANCREATIC CYST: Last MRI 11/22/2021 stable and recommended no further follow up. 06/27/19 MRI ABD: Incidental cystic lesion in tail of pancreas, follow up MRCP in 2 years recommended - US in 04/2021 shows pancreases as normal - GI E-consult placed to determine follow up plan, if needed HCM: ==Colonoscopy July 2023 FOLLOW UP: RTC Below & sooner PRN UPCOMING APPOINTMENTS: 01/08/2024 10:30 CWM/NO/PODIATRY A 02/26/2024 11:00 [facility] minutes spent in patient evaluation, data review, and patient education. All medications were reconciled during this visit. No barriers; Patient understands and agrees to current treatment plan. If pt has any questions, concerns, or changes in current health status he/she will call or come [facility] to the [facility]. /rashid/ LUCITA BLANCHARD MD PHYSICIAN Signed: 11/20/2023 08:36 11/20/2023 ADDENDUM STATUS: COMPLETED Please order Urology Consult for PSA 159. /rashid/ LUCITA BLANCHARD MD PHYSICIAN Signed: 11/20/2023 08:37 Receipt Acknowledged By: 11/20/2023 08:47 /rashid/ SARAH WALKER, RN REGISTERED NURSE 12/06/2023 ADDENDUM STATUS: COMPLETED Please notify the Xray wristshows some mild degenerative changes but nothing to acount for the bump which is likley a ganglion cyst. Nothing is usually done for these unless cause pain. Mild degenerative changes are present to the [...] Impression: No acute abnormality, as described above. /es/ LUCITA BLANCHARD MD PHYSICIAN Signed: 12/06/2023 13:06 Receipt Acknowledged By: 12/09/2023 09:18 /es/ YAIMA [place] RN REGISTERED NURSE for SARAH Racquel WALKER 12/09/2023 08:55 /rashid/ ANAMARIA MARTIN LPN LICENSED PRACTICAL NURSE 12/06/2023 ADDENDUM STATUS: COMPLETED Attempted to reach [place], no answer. Generic message left requesting [place] call back clinic as [place] does not have a personalized voicemail greeting. /es/ SARAH WALKER RN REGISTERED NURSE Signed: 12/06/2023 14:14 12/09/2023 ADDENDUM STATUS: COMPLETED Spoke with made aware of Xray of wrist, all questions answered /rashid/ ANAMARIA MARTIN LPN LICENSED PRACTICAL NURSE Signed: 12/09/2023 08:56 LUCITA BLANCHARD ([facility]) Dec 06, 2023 01:05 PM ADDENDUM: LOCAL TITLE: Addendum STANDARD TITLE: ADDENDUM DATE OF NOTE: DEC 06, 2023@13:05:44 ENTRY DATE: DEC 06, 2023@13:05:45 AUTHOR: LUCITA BLANCHARD EXP COSIGNER: URGENCY: STATUS: COMPLETED Please notify the Xray wristshows some mild degenerative changes but nothing to acount for the bump which is likley a ganglion cyst. Nothing is usually done for these unless cause pain. Mild degenerative changes are present to the [...] Impression: No acute abnormality, as described above. /es/ LUCITA BLANCHARD MD PHYSICIAN Signed: 12/06/2023 13:06 Receipt Acknowledged By: 12/09/2023 09:18 /es/ YAIMA [place] RN REGISTERED NURSE for SARAH WALKER 12/09/2023 08:55 /es/ ANAMARIA MARTIN LPN LICENSED PRACTICAL NURSE --- Original Document --- 11/19/23 NOTE: PRIMARY CARE VISIT JOSETTE ALMANZA, is a 73 yo WHITE MALE who [place] at the [place] [facility]. TYPE OF VISIT: 72-year-old male with vitamins D and B12 deficiency, HTN, HLD, aortic valve stenosis, lumbar radiculopathy, hepatic steatosis/fibrosis, DM2, PAD, and a history of anaplasmosis in December 2021 status post doxycycline treatment and COVID-19 in February 2022 not requiring hospitalization here for follow up. Concers today: tired all the time. Sleeps 2-3 hours at a time. Nightmares wake him up. And has to urinate 4 rimes a night , has been happening about one year. No PSA on file Recent labs and all medications were reconciled during this visit. HEALTHCARE PROVIDERS: [facility]CP - [facility] PCP - [facility] - Dr. Jean DIABETES - [facility] - Dr. Pruett - [facility] in [place], [place] OPHTHAMOLOGY - Dr. Barrera in [place], [place] Podiat[place] - [place] Social Hx: The is and lives with his . No alcohol, tobacco, MJ. He stays active with home projects. Currently remodeling 2 rooms in his house. States he is up and down ladders daily without problems Recent labs and all medications were reconciled during this visit. HEALTHCARE PROVIDERS: Social Hx: MARITAL STATUS - HISTORY: PERIOD OF SERVICE - [employer] FROM May TO May COMBAT SERVICE INDICATED: No VITAL SIGNS: Temperature 97 F [36.1 C] (11/19/2023 12:58) Blood Pressure 111/71 (11/19/2023 12:58) Pulse 71 (11/19/2023 12:58) Respiration 20 (11/19/2023 12:58) Pain 3 (11/19/2023 12:58) BMI BMI: 26.6 Weight 169.4 lb [76.84 kg] (11/19/2023 12:58) Pulse Oximetry 96% (11/19/2023 12:58) ASSISTIVE DEVICES: REVIEW OF SYSTEMS: CONSTITUTIONAL: No [...] extremities, or unilateral weakness. EXAMINATION General: Well-appearing [place] in no obvious distress. Mental Status: Alert and oriented x4. Head: Normocephalic. Eyes: PERRLA. EOMI. Anicteric sclerae. ENT: Moist oral mucosa. Posterior pharynx unremarkable Neck: Supple. No JVD. No LAD. No bruit. Lungs: Clear bilaterally without wheeze or rhonchi. Normal effort and expansion. CV: Heart sounds S1, S2. + Ejection systolic murmur, no peripheral edema GI: Abdomen is soft and nontender. No palpable mass. : No CVA tenderness. Ext: No cyanosis or clubbing. No gross deformities. Neuro: CN II through XII grossly intact. Normal speech. Normal gait. Integument: Skin warm and dry. No rashes or lesions on visible areas. Psych: Normal mood and affect. Normal judgment. ALLERGIES: ========= PENICILLIN >> HEALTH MAINTENANCE PREVENTIVE MEDICINE GOALS Medication Reconciliation DUE NOW PAVE Foot Check DUE NOW (Optional) Whole Health Documentation DUE NOW ASSESSMENT/PLAN: Active problems - Computerized Problem List is the source for the followin. 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 Vitamin D Deficiency ([facility] [id number]) 4. Vitamin B12 Deficiency ([facility] [id number]) 5. Aortic valve stenosis 6. Kidney lesion 7. Pancreatic cyst 8. Lumbar radiculopathy 9. Fatty liver 10. Diabetes mellitus type 2 11. Hyperlipidemia 12. Parkinsons disease 13. Benign hypertension ==Liver fibrosis: Due for follow up ultrasound, Referral to hepatology to monitor. ==Pancreatic cystic lesion: last MRCP 2021, no follow up recommended == Diabetes mellitus type 2: HbA1c 6.5%, stable. Metformin 1000mg daily Renal function normal. == Hyperlipidemia: Cholesterol, triglycerides, LDL WNL with normal liver function. c/w atorvastatin 40 mg daily ==. Parkinsons disease: Followed with [place] [facility] with last visit 07/2023 No changes were made at that time. Continue Sinemet, rasagaline, pramipexole. == Benign hypertension: BP at goal. Feeling better and no hypotension on Lisinpril 5mg daily ==BPH: Start Tamsulosin 0.4 mg , and check PSA today. I see no PSA in labs done ever. =AORTIC VALVE STENOSIS : up to date with echo , annual cardio consult recommended ==PT for lower back and strength == Fatty liver : Last US 10/26/2022 showed no change from previous from 11/2021 Abdomen LIVER ULTRASOUND ELASTOGRAPHY: MOderate to severe fibrotic change scarring in setting of fatty liver, likely r/t LOZA. hepatology Referral. ==PANCREATIC CYST: Last MRI 11/22/2021 stable and recommended no further follow up. 06/27/19 MRI ABD: Incidental cystic lesion in tail of pancreas, follow up MRCP in 2 years recommended - US in 04/2021 shows pancreases as normal - GI E-consult placed to determine follow up plan, if needed HCM: ==Colonoscopy July 2023 FOLLOW UP: RTC Below & sooner PRN UPCOMING APPOINTMENTS: 01/08/2024 10:30 CWM/NO/PODIATRY A 02/26/2024 11:00 [facility] minutes spent in patient evaluation, data review, and patient education. All medications were reconciled during this visit. No barriers; Patient understands and agrees to current treatment plan. If pt has any questions, concerns, or changes in current health status he[facility]she [facility] /lexa BLANCHARD MD PHYSICIAN Signed: 11/20/2023 08:36 11/20/2023 ADDENDUM STATUS: COMPLETED Please order Urology Consult for PSA 159. /lexa BLANCHARD MD PHYSICIAN Signed: 11/20/2023 08:37 Receipt Acknowledged By: 11/20/2023 08:47 /rashid/ SARAH WALKER RN REGISTERED NURSE 12/06/2023 ADDENDUM STATUS: COMPLETED Also please notify that liver Ultrasound was stable, no changes from previous /lexa BLANCHARD MD PHYSICIAN Signed: 12/06/2023 13:08 Receipt Acknowledged By: * AWAITING SIGNATURE * SARAH WALKER 12/06/2023 ADDENDUM STATUS: COMPLETED Attempted to reach [place], no answer. Generic message left requesting call back clinic as does not have a personalized voicemail greeting. /rashid/ SARAH WALKER RN REGISTERED NURSE Signed: 12/06/2023 14:14 12/09/2023 ADDENDUM STATUS: COMPLETED Spoke with made aware of Xray of wrist, all questions answered /es/ ANAMARIA MARTIN LPN LICENSED PRACTICAL NURSE Signed: 12/09/2023 08:56 LUCITA BLANCHARD ([facility]) November 20, 2023 08:37 AM ADDENDUM: LOCAL TITLE: Addendum STANDARD TITLE: ADDENDUM DATE OF NOTE: NOVEMBER 20, 2023@08:37 ENTRY DATE: NOVEMBER 20, 2023@08:37:01 AUTHOR: LUCITA BLANCHARD EXP COSIGNER: URGENCY: STATUS: COMPLETED Please order Urology Consult for PSA 159. /es/ LUCITA BLANCHARD MD PHYSICIAN Signed: 11/20/2023 08:37 Receipt Acknowledged By: 11/20/2023 08:47 /es/ SARAH WALKER RN REGISTERED NURSE --- Original Document --- 11/19/23 NOTE: PRIMARY CARE VISIT JOSETTE ALMANZA, is a 73 yo WHITE MALE [place] who presents at the [facility]. TYPE OF VISIT: 72-year-old male with vitamins D and B12 deficiency, HTN, HLD, aortic valve stenosis, lumbar radiculopathy, hepatic steatosis/fibrosis, DM2, PAD, and a history of anaplasmosis in December 2021 status post doxycycline treatment and COVID-19 in February 2022 not requiring hospitalization here for follow up. Concers today: tired all the time. Sleeps 2-3 hours at a time. Nightmares wake him up. And has to urinate 4 rimes a night , has been happening about one year. No PSA on file Recent labs and all medications were reconciled during this visit. HEALTHCARE PROVIDERS: [facility] PCP - [facility] - Dr. Jean DIABETES - [facility] - Dr. Pruett - [facility] in [place], [place] OPHTHAMOLOGY - Dr. Barrera in [place], [place]iat[place] - [place] Social Hx: The is and lives with his . No alcohol, tobacco, MJ. He stays active with home projects. Currently remodeling 2 rooms in his house. States he is up and down ladders daily without problems Recent labs and all medications were reconciled during this visit. HEALTHCARE PROVIDERS: Social Hx: MARITAL STATUS - HISTORY: PERIOD OF SERVICE - [place] FROM May TO May COMBAT SERVICE INDICATED: No VITAL SIGNS: Temperature 97 F [36.1 C] (11/19/2023 12:58) Blood Pressure 111/71 (11/19/2023 12:58) Pulse 71 (11/19/2023 12:58) Respiration 20 (11/19/2023 12:58) Pain 3 (11/19/2023 12:58) BMI BMI: 26.6 Weight 169.4 lb [76.84 kg] (11/19/2023 12:58) Pulse Oximetry 96% (11/19/2023 12:58) ASSISTIVE DEVICES: REVIEW OF SYSTEMS: CONSTITUTIONAL: No [...] extremities, or unilateral weakness. EXAMINATION General: Well-appearing in no obvious distress. Mental Status: Alert and oriented x4. Head: Normocephalic. Eyes: PERRLA. EOMI. Anicteric sclerae. ENT: Moist oral mucosa. Posterior pharynx unremarkable Neck: Supple. No JVD. No LAD. No bruit. Lungs: Clear bilaterally without wheeze or rhonchi. Normal effort and expansion. CV: Heart sounds S1, S2. + Ejection systolic murmur, no peripheral edema GI: Abdomen is soft and nontender. No palpable mass. : No CVA tenderness. Ext: No cyanosis or clubbing. No gross deformities. Neuro: CN II through XII grossly intact. Normal speech. Normal gait. Integument: Skin warm and dry. No rashes or lesions on visible areas. Psych: Normal mood and affect. Normal judgment. ALLERGIES: ========= PENICILLIN >> HEALTH MAINTENANCE PREVENTIVE MEDICINE GOALS Medication Reconciliation DUE NOW PAVE Foot Check DUE NOW (Optional) Whole Health Documentation DUE NOW ASSESSMENT/PLAN: Active problems - Computerized Problem List is the source for the followin. Exposure to potentially hazardous substance ([facility] [id number]) 2. 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 Vitamin D Deficiency ([facility] [id number]) 4. Vitamin B12 Deficiency ([facility] [id number]) 5. Aortic valve stenosis 6. Kidney lesion 7. Pancreatic cyst 8. Lumbar radiculopathy 9. Fatty liver 10. Diabetes mellitus type 2 11. Hyperlipidemia 12. Parkinsons disease 13. Benign hypertension ==Liver fibrosis: Due for follow up ultrasound, Referral to hepatology to monitor. ==Pancreatic cystic lesion: last MRCP 2021, no follow up recommended == Diabetes mellitus type 2: HbA1c 6.5%, stable. Metformin 1000mg daily Renal function normal. == Hyperlipidemia: Cholesterol, triglycerides, LDL WNL with normal liver function. c/w atorvastatin 40 mg daily ==. Parkinsons disease: Followed with [place] [facility] with last visit 07/2023 No changes were made at that time. Continue Sinemet, rasagaline, pramipexole. == Benign hypertension: BP at goal. Feeling better and no hypotension on Lisinpril 5mg daily ==BPH: Start Tamsulosin 0.4 mg , and check PSA today. I see no PSA in labs done ever. =AORTIC VALVE STENOSIS : up to date with echo , annual cardio consult recommended ==PT for lower back and strength == Fatty liver : Last US 10/26/2022 showed no change from previous from 11/2021 Abdomen LIVER ULTRASOUND ELASTOGRAPHY: MOderate to severe fibrotic change scarring in setting of fatty liver, likely r/t LOZA. hepatology Referral. ==PANCREATIC CYST: Last MRI 11/22/2021 stable and recommended no further follow up. 06/27/19 MRI ABD: Incidental cystic lesion in tail of pancreas, follow up MRCP in 2 years recommended - US in 04/2021 shows pancreases as normal - GI E-consult placed to determine follow up plan, if needed HCM: ==Colonoscopy July 2023 FOLLOW UP: RTC Below & sooner PRN UPCOMING APPOINTMENTS: 01/08/2024 10:30 CWM/NO/PODIATRY A 02/26/2024 11:00 [facility] minutes spent in patient evaluation, data review, and patient education. All medications were reconciled during this visit. No barriers; Patient understands and agrees to current treatment plan. If pt has any questions, concerns, or changes in current health status he/she will call [facility] /rashid/ LUCITA BLANCHARD MD PHYSICIAN Signed: 11/20/2023 08:36 LUCITA BLANCHARD ([facility]) November 19, 2023 01:11 PM PHYSICIAN NOTE: LOCAL TITLE: NOTE STANDARD TITLE: PHYSICIAN NOTE DATE OF NOTE: NOVEMBER 19, 2023@13:11 ENTRY DATE: NOVEMBER 19, 2023@13:11:29 AUTHOR: LUCITA BLANCHARD EXP COSIGNER: URGENCY: STATUS: COMPLETED NOTE Has ADDENDA PRIMARY CARE VISIT JOSETTE ALMANZA, is a 73 yo WHITE MALE [place] who presents at the [place] [facility]. TYPE OF VISIT: 72-year-old male with vitamins D and B12 deficiency, HTN, HLD, aortic valve stenosis, lumbar radiculopathy, hepatic steatosis/fibrosis, DM2, PAD, and a history of anaplasmosis in December 2021 status post doxycycline treatment and COVID-19 in February 2022 not requiring hospitalization here for follow up. Concers today: tired all the time. Sleeps 2-3 hours at a time. Nightmares wake him up. And has to urinate 4 rimes a night , has been happening about one year. No PSA on file Recent labs and all medications were reconciled during this visit. HEALTHCARE PROVIDERS: [facility] PCP - [facility] - Dr. Jean DIABETES - [facility] - Dr. Pruett - [facility] in [place], [place] OPHTHAMOLOGY - Dr. Barrera in [place], [place] - [place] Social Hx: The is and lives with his . No alcohol, tobacco, MJ. He stays active with home projects. Currently remodeling 2 rooms in his house. States he is up and down ladders daily without problems Recent labs and all medications were reconciled during this visit. HEALTHCARE PROVIDERS: Social Hx: MARITAL STATUS - HISTORY: PERIOD OF SERVICE - [place] [employer] FROM May TO May COMBAT SERVICE INDICATED: No VITAL SIGNS: Temperature 97 F [36.1 C] (11/19/2023 12:58) Blood Pressure 111/71 (11/19/2023 12:58) Pulse 71 (11/19/2023 12:58) Respiration 20 (11/19/2023 12:58) Pain 3 (11/19/2023 12:58) BMI BMI: 26.6 Weight 169.4 lb [76.84 kg] (11/19/2023 12:58) Pulse Oximetry 96% (11/19/2023 12:58) ASSISTIVE DEVICES: REVIEW OF SYSTEMS: CONSTITUTIONAL: No [...] extremities, or unilateral weakness. EXAMINATION General: Well-appearing [place] in no obvious distress. Mental Status: Alert and oriented x4. Head: Normocephalic. Eyes: PERRLA. EOMI. Anicteric sclerae. ENT: Moist oral mucosa. Posterior pharynx unremarkable Neck: Supple. No JVD. No LAD. No bruit. Lungs: Clear bilaterally without wheeze or rhonchi. Normal effort and expansion. CV: Heart sounds S1, S2. + Ejection systolic murmur, no peripheral edema GI: Abdomen is soft and nontender. No palpable mass. : No CVA tenderness. Ext: No cyanosis or clubbing. No gross deformities. Neuro: CN II through XII grossly intact. Normal speech. Normal gait. Integument: Skin warm and dry. No rashes or lesions on visible areas. Psych: Normal mood and affect. Normal judgment. ALLERGIES: ========= PENICILLIN >> HEALTH MAINTENANCE PREVENTIVE MEDICINE GOALS Medication Reconciliation DUE NOW PAVE Foot Check DUE NOW (Optional) Whole Health Documentation DUE NOW ASSESSMENT/PLAN: Active problems - Computerized Problem List is the source for the followin. Exposure to potentially hazardous substance ([facility] [id number]) 2. 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 Vitamin D Deficiency ([facility] [id number]) 4. Vitamin B12 Deficiency ([facility] [id number]) 5. Aortic valve stenosis 6. Kidney lesion 7. Pancreatic cyst 8. Lumbar radiculopathy 9. Fatty liver 10. Diabetes mellitus type 2 11. Hyperlipidemia 12. Parkinsons disease 13. Benign hypertension ==Liver fibrosis: Due for follow up ultrasound, Referral to hepatology to monitor. ==Pancreatic cystic lesion: last MRCP 2021, no follow up recommended == Diabetes mellitus type 2: HbA1c 6.5%, stable. Metformin 1000mg daily Renal function normal. == Hyperlipidemia: Cholesterol, triglycerides, LDL WNL with normal liver function. c/w atorvastatin 40 mg daily ==. Parkinsons disease: Followed with [place] [facility] with last visit 07/2023 No changes were made at that time. Continue Sinemet, rasagaline, pramipexole. == Benign hypertension: BP at goal. Feeling better and no hypotension on Lisinpril 5mg daily ==BPH: Start Tamsulosin 0.4 mg , and check PSA today. I see no PSA in labs done ever. =AORTIC VALVE STENOSIS : up to date with echo , annual cardio consult recommended ==PT for lower back and strength == Fatty liver : Last US 10/26/2022 showed no change from previous from 11/2021 Abdomen LIVER ULTRASOUND ELASTOGRAPHY: MOderate to severe fibrotic change scarring in setting of fatty liver, likely r/t LOZA. hepatology Referral. ==PANCREATIC CYST: Last MRI 11/22/2021 stable and recommended no further follow up. 06/27/19 MRI ABD: Incidental cystic lesion in tail of pancreas, follow up MRCP in 2 years recommended - US in 04/2021 shows pancreases as normal - GI E-consult placed to determine follow up plan, if needed HCM: ==Colonoscopy July 2023 FOLLOW UP: RTC Below & sooner PRN UPCOMING APPOINTMENTS: 01/08/2024 10:30 CWM/NO/PODIATRY A 02/26/2024 11:00 [facility] minutes spent in patient evaluation, data review, and patient education. All medications were reconciled during this visit. No barriers; Patient understands and agrees to current treatment plan. If pt has any questions, concerns, or changes in current health status he[facility]she will call [facility] /lexa BLANCHARD MD PHYSICIAN Signed: 11/20/2023 08:36 11/20/2023 ADDENDUM STATUS: COMPLETED Please order Urology Consult for PSA 159. /lexa BLANCHARD MD PHYSICIAN Signed: 11/20/2023 08:37 Receipt Acknowledged By: 11/20/2023 08:47 /rashid/ SARAH WALKER, RN REGISTERED NURSE 12/06/2023 ADDENDUM STATUS: COMPLETED Please notify the Xray wristshows some mild degenerative changes but nothing to acount for the bump which is likley a ganglion cyst. Nothing is usually done for these unless cause pain. Mild degenerative changes are present to the [...] Impression: No acute abnormality, as described above. /lexa BLANCHARD MD PHYSICIAN Signed: 12/06/2023 13:06 Receipt Acknowledged By: * AWAITING SIGNATURE * SARAH WALKER 12/09/2023 08:55 /rashid/ ANAMARIA MARTIN LPN LICENSED PRACTICAL NURSE 12/06/2023 ADDENDUM STATUS: COMPLETED Also please notify that liver Ultrasound was stable, no changes from previous /lexa BLANCHARD MD PHYSICIAN Signed: 12/06/2023 13:08 Receipt Acknowledged By: * AWAITING SIGNATURE * SARAH WALKER 12/06/2023 ADDENDUM STATUS: COMPLETED Attempted to reach [place], no answer. Generic message left requesting [place] call back clinic as does not have a personalized voicemail greeting. /es/ SARAH WALKER, RN REGISTERED NURSE Signed: 12/06/2023 14:14 12/09/2023 ADDENDUM STATUS: COMPLETED Spoke with made aware of Xray of wrist, all questions answered /es/ ANAMARIA MARTIN LPN LICENSED PRACTICAL NURSE Signed: 12/09/2023 08:56 LUCITA BLANCHARD ([facility])
--- OUTSIDE RECORDS SUMMARY | 2024-08-12 08:46 | XMS_ITS | Encounter Summary ---
Author Name [facility] [place] Organization [place] Address [address] [place] [address] Care Team Providers Care Layout Artist Name Role Phone LUCITA BLANCHARD Primary Care [...] Relationship to [employer] [place] AN[place] [facility] Page [facility] CE ORGANIZAT ION HAMPS HIRE COUNT Y INS Dec 22, 2020 [id number] ARCHIE , SPOUSE BCBS MD [employer] CE ORGANIZAT ION HAMPS HIRE COUNT Y INS Dec 22, 2020 [id number] BEULAH ALMANZA SPOUSE BCBS OF [facility] [employer] [facility]GAN[facility] HAM[facility] HIRE COUNT Y INS Dec 22, 2020 [id number] ALEJANDRA ALMANZA SPOUSE [place] PRESCRIPT ION HAMPS HIRE COUNT Y INS Dec 22, 2020 RX21AT [id number] BEULAH ALMANZA SPOUSE [place] PRESCRIPT ION HAMPS HIRE COUNT Y INS Dec 22, 2020 RX21AT [id number] BEULAH ALMANZA SPOUSE [place] PRESCRIPT ION HAMPS HIRE COUNT Y INS Dec 22, 2020 RX21AT [id number] [phone] JOSETTE ALMANZA PATIENT [employer] PRESCRIPT ION HAMPS HIRE COUNT Y INS Dec 22, 2020 RX21AT [id number] [phone] BEULAH ALMANZA SPOUSE [employer] ([id number]) PRESCRIPT ION L4TA* Sep 22, 2013 L4TA [id number] [phone] BEULAH ALMANZA SPOUSE [employer] ([id number]) PRESCRIPT ION L4TA* Sep 22, 2013 L4TA [id number] BEULAH ALMANZA SPOUSE MEDICARE (WNR) MEDICARE (M) PART A Feb 23, 2016 PART A [id number] VE JOSETTE ALMANZA PATIENT MEDICARE (WNR) MEDICARE (M) PART A Feb 23, 2016 PART A [id number] VE JOSETTE ALMANZA PATIENT Selected Encounter This section includes the information on record at [place] for the Encounter. Date/Time Encounter Type Encounter Description Reason Provider Source Jan 08, 2024 10:30 AM OFFICE O/P EST LOW 20 MIN PODIATRY ICD-10-CM L85.3 Xerosis SARAH Loya [facility] Encounter Template Text not used by [place] Assessments - Encounter Diagnoses This section includes the primary and secondary diagnoses documented for the Encounter. Date/Time Primary/Secondary Diagnosis Diagnosis Name Provider Source Feb 11, 2024 01:13 PM PRIMARY Xerosis cutis SARAH SANTOS [facility] [place] [facility] Feb 11, 2024 01:13 PM SECONDARY Tinea unguium [facility] [place] [facility] Plan of Treatment: Future Appointments [...] Date/Time Appointment Type Appointme nt Facility Name Jan 16, 2024 03:00 PM [place] [facility] [place] [facility] Feb 03, 2024 12:30 PM [place] [facility] [place] [facility] Feb 11, 2024 01:00 PM [facility]BULATORY - MEDICINE [facility] Feb 19, 2024 12:00 PM [place] [facility] [place] [facility] Feb 26, 2024 10:00 AM [place] [facility] [place] [facility] Apr 29, 2024 01:30 PM AMBULATORY - MEDICINE [facility] Jun 02, 2024 10:45 AM [place] [facility] [place] [facility] Jun 05, 2024 01:30 PM [place] [facility] [place] [facility] Jul 09, 2024 10:30 AM [place] [facility] [place] [facility] Lab Results: +/- 30 days of the encounter This section includes the Chemistry and Hematology Lab Results on record with [place] for the patient. Radiology Reports and Pathology Reports are provided separately, in subsequent sections. Lab Results This section contains the Chemistry/Hematology Results that were resulted 30 days before or 30 daysafter the date of the Encounter. Date/Time Source Result Type Result - Unit Interpretation Reference Range Comment Feb 03, 2024 01:49 PM [facility] MICROALBUMIN CREATININE RATIO PANEL Specimen Type: URINE No comment entered. Ordering Provider: NEHEMIAS BLANCHARD Report Released Date/Time: Jan 27, 2024 11:47 AM Reporting Lab: [facility] [address] [address] Performing Lab: [facility] [address] [address] MICROALBUMIN/C REATININE RATIO 89.4 mg/g H 0-29.9 MICROALBUMIN,Q UANTITATIVE 9.0 mg/dL RR UNAVAIL CREATININE URINE 100.67 mg/dL Feb 03, 2024 01:49 PM [facility] ([facility]) URINALYSIS Specimen Type: URINE Comment: If Glucose = >500 and Ketones are positive, please alert the Physician. Ordering Provider: NEHEMIAS BLANCHARD Report Released Date/Time: Jan 27, 2024 11:47 AM Reporting Lab: [address] [address] Performing Lab: [address] [address] UA COLOR Light-Yellow Yellow UA APPEARANCE Clear Clear UA GLUCOSE Normal mg/dL Negative UA KETONES TRACE mg/dL Negative UA BLOOD NEGATIVE mg/dL Negative UA PROTEIN 20 mg/dL Negative UA NITRITE NEGATIVE mg/dL Negative UA BILIRUBIN NEGATIVE mg/dL Negative UA SPECIFIC GRAVITY 1.026 H 1.016-1.022 UA pH 5.5 5.0-9.0 UA UROBILINOGEN Normal mg/dL <2.0 UA LEUKOCYTE NEGATIVE Negative Feb 03, 2024 01:41 PM [employer] ([facility] VITAMIN B12 Specimen Type: SERUM No comment entered. Ordering Provider: NEHEMIAS BLANCHARD Report Released Date/Time: Jan 27, 2024 11:47 AM Reporting Lab: [address] [address] Performing Lab: [address] [address] VITAMIN B12 869 pg/mL 200-900 Feb 03, 2024 01:41 PM [employer] ([facility] VITAMIN D (25-OH) Specimen Type: SERUM No comment entered. Ordering Provider: NEHEMIAS BLANCHARD Report Released Date/Time: Jan 27, 2024 11:47 AM Reporting Lab: [address] [address] Performing Lab: [address] [address] VITAMIN D (25-OH) 25 ng/mL 20-50 Feb [...] Jan 27, 2024 11:47 AM Reporting Lab: [facility] [address] [address] Performing Lab: [facility] [address] [address] HEMOGLOBIN A1C 6.1 H 4.0-5.6 Feb 03, 2024 01:41 PM [facility] TSH Specimen Type: SERUM No comment entered. Ordering Provider: NEHEMIAS BLANCHARD Report Released Date/Time: Jan 27, 2024 11:47 AM Reporting Lab: [facility] [address] [address] Performing Lab: [facility] [address] [address] TSH 1.45 u[IU]/mL 0.35-5.00 Feb 03, 2024 01:41 PM [facility] PSA Specimen Type: SERUM No comment entered. Ordering Provider: NEHEMIAS BLANCHARD Report Released Date/Time: Jan 27, 2024 11:47 AM Reporting Lab: [address] [address] Performing Lab: [facility] [address] [address] PSA 221.85 ng/mL H 0.00-4.00 Feb 03, 2024 01:41 PM [facility]) CBC AND DIFF (AUTO) Specimen Type: BLOOD No comment entered. Ordering Provider: NEHEMIAS BLANCHARD Report Released Date/Time: Jan 27, 2024 11:47 AM Reporting Lab: [address] [address] Performing Lab: [facility] [address] [address] WBC 8.15 10*3/uL 4.50-11.00 RBC 4.59 10*6/uL [...] 10*3/uL 0.00-0.00 Feb 03, 2024 01:41 PM [employer] ([facility]) BASIC METABOLIC PANEL (non-fasting) Specimen Type: SERUM No comment entered. Ordering Provider: NEHEMIAS BLANCHARD Report Released Date/Time: Jan 27, 2024 11:47 AM Reporting Lab: [facility] [address] [address] Performing Lab: [facility] [address] [address] UREA NITROGEN 21 mg/dL 7-25 GLUCOSE 166 mg/dL H 65-100 SODIUM 139 mmol/L 135-145 POTASSIUM 4.3 mmol/L 3.5-5.0 CHLORIDE 103 mmol/L 100-110 CO2 25 meq/L 20-30 CREATININE, Serum 0.77 mg/dL 0.50-1.40 eGFR(CKD-EPI 2020) >90 mL/min >60 Feb 03, 2024 01:41 PM [employer] ([facility]) LIPID PANEL, NON FASTING Specimen Type: SERUM No comment entered. Ordering Provider: NEHEMIAS BLANCHARD Report Released Date/Time: Jan 27, 2024 11:47 AM Reporting Lab: [address] [address] Performing Lab: [address] [address] CHOLESTEROL 126 mg/dL TRIGLYCERIDE 71 mg/dL 0-150 LDL calculated 54 mg/dL 0-129 CHOL/HDL 2.2 HDL CHOLESTEROL 58 mg/dL 40-60 Feb 03, 2024 01:41 PM [employer] ([facility] LIVER FUNCTION Specimen Type: SERUM No comment entered. Ordering Provider: NEHEMIAS BLANCHARD Report Released Date/Time: Jan 27, 2024 11:47 AM Reporting Lab: [facility] [address] [address] Performing Lab: [address] [address] PROTEIN,TOTAL 7.0 g/dL 6.0-8.3 ALBUMIN 4.1 g/dL 3.5-5.0 ALKALINE PHOSPHATASE 170 U/L H 40-150 AST 15 U/L 5-34 ALT 9 U/L BILIRUBIN, TOTAL 0.7 mg/dL 0.2-1.2 Encounter Notes: All associated encounter notes This section contains the clinical notes associated to the Encounter. Date/Time Encounter Note(s) Provider Source Jan 08, 2024 10:26 AM PODIATRY NOTE: LOCAL TITLE: PODIATRY NOTE STANDARD TITLE: PODIATRY NOTE DATE OF NOTE: JAN 08, 2024@10:26 ENTRY DATE: JAN 08, 2024@10:26:30 AUTHOR: SARAH SANTOS COSIGNER: URGENCY: STATUS: COMPLETED Podiatry High Risk Foot Encounter [facility] provider: Sarah Santos DP Date: JAN 08, 2024 JOSETTE ALMANZA MALE [id number] Feb 73 [employer] FROM May TO May Primary Care:LUCITA BLANCHARD Subjective:I have prostate ca, diagnosied (without biopsy) 6 weeks ago undergoing scanning at this time. PSA was > 100 f/b outside provider at this time. c/o back pain. Diabetic/ HRF/ PVD LE History:unremakable PMH list CPRS: Active problems - Computerized Problem List is the source for the followin. 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 Vitamin D Deficiency ([facility] [id number]) 4. Vitamin B12 Deficiency ([facility] [id number]) 5. Aortic valve stenosis 6. Kidney lesion 7. Pancreatic cyst 8. Lumbar radiculopathy 9. Fatty liver 10. Diabetes mellitus type 2 11. Hyperlipidemia 12. Parkinsons disease 13. Benign hypertension Active Out Patient medications: Active Outpatient Medications (including Supplies): Active Outpatient [...] (S) MOUTH AT BEDTIME FOR PARKINSON'S DISEASE 5) [...] ACTIVE BY MOUTH THREE TIMES A DAY 11) [...] TOPICALLY TWICE DAILY NEEDED 16 Total Medications Imaging reports: Lab Data: CREATININE-EGFR 11/19/23 13:41 0.73 10/04/23 09:55 0.78 03/05/23 07:25 0.81 No Data Available for EGFR 1 yr HEMOGLOBIN A1C TREND Collection DT Spec HGBA1c 10/04/2023 09:55 BLOOD 6.5 H 03/05/2023 07:25 BLOOD 6.7 H 09/03/2022 10:49 BLOOD 6.9 H 03/02/2022 07:52 BLOOD 6.6 H 08/29/2021 07:48 BLOOD 6.6 H ALBUMIN Collection DT Specimen Test Name Result Units Ref Range 11/19/2023 13:41 SERUM ALBUMIN 3.9 g/dL 3.5 - 5.0 BMI:BMI: 26.1 PE:General: Well-appearing, but thin. awake alert oriented x3, independently ambulatory wearing sandals, gait tandem propulsive. NAD -Palpable DP and PT pulses 1+ bilaterally -No edema, venous stasis or lymphatic disease bilaterally -No pedal ankle or leg hair present bilaterally -Cap refill to all toes brisk and immediate 1 through 5 bilaterally -Sensate to [place] monofilament 10 out of 10 -Muscle bulk and tone normal 5/5 strength all motor groups crossing knee and ankle bilateral -No structural abnormalities identified ankle subtalar midtarsal and metatarsophalangeal joints all smooth with full ROM no crepitus bilateral -Integument: Dry punctate keratotic skin bilaterally -No calluses or high pressure lesions identified bilaterally -Nails are dystrophic with thickening and hard plate but bilateral hallux with discoloration delamination and elevation subungual debris with approximately 50% involvement bilaterally. PAVE:0 Impression: -Unremarkable diabetic foot exam except for xerosis cutis and tinea of toenails. Plan: -Debrided nails left and right 1 through 5 with sterile instrumentation and without incident bilaterally-procedure approximately 20 minutes required -Ammonium lactate 240 ml -apply to skin daily for daily diabetic foot care. Do not apply between toes. 12%. -Clotrimazole solution 1% 30 mL with 2 refills for application to bilateral hallux nails daily apply one drop to each affected toenail once daily. Apply when nail is dry . -Follow-up nursing nail clinic 6 months April 2020 for -Patient had diabetes foot care education at this encounter. The patient was educated on the following: DO - Wear panty hose or socks. - Wear comfortable shoes that fit well. - Wear shoes or slippers at all times. - Keep skin soft. Put lotion on top and bottom of feet. - Use only luke warm water when washing your feet. - Look at feet daily for open sores, cuts or color changes. Using a hand held mirror is helpful when looking at the bottom of your feet. - Keep feet dry, especially between the toes. Use powder if needed. - Have feet checked by your doctor or foot doctor regularly. - If you have an open sore, drainage, color changes, increased warmth or pain, notify your doctor promptly. - Cut toenails straight across. *Check with your doctor if you have nerve disease DO NOT - Go barefoot. - Let feet get dry and cracked. - Use hot water when washing your feet. - Wear torn or tight shoes. - Wear tight socks or knee-highs. - Use heating pads, hot water bottles or iodine; they may cause harm. - Use corn medicine or razors. Level of Understanding: Good Apply to skin of feet ankles and lower legs daily Return sooner if any clinical signs of infection such as redness, swelling drainage fever chills nausea , or go to nearest hospital emergency / urgent care for evaluation. -As part of the service the pertinent primary care, specialty care and urgent care notes have been reviewed as well as the patient's medication list, problem list, and current imaging as well as past imaging, laboratory data and other pertinent contributory consults. -All new and discontinued medications have been discussed in detail with the patient and or caregiver, including indications for additions and deletions, as well as possible side effects, interactions as foreseen, and risk of not taking as prescribed If applicable, the patient was advised clearly on application of wound care agents how to apply and when to apply. The patient was able to recitethis information back to the prescriber with good understanding and agreed to the plan of care as indicated above. -Plan of care discuss with the patient and or caregiver, including medical decision making which includes discussion of abnormal lab results, imaging and other diagnostic modalities as well as results of the physical exam and otm consultant opinions and recommendations as sought. Alternatives to surgery or outlined care above as appropriate have also been discussed. -The patient/ caregiver has displayed good understanding of above and with no further questions at this time. Patient is aware of next appointment and agrees to follow-up interval. Patient agrees to seek sooner follow up if any irregular events occur in between such as cardinal signs of infection, increased pain or deformity. -The on this visit was given information [employer] service and encouraged to enroll if not already having done so. /rashid/ SARAH SANTOS DPM PODIATRY ATTENDING Signed: 01/08/2024 15:43 SARAH SANTOS [facility]
--- OUTSIDE RECORDS SUMMARY | 2024-08-12 08:46 | XMS_ITS ---
Author Name [facility] [place] Address [address] [place] [address] Care Team Providers Care Medical Imaging Technician Name Role Phone LUCITA BLANCHARD Primary Care [...] Relationship to Policy [place]) [facility] CE ORGANIZAT ION HAMPS HIRE COUNT Y INS Dec 22, 2020 [id number] ARCHIE , SPOUSE [place] [employer] [place] CE ORGANIZAT ION HAMPS HIRE COUNT Y INS Dec 22, 2020 [id number] BEULAH ALMANZA SPOUSE BCBS OF [facility] [employer] [place] CE ORGANIZAT ION HAMPS HIRE COUNT Y INS Dec 22, 2020 [id number] ALEJANDRA ALMANZA SPOUSE [place] PRESCRIPT ION HAMPS HIRE COUNT Y INS Dec 22, 2020 [id number] [id number] BEULAH ALMANZA SPOUSE [place] PRESCRIPT ION HAMPS HIRE COUNT Y INS Dec 22, 2020 RX21AT [id number] BEULAH ALMANZA SPOUSE [place] PRESCRIPT ION HAMPS HIRE COUNT Y INS Dec 22, 2020 RX21AT [id number] [phone] JOSETTE ALMANZA PATIENT [place] PRESCRIPT ION HAMPS HIRE COUNT Y INS Dec 22, 2020 RX21AT [id number] [phone] BEULAH ALMANZA SPOUSE [employer] ([id number]) PRESCRIPT ION L4TA* Sep 22, 2013 L4TA [id number] BEULAH ALMANZA SPOUSE [employer] ([id number]) PRESCRIPT ION L4TA* Sep 22, 2013 L4TA [id number] BEULAH ALMANZA SPOUSE MEDICARE (WNR) MEDICARE (M) PART A Feb 23, 2016 PART A [id number] [phone] [id number] JOSETTE ALMANZA PATIENT MEDICARE (WNR) MEDICARE (M) PART A Feb 23, 2016 PART A [id number] JOSETTE ALMANZA PATIENT Selected Encounter This section includes the information on record at [place] for the Encounter. Date/Time Encounter Type Encounter Description Reason Provider Source Dec 06, 2023 11:00 AM [facility] ICD-10-CM K76.0 Fatty (change of) liver, not elsewhere classified KEN ANDRADE [facility] Encounter Template Text not used by [place] Assessments - Encounter Diagnoses This section includes the primary and secondary diagnoses documented for the Encounter. Date/Time Primary/Secondary Diagnosis Diagnosis Name Provider Source Jan 07, 2024 06:54 AM PRIMARY Fatty (change of) liver, not elsewhere classified KEN ANDRADE [place] [facility] [place] [facility] Plan of Treatment: Future Appointments (+ 6 months) and Future Tests (+/- 45 days) The Plan of Treatment section includes future care activities for the patient from all [place] treatmentfacilities. This section includes future appointments and future orders which are active, pending or scheduled. Future Appointments This section includes appointments that were scheduled to occur 6 months from the date of the Encounter, up to a maximum of 20 appointments. The data comes from all [place] treatment facilities. Appointment Date/Time Appointment Type Appointme nt Facility Name Jan 08, 2024 10:30 AM [place]ULATORY [place] [facility] [place] [facility] Jan 16, 2024 03:00 PM [place] [place] [facility] [place] [facility] Feb 03, 2024 12:30 PM [place] [place] [facility] [place] [facility] Feb 11, 2024 01:00 PM AMBULATORY - MEDICINE [facility] Feb 19, 2024 12:00 PM [place] [place] [facility] [place] [facility] Feb 26, 2024 10:00 AM [facility] [place] [facility] [place] [facility] Apr 29, 2024 01:30 PM AMBULATORY - MEDICINE [facility] Jun 02, 2024 10:45 AM [facility] [place] [facility] [place] [facility] Jun 05, 2024 01:30 PM AM[place]ULATORY [place]ICINE [place] [facility] [place] [facility] Lab Results: +/- 30 days [...] November 19, 2023 01:37 PM [facility] [address] [address] Performing Lab: [facility] [address] [address] INR 1.1 PROTIME 12.0 s 10.0-13.1 November 19, 2023 01:41 PM [place] ([facility]) CERULOPLASMIN Specimen Type: SERUM No comment entered. Ordering Provider: KEITH BLANCHARD Report Released Date/Time: November 19, 2023 01:37 PM Reporting Lab: [facility] [address] [address] Performing Lab: [facility] [address] [facility] [address] CERULOPLASMIN 18 mg/dL L 20-60 November 19, 2023 01:41 PM [place] [facility]) HEPATITIS B SURFACE ANTIBODY (HBsAb)- Specimen Type: SERUM No comment entered. Ordering Provider: KEITH BLANCHARD Report Released Date/Time: November 19, 2023 01:37 PM Reporting Lab: [address] [address] Performing Lab: [facility] November 19, 2023 01:41 PM [place] [facility]) VIDAL SCREEN/TITER Specimen Type: SERUM No comment entered. Ordering Provider: KEITH BLANCHARD Report Released Date/Time: November 19, 2023 01:37 PM Reporting Lab: [address] [address] Performing Lab: [facility] [address] [facility] [address] VIDAL SCREEN NEG November 19, 2023 01:41 PM [place] [facility]) ALPHA 1 ANTITRYPSIN Specimen Type: SERUM No comment entered. Ordering Provider: KEITH BLANCHARD Report Released Date/Time: November 19, 2023 01:37 PM Reporting Lab: [address] [address] Performing Lab: [facility] [address] [address] ALPHA 1 ANTITRYPSIN 125 mg/dL 90-200 November [...] November 19, 2023 01:37 PM Reporting Lab: [facility] [address] [address] Performing [facility] [address] HBsAg Non Reactive Non Reactive November 19, 2023 01:41 PM [place] [facility] HEPATITIS A ANTIBODY (IGG) Specimen Type: SERUM Comment: Hep A IgG: A 'Reactive' result indicates previous exposure to Hepatitis A virus through infection or vaccination. Ordering Provider: KEITH BLANCHARD Report Released Date/Time: November 19, 2023 01:37 PM Reporting Lab: [facility] [address] [address] Performing Lab: [address] [address] HEPATITIS A ANTIBODY (IGG) REACTIVE Non Reactive November 19, 2023 01:41 PM [place] [facility]) PSA Specimen Type: SERUM No comment entered. Ordering Provider: KEITH BLANCHARD Report Released Date/Time: November 19, 2023 01:30 PM Reporting Lab: [facility] [address] [address] Performing Lab: [facility] [address] PSA 159.64 ng/mL H 0.00-4.00 November 19, 2023 01:41 PM [place] [facility]) HEPATITIS C ANTIBODY (HCV)-ARC Specimen Type: SERUM Comment: Hep C Ab: No HCV antibody detected. If recent infection is suspected or other evidence suggests HCV infection, consider HCV nucleic acid testing Ordering Provider: KEITH BLANCHARD Report Released Date/Time: November 19, 2023 01:37 PM Reporting Lab: [facility] [address] [address] Performing Lab: [address] [address] HEPATITIS C ANTIBODY NON-REACTIVE NON-REACTIV E November 19, 2023 01:41 PM [place] [facility]) FERRITIN Specimen Type: SERUM No comment entered. Ordering Provider: KEITH BLANCHARD Report Released Date/Time: November 19, 2023 01:37 PM Reporting Lab: [facility] [address] [address] Performing Lab: [facility] [address] [address] FERRITIN 221 ng/mL 20-300 November 19, 2023 01:41 PM [place] ([facility]) IRON & TIBC PANEL Specimen Type: SERUM No comment entered. Ordering Provider: KEITH BLANCHARD Report Released Date/Time: November 19, 2023 01:37 PM Reporting Lab: [facility] [address] [address] Performing Lab: [address] [address] TIBC 300 ug/dL 204-475 IRON 101 ug/dL 40-160 Transferrin Saturation 33.7 20.0-50.0 November 19, 2023 01:41 PM [place] ([facility]) LIVER FUNCTION Specimen Type: SERUM No comment entered. Ordering Provider: KEITH BLANCHARD Report Released Date/Time: November 19, 2023 01:37 PM Reporting Lab: [facility] [address] [address] Performing Lab: [address] [address] PROTEIN,TOTAL 6.6 g/dL 6.0-8.3 ALBUMIN 3.9 g/dL 3.5-5.0 ALKALINE PHOSPHATASE 125 U/L 40-150 AST 13 U/L 5-34 ALT <6 U/L BILIRUBIN, TOTAL 0.8 mg/dL 0.2-1.2 November 19, 2023 01:41 PM [place] [facility]) ALBUMIN Specimen Type: SERUM No comment entered. Ordering Provider: KEITH BLANCHARD Report Released Date/Time: November 19, 2023 01:37 PM Reporting Lab: [facility] [address] [address] Performing Lab: [address] [address] ALBUMIN 3.9 g/dL 3.5-5.0 November 19, 2023 01:41 PM [place] ([facility]) BASIC METABOLIC PANEL (non-fasting) Specimen Type: SERUM No comment entered. Ordering Provider: KEITH BLANCHARD Report Released Date/Time: November 19, 2023 01:37 PM Reporting Lab: [address] [address] Performing Lab: [address] [address] UREA NITROGEN 14 mg/dL 7-25 GLUCOSE 149 mg/dL H 65-100 SODIUM 139 mmol/L 135-145 POTASSIUM 4.1 mmol/L 3.5-5.0 CHLORIDE 108 mmol/L 100-110 CO2 23 meq/L 20-30 CREATININE, Serum 0.73 mg/dL 0.50-1.40 eGFR(CKD-EPI 2020) >90 mL/min >60 November 19, 2023 01:41 PM [place] ([facility]) CBC AND DIFF (AUTO) Specimen Type: BLOOD No comment entered. Ordering Provider: KEITH BLANCHARD Report Released Date/Time: November 19, 2023 01:37 PM Reporting Lab: [address] [address] Performing Lab: [address] [address] WBC 6.28 10*3/uL 4.50-11.00 RBC 4.40 10*6/uL 4.23-5.66 HGB 13.9 g/dL 12.8-17 HCT 42.0 39.2-50.4 MCV 95.5 fL 82-99 MCHC 33.1 g/dL 30.8-35.1 PLT 192 10*3/uL 140-360 RDW-CV 13.3 12.0-16.0 [place], Abs 0.52 10*3/uL 0.30-1.10 MCH 31.6 pg 26.2-32.6 Neut % 72.2 43.7-75.8 Lymph % 17.7 14.0-42.3 [place] % 8.3 5.1-13.7 Eos % 1.0 0.4-6.8 [...] 09:38 AM ULTRASOUND ABDOMEN LIMITED: JOSETTE ALMANZA [id number] -[id number] M Exm Date: DEC 06, 2023@09:38 Req Phys: LUCITA BLANCHARD Pat Loc: CWM/GO/PACT 1 WH (Req'g Loc) Img Loc: ULTRASOUND Service: Unknown [facility] , (Case [id number] COMPLETE) ULTRASOUND ABDOMEN LIMITED (US Detailed) CPT:27997 Reason for Study: Liver fibrosis Clinical History: Some ultrasound tests require a prep. Report Status: Verified Date Reported: DEC 06, 2023 Date Verified: DEC 06, 2023 Media Director E-Sig:/ES/MIHIR BOOTH JR Report: Study: Abdomen ultrasound. 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 Date/Time Encounter Note(s) Provider Source Dec 10, 2023 12:55 PM ADDENDUM: LOCAL TITLE: Addendum STANDARD TITLE: ADDENDUM DATE OF NOTE: DEC 10, 2023@12:55:30 ENTRY DATE: DEC 10, 2023@12:55:32 AUTHOR: LAURA TAMEZ EXP COSIGNER: URGENCY: STATUS: COMPLETED Agree with above interpretation by IRVING Mustafa. The patient has no evidence of chronic liver disease and the Fibroscan (transient elastography) rules out any liver fibrosis. CAP value excludes significant liver steatosis. The only time he had mild elevation in alkaline phosphatase was in 2020 (likely EtOH as MCV was high) and at that time ultrasound elastography was indeterminate (not reliable to rule out or rule in cirrhosis). He could have had some injury from alcohol back then which has now resolved. Otherwise, he has coursed with entirely normal aminotransferases, normal liver synthetic function and ultrasounds without nodularity or splenomegaly. He has no liver disease. I would not repeat Fibroscan or ultrasound unless patient develops persistent abnormalities in aminotransferases (normal is <30). 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 none within last 3 days, 2 within last 30 If within one month,how many drinks on that day? (Alcoholic beverage equivalent: 1 drink = 1.5 oz liquor = 4 oz wine = 12 oz beer) Indication(s) for FibroScan: Other or unknown Comment: Fatty Liver (k76.0) After providing oral explanation of the FibroScan VCTE test procedure to the patient, patient was placed in supine position with right arm in maximum abduction to allow optimal exposure of right lateral abdomen. Patient was briefly assessed, identifying the terminus of the xyphoid process, and locating an ideal transient elastography testing site, mid-line and lateral to this point. Patient was allowed to rest for approximately 5 minutes prior to beginning the test. Patient was instructed to breathe normally and remain stationary during the test process. Pre-measurement data confirmed the transient elastography probe was centered over the liver parenchyma. A series of ten 50Hz mechanical pulses were applied with controlled application pressure to induce mechanical shear wave in the liver tissue. For each measurement, the shear wave propagation speed was detected, displayed, and converted to its equivalent liver stiffness value in kilopascals. Skin to liver capsule distance and shear wave characteristics were monitored during the entire exam to assure data quality. Median liver stiffness measurement and interquartile range were calculated and displayed in real time. Acquired measurement data was submitted to the provider/physician for review and interpretation. Patient tolerated the procedure well and was discharged without incident. Results: Number of Valid Measurements: 10 Liver Stiffness: FibroScan Value (median, kPa): 6.7 FibroScan IQR/Median %: 6% Liver Steatosis: Controlled Attenuation Parameter CAP Score: 162 CAP Level %: SD 12 Reference Range FibroScan Reference Range F0-F1 (kPa) F2 (kPa) F3 (kPa) F4 (kPa) <8.0 8.0-10.9 11.0-14.9 >15.0 FibroScan study requires interpretation by an experienced provider in conjunction with other pertinent data (e.g., physical examination, lab results, imaging, alcohol use etc.) to assess the likelihood of advanced hepatic fibrosis. FibroScan is best used to rule out advanced fibrosis. While kPa <8 indicates a low likelihood of advanced fibrosis, a higher kPa is less predictive of a specific fibrosis stage (i.e., F2 vs. F3 vs. F4). /rashid/ KEN ANDRADE LPN LICENSED PRACTICAL NURSE Signed: 12/06/2023 11:02 12/10/2023 ADDENDUM STATUS: COMPLETED This liver stiffness measurement is normal and should rule out any liver fibrosis, thereby ruling out cirrhosis. Shear wave images are acceptable and variability is low, making this measurement acceptable. Clinically, AST is consistently greater than ALT, though AST and ALT < 30, liver synthetic function and platelet count are normal. Imaging shows no liver nodularity or splenomegaly. Platelet count > 150. Though LSM by ARFI in 2020 shows moderate fibrosis, given the high negative predictive value of LSM by TE, will conclude patient does not have any significant liver fibrosis. Would repeat LSM in 4-5 years if patient continues to have abnormal ALT (normal is <30) and/or if he is unable to optimize his metabolic health. Above interpretation to be finalized by Dr Tamez. /rashid/ Kayla Mustafa Nurse Practitioner, Hepatology/GI Signed: 12/10/2023 12:06 Receipt Acknowledged By: 12/10/2023 12:55 /lexa TAMEZ MD ATTENDING 12/10/2023 ADDENDUM STATUS: COMPLETED Called patient with results of interpretation Left VM with call back info. /lexa Mustafa Nurse Practitioner, Hepatology/GI Signed: 12/10/2023 14:27 JAMIL TAMEZ [facility] [place] [facility] Dec 10, 2023 11:52 AM ADDENDUM: LOCAL TITLE: Addendum STANDARD TITLE: ADDENDUM DATE OF NOTE: DEC 10, 2023@11:52:19 ENTRY DATE: DEC 10, 2023@11:52:19 AUTHOR: KAYLA MUSTAFA EXP COSIGNER: URGENCY: STATUS: COMPLETED This liver stiffness measurement is normal and should rule out any liver fibrosis, thereby ruling out cirrhosis. Shear wave images are acceptable and variability is low, making this measurement acceptable. Clinically, AST is consistently greater than ALT, though AST and ALT < 30, liver synthetic function and platelet count are normal. Imaging shows no liver nodularity or splenomegaly. Platelet count > 150. Though LSM by ARFI in 2020 shows moderate fibrosis, given the high negative predictive value of LSM by TE, will conclude patient does not have any significant liver fibrosis. Would repeat LSM in 4-5 years if patient continues to have abnormal ALT (normal is <30) and/or if he is unable to optimize his metabolic health. Above interpretation to be finalized by Dr Tamez. 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 none within last 3 days, 2 within last 30 If within one month,how many drinks on that day? (Alcoholic beverage equivalent: 1 drink = 1.5 oz liquor = 4 oz wine = 12 oz beer) Indication(s) for FibroScan: Other or unknown Comment: Fatty Liver (k76.0) After providing oral explanation of the FibroScan VCTE test procedure to the patient, patient was placed in supine position with right arm in maximum abduction to allow optimal exposure of right lateral abdomen. Patient was briefly assessed, identifying the terminus of the xyphoid process, and locating an ideal transient elastography testing site, mid-line and lateral to this point. Patient was allowed to rest for approximately 5 minutes prior to beginning the test. Patient was instructed to breathe normally and remain stationary during the test process. Pre-measurement data confirmed the transient elastography probe was centered over the liver parenchyma. A series of ten 50Hz mechanical pulses were applied with controlled application pressure to induce mechanical shear wave in the liver tissue. For each measurement, the shear wave propagation speed was detected, displayed, and converted to its equivalent liver stiffness value in kilopascals. Skin to liver capsule distance and shear wave characteristics were monitored during the entire exam to assure data quality. Median liver stiffness measurement and interquartile range were calculated and displayed in real time. Acquired measurement data was submitted to the provider/physician for review and interpretation. Patient tolerated the procedure well and was discharged without incident. Results: Number of Valid Measurements: 10 Liver Stiffness: FibroScan Value (median, kPa): 6.7 FibroScan IQR/Median %: 6% Liver Steatosis: Controlled Attenuation Parameter CAP Score: 162 CAP Level %: SD 12 Reference Range FibroScan Reference Range F0-F1 (kPa) F2 (kPa) F3 (kPa) F4 (kPa) <8.0 8.0-10.9 11.0-14.9 >15.0 FibroScan study requires interpretation by an experienced provider in conjunction with other pertinent data (e.g., physical examination, lab results, imaging, alcohol use etc.) to assess the likelihood of advanced hepatic fibrosis. FibroScan is best used to rule out advanced fibrosis. While kPa <8 indicates a low likelihood of advanced fibrosis, a higher kPa is less predictive of a specific fibrosis stage (i.e., F2 vs. F3 vs. F4). /rashid/ KEN ANDRADE LPN LICENSED PRACTICAL NURSE Signed: 12/06/2023 11:02 12/10/2023 ADDENDUM STATUS: UNSIGNED You may not VIEW this UNSIGNED Addendum. 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 none within last 3 days, 2 within last 30 If within one month,how many drinks on that day? (Alcoholic beverage equivalent: 1 drink = 1.5 oz liquor = 4 oz wine = 12 oz beer) Indication(s) for FibroScan: Other or unknown Comment: Fatty Liver (k76.0) After providing oral explanation of the FibroScan VCTE test procedure to the patient, patient was placed in supine position with right arm in maximum abduction to allow optimal exposure of right lateral abdomen. Patient was briefly assessed, identifying the terminus of the xyphoid process, and locating an ideal transient elastography testing site, mid-line and lateral to this point. Patient was allowed to rest for approximately 5 minutes prior to beginning the test. Patient was instructed to breathe normally and remain stationary during the test process. Pre-measurement data confirmed the transient elastography probe was centered over the liver parenchyma. A series of ten 50Hz mechanical pulses were applied with controlled application pressure to induce mechanical shear wave in the liver tissue. For each measurement, the shear wave propagation speed was detected, displayed, and converted to its equivalent liver stiffness value in kilopascals. Skin to liver capsule distance and shear wave characteristics were monitored during the entire exam to assure data quality. Median liver stiffness measurement and interquartile range were calculated and displayed in real time. Acquired measurement data was submitted to the provider/physician for review and interpretation. Patient tolerated the procedure well and was discharged without incident. Results: Number of Valid Measurements: 10 Liver Stiffness: FibroScan Value (median, kPa): 6.7 FibroScan IQR/Median %: 6% Liver Steatosis: Controlled Attenuation Parameter CAP Score: 162 CAP Level %: SD 12 Reference Range FibroScan Reference Range F0-F1 (kPa) F2 (kPa) F3 (kPa) F4 (kPa) <8.0 8.0-10.9 11.0-14.9 >15.0 FibroScan study requires interpretation by an experienced provider in conjunction with other pertinent data (e.g., physical examination, lab results, imaging, alcohol use etc.) to assess the likelihood of advanced hepatic fibrosis. FibroScan is best used to rule out advanced fibrosis. While kPa <8 indicates a low likelihood of advanced fibrosis, a higher kPa is less predictive of a specific fibrosis stage (i.e., F2 vs. F3 vs. F4). /rashid/ KEN ANDRADE LPN LICENSED PRACTICAL NURSE Signed: 12/06/2023 11:02 12/10/2023 ADDENDUM STATUS: COMPLETED This liver stiffness measurement is normal and should rule out any liver fibrosis, thereby ruling out cirrhosis. Shear wave images are acceptable and variability is low, making this measurement acceptable. Clinically, AST is consistently greater than ALT, though AST and ALT < 30, liver synthetic function and platelet count are normal. Imaging shows no liver nodularity or splenomegaly. Platelet count > 150. Though LSM by [facility] in 2020 shows moderate fibrosis, given the high negative predictive value of LSM by TE, will conclude patient does not have any significant liver fibrosis. Would repeat LSM in 4-5 years if patient continues to have abnormal ALT (normal is <30) and/or if he is unable to optimize his metabolic health. Above interpretation to be finalized by Dr Tamez. /lexa Mustafa Nurse Practitioner, Hepatology/GI Signed: 12/10/2023 12:06 Receipt Acknowledged By: 12/10/2023 12:55 /lexa TAMEZ MD ATTENDING 12/10/2023 ADDENDUM STATUS: COMPLETED Agree with above interpretation by IRVING Mustafa. The patient has no evidence of chronic liver disease and the Fibroscan (transient elastography) rules out any liver fibrosis. CAP value excludes significant liver steatosis. The only time he had mild elevation in alkaline phosphatase was in 2020 (likely EtOH as MCV was high) and at that time ultrasound elastography was indeterminate (not reliable to rule out or rule in cirrhosis). He could have had some injury from alcohol back then which has now resolved. Otherwise, he has coursed with entirely normal aminotransferases, normal liver synthetic function and ultrasounds without nodularity or splenomegaly. He has no liver disease. I would not repeat Fibroscan or ultrasound unless patient develops persistent abnormalities in aminotransferases (normal is <30). /lexa TAMEZ MD ATTENDING Signed: 12/10/2023 13:03 Receipt Acknowledged By: 12/10/2023 14:27 /lexa Mustafa Nurse Practitioner, Hepatology/GI 12/10/2023 ADDENDUM STATUS: COMPLETED Called patient with results of interpretation Left VM with call back info. /lexa Mustafa Nurse Practitioner, Hepatology/GI Signed: 12/10/2023 14:27 KEN ANDRADE [facility] [place] [facility] Dec 06, 2023 10:48 AM HEPATOLOGY PROCEDURE NOTE: LOCAL TITLE: CP FIBROSCAN STANDARD TITLE: HEPATOLOGY PROCEDURE NOTE DATE OF NOTE: DEC 06, 2023@10:48 ENTRY DATE: DEC 06, 2023@10:48 AUTHOR: CLINICAL,DEVICE PRO EXP COSIGNER: URGENCY: STATUS: COMPLETED PROCEDURE SUMMARY CODE: Machine Resulted DATE/TIME PERFORMED: DEC 06, 2023@10:49:4 DOCUMENT IN VISTA IMAGING SEE FULL REPORT IN VISTA IMAGING SIGNATURE NOT REQUIRED SEE SIGNATURE IN VISTA IMAGING (FIBROSCAN ECHOSENS (Bi-Dir)) AUTO-INSTRUMENT DIAGNOSIS Procedure: FIBRO fibro Release Status: Released Off-Line Verified Date Verified: Dec 06, 2023@10:49:49 CAP: 162 dB/m kPa: 6.7 kPa IQR/MED: 6% Administrative Closure: 12/06/2023 by: Clinical,Device Proxy Service CLINICAL,DEVICE PROXY SERVICE [facility]
--- OUTSIDE RECORDS SUMMARY | 2024-08-12 08:47 | XMS_ITS | Encounter Summary ---
Author Name [facility] [place] [facility] [place] Address [address] [place] [address] Care Team Providers Care Ground Defence Officer Name Role Phone LUCITA BLANCHARD Primary Care [...] Relationship to [employer] [place] [employer] ([place] [facility] ORGANIZAT ION HAMPS HIRE COUNT Y INS Dec 22, 2020 [id number] [phone] ARCHIE , SPOUSE [place]BS [place] [employer] CE ORGANIZAT ION HAMPS HIRE COUNT Y INS Dec 22, 2020 [id number] BEULAH ALMANZA SPOUSE BCBS OF [facility] [employer] CE ORGANIZAT ION HAMPS HIRE COUNT Y INS Dec 22, 2020 [id number] ALEJANDRA ALMANZA SPOUSE [place] PRESCRIPT ION HAMPS HIRE COUNT Y INS Dec 22, 2020 [id number] BEULAH AMLANZA SPOUSE [place] PRESCRIPT ION HAMPS HIRE COUNT Y INS Dec 22, 2020 [id number] BEULAH ALMANZA SPOUSE [place] PRESCRIPT ION HAMPS HIRE COUNT Y INS Dec 22, 2020 [id number] JOSETTE ALMANZA PATIENT [employer] PRESCRIPT ION HAMPS HIRE COUNT Y INS Dec 22, 2020 [id number] [phone] BEULAH ALMANZA SPOUSE [employer] ([id number]) PRESCRIPT ION L4TA* Sep 22, 2013 L4TA [id number] [phone] BEULAH ALMANZA SPOUSE [employer] ([id number]) PRESCRIPT ION L4TA* Sep 22, 2013 L4TA [id number] [phone] BEULAH ALMANZA SPOUSE MEDICARE (WNR) MEDICARE (M) PART A Feb 23, 2016 PART A [id number] [phone] JOSETTE ALMANZA PATIENT MEDICARE (WNR) MEDICARE (M) PART A Feb 23, 2016 PART A [id number] JOSETTE ALMANZA PATIENT Selected Encounter This section includes the information on record at [place] for the Encounter. Date/Time Encounter Type Encounter Description Reason Provider Source Oct 07, 2023 03:00 PM OFFICE O/P EST MOD 30 MIN PRIMARY CARE/MEDICINE ICD-10-CM I10 Essential (primary) hypertension KEITH BLANCHARD Encounter Template Text not used by [facility] Assessments - Encounter Diagnoses This section includes the primary and secondary diagnoses documented for the Encounter. Date/Time Primary/Secondary Diagnosis Diagnosis Name Provider Source October 26, 2023 08:52 AM PRIMARY Essential (primary) hypertension KEITH BLANCHARD ([facility]) October 26, 2023 08:52 AM SECONDARY Congenital pancreatic cyst KEITH BLANCHARD ([facility]) October 26, 2023 08:52 AM SECONDARY Deficiency of other specified B group vitamins KEITH BLANCHARD ([facility]) October 26, 2023 08:52 AM SECONDARY Encounter for immunization VERONICA,KARLI A E [place] ([facility]) October 26, 2023 08:52 AM SECONDARY Fatty (change of) liver, not elsewhere classified KEITH BLANCHARD ([facility]) October 26, 2023 08:52 AM SECONDARY Hyperlipidemia, unspecified KEITH BLANCHARD ([facility]) October 26, 2023 08:52 AM SECONDARY Nonrheumatic aortic (valve) stenosis KEITH BLANCHARD ([facility]) October 26, 2023 08:52 AM SECONDARY Parkinson's dis w/o dyskinesia, w/o mention of fluctuations KEITH BLANCHARD ([facility]) October 26, 2023 08:52 AM SECONDARY Type 2 diabetes mellitus without complications KEITH BLANCHARD [place] ([facility]) October 26, 2023 08:52 AM SECONDARY Vitamin D deficiency, unspecified KEITH BLANCHARD ([facility]) Plan of Treatment: Future Appointments (+ 6 months) and Future Tests (+/- 45 days) The Plan of Treatment section includes future care activities for the patient from all [place] [facility]. This section includes future appointments and future orders which are active, pending or scheduled. Future Appointments This section includes appointments that were scheduled to occur 6 months from the date of the Encounter, up to a maximum of 20 appointments. The data comes from all [place] treatment facilities. Appointment Date/Time Appointment Type Appointme nt Facility Name Oct 21, 2023 01:00 PM AMBULATORY - NONE [facility] [place] [facility] October 31, 2023 09:00 AM AMBULATORY - MEDICINE [facility] ([facility]) November 06, 2023 10:30 AM AMBULATORY - MEDICINE [facility] [place] [facility] November 14, 2023 12:30 PM AMBULATORY - NONE [facility] [place] [facility] November 19, 2023 01:00 PM AMBULATORY - MEDICINE [facility] ([facility]) Nov 26, 2023 01:00 PM AMBULATORY - MEDICINE [facility] [place] [facility] Nov 26, 2023 01:00 PM AMBULATORY - NONE [facility] [place] [facility] Dec 03, 2023 09:00 AM AMBULATORY - MEDICINE [facility] [place] [facility] Dec 06, 2023 10:30 AM AMBULATORY - NONE [facility] [place] [facility] Dec 06, 2023 11:00 AM AMBULATORY - NONE [facility] [place] [facility] Jan 08, 2024 10:30 AM AMBULATORY [place]ICINE [place] [facility] [place] [facility] Jan 16, 2024 03:00 PM AMBULATORY [place]IC[place] [facility] [place] [facility] Feb 03, 2024 12:30 PM AMBULATORY [place]ICINE [place] [facility] [place] [facility] Feb 11, 2024 01:00 PM AMBULATORY - MEDICINE [facility] ([facility]) Feb 19, 2024 12:00 PM AMBULATORY - MEDICINE [place] [facility] [place] [facility] Feb 26, 2024 10:00 AM AMBULATORY - [place]ICINE [place] [facility] [place] [facility] Lab Results: +/- 30 days of the encounter This section includes the Chemistry and Hematology Lab Results on record with [place] for the patient. Radiology Reports and Pathology Reports are provided separately, in subsequent sections. Lab Results This section contains the Chemistry/Hematology Results that were resulted 30 days before or 30 daysafter the date of the Encounter. Date/Time Source Result Type Result - Unit Interpretation Reference Range Comment Oct 04, 2023 09:55 AM [place] ([facility]) MICROALBUMIN CREATININE RATIO PANEL Specimen Type: URINE No comment entered. Ordering Provider: NEHEMIAS BLANCHARD Report Released Date/Time: Oct 03, 2023 01:50 PM Reporting Lab: [place] [facility] [address] [address] Performing Lab: [place] [facility] [place] [address] [address] MICROALBUMIN/C REATININE RATIO 63.6 mg/g H 0-29.9 MICROALBUMIN,Q UANTITATIVE 5.8 mg/dL RR UNAVAIL CREATININE URINE 91.18 mg/dL Oct 04, 2023 09:55 AM [place] ([facility]) VITAMIN D (25-OH) Specimen Type: SERUM No comment entered. Ordering Provider: NEHEMIAS BLANCHARD Report Released Date/Time: Oct 03, 2023 01:50 PM Reporting Lab: [place] [facility] [address] Performing Lab: [address] [address] VITAMIN D (25-OH) 27 ng/mL 20-50 Oct 04, 2023 09:55 AM [place] ([facility]) VITAMIN B12 Specimen Type: SERUM No comment entered. Ordering Provider: NEHEMIAS BLANCHARD Report Released Date/Time: Oct 03, 2023 01:50 PM Reporting Lab: [address] [address] Performing Lab: [address] [address] VITAMIN B12 804 pg/mL 200-900 Oct 04, 2023 09:55 AM [place] ([facility]) URINALYSIS Specimen Type: URINE Comment: If Glucose = >500 and Ketones are positive, please alert the Physician. Ordering Provider: NEHEMIAS BLANCHARD Report Released Date/Time: Oct 03, 2023 01:50 PM Reporting Lab: [address] [address] Performing Lab: [address] [address] UA COLOR Light-Yellow Yellow UA APPEARANCE Clear Clear UA GLUCOSE NEGATIVE mg/dL Negative UA KETONES NEGATIVE mg/dL Negative UA BLOOD NEGATIVE mg/dL Negative UA PROTEIN 10 mg/dL Negative UA NITRITE NEGATIVE mg/dL Negative UA BILIRUBIN NEGATIVE mg/dL Negative UA SPECIFIC GRAVITY 1.018 1.016-1.022 UA pH 6.0 5.0-9.0 UA UROBILINOGEN <2.0 mg/dL <2.0 UA LEUKOCYTE NEGATIVE Negative Oct 04, 2023 09:55 AM [place] ([facility]) TSH Specimen Type: SERUM No comment entered. Ordering Provider: NEHEMIAS BLANCHARD Report Released Date/Time: Oct 03, 2023 01:50 PM Reporting Lab: [address] [address] Performing Lab: [address] [address] TSH 2.25 u[IU]/mL 0.35-5.00 Oct 04, 2023 09:55 AM [place] ([facility]) HEMOGLOBIN A1C PANEL Specimen Type: BLOOD [...] Oct 03, 2023 01:50 PM Reporting Lab: [address] [address] Performing Lab: [address] [address] HEMOGLOBIN A1C 6.5 H 4.0-5.6 Oct 04, 2023 09:55 AM [place] ([facility]) BASIC METABOLIC PANEL (non-fasting) Specimen Type: SERUM No comment entered. Ordering Provider: NEHEMIAS BLANCHARD Report Released Date/Time: Oct 03, 2023 01:50 PM Reporting Lab: [address] [address] Performing Lab: [address] [address] UREA NITROGEN 19 mg/dL 7-25 GLUCOSE 118 mg/dL H 65-100 SODIUM 140 mmol/L 135-145 POTASSIUM 5.0 mmol/L 3.5-5.0 CHLORIDE 104 mmol/L 100-110 CO2 26 meq/L 20-30 CREATININE, Serum 0.78 mg/dL 0.50-1.40 eGFR(CKD-EPI 2020) >90 mL/min >60 Oct 04, 2023 09:55 AM [place] ([facility]) LIVER FUNCTION Specimen Type: SERUM No comment entered. Ordering Provider: NEHEMIAS BLANCHARD Report Released Date/Time: Oct 03, 2023 01:50 PM Reporting Lab: [address] [address] Performing Lab: [address] [address] PROTEIN,TOTAL 7.3 g/dL 6.0-8.3 ALBUMIN 4.2 g/dL 3.5-5.0 ALKALINE PHOSPHATASE 133 U/L 40-150 AST 14 U/L 5-34 ALT 6 U/L BILIRUBIN, TOTAL 0.9 mg/dL 0.2-1.2 Oct 04, 2023 09:55 AM [place] ([facility]) CBC AND DIFF (AUTO) Specimen Type: BLOOD No comment entered. Ordering Provider: NEHEMIAS BLANCHARD Report Released Date/Time: Oct 03, 2023 01:50 PM Reporting Lab: [facility] [address] [address] Performing Lab: [facility] [address] [address] WBC 10.17 10*3/uL 4.50-11.00 RBC 4.53 10*6/uL 4.23-5.66 HGB 14.4 g/dL 12.8-17 HCT 44.1 39.2-50.4 MCV 97.4 fL 82-99 MCHC 32.7 g/dL 30.8-35.1 PLT 192 10*3/uL 140-360 RDW-CV 12.8 12.0-16.0 Robeson, Abs 0.83 10*3/uL 0.30-1.10 MCH 31.8 pg 26.2-32.6 Neut % 66.8 43.7-75.8 Lymph % 22.6 14.0-42.3 Robeson % 8.2 5.1-13.7 Eos % 1.6 0.4-6.8 Baso % 0.4 0.1-2.0 Neut, Abs 6.80 10*3/uL 2.20-7.60 Lymph, Abs 2.30 10*3/uL 1.00-3.20 Eos, Abs 0.16 10*3/uL 0.03-0.44 Baso, Abs 0.04 10*3/uL 0.01-0.13 Immature Gran % 0.4 0.0-0.7 Immature Gran, Abs 0.04 10*3/uL 0.00-0.06 Oct 04, 2023 09:55 AM [place] ([facility]) LIPID PANEL, NON FASTING Specimen Type: SERUM No comment entered. Ordering Provider: NEHEMIAS BLANCHARD Report Released Date/Time: Oct 03, 2023 01:50 PM Reporting [facility]: [facility] [address] [address] Performing Lab: [facility] [address] [address] CHOLESTEROL 120 mg/dL TRIGLYCERIDE 57 mg/dL 0-150 LDL calculated 51 mg/dL 0-129 CHOL/HDL 2.1 HDL CHOLESTEROL 58 mg/dL 40-60 Vital Signs: All taken on the encounter date This section contains inpatient and outpatient Vital Signs collected on the date of the Encounter. Date/Time Temperature Pulse Blood Pressure Respiratory Rate SP02 Pain Height Weight Body Mass Index Source Oct 07, 2023 03:07 PM 98.1 85 85/59 20 96 3 175.2 27 [place] ([facility]) Immunizations: All administered on the encounter date This section contains immunizations associated to the Encounter. Immunization Series Date Issued Reaction Comments COVID-19 (MODERNA), MRNA, LN P-S, PF, 50 MCG/0.5 ML (AGES 12+ YEARS) Oct 07, 2023 Social History: Smoking Status (Most current) and Tobacco Use (All prior to encounter date) This section includes the most current, and the historical, smoking and tobacco- related health factors from the [place] facility where the Encounter took place. Current Smoking Status This section includes the most current smoking, or tobacco-related health factor, from the [place] facility where the Encounter took place. Date/Time Current Smoking Status Comment Theron ity Oct 07, 2023 03:00 PM VA-TOBACCO NEVER USED [place] ([facility]) Tobacco Use History This section includes a history of the smoking, or tobacco-related health factors, that were collected on or before the date of the Encounter. The data comes from the [place] facility where the Encounter took place. Date/Time [...] the Encounter. Date/Time Encounter Note(s) Provider Source Oct 22, 2023 08:28 AM ADDENDUM: LOCAL TITLE: Addendum STANDARD TITLE: ADDENDUM DATE OF NOTE: OCT 22, 2023@08:28:26 ENTRY DATE: OCT 22, 2023@08:28:26 AUTHOR: LUCITA BLANCHARD EXP COSIGNER: URGENCY: STATUS: COMPLETED ECHO done shows moderate Aortic stenosis, EF62% wih trace TR Discussed with [place] and will refer to drug safety assistant because has worsened from to Mild to Moderate Pact1 1 team order Cardiology consultation /es/ LUCITA BLANCHARD MD PHYSICIAN Signed: 10/23/2023 15:33 Receipt Acknowledged By: 10/23/2023 15:46 /es/ SARAH WALKER RN REGISTERED NURSE --- Original Document --- 10/07/23 NOTE: PRIMARY CARE VISIT JOSETTE ALMANZA, is a 73 yo WHITE MALE who [facility] at the [place] [facility]. TYPE OF VISIT: Face to face 72-year-old male with vitamins D and B12 deficiency, HTN, HLD, aortic valve stenosis, lumbar radiculopathy, hepatic steatosis/fibrosis, DM2, PAD, and a history of anaplasmosis in December 2021 status post doxycycline treatment and COVID-19 in February 2022 not requiring hospitalization here for follow up. He is comanaged with a primary PCP in the community. concerned about losing weighht and fatigue. States he has very little appetite. Has pain in his right wrist noticed a hard bump on the anterior lateral aspect of wrist and not sure how long its been there. Recent labs and all medications were reconciled during this visit. HEALTHCARE PROVIDERS: [facility] - [facility] PCP - [facility] - Dr. Jean DIABETES - [facility] - Dr. Pruett - [facility] in [place], [place] OPHTHAMOLOGY - Dr. Barrera in [place], [place]iat[place] - [place] Social Hx: The is and lives with his . No alcohol, tobacco, MJ. He stays active with home projects. Currently remodeling 2 rooms in his house. States he is up and down ladders daily without problems. HISTORY: PERIOD OF SERVICE - [place] [facility] [employer] FROM May TO May COMBAT SERVICE INDICATED: No VITAL SIGNS: Temperature 98.1 F [36.7 C] (10/07/2023 15:07) Blood Pressure 85/59 (10/07/2023 15:07) Repeat manually with smaller cuff 100/65 Pulse 85 (10/07/2023 15:07) Respiration 20 (10/07/2023 15:07) Pain 3 (10/07/2023 15:07) BMI BMI: 27.5 Weight 175.2 lb [79.47 kg] (10/07/2023 15:07) Pulse Oximetry 96% (10/07/2023 15:07) ASSISTIVE DEVICES: REVIEW OF SYSTEMS: CONSTITUTIONAL: No [...] extremities, or unilateral weakness. EXAMINATION General: Well-appearing [place] in no obvious distress. Mental Status: Alert [...] CVA tenderness. Ext: No cyanosis or clubbing. Hard swelling lateral anterior wrist. Full ROM, mild tenderness to touch Neuro: CN II through XII grossly intact. Normal speech. Normal gait. Integument: Skin warm and dry. No rashes or lesions on visible areas. Psych: Normal mood and affect. Normal judgment. ALLERGIES: ========= PENICILLIN >> HEALTH MAINTENANCE PREVENTIVE MEDICINE GOALS Medication Reconciliation DUE NOW COVID-19 Immunization DUE NOW Sexual Orientation Apr 16 RHS Screen DUE NOW PAVE Foot Check DUE NOW ASSESSMENT/PLAN: Active problems - Computerized Problem List is the source for the followin. 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 Vitamin D Deficiency ([facility] [id number]) 4. Vitamin B12 Deficiency ([facility] [id number]) 5. Aortic valve stenosis 6. Kidney lesion 7. Pancreatic cyst 8. Lumbar radiculopathy 9. Fatty liver 10. Diabetes mellitus type 2 11. Hyperlipidemia 12. Parkinsons disease 13. Benign hypertension ==Weight loss: 10 pounds weight loss since February. Decreased appetite, Will decrease metformin to once daily. Tool Turret Lathe Set Up Operator consultation == Vitamin D Deficiency ([facility] [id number]): Continue supplements == Vitamin B12 Deficiency ([facility] [id number]): Continue supplement == Diabetes mellitus type 2: HbA1c 6.5%, stable. Continue metformin but will decrease dose. Renal function normal. == Hyperlipidemia: Cholesterol, triglycerides, LDL WNL with normal liver function. ==. Parkinsons disease: [place] with last visit 07/2023 No changes were made at that time. Continue Sinemet, rasagaline, pramipexole. == Benign hypertension: BP well below target, patient has been feeling weaker and this could be from low blood pressure. We decreased the lisinopril to 5 mg. Advised to check home blood pressures and follow-up in 6 weeks ==BPH: on tamsulosin =AORTIC VALVE STENOSIS 11/23/21 ECHOCARDIOGRAM: Mild Aortic Stenosis, LVEF 55-60%. Repeat in 2 years; due 2023. NO repeat, will order today == Fatty liver : Last US 10/26/2022 showed no change from previous from 11/2021 Abdomen LIVER ULTRASOUND ELASTOGRAPHY: MOderate to severe fibrotic change scarring in setting of fatty liver, likely r/t LOZA. Labs ordered to r/o hepatitis/iron overload. Rec: q6m Liver US for hepatoma screening ==PANCREATIC CYST: Last MRI 11/22/2021 stable and recommended no further follow up. 06/27/19 MRI ABD: Incidental cystic lesion in tail of pancreas, follow up MRCP in 2 years recommended - US in 04/2021 shows pancreases as normal - GI E-consult placed to determine follow up plan, if needed HCM: ==Colonoscopy July 2023 FOLLOW UP: RTC Below & sooner PRN UPCOMING APPOINTMENTS: 11/06/2023 10:30 NHM/OPTOMETRY/ZAMORA/ 01/08/2024 10:30 CWM/NO/PODIATRY A minutes spent in patient evaluation, data review, and patient education. All medications were reconciled during this visit. No barriers; Patient understands and agrees to current treatment plan. If pt has any questions, concerns, or changes in current health status he/she will call or come in to the [facility]. /rashid/ LUCITA BLANCHARD MD PHYSICIAN Signed: 10/10/2023 15:03 LUCITA BLANCHARD ([facility]) Oct 07, 2023 03:08 PM PHYSICIAN NOTE: LOCAL TITLE: NOTE STANDARD TITLE: PHYSICIAN NOTE DATE OF NOTE: OCT 07, 2023@15:08 ENTRY DATE: OCT 07, 2023@15:08:54 AUTHOR: LUCITA BLANCHARD EXP COSIGNER: URGENCY: STATUS: COMPLETED NOTE Has ADDENDA PRIMARY CARE VISIT JOSETTE MASON [place]ZA, is a 73 yo WHITE MALE who [place] [facility] the [place] [facility]. TYPE OF VISIT: Face to face 72-year-old male with vitamins D and B12 deficiency, HTN, HLD, aortic valve stenosis, lumbar radiculopathy, hepatic steatosis/fibrosis, DM2, PAD, and a history of anaplasmosis in December 2021 status post doxycycline treatment and COVID-19 in February 2022 not requiring hospitalization here for follow up. He is comanaged with a primary PCP in the community. concerned about losing weighht and fatigue. States he has very little appetite. Has pain in his right wrist noticed a hard bump on the anterior lateral aspect of wrist and not sure how long its been there. Recent labs and all medications were reconciled during this visit. HEALTHCARE PROVIDERS: [facility]CP - [facility] PCP - [facility] - Dr. Jean DIABETES - [facility] - Dr. Pruett - [facility] in [place], [place] OPHTHAMOLOGY - Dr. Barrera in [place], [place] - [place] Social Hx: The is and lives with his . No alcohol, tobacco, MJ. He stays active with home projects. Currently remodeling 2 rooms in his house. States he is up and down ladders daily without problems. HISTORY: PERIOD OF SERVICE - [place] [employer] FROM May TO May COMBAT SERVICE INDICATED: No VITAL SIGNS: Temperature 98.1 F [36.7 C] (10/07/2023 15:07) Blood Pressure 85/59 (10/07/2023 15:07) Repeat manually with smaller cuff 100/65 Pulse 85 (10/07/2023 15:07) Respiration 20 (10/07/2023 15:07) Pain 3 (10/07/2023 15:07) BMI BMI: 27.5 Weight 175.2 lb [79.47 kg] (10/07/2023 15:07) Pulse Oximetry 96% (10/07/2023 15:) ASSISTIVE DEVICES: REVIEW OF SYSTEMS: CONSTITUTIONAL: No [...] CVA tenderness. Ext: No cyanosis or clubbing. Hard swelling lateral anterior wrist. Full ROM, mild tenderness to touch Neuro: CN II through XII grossly intact. Normal speech. Normal gait. Integument: Skin warm and dry. No rashes or lesions on visible areas. Psych: Normal mood and affect. Normal judgment. ALLERGIES: ========= PENICILLIN >> HEALTH MAINTENANCE PREVENTIVE MEDICINE GOALS Medication Reconciliation DUE NOW COVID-19 Immunization DUE NOW Sexual Orientation Apr 16 RHS Screen DUE NOW PAVE Foot Check DUE NOW ASSESSMENT/PLAN: Active problems - Computerized Problem List is the source for the followin. 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 Vitamin D Deficiency ([facility] [id number]) 4. Vitamin B12 Deficiency ([facility] [id number]) 5. Aortic valve stenosis 6. Kidney lesion 7. Pancreatic cyst 8. Lumbar radiculopathy 9. Fatty liver 10. Diabetes mellitus type 2 11. Hyperlipidemia 12. Parkinsons disease 13. Benign hypertension ==Weight loss: 10 pounds weight loss since February. Decreased appetite, Will decrease metformin to once daily. Tool Turret Lathe Set Up Operator consultation == Vitamin D Deficiency ([facility] [id number]): Continue supplements == Vitamin B12 Deficiency ([facility] [id number]): Continue supplement == Diabetes mellitus type 2: HbA1c 6.5%, stable. Continue metformin but will decrease dose. Renal function normal. == Hyperlipidemia: Cholesterol, triglycerides, LDL WNL with normal liver function. ==. Parkinsons disease: [place] with last visit 07/2023 No changes were made at that time. Continue Sinemet, rasagaline, pramipexole. == Benign hypertension: BP well below target, patient has been feeling weaker and this could be from low blood pressure. We decreased the lisinopril to 5 mg. Advised to check home blood pressures and follow-up in 6 weeks ==BPH: on tamsulosin =AORTIC VALVE STENOSIS 11/23/21 ECHOCARDIOGRAM: Mild Aortic Stenosis, LVEF 55-60%. Repeat in 2 years; due 2023. NO repeat, will order today == Fatty liver : Last US 10/26/2022 showed no change from previous from 11/2021 Abdomen LIVER ULTRASOUND ELASTOGRAPHY: MOderate to severe fibrotic change scarring in setting of fatty liver, likely r/t LOZA. Labs ordered to r/o hepatitis/iron overload. Rec: q6m Liver US for hepatoma screening ==PANCREATIC CYST: Last MRI 11/22/2021 stable and recommended no further follow up. 06/27/19 MRI ABD: Incidental cystic lesion in tail of pancreas, follow up MRCP in 2 years recommended - US in 04/2021 shows pancreases as normal - GI E-consult placed to determine follow up plan, if needed HCM: ==Colonoscopy July 2023 FOLLOW UP: RTC Below & sooner PRN UPCOMING APPOINTMENTS: 11/06/2023 10:30 NHM/OPTOMETRY/ZAMORA/ 01/08/2024 10:30 CWM/NO/PODIATRY A minutes spent in patient evaluation, data review, and patient education. All medications were reconciled during this visit. No barriers; Patient understands and agrees to current treatment plan. If pt has any questions, concerns, or changes in current health status he/she will call or [facility]. /rashid/ LUCITA BLANCHARD MD PHYSICIAN Signed: 10/10/2023 15:03 10/22/2023 ADDENDUM STATUS: COMPLETED ECHO done shows moderate Aortic stenosis, EF62% wih trace TR Discussed with and will refer to drug safety assistant because has worsened from to Mild to Moderate Pact1 1 team order Cardiology consultation /rashid/ LUCITA BLANCHARD MD PHYSICIAN Signed: 10/23/2023 15:33 Receipt Acknowledged By: * AWAITING SIGNATURE * SARAH WALKER [place]AU[place]N [place] ([facility]) Oct 07, 2023 03:07 PM PREVENTIVE MEDICIN E NURSING NOTE: LOCAL TITLE: CLINICAL REMINDERS/NURSING STANDARD TITLE: PREVENTIVE MEDICINE NURSING NOTE DATE OF NOTE: OCT 07, 2023@15:07 ENTRY DATE: OCT 07, 2023@15:07:59 AUTHOR: ANAMARIA GRIGGS COSIGNER: URGENCY: STATUS: COMPLETED CLINICAL REMINDERS/NURSING Has ADDENDA Homelessness/Food Insecurity Screen: In the past 2 [...] have money to get more. Never true COVID-19 Immunization: Moderna Monovalent (Spikevax) Administered: COVID-19 (MODERNA), MRNA, LNP-S, PF, 50 MCG/0.5 ML (AGES 12+ YEARS) Date Administered: Oct 07, 2023 15:00 Process Trainer: [employer]. Lot: [id number] Exp Date: Nov 30, 2023 [facility] [id number] Admin Route/Site: INTRAMUSCULAR/LEFT DELTOID Dosage: 0.5mL Vaccine Information Statement(s): COVID-19 MRNA VACCINE (12+ YRS) VACCINE VIS Apr 11, 2023 ([facility]) Order By: Policy Administered By: Anamaria Griggs Vaccine administered without complications. The patient was advised to remain in the facility for 15 minutes post vaccination. Sexual Orientation: The patient thinks of their [...] full rights to use it throughout the [place] system. PRIMARY SCREEN RESULT: The Primary Screen [...] barriers to learning were observed or identified. PAVE Foot Check: Patient declined limb care exam. Comment: wants to re-establish with [facility] The patient was advised the [place] mandates all patients with diabetes mellitus, end stage renal disease, peripheral vascular disease, or sensory neuropathy should have a complete foot check completed annually. This includes a visual exam of the skin, pedal pulses and a sensory exam. Patients with any abnormality noted during the foot check should be referred to a specialist. Advance Directive Screen MH AD: Patient does not have an Advance Directive completed and is requesting more information. [place] has paper copy The patient received education about Advance Directives and written notification of his/her rights. Suicide Screen: C-SSRS Screening [place] Suicide Severity Rating Scale (C-SSRS) screener 1. [...] required due to responses to other questions. Depression Screening: Perform PHQ-2 A PHQ-2 screen was performed. The score was 0 which is a negative screen for depression. Over the past two weeks, how often have you been bothered by the following problems? 1. Little interest or pleasure in doing things Not at all 2. Feeling down, depressed, or hopeless Not at all PTSD Screening: PC-PTSD-5 A PTSD screening test (PC-PTSD-5) was negative (score=0). IN THE PAST MONTH, have you ever had any experience that was so frightening, horrible or traumatic. For example: A serious accident or fire a physical or sexual assault or abuse An earthquake or flood A war Seeing someone be killed or seriously injured Having a loved one through homicide or suicide 1. Have you ever experienced this kind of event? NO 2. Had nightmares about the event(s) or thought about the event(s) when you did not want to? Response not required due to responses to other questions. 3. Tried hard not to think about the event(s) or went out of your way to avoid situations that reminded you of the event(s)? Response not required due to responses to other questions. 4. Been constantly on guard, watchful, or easily startled? Response not required due to responses to other questions. 5. [place] numb or detached from people, activities, or your surroundings? Response not required due to responses to other questions. 6. [place] guilty or unable to stop blaming yourself or others for the event(s) or any problems the event(s) may have caused? Response not required due to responses to other questions. Tobacco Use Screening: The patient has never used tobacco. Alcohol Use Screen (AUDIT-C): Alcohol Screen: SCREEN FOR ALCOHOL (AUDIT-C) An alcohol screening test (AUDIT-C) was negative (score=3). 1. How often did you have a drink containing alcohol in the past year? Consider a drink to be a 12 ounce can or bottle of regular beer, 8 ounces of malt liquor, a 5 ounce glass of table wine, or a 1.5 ounce shot of liquor (like scotch, gin, or vodka). Two to three times per week 2. How many drinks containing alcohol did you have on a typical day when you were drinking in the past year? One or two drinks 3. How often did you have six or more drinks on one occasion in the past year? Yaa /rashid/ ANAMARIA GRIGGS LPN LICENSED PRACTICAL NURSE Signed: 10/07/2023 15:14 11/06/2023 ADDENDUM STATUS: COMPLETED Colonoscopy GAP Reminder: Recommendations are needed in the clinical reminder system following the patient's most recent colorectal cancer screening/surveillance test (Colonoscopy, Sigmoidoscopy or CT Colonography) Prior/outside colonoscopy results: Date: August 16, 2023 Colonoscopy reminder set 4 years from NOVEMBER 06, 2023. Results in [place] [facility] /es/ ANAMARIA GRIGGS LPN LICENSED PRACTICAL NURSE Signed: 11/06/2023 10:57 ANAMARIA GRIGGS ([facility])
--- OUTSIDE RECORDS SUMMARY | 2024-08-12 08:47 | XMS_ITS | Data Portability ---
Author Organization [facility] Address [address] [place] [address] Care Team Providers Care Health Safety Coordinator Name Role Phone ORTEGA PINA Primary Care Provider CAREN Rodrigues Neurologist [facility] (OUTPATIENT SERVICES) OT HER Assessment Encounter Date Assessment Date Assessment LastModified by Organization Details LastModified Time 02/22/2020 02/22/2020 Patient agreed t o this visit by telephone due to the COVID -19 pandemic. Patient understands this is a scheduled visit and the usual procedures with regard to billing and confidentiality apply. Patient was notified that the provider location is [facility] Patient location: home Present: Dr Pina, patient During the visit the patient? s medical history and medical record were reviewed. The patient was notified to call our office for worsening or urgent symptoms. START: 9:14 AM END: 9:25 AM [email or web address] Not available 02/22/2020 09:16:22 08/18/2020 08/18/2020 Patient agreed t o this visit by telephone due to the COVID -19 pandemic. Patient understands this is a scheduled visit and the usual procedures with regard to billing and confidentiality apply. Patient was notified that the provider location is [facility] Patient location: home Present: Dr Pina, patient During the visit the patient? s medical history and medical record were reviewed. The patient was notified to call our office for worsening or urgent symptoms. START:11:27 AM END: 11:41 AM [email or web address] Not available 08/18/2020 11:41:35 Plan of Treatment Reminders Order Date Submit Date Provider Last Modified By Organization Details Last Modified Time Details Appointments None recorded. Lab None recorded. Referral None recorded. Procedures None recorded. Surgeries None recorded. Imaging electrocar diogram 2019 020 [facility], [address], [place], [address], 0 15:52:10 exercise stress test - Standard exercise stress test without imaging/Ap pt Feb 23, 2020 at 8 am 2019 020 [facility] (Scheduling), [address], [place], [address], 0 13:01:29 Medication Orders None recorded. Patient TargetsNo targets recorded. Patient Instructions Encounter Date Encounter Id Patient Instructions Last Modified By Organization Details Last Modified Time 02/18/2020 [id number] - Continue check ing your blood sugar 2 times a day 3-4 times per week; in the morning before you eat or drink (fasting) and at alternating times such as before dinner or at bedtime. - Reminder of target blood sugars: Fastin-130 mg/dl 2 hours after a meal: less than 180 mg/dl - Continue your medications as prescribed. - Continue working your way up to 150 minutes of physical activity per week. You are doing a great job with this! - Please call or send a portal message with any questions or concerns. [email or web address] Not available 02/18/2020 09:51:20 Follow-up with Cris Pina in November and Diabetes Education in January Patient agreed to this visit via phone due to the COVID -19 pandemic. Pt lacks the technology for a video visit. Patient understands this is a scheduled visit and the usual procedures with regard to billing and confidentiality apply. Patient was notified that the provider location is home Patient location: home During the visit the patient? s medical history and medical record were reviewed. [email or web address] Not available 02/18/2020 07:22:50 04/19/2020 [id number] - Continue check ing your blood sugar 2 times a day 3-4 times per week; in the morning before you eat or drink (fasting) and at alternating times such as before dinner or 2 hours after dinner. - Reminder of target blood sugars: Fastin-130 mg/dl 2 hours after a meal: less than 180 mg/dl - Continue your medications as prescribed. - Continue working your way up to 150 minutes of physical activity per week. You are doing a great job with this! - Please call or send a portal message with any questions or concerns. [email or web address] Not available 04/19/2020 11:40:06 Follow-up with diabetes education in 6 months. Patient agreed to this visit via phone due to the COVID -19 pandemic. Pt lacks the technology for a video visit. Patient understands this is a scheduled visit and the usual procedures with regard to billing and confidentiality apply. Patient was notified that the provider location is home Patient location: home During the visit the patient? s medical history and medical record were reviewed. [email or web address] Not available 04/19/2020 11:40:30 Reason for Referral None Reported. Results Created Date Observation Date Name Description Value Unit Range Abnormal Flag Note LastModifiedBy Organization Detail LastModifiedTime 02/22/20 20 02/22/2020 elect rocar diogr am EKG abnorm al abnormal Not Available [address], [address], 02/22/2020 12:56:41 02/22/20 elect rocar diogr am No observ ation record ed. pcarlan Not Available 2019 14:16:42 02/23/20 20 02/23/2020 exerc ise stres s test No observ ation record ed. pcarlan Not Available 2020 11:26:45 09/15/19 21 09/14/2020 XR, chest , 2 view No observ ation record ed. [email or web address] [address], [address], 09/14/2020 13:18:27 Result Notes None recorded. Problems Name Problem SNOMED Code Status Onset Date Resolution Date Notes Provider Name and Address Organization Details Recorded Time Essential tremor 107116457 Completed 201509/21/2019 Ortega Pina MD [address] [place] [address] TOMMY lynch, [address] [place] [address] - [facility] 0 09:45:21 Alcohol intake above recommended sensible limits 413301476 Active 2017 Ortega Pina MD [address] [place], [address], [facility] 8 14:59:57 Parkinson's disease 67792274 Active 10/10 MRI brain neg Ortega Pina [place], [address], [facility] 9 09:18:49 Bifascicula r block 13602785 Active 2019 Ortega Pina MD [address] [place], [place] [address]Jess[place], [address], [facility] 0 14:26:52 Cobalamin deficiency 034326000 Active 2020 Ortega Pina [place], [address], [facility] 1 12:56:22 Mixed hyperlipide nurys 438450594 Completed 200503/23/2009 Ortega Pina MD [address] [place], [place] [address], [address], [facility] 6 15:20:10 Seborrheic dermatitis 13595264 Active 2001 Ortega Pina MD [address] [place], [place] [address], [address], [facility] 6 15:30:37 Dyspnea 878583922 Completed 200103/23/2009 [place], [address], [facility] 6 15:20:10 Presbyopia 77080663 Completed 200203/23/2009 Ortega Pina MD [address] [place], [place] [address], [address], [facility] 6 15:20:10 Hordeolum 051945316 Completed 200703/23/2009 Ortega Pina [place], [address], [facility] 6 15:20:10 Fever 802624393 Completed 200103/23/2009 Ortega Pina MD [address] [place] [address] [place], [address], [facility] 6 15:20:10 Shoulder pain 10137597 Completed 200203/23/2009 Ortega Pina MD [address] [place] [address] [place], [address], [facility] 6 15:20:10 Dermatophyt osis of the perianal area Completed 07/04/2010 Ortega Pina MD [address] [place] [address] [place], [address], [facility] 6 15:20:10 Dermatophyt osis of the perianal area Completed 200303/23/2009 Ortega Pina MD [address] [place] [address] [place], [address], [facility] 6 15:20:10 Myopia 11844893 Completed 200203/23/2009 Ortega Pina MD [address] [place] [address] [place], [address], [facility] 6 15:20:10 Diverticuli tis of colon 453260376 Completed 2009 Ortega Pina MD [address] [place] [address] [place], [address], [facility] 6 15:20:10 Benign essential hypertensio n 5916904 Active 2006 ETT 03/13 neg Ortega Pina MD [address] [place], [place] [address], [address], [facility] 0 16:53:14 Glucose level outside reference range 088415171 Completed 07/09/2013 Ortega Pina [place], [address], [facility] 6 15:20:10 Incipient senile cataract 012772909 Completed 200703/23/2009 Ortega Pina MD [address] [place] [address] [place], [address], [facility] 6 15:20:10 Pure hypercholes terolemia 084462442 Completed 200503/23/2009 [place], [address], [facility] 6 15:20:10 Obesity 125367498 Active 2007 Ortega Pina [place], [address], [facility] 6 15:30:36 Common cold 41931015 Completed 200103/23/2009 [place], [address], [facility] 6 15:20:10 Verruca vulgaris 10078004 Completed 200603/23/2009 Otrega Pina [place], [address], [facility] 6 15:20:10 Type 2 diabetes mellitus without complicatio n 193095412 Active [place], [address], [facility] 6 15:30:36 Acute maxillary sinusitis 02403184 Completed 200603/23/2009 Ortega Pina [place], [address], [facility] 6 15:20:10 Hyperlipide nurys 59893006 Active 2007 [place], [address], [facility] 6 15:30:36 Malaise and fatigue 103071076 Completed 200103/23/2009 [place], [address], [facility] 15:20:10 Problem Notes None recorded. Procedures Surgical History Date Name Laterality Status Provider Name and Address Organization Details Recorded Time 02/25/20 19 Medicare Wellness Visit completed Mason Soft Crab Shedder, [facility] 02/24/2019 08:31:48 02/21/20 18 Medicare Wellness Visit completed Han Alva RN [facility] 02/20/2018 14:18:24 09/05/19 18 Physical Activity Counselling completed Lena Jose [place], [address], [facility] 09/06/2017 12:26:40 09/05/19 18 01019: PT Eval, Moderate Complexity completed Lena Jose Luis [place], [address], [facility] 09/06/2017 12:26:56 07/10/19 18 Physical Activity Counselling completed Lena Jose Luis [place], [address], [facility] 07/10/2017 21:17:34 07/10/19 18 21808: PT Eval Low Complexity completed L[place], [address], [facility] 07/10/2017 21:17:34 07/09/19 18 Medicare Risk for Falls Screen completed Carolina Elmore LPN [facility] 07/09/2017 11:46:34 02/20/20 17 Medicare Wellness Visit completed Mason Palumbo MA [facility] 02/19/2017 13:24:21 10/23/19 17 Physical Activity Counselling completed Lena [place], [address], [facility] 10/22/2016 22:12:48 10/23/19 17 19450: PT Eval, Moderate Complexity completed Lena [place], [address], [facility] 10/22/2016 22:12:37 08/01/19 16 Refraction completed Darline Miramontes MA [facility] 08/01/2015 15:37:48 02/18/20 09 Appendectomy completed Not Available [facility] 011 06:05:52 06/24/19 06 Colonoscopy completed Not Available [facility] 05/10/20 11 06:05:52 06/24/18 85 Other (specify) completed Not Available [facility] 04/24 06:05:52 06/24/18 56 Tonsillectomy completed Not Available [facility] 2010 06:05:52 Imaging Results Imaging Date Name Status LastModified by Organization Details LastModified Time 02/22/2020 electrocardiogram completed Informa tion not available 02/22/2020 14:16:42 02/23/2020 exercise stress test completed Info rmation not available 08/18/2020 11:26:45 09/14/2020 XR, chest, 2 view completed pcarlan [facility] [address] [place], [address], 09/14/2020 13:18:27 Procedure Notes None recorded. Medical Equipment None Reported. Allergies Allergen ID Allergen Name Allergen Category Reaction Reaction Severity Criticality Documentation Date Start Date Code Code System Note Provider Name and Address Organization Details Recorded Time 58216 Product containin g penicilli n (product) medicatio n Not available Not available Not available 12/16/2008 05654 8001 SNOMED Had some react ion in [facility] when sick with a flu, flet mindi but no recal led react ion Ortega Pina MD [address] [place] [address], [address] [place] [address] 7 15:15:00 Medications Name Sig Start Date Stop Date Status Note LastModified by Organization Details LastModified Time atorvastat in 40 mg tablet TAKE 1 TABLET BY MOUTH ONCE DAILY active Not Available Not Available No t Available terbinafin e HCl 1 % topical cream APPLY TO THE AFFECTED AND SURROUNDI NG AREAS OF SKIN BY TOPICAL ROUTE ONCE DAILY for 1-2 weeks 02/20 completed prn Not Available Not Available Not Available clindamyci n HCl 300 mg capsule Take 1 capsule every 6 hours by oral route for 10 days. 10/17 completed Not Available Not Available Not Available Avelox 400 mg tablet Take 1 tablet every day by oral route. 2008 active Not Available Not Available Not Avai lable cyanocobal francois (vit B-12) 1,000 mcg tablet Take 1 tablet every day by oral route. active Not Available Not Available No t Available peg-electr olyte solution 420 gram oral solution TAKE 240 ML BY MOUTH EVERY 15 MINUTES, USE DIRECTED BY 11/27 completed Not Available Not Available Not Available aspirin 81 mg tablet,del ayed release Take 1 tablet every day by oral route for 90 days. active Not Available Not Available No t Available triamcinol one acetonide 0.1 % topical cream APPLY A THIN FILM TOPICALLY TO THE AFFECTED AREAS TWICE DAILY 08/18 completed Not Available Not Available Not Available pramipexol e 0.5 mg tablet Take by oral route for 90 days. active Not Available Not Available No t Available imiquimod 5 % topical cream packet 07/31 completed Not Available Not Available Not Available Flagyl 500 mg tablet Take 1 tablet 3 times a day by oral route. 2008 active Not Available Not Available Not Avai lable econazole nitrate 1 % topical cream Apply to the affected and surroundi ng areas of skin by topical route 2 times per day 2010 active Not Available Not Available Not Avai lable cephalexin 500 mg capsule take 1 capsule by mouth every 6 hours for 10 days 10/17 completed Not Available Not Available Not Available clotrimazo le-betamet hasone 1 %-0.05 % topical cream prn active Not Available Not Available Not Available lisinopril 10 mg tablet TK 1 T PO QD active Not Available Not Available No t Available polymyxin B sulfate 10,000 unit-trime thoprim 1 mg/mL eye drops 2007 active Take 1.00 drops every 6 hours Not Available Not Available Not Available pramipexol e 0.25 mg tablet TAKE DIRECTED. SEE PHARMACIS T FOR SPECIFIC DIRECTION S 02/21 completed 1 tabs tid Not Available Not Available Not Available Levaquin 500 mg tablet Take 1 tablet every day by oral route. 2008 active Not Available Not Available Not Avai lable gabapentin 100 mg capsule Take 2 capsules 3 times a day by oral route for 20 days. 11/08 completed Not Available Not Available Not Available clobetasol 0.05 % topical ointment Apply by topical route twice daily, no longer than 3 weeks at a time. active Not Available Not Available No t Available polyethyle ne glycol 3350 17 gram/dose oral powder prn active Not Available Not Available Not Available albuterol sulfate HFA 90 mcg/actuat ion aerosol inhaler INHALE 2 PUFFS BY MOUTH EVERY 4 HOURS active Not Available Not Available No t Available carbidopa 25 mg-levodop a 100 mg tablet TK 3 TS PO QID FOLLOW SEPERATE INSTRUCTI ONS GIVEN BY DOCTOR active Not Available Not Available No t Available ketoconazo le 2 % topical cream apply to affected area twice a day if needed active Not Available Not Available No t Available fluticason e propionate 50 mcg/actuat ion nasal spray,susp ension [place] 1 spray every day by intranasa l route as needed. 2019 active Not Available Not Available Not Avai lable metformin ER 500 mg tablet,ext ended release 24 hr TAKE 4 TABLETS BY MOUTH EVERY DAY 2020 active Not Available Not Available Not Avritesh labfederico OneTouch UltraSoft Lancets USE TO TEST BLOOD SUGAR TWICE DAILY active Not Available Not Available No t Available rasagiline 0.5 mg tablet TK 1 T PO QD IN THE MORNING active Not Available Not Available No t Available OneTouch Verio test strips USE TO TEST BLOOD SUGAR TWICE DAILY DX E11.9 2020 active Not Available Not Available Not Tomas labfederico OneTouch Verio Flex Meter USE TO TEST BLOOD SUGAR TWICE DAILY active Not Available Not Available No t Available Fish Oil 1,000 mg (120 mg-180 mg) capsule Take 1 capsule every day by oral route. active Not Available Not Available No t Available Shingrix (PF) 50 mcg/0.5 mL intramuscu lar suspension , kit 08/20 completed Not Available Not Available Not Available OneTouch Delica Plus Lancet 33 gauge USE TO TEST TWICE DAILY 2020 active Not Available Not Available Not Tomas labfederico Fluzone High-Dose Quad (PF) 240 mcg/0.7 mL IM syringe ADM 0.7ML IM UTD 08/17 completed Not Available Not Available Not Available Vitals Date Recorded Body height Body mass index (BMI) Body weight Body height Body mass index (BMI) Body weight Body temperature Heart rate Oxygen saturation Oxygen saturation in Arterial blood by Pulse oximetry Systolic blood pressure Diastolic blood pressure Provider Name and Address Organization Details Last Updated DateTime 0 170.82 cm 29.5 kg/m2 26506.5 5 g 170.82 cm 29.2 kg/m2 98859.3 7 g 97.9 [degF] 88 /min 97 % 97 % 126 mm[Hg] 82 mm[Hg] Mason Palumbo MA [facility] 0 14:09:52 Date Recorded Body height Body mass index (BMI) Body weight Provider Name and Address Organization Details Last Updated DateTime 08/18/2020 170.82 cm 28.8 kg/m2 11719.59 g Keira Hawkins CMA [facility] 08/18/2020 10:52:10 Date Recorded Systolic blood pressure Diastolic blood pressure Provider Name and Address Organization Details Last Updated DateTime 02/14/2022 109 mm[Hg] 65 mm[Hg] Gabriella Sanchez RN [facility] 02/14/2022 14:37:36 Social History Question Answer Notes LastModified by Organizat ion Details LastModified Time Tobacco Smoking Status Never Smoker Not Available [facility] 05/10/2011 04:53:49 What Is Your Level Of Alcohol Consumption? Occasional 4 Non-alcoholic Beers/week Information not available 01/06/2015 What Is Your Level Of Caffeine Consumption? None Decaf Coffee Once A Week [email or web address] Information not available 02/20/2018 How Much Tobacco Do You Chew? None [email or web address] Information not available 05/10/2011 What Type Of Diet Are You Following? REGULAR Chix/turkey/f cierra, Potatoes, <5 Servings A Day Vegetables (greens, Beans, Lettuce), Fruit, Small Quantities. Information not available 2009 Which Illicit Or Recreational Drugs Have You Used? None [email or web address] Information not available 05/10/2011 Do You Or Have You Ever Used E-cigarettes Or Vape? Never Used Electronic Cigarettes Information not available 09/21/2019 Education 12 [email or web address] Information not available 05/10/2011 What Is Your Occupation? Retired/100% Disability [employer] [facility] Retired ([employer] 03/10) Information not available 2009 How Many Days In The Past Year Have You Had A Heavy Drinking Consumption (4+ Female, 5+ Male)? 2 Information not available 02/24/2019 Live Alone Or With Others? With Others Information not available 08/21/2017 Patient Has Health Care Proxy Signed And In Chart No [email or web address] Information not available 05/10/2011 Marital Status Sidra ([employer], [employer]) - 1961 Information not available 2009 Mosquito Repellent Used Routinely Yes [email or web address] Information not available 05/10/2011 What Was The Date Of Your Most Recent Tobacco Screening? 02/22/2020 Information not available 02/22/2020 How Many Children Do You Have? 2 Daughter (grandson, Heath), Son (Gina With Roomates - Schizoaffecti ve/ Alcohol -drinks Moderately) ; Karen And Marcial (Stepkids) Information not available 2009 Seat Belts Used Routinely Yes [email or web address] Information not available 05/10/2011 Are You Sexually Active? Yes [email or web address] Information not available 05/10/2011 Smoke Alarm In Home Yes [email or web address] Information not available 05/10/2011 Do You Or Have You Ever Used Smokeless Tobacco? Never Used Smokeless Tobacco Information not available 09/21/2019 How Much Tobacco Do You Smoke? No Information not available 09/21/2019 General Stress Level Low Information not available 02/24/2019 Do You Use Sunscreen Routinely? Yes Information not available 01/06/2015 Sex: Unknown Functional Status None recorded. Mental Status None recorded. Family History Relationship Description Onset Age of this Age Resolved Age Notes LastModified by Organization Details LastModified Time Sister Diabetes mellitus 65 kathal een pcarlan Not available 01/06/2015 14:48:58 Son Substance abuse pcarlan Not available 2014 14:48:58 Son Schizoaffect marbella schizophreni a pcarlan Not available 2014 14:48:58 Father Heart disease 78 pcarlan Not available 2014 14:48:58 Father Alcoholism pcarlan Not availabl e 02/19/2017 14:03:26 Mother Heart disease 67 pcarlan Not available 2014 14:48:58 Brother Hypertensive disorder Toan (raza g) pcarlan Not available 01/06/2015 14:48:58 Sister Heart disease Karla (raaz g) CAD, By-pas s pcarlan Not available 01/06/2015 14:48:58 Sister Heart disease by-pas s, CAD pcarlan Not available 01/06/2015 14:48:58 Sister Diabetes mellitus 65 Lili pcarlan Not available 2014 14:48:58 Notes:Cancer : There is no f amily history of cancer Medical History Condition Response Diabetes Type II Y Obesity Y EYE Y Hyperlipidemia Y Hypertension Y Allergies Y Immunizations Vaccine Type Date Status Note Provider Nam e and Address Organization Details Recorded Time Td(adult) unspecified formulation 6 completed Not Available [facility] 05/09/2011 05:21:29 Influenza, split virus, trivalent, preservative 9 completed Not Available [facility] 07/11/2019 02:36:32 zoster live 2 completed Not Available [facility] 07/11/2019 02:36:25 Influenza, split virus, trivalent, preservative 2 completed Not Available [facility] 07/11/2019 02:26:11 influenza, seasonal, intradermal, preservative free 3 completed Not Available [facility] 07/11/2019 02:27:10 Influenza, split virus, trivalent, PF 4 completed Not Available [facility] 07/11/2019 02:37:09 pneumococcal polysaccharide PPV23 4 completed Not Available [facility] 07/11/2019 02:38:04 Influenza, split virus, trivalent, preservative 4 completed Not Available [facility] 07/11/2019 02:19:21 Influenza, split virus, quadrivalent, PF 6 completed Not Available [facility] 07/11/2019 02:20:14 Tdap 6 completed Not Available [facility] 07/11/2019 02:36:28 Pneumococcal conjugate PCV 13 7 completed Not Available [facility] 07/11/2019 02:38:06 Influenza, high-dose, trivalent, PF 7 completed Not Available [facility] 07/11/2019 02:28:49 Influenza, high-dose, trivalent, PF 7 completed Not Available [facility] 07/11/2019 02:28:43 Influenza, high-dose, trivalent, PF 8 completed Not Available [facility] 07/11/2019 02:27:13 pneumococcal polysaccharide PPV23 9 completed Not Available [facility] 07/11/2019 02:37:13 zoster recombinant 8 completed TOMMY Salas, [facility] 08/20/2018 15:35:57 Influenza, split virus, quadrivalent, preservative 0 completed Not Available [facility] 04/07/2020 15:43:05 SARS-COV-2 (COVID-19) vaccine, UNSPECIFIED 1 completed Ortega Pina MD [address] [place] [address], [id number], [facility] 08/18/2020 11:30:52 Influenza, split virus, trivalent, preservative 1 completed Not Available [facility] 07/11/2019 02:24:39 Past Encounters Encounter ID Performer Location Encounter Start Date Encounter Closed Date Diagnosis/Indication Diagnosis SNOMED-CT Code Diagnosis ICD10 Code Diagnosis Note [id number] [facility], OFFICE [address] [place], [place] [address]roslyn cris TOMMY [id number] 1 09/10/2001 13:00:00 07/14/2008 02:02:29 [id number] LAB - [address] [place] [address] 09/10/2001 13:15:00 07/14/2008 02:02:29 [id number] LAB - [address] [place] [address] 01/05/2002 15:28:21 07/14/2008 02:02:29 [id number] [facility], OFFICE [address] [place], [place] [address]roslyn lynch T[place] [id number] 1 01/05/2002 14:11:58 07/14/2008 02:02:29 [id number] [facility] [place] [id number] 05/25/2002 14:47:18 07/14/2008 02:02:29 [id number] [facility], OFFICE [address] [place], [place] [address]roslyn lynch T[place] [id number] 1 07/30/2002 11:06:00 07/14/2008 02:02:29 [id number] Eye [facility] [place], [address]TOMMY [address] 1 08/18/2002 13:08:03 07/14/2008 02:02:29 [id number] [facility], OFFICE [address] [place] [id number] 1 04/25/2004 09:01:25 04/25/2004 10:48:07 [id number] Eye Care, [facility] TOMMY [id number] 1 08/21/2004 08:44:03 08/29/2004 12:57:25 [id number] [facility], OFFICE 329 [place] [id number] 1 10/16/2005 14:16:19 10/17/2005 06:51:32 [id number] [facility], OFFICE 329 [place] [id number] 1 10/16/2005 14:16:19 10/17/2005 06:51:32 [id number] LAB - [facility] [place] [id number] 1 10/17/2005 14:34:38 10/17/2005 14:34:42 [id number] [facility], OFFICE [address] [place] [address] 1 10/04/2006 08:37:16 10/04/2006 14:09:59 [id number] [facility], OFFICE [address] [place] [address] 1 10/30/2006 08:41:17 10/30/2006 13:40:17 [id number] [facility] [place] [address] 1 03/03/2007 11:06:48 03/05/2007 10:31:11 [id number] [facility], OFFICE [address] [place] [address] 1 03/05/2007 12:47:08 03/05/2007 14:47:49 [id number] LAB - [facility] [place] [id number] 1 03/06/2007 07:35:48 03/06/2007 07:35:52 [id number] LAB - [facility] [place] [place] [address] 1 03/18/2008 08:51:19 03/18/2008 08:51:26 [id number] [facility], OFFICE [address], [place] [id number] 1 03/22/2008 08:16:33 07/14/2008 02:02:29 [id number] LAB - [facility] [place] [place] [address] 1 03/18/2008 00:00:00 07/14/2008 02:02:29 [id number] Eye Care, [facility] [place] [address] 2008 09:12:34 03/25/2008 13:36:45 [id number] [facility], OFFICE Arelis lynch, TOM[place] [id number] 1 05/05/2008 09:56:45 07/14/2008 02:02:29 [id number] [facility], OFFICE [address], T[place] [id number] 1 12/16/2008 15:16:20 12/17/2008 07:59:35 [id number] [facility], OFFICE [address], TOM[place] [id number] 1 2009 14:54:41 03/24/2009 09:12:24 [id number] LAB - [facility] [place] [address] 1 03/17/2009 07:52:12 03/17/2009 09:19:40 [id number] [facility], OFFICE [address], T[place] [id number] 1 03/08/2010 17:23:47 03/09/2010 08:18:16 [id number] [facility], OFFICE [address], T[place] [id number] 1 07/04/2010 09:12:21 07/04/2010 16:05:47 [id number] Nutrition -[facility] [place] [address] 09/11/2010 09:29:17 09/12/2010 14:26:03 [id number] Nutrition -[facility] [place] [address] 11/13/2010 08:32:07 11/14/2010 15:06:48 [id number] [facility], OFFICE Arelis lynch, TOMMY [id number] 1 01/09/2011 10:05:30 01/09/2011 10:45:54 [id number] [facility], OFFICE [address] [place] [address] cris, TOMMY [id number] 1 07/18/2011 13:00:11 07/18/2011 14:27:38 [id number] [facility], OFFICE [address] [place] [address] cris, TOMMY [id number] 1 10/23/2011 10:00:51 10/23/2011 10:39:48 [id number] [facility], OFFICE [address] [place] [address], [place] [address] 1 01/16/2012 10:48:47 01/16/2012 11:37:08 [id number] Nakita Mooney [facility], OFFICE [address] [place] [id number] 1 07/08/2012 12:54:42 07/08/2012 14:21:43 [id number] Nazario Dubois PA-C [facility], OFFICE [address] [place] [id number] 1 10/09/2012 14:26:42 10/09/2012 15:02:39 [id number] Mason Palumbo MA [facility], OFFICE [address] [place] [address], [place] [address] 1 10/23/2012 14:17:57 10/23/2012 15:30:45 [id number] Mason Palumbo MA , [facility], OFFICE [address] [place] [address] 1 01/22/2013 14:47:30 01/22/2013 15:20:57 [id number] Eva Leonard [facility], OFFICE [address] [place] [id number] 1 06/02/2013 16:57:04 06/03/2013 08:46:40 Paronychia of finger 770136021 The term paronychia refers to inflammati on involving the proximal or lateral nail folds. Acute paronychia results from bacterial infection of the nail fold. This is a moderate case but most likely will respond to conservati ve management , espeically since it is already draining spontaneou sly. Manage with warm soaks for 10-15 minutes 4 times daily. After each soak, use a triple antibiotic ointment on the area. Try not to touch or pick at the affected area. Follow up as needed--co ntact me especially if redness at fingertip starts spreading proximally , would give abx +/- I and D. [id number] Ortega Pina MD , [facility], OFFICE [address] [place] [address] 1 07/09/2013 15:01:36 07/09/2013 16:24:40 Adult health examination 740393712 Discussed healthy diet, regular exercise, stress reduction, and the importance of achieving and maintainin g a healthy weight. Recommende d routine use of seat belts, helmets for high velocity sports, and applicatio n of sunscreen and insect repellent. Recommende d completion of a Health Care Proxy. Influenza vaccine needed [id number] 106 Seborrheic dermatitis 86033483 Benign ess ential hypertension 7284800 Borderline controlled , goal < 140/90. Continue meds and self care plan. Increase lisinopril at followup if not controlled . Hyperlipidemia 84682891 Uncontroll ed but improved, goal LDL < 100. Elects to continue efforts at healthier diet, activity, and weight loss. Obesity 350094228 Workin g on improved diet and more activity, Type 2 zac betes mellitus without complication 557930653 Diet controlled , goal A1C <7. Up to dahlia eye, foot., ACR. Administra tion of pneumococcal vaccine [id number] Ortega Pina MD , [facility], OFFICE [address] [place] [address] 1 01/04/2014 14:52:33 01/04/2014 16:00:23 Benign essential hypertension 3040747 Controlled , goal < 140/90. Continue meds and self care plan. Hyperlipidemia 16270920 Uncontroll ed, goal LDL < 100. Continue efforts at healthier diet, activity, and weight loss. Discussed risks and benefits of cholestero l lowering medication s like statins, including the concepts of relative and absolute risk reduction. Side effects reviewed including liver and muscle inflammati on, cognitive effects, and blood sugar effects. Elects to start lipitor. Obesity 804643987 Workin g on improved diet and more activity, Type 2 zac betes mellitus without complication 087340723 Diet controlled , goal A1C <7. Up to date eye, foot., ACR. [id number] Ortega Pina MD FP, [facility], OFFICE [address] [facility] [place] lynch [id number] 1 03/30/2014 08:57:20 03/31/2014 09:07:44 Influenza vaccine needed 1121331392 106 Dizziness 040144910 Nons pecifi c by history. Neuro exam is non focal. Recommend observatio n, return if spells recur or if develops focal deficits. [id number] Mason Palumbo MA , [facility], OFFICE [address] [facility] [place] lynch [id number] 05/17/2014 09:21:41 05/17/2014 09:56:57 Contusion of chest 19490913 [id number] Tabitha Macdonald , [facility], OFFICE [address] [facility] cris, TOMMY [id number] 1 07/13/2014 15:00:26 07/13/2014 15:38:03 Benign essential hypertension 9647035 Controlled , goal < 140/90. Continue meds and self care plan. Hyperlipidemia 80272652 Controlled , goal LDL < 100. Continue efforts at healthier diet, activity, and weight loss. Continue lipitor. Obesity 417187701 Workin g on improved diet and more activity, Type 2 zac betes mellitus without complication 783200368 Borderline diet controlled , goal A1C <7. Up to date eye, foot., ACR. Reduce beer. Consider returning to see nutrition; will call to schedule after talks to Soledad. [id number] TOMMY Baires, [facility], OFFICE 329 [facility] cris, TOMMY [address] 09/29/2014 14:47:46 09/29/2014 15:40:24 Acute upper respiratory infection 60462565 URI is a viral illness of the upper airways. It is not bacterial and does not benefit from antibiotic s. Average duration of URI is 7-10 days but in a recent trial, treatment at 7-10 days of illness with antibiotic s, intranasal steroids sprays, or placebo (sugar pill), 80% of people were better at 3 weeks REGARDLESS OF TREATMENT. Recommende d symptomati c treatments including semi-uprig ht sleep position, antihistam kaushal at bedtime (like diphenhydr amine or chlorpheni ramine) to dry nasal secretions , and nasal saline rinses with soft squeeze bottle (Sinus Rinse by [employer]) or Neti pot. Return for fevers > 101 for 3 days, worsening sinus pain, or failure to resolve in 2-4 weeks. [id number] Brittany Montoya , [facility], OFFICE [address] [facility] [place] [address] 10/18/2014 14:58:27 10/18/2014 15:33:06 Type 2 diabetes mellitus without complication 770283413 Borderline diet controlled by last A1C, suspect better on basis of improved lifestyle attributes , goal A1C <7. Up to date eye, foot., ACR. Reduce beer. Consider returning to see nutrition; will call to schedule after talks to Soledad. Benign ess ential hypertension 8450821 Controlled , goal < 140/90. Continue meds and self care plan. Hyperlipidemia 17220334 Controlled , goal LDL < 100. Continue efforts at healthier diet, activity, and weight loss. Continue lipitor. Obesity 768553366 Workin g on improved diet and more activity, [id number] Kimberly Patten [facility], OFFICE [address] [facility] [place] [address] 1 01/06/2015 14:02:20 01/06/2015 14:57:38 Adult health examination 504687096 Discussed healthy diet, regular exercise, stress reduction, and the importance of achieving and maintainin g a healthy weight. Recommende d routine use of seat belts, helmets for high velocity sports, and applicatio n of sunscreen and insect repellent. Recommende d completion of a Health Care Proxy. Hyperlipidemia 98805644 Controlled , goal LDL < 100. Continue efforts at healthier diet, activity, and weight loss. Continue lipitor. Type 2 zac betes mellitus without complication 882078599 Diet controlled by last A1C, suspect better on basis of improved lifestyle attributes , goal A1C <7. Up to date eye, foot., ACR. Reduce beer. Consider returning to see nutrition; will call to schedule after talks to Soledad. Benign ess ential hypertension 4847225 Controlled , goal < 140/90. Continue meds and self care plan. Obesity 751084361 Workin g on improved diet and more activity, [id number] , [facility], OFFICE [address] [facility] [place] [address] 03/21/2015 14:08:32 03/21/2015 14:50:52 Condyloma acuminatum of the anogenital region 253400496 large condyloma acuminata bilateral anterior intertriga l inguinal areas. refer to derm for eval / treatment. [id number] Ortega Pina MD , [facility], OFFICE [address] [facility] [place] [address] 07/14/2015 14:57:25 07/14/2015 15:30:46 Seborrheic dermatitis 37868463 L21.9 Active or passive immunization 651499713 Z23 Hyperlipidemia 33344336 E78.5 Controlled , goal LDL < 100. Continue efforts at healthier diet, activity, and weight loss. Continue lipitor. Type 2 zac betes mellitus without complication 329177089 E11.9 Diet controlled , goal A1C <7. Up to date eye, foot, ACR. Consider returning to see nutrition; will call to schedule after talks to Soledad. Benign ess ential hypertension 0411255 I10 Borderline controlled , goal < 140/90. Continue meds and self care plan. Obesity 689826563 E66.9 Working on improved diet and more activity, [id number] Riley Choudhary OD Eye Care, [facility] [address] [facility] [place] [address] 08/01/2015 15:28:11 08/01/2015 16:31:04 Well controlled type 2 diabetes mellitus 780430704 E11.9 Nuclear se nile cataract 845344140 H25.13 Cortical s enile cataract 31617651 H25.013 Myopia 73780720 H52.13 Astigmatism 89023449 H52 .223 Presbyopia 29455076 H52. 4 [id number] Tanja Oliver , [facility], OFFICE [address] [facility] [place] lynch [address] 1 01/24/2016 15:00:40 01/24/2016 15:44:05 Adult health examination 177886313 Z00.00 Discussed healthy diet, regular exercise, stress reduction, and the importance of achieving and maintainin g a healthy weight. Recommende d routine use of seat belts, helmets for high velocity sports, and applicatio n of sunscreen and insect repellent. Recommende d completion of a Health Care Proxy. Active or passive immunization 538411051 Z23 Type 2 zac betes mellitus without complication 220068790 E11.9 Diet controlled , goal A1C <7. Up to date eye, foot, ACR. Hyperlipidemia 47939075 E78.5 Controlled , goal LDL < 100. Continue efforts at healthier diet, activity, and weight loss. Continue lipitor. Benign ess ential hypertension 7494931 I10 Controlled , goal < 140/90. Continue meds and self care plan. Obesity 514002702 E66.9 Good success with improved diet and more activity, Screening for malignant neoplasm of colon 457247795 Z12.11 Essential tremor 8081967 09 G25.0 History is suggestive of ET. Discussed diagnosis, natural history, and management . [id number] Karli LUCIA, [facility], OFFICE [address] [facility] [place] lynch [address] 07/31/2016 13:32:00 07/31/2016 14:25:47 Active or passive immunization 808510389 Z23 Type 2 zac betes mellitus without complication 453630398 E11.9 Diet controlled , goal A1C <7. Up to date eye, foot, ACR. Hyperlipidemia 45222844 E78.5 Controlled , goal LDL < 100. Continue efforts at healthier diet, activity, and weight loss. Continue lipitor. Benign ess ential hypertension 1144946 I10 Controlled , goal < 140/90. Continue meds and self care plan. Obesity 909253415 E66.9 Good success with improved diet and more activity, Screening for malignant neoplasm of colon 701234423 Z12.11 Discussed risks and benefits of screening for colorectal cancer including attributes of fecal occult blood testing, sigmoidosc opy and colonoscop y as well the risks of false positive and negative results of these tests. The patient appreciate s the consequenc es of failure to diagnose cancer including and the risk of false positive if screening is elected. [id number] Leticia LUCIA, [facility], OFFICE [address] [facility] [place] [address] 1 08/22/2016 14:33:55 08/22/2016 15:21:08 Paronychia of toe 515978617 L03.039 Paronychia with early cellulitis dorsum foot, not septic, no abscess. Reviewed ill-define d PCN allergy. I suspect this si quite low risk for anaphylaxi s. Dscussed risks and benefits of trying cephalospo rin. I recommend he start keflex. Reviewed symptoms of allergy including skin rash, oral or throat swelling, SOB, collapse. Advised to call 911. Soak foot TID. Seen lukas Garcia. F/u 2 days. Type 2 zac betes mellitus without complication 334026987 E11.9 Diet controlled , goal A1C <7. [id number] Umm Garcia MD , [facility], OFFICE [address] [facility] [place] [address] 08/24/2016 15:29:08 08/24/2016 16:16:49 Active or passive immunization 461144010 Z23 Paronychia of toe 418612 002 L03.039 Advised completion of full course of antibiotic s. Continue warm soaks. Call if not resolving or fevers. Onychomycosis 260599830 B35.1 Given poor nail care, will refer to podiatry. Improved care will likely prevent infection in the future. [id number] Yareli Moon DPM Podiatry, [address] [address] 09/13/2016 14:09:25 09/21/2016 15:02:22 Type 2 diabetes mellitus without complication 557855852 E11.9 Risk assessment completed. Continue use of supportive shoes, to check feet daily. Emphasized importance of proper glycemic control. Onychomycosis 058349375 B35.1 Etiology explained to patient. Reviewed medical and homepathic options. Recommend listerine or vicks vapor rub for now. Nail biopsy obtained and nail specimen sent to [facility] for evaluation . RTC 3 weeks. Cellulitis of toe 162040 04 L03.031 Pain in toe 413857474 M7 9.674 M79.675 Paronychia of toe 987898 002 L03.039 left hallux toenail avulsed. Dressed with betadine and dsd. Pt given instructio n sheet on local care for toenails. RTC 3 weeks. [id number] Yareli Moon DPM Podiatry, [address] [place] [address] 10/05/2016 14:12:43 10/05/2016 14:31:42 Type 2 diabetes mellitus without complication 606187355 E11.9 Risk assessment completed. Continue use of supportive shoes, to check feet daily. Emphasized importance of proper glycemic control. Onychomycosis 229063150 B35.1 Etiology explained to patient. Reviewed medical and homepathic options. Recommend listerine or vicks vapor rub for now. Nail biopsy obtained and nail specimen sent to [facility] for evaluation . RTC 8 weeks. Pain in toe 080639215 M7 9.674 M79.675 resolved rtc 8 weeks for diabetic careI spent 25 mins face to face with patient, more 50% spent in counseling and coordinati on of care. [id number] Umm Garcia MD , [facility], OFFICE [address] [place] [address] 1 10/17/2016 11:08:47 10/17/2016 12:08:41 Shoulder joint pain 756635310 M25.519 Left shoulder adhesive capsulitis . PT evaluation and treatment. May continue to use ibuprofen and heat to shoulder joint as needed, may try Icy Hot or capsaicin cream on affected muscle. [id number] Lena [facility], [address] [address] 10/22/2016 15:37:42 10/22/2016 22:23:21 Adhesive capsulitis of shoulder 062039654 M75.02 [id number] Lena Amaya [facility], [address] [address] 11/01/2016 11:25:36 11/01/2016 13:47:56 Adhesive capsulitis of shoulder 381409593 M75.02 [id number] Lena Jose Luis [facility], [address] [place] [address] 1 11/14/2016 15:11:55 11/14/2016 15:56:30 Adhesive capsulitis of shoulder 882875471 M75.02 [id number] Lena Amaya [facility], [address] [place] [address] 1 11/21/2016 15:20:28 11/21/2016 16:12:41 Adhesive capsulitis of shoulder 431157211 M75.02 [id number] Lena Amaya [facility], [address] [place] [address] 1 11/28/2016 15:16:11 11/28/2016 16:02:53 Adhesive capsulitis of shoulder 325892752 M75.02 [id number] Yareli Moon DPM Podiatry, [address] [place] [address] 11/30/2016 15:04:53 11/30/2016 15:52:37 Type 2 diabetes mellitus without complication 142857700 E11.9 Risk assessment completed. Continue use of supportive shoes, to check feet daily. Emphasized importance of proper glycemic control. Onychomycosis 236549406 B35.1 Etiology explained to patient. Reviewed medical and homepathic options. Recommend listerine or vicks vapor rub for now. Nails manually debrided without incident. RTC 9 weeks. Pain in toe 652714641 M7 9.674 M79.900 [id number] [facility], [address] [place] [address] 12/12/2016 16:52:25 12/16/2016 23:11:07 Adhesive capsulitis of shoulder 028026993 M75.02 [id number] [facility], [address] [place] [address] 12/19/2016 15:14:39 12/22/2016 13:28:51 Adhesive capsulitis of shoulder 914729173 M75.02 [id number] [facility], [address] [place] [address] 01/28/2017 15:26:00 01/29/2017 15:25:21 Adhesive capsulitis of shoulder 705205668 M75.02 [id number] Ortega Pina MD , [facility], OFFICE [address] [place] [address] [place] lynch [address] 02/19/2017 12:57:00 02/19/2017 14:21:01 Adult health examination 285318664 Z00.00 Discussed healthy diet, regular exercise, stress reduction, and the importance of achieving and maintainin g a healthy weight. Recommende d routine use of seat belts, helmets for high velocity sports, and applicatio n of sunscreen and insect repellent. Recommende d completion of a Health Care Proxy. Active or passive immunization 801135346 Z23 Type 2 zac betes mellitus without complication 692633657 E11.9 Diet controlled , goal A1C <7. Up to date eye, foot, ACR. Hyperlipidemia 59056939 E78.5 Controlled , goal LDL < 100. Continue efforts at healthier diet, activity, and weight loss. Continue lipitor. Benign ess ential hypertension 3442443 I10 Controlled , goal < 140/90. Continue meds and self care plan. Obesity 645505820 E66.9 Good success with improved diet and more activity, Alcohol in take above recommended sensible limits 220116768 F10.10 Reiewed alcohol use, risks, and plans to moderate with alf . [id number] Moncho Roblero, [facility], [facility] [address] [place] [address] 03/14/2017 14:36:54 03/14/2017 15:41:13 Myopia 78532400 H52.13 Presbyopia 52542594 H52. 4 Regular astigmatism 6890 5002 H52.223 Nuclear sc lerotic cataract 350039684 H25.13 Cataract consistent with decreased BCVA Type 2 zac betes mellitus without complication 221554861 E11.9 No retinopath y or other ocular manifestat ions of diabetes [id number] Miriam Calles D.O. , [facility], OFFICE [address] [place] [address] 06/19/2017 10:29:07 06/19/2017 12:07:35 Tinea corporis 23825690 B35.4 A: Mildly itchy rash on his lower back and abdomen that started 3 weeks ago. Rash is mildly itchy. No new foods, medication s or exposures that he is aware of. Rash initially started on both sides of his lower torso, then spread to back and abdomen. Has never had a rash like this before. Denies family or personal history of skin cancer. On exam: Scattered erythemato us, blancheabl e patches with central fading and white scales. Ddx: tinea corporis vs other P: treat for likely tinea corporis with topical terbinafin e; follow up in 2 weeks if not better. To prevent ringworm (tinea) and other skin infections : Do not share clothing, sports equipment, or towels with other people. When at the gym, local pool, or other public areas (including the shower), always wear slippers or sandals. Wash thoroughly with soap and shampoo after any sport involving skin-to-sk in contact. Avoid tight-fitt ing clothing. Change your socks and underwear at least once a day. Keep your skin clean and dry. Always dry yourself completely after bathing. If you have athlete's foot, put your socks on before your underwear so that the infection does not spread to other parts of your body. Take your pet to the vet if it has patches of missing hair or a rash. That could be a sign of a tinea infection. If you or someone in your family has symptoms of ringworm, make sure s/he is treated right away. Otherwise, the infection may spread. [id number] Chari Garcia MD , [facility], OFFICE [address] [facility] [place] [address] 07/09/2017 11:29:51 07/09/2017 12:27:38 Tinea corporis 85631366 B35.4 A: tinea; TAQUERIA prep showed only epithelial cells P: start terbinafin e; call if not better in a few weeks. To prevent ringworm (tinea) and other skin infections : Do not share clothing, sports equipment, or towels with other people. When at the gym, local pool, or other public areas (including the shower), always wear slippers or sandals. Wash thoroughly with soap and shampoo after any sport involving skin-to-sk in contact. Avoid tight-fitt ing clothing. Change your socks and underwear at least once a day. Keep your skin clean and dry. Always dry yourself completely after bathing. If you have athlete's foot, put your socks on before your underwear so that the infection does not spread to other parts of your body. Take your pet to the vet if it has patches of missing hair or a rash. That could be a sign of a tinea infection. If you or someone in your family has symptoms of ringworm, make sure s/he is treated right away. Otherwise, the infection may spread. [id number] [facility], [address] [place] [address] 07/10/2017 09:21:05 07/11/2017 10:15:55 Shoulder pain 96669672 M25.435 [id number] [facility], [address] [place] [address] 07/24/2017 13:22:41 07/24/2017 14:27:44 Shoulder pain 46084362 M25.250 [id number] [facility], [address] [place] [address] 08/13/2017 12:28:24 08/13/2017 13:09:15 Shoulder pain 56283898 M25.857 [id number] [facility], [address] [place] [address] 08/20/2017 12:26:18 08/20/2017 15:05:54 Shoulder pain 51623818 M25.129 [id number] Ortega Pina MD , [facility], OFFICE [address] [place] [address] [place] [address] 08/21/2017 13:47:22 08/21/2017 14:53:32 Type 2 diabetes mellitus without complication 439746452 E11.9 Diet controlled but worsened, goal A1C <7. Up to date eye, foot, ACR. Hyperlipidemia 26206778 E78.5 Controlled , goal LDL < 100. Continue efforts at healthier diet, activity, and weight loss. Continue lipitor. Benign ess ential hypertension 1913101 I10 Controlled , goal < 140/90. Continue meds and self care plan. Obesity 082087951 E66.9 Good success with improved diet and more activity, Alcohol in take above recommended sensible limits 553094189 F10.10 Reiewed alcohol use, risks, and plans to moderate with alf . Knee pain 61863045 M25.5 61 ?HS pull. Trial PT Atopic dermatitis 201963 01 L20.9 Pathophysi ology and natural history of eczema reviewed. Recommende d avoid overwashin g; shower or bathe in tepid water no more than every other day. Use a non-soap cleanser like Cetaphil. Moisturize liberally with a hypoallerg enic lotion like Vaseline Intensive Care, Aquaphor, Eucerin, or Cerevae. May use over the counter corticoste roid or prescripti on steroid (if provided) prior to moisturizi ng. Avoid overheatin g, wool. Inflamed s eborrheic keratosis 394526734 L82.0 Reassured [id number] [facility], [address] [place] [address] 09/04/2017 13:21:09 09/06/2017 12:57:24 Knee pain 90945794 M25.505 [id number] [facility], [address] [place] [address] 09/11/2017 10:46:31 09/11/2017 12:24:08 Knee pain 29148714 M25.594 [id number] [facility], [address] [place] [address] 09/18/2017 10:47:27 09/18/2017 12:25:17 Knee pain 23021440 M25.517 [id number] [facility], [address] [place] [address] 10/10/2017 11:19:31 10/11/2017 09:17:39 Knee pain 48601111 M25.617 [id number] Ortega Pina MD , [facility], OFFICE [address] [place] [address] [place] [address] 10/15/2017 09:51:26 10/15/2017 10:45:57 Essential tremor 119378039 G25.0 History remains suggestive of ET. Reviewed diagnosis, natural history, and management . I offered him a neurologic consultati on but he declined. We discussed activity modificati ons, OT help, meds. He declines. [id number] Ortega Pian MD , [facility], OFFICE [address] [facility] [place] [address] 11/27/2017 10:19:54 11/27/2017 13:33:56 Hematochezia 193269254 K62.[address] Milner by portal. [place] get stat [place] [facility] [place] will see him this afternoon. ED precaution s for recurrent BRBPR, weakness, dizziness, SOB, CP. Remain NPO. [id number] Ortega Pina MD , [facility], OFFICE [address] [facility] [place] [address] 12/03/2017 09:56:34 12/03/2017 10:59:14 Hematochezia 548578481 K62.5 Resolved post-polyp ectomy bleed after endoclip. No evidence of UC on biopsy. Benign ess ential hypertension 6011763 I10 Borderline controlled , goal < 140/90. Restart lisinopril . Continue self care plan. [id number] Han Alva RN , [facility], OFFICE [address] [facility] [place] [address] 02/20/2018 14:02:52 02/20/2018 15:16:23 Adult health examination 309596869 Z00.00 Discussed healthy diet, regular exercise, stress reduction, and the importance of achieving and maintainin g a healthy weight. Recommende d routine use of seat belts, helmets for high velocity sports, and applicatio n of sunscreen and insect repellent. Recommende d completion of a Health Care Proxy. Depression screening 171 063931 Z13.89 depression screening tool administer ed, entered into emr, scored and discussed, time greater than 7.5 minutes Essential tremor 0659724 09 G25.0 History remains suggestive of ET. Reviewed diagnosis, natural history, and management . I offered him a neurologic consultati on but he declined. We discussed activity modificati ons, OT help, meds. He declines. Type 2 zac betes mellitus without complication 057732021 E11.9 Diet controlled and stable, goal A1C <7. Up to date eye, foot, ACR. Hyperlipidemia 18773870 E78.5 Controlled , goal LDL < 100. Continue efforts at healthier diet, activity, and weight loss. Continue lipitor. Benign ess ential hypertension 2379297 I10 Controlled , goal < 140/90. Continue meds and self care plan. Obesity 828987972 E66.9 Good success with improved diet and more activity, Alcohol in take above recommended sensible limits 315086932 F10.10 Reiewed alcohol use, risks, and plans to moderate. Active or passive immunization 579821569 Z23 [id number] Moncho Roblero OD [facility], [facility] [address] [facility] [place] [address] 03/20/2018 09:19:43 03/20/2018 10:33:16 Myopia 17926439 H52.13 Type 2 zac betes mellitus without complication 672436533 E11.9 No retinopath y or other ocular manifestat ions of diabetes Nuclear sc lerotic cataract 521269132 H25.13 Cataract consistent with decreased BCVA and night driving issues Presbyopia 03661597 H52. 4 Regular astigmatism 6890 5002 H52.097 [id number] Ortega Pina MD , [facility], OFFICE [address] [facility] [place] [address] 08/20/2018 15:28:56 08/20/2018 16:37:19 Type 2 diabetes mellitus without complication 352451876 E11.9 Diet controlled and stable, goal A1C <7. Up to date eye, foot, ACR. Hyperlipidemia 14920369 E78.5 Controlled , goal LDL < 100. Continue efforts at healthier diet, activity, and weight loss. Continue lipitor. Obesity 641466136 E66.9 Work on improved diet and more activity, Try Rx the Y Benign ess ential hypertension 3405622 I10 Controlled , goal < 140/90. Continue meds and self care plan. Alcohol in take above recommended sensible limits 386246189 F10.10 Good success with plan to moderate. Tremor 69586155 R25.1 Some elements of ET and some of PD. Discussed both. See neuro. [id number] Ortega Pina MD , [facility], OFFICE [address] [facility] [place] [address] 11/04/2018 12:45:17 11/04/2018 13:22:04 Parkinson's disease 29888259 G20 Reveiwed diagnosis and management . Complete forms. [id number] Ortega Pina MD , [facility], OFFICE [address] [facility] [place] [address] 02/24/2019 08:17:40 02/24/2019 09:16:22 Adult health examination 703286707 Z00.00 Discussed healthy diet, regular exercise, stress reduction, and the importance of achieving and maintainin g a healthy weight. Recommende d routine use of seat belts, helmets for high velocity sports, and applicatio n of sunscreen and insect repellent. Recommende d completion of a Health Care Proxy. Depression screening 171 832710 Z13.89 depression screening tool administer ed, entered into emr, scored and discussed, time greater than 7.5 minutes Active or passive immunization 565084382 Z23 Benign ess ential hypertension 3992877 I10 Controlled , goal < 140/90. Continue meds and self care plan. Type 2 zac betes mellitus without complication 342477546 E11.9 Diet controlled and stable, goal A1C <7. Up to date eye, foot, ACR. Hyperlipidemia 64586672 E78.5 Controlled , goal LDL < 100. Continue efforts at healthier diet, activity, and weight loss. Continue lipitor. Obesity 044515557 E66.9 Work on improved diet and more activity. Alcohol in take above recommended sensible limits 482889893 F10.10 Good success with plan to moderate. Parkinson's disease 4904 9000 G20 On meds with Seble [id number] Moncho Roblero OD [facility], [facility] [address] [facility] [place] [address] 2019 08:47:07 2019 09:38:21 Presbyopia 20866538 H52.4 Nuclear sc lerotic cataract 270153464 H25.13 Cataract consistent with decreased BCVA and night driving issues Myopia 59386502 H52.13 Regular astigmatism 6890 5002 H52.275 [id number] Ortega Pina MD FP, [facility], OFFICE [address] [facility] [place] [address] 09/21/2019 09:07:16 09/21/2019 10:39:38 Benign essential hypertension 8594778 I10 Controlled , goal < 140/90. Continue meds and self care plan. Plans to buy home cuff. Hyperlipidemia 56765472 E78.5 Controlled , goal LDL < 100. Continue efforts at healthier diet, activity, and weight loss. Continue lipitor. Obesity 579236158 E66.9 Work on improved diet and more activity. Alcohol in take above recommended sensible limits 910800107 F10.10 Good success with plan to moderate. Parkinson's disease 4904 9000 G20 On meds with Seble Uncontroll ed type 2 diabetes mellitus 268376243 E11.65 Uncontroll ed and worse, likely disease progressio n, but maybe also less active due to PD, goal A1C <7. Up to date eye, foot, ACR. Start metformin. Discussed indication s for new prescripti on, risks and benefits of medication , common side effects and how to manage, and reasons to notify prescriber of adverse effects or discontinu ation. See DM ed for SMB[employer] teaching and supplies, check into diet and activity. Low back pain 567961606 M54.5 Managing with [facility] and PS&S. Discussed nonspecifi c imaging findings and reassured these are not unusual nor do they predice worse course. Encouraged to remain active. I suggested he wean off gabapentin as per PS&S. [id number] Mignon Grande RN, BSN, [facility] , [facility] [address] [facility] [place] [address] 09/23/2019 09:33:25 09/24/2019 08:35:20 Type 2 diabetes mellitus without complication 034127509 E11.9 Spoke with Sohail and his Soledad today for diabetes education, kindly referred by Dr. Pina- A1c 8.5% in August, up from 6.5% in January- Blood sugars: Not currently checking BG. RX sent for signature and he will start checking twice daily 3-4x/week. Suggested fasting and prior to dinner or at bedtime to start.- Medication s: Started metformin ER 500 mg yesterday, working up to 2 tabs BID, discussed possible SE's and was encouraged to contact G if he started having bothersome SE's.- Hypoglycem ia: none, briefly reviewed sx and tx - Diet: See [facility] for dietary recall. He snacks in the evening. Discussed healthy snack options. - Exercise: currently in PT for lower back pain, will start walking more. Reviewed the following: - Appropriat e times to test blood sugar, target blood sugars- The importance of physical activity, effect of physical activity on blood sugars, goal of 150 minutes of physical activity per week- The Plate Method, label reading, portion control, the effects of carbs on blood sugar- Possible SE's with metformin, hypoglycem ia identifica tion and management [id number] Ortega Pina MD , [facility], OFFICE [address] [facility] [place] [address] 11/09/2019 13:48:44 11/09/2019 14:28:59 Suspected COVID-19 122334532 Z03.818 Abrupt onset SOB, congestion , and hoarseness likely viral syndrome. Suspect COVID-19. D/dx: COVID-19, other viral syndrome, bronchitis , asthma/linda ctive airway. We discussed options, testing now expanded to include all symptomati c individual s >12yrs. Will schedule testing. He is not so unwell as to need to go to the ER immediatel y. No s/sx of hypoxia, no indication s at this time for an in-office visit. Reviewed indication s for urgent eval/ED visit. Continue supportive care, rest, plenty of oral fluids, cough/deep breathing. Follow-up as needed for worsening symptoms, if SOB worsens or persists, or failure to improve. Dyspnea 979448799 R06.00 SOB not related to activity, primarily associated with nasal congestion , suspect re: above viral syndrome. D/dx: COVID-19, other viral syndrome, sinusitis/ post-nasal drip, bronchitis , asthma/linda ctive airway, COPD, CHF. Low suspicion angina, not related to activity, denies chest pain. No orthopnea or edema, CHF unlikely, no other symptoms of fluid overload. Will treat symptom with albuterol inhaler PRN, risks/bene fits/side effects reviewed. May consider PFT's if symptom persists. Follow-up PRN. Congestion of nasal sinus 31622131 R09.81 Nasal congestion ?viral vs allergic. Will treat with flonase PRN, risks/bene fits/side effects reviewed. Continue supportive measures, saline nasal spray/stea m therapy, rest, avoid potential triggers. May consider oral antihistam ine if allergic symptoms persist. Follow-up PRN. Cough 18337608 R05 Dry cough, pt reports pre-dates these symptoms. ?re: ACEI. Encouraged pt to f/u with PCP if cough continues or becomes more bothersome . [id number] Mignon Grande, RN, BSN, [facility] , [facility] [address] [facility] [place] [address] 11/25/2019 09:30:19 11/26/2019 15:41:09 Type 2 diabetes mellitus without complication 376353578 E11.9 Spoke with Sohail today for diabetes education, kindly referred by Dr. Pina- No problems getting food or medication due to the pandemic. [facility] He and his do the grocery shopping. Has a mask he wears when he goes out. - A1c 8.5% in August, up from 6.5% in January.- Blood sugars: Checking BID 3-4 times per week. Reviewed the last 2 weeks. Fasting range 93 - 126 mg/dl, with an outlier of 144 mg/dl, evening range 98 - 175 mg/dl.- Medication s: Metformin ER 500mg 2 tabs BID, no SE's.- Hypoglycem ia: none, briefly reviewed sx and tx. - On 11/22 BG was 77 at 9pm. He ate lunch while out kayaking, got home around 9pm then checked and ate a late dinner.- Encouraged him to bring food if he goes kayaking so that he is not skipping meals.- Diet: See HPI for dietary recall. His does the cooking, she was present at last visit. She has been serving meals using the plate method. They keep fresh fruit in the fridge that he snacks on in the evening. - Exercise: Back pain is better, he is walking and kayaking more.- Reports he has lost about 5 pounds since last appt. He has accomplish ed this by being more active and being more careful about what he is eating. He has also cut way back on the amount of beer he drinks, now having less than one per week. Reviewed the following: - Appropriat e times to test blood sugar, target blood sugars, evaluation of BG results- The importance of physical activity, effect of physical activity on blood sugars, goal of 150 minutes of physical activity per week- The Plate Method, label reading, portion control, the effects of carbs on blood sugar- Hypoglycem ia identifica tion and management [id number] Ortega Pina MD FP, [facility], OFFICE [address] [place] [address] 12/17/2019 08:03:03 12/17/2019 08:38:30 Benign essential hypertension 2973392 I10 Previously controlled , goal < 140/90. Continue meds and self care plan. Buy home cuff. Uncontroll ed type 2 diabetes mellitus 748357170 E11.65 Improved and borderline controlled , likely disease progressio n, but maybe also less active due to PD, goal A1C <7-7.5. Continue metformin. Up to date eye, foot, ACR. Hyperlipidemia 48701866 E78.5 Controlled , goal LDL < 100. Continue efforts at healthier diet, activity, and weight loss. Continue lipitor. Obesity 021374714 E66.9 Work on improved diet and more activity. Alcohol in take above recommended sensible limits 948795154 F10.10 Excellent success with moderation . Parkinson's disease 4904 9000 G20 On meds with Rossen Low back pain 303274308 M54.5 Resolved. Urged to continue HEP [id number] Mignon Grande RN, BSN, [facility] , [facility] [address] [facility] [place] [address] 02/18/2020 08:43:46 02/19/2020 15:34:14 Type 2 diabetes mellitus without complication 364895415 E11.9 Spoke with Sohail today for diabetes education, kindly referred by Dr. Pina- A1c 7.5% in November, down from 8.5% in August.- Medication s: Metformin ER 500mg 2 tabs BID, no SE's.- Checking BG a few times per week, fasting and 1-2 hours after a meal8/26: 98, after dinner 191 8/24: 120 8/20: 110 8/18: 116, after meal 109 8/16: 133, 115 both after a meal 8/13: 105, after meal 119 Meter avg 122 mg/dl (53 readings)- He continues to use the Plate Method for dinner, is mindful of the amount of carbs he is eating, and taking smaller portions for evening snacks.- Works in his yard and goes kayaking. Tries to be as physically active as tolerated. Reviewed the following: - Appropriat e times to test blood sugar, target blood sugars, evaluation of BG results, the Plate Method, portion control, the effects of carbs on blood sugar [id number] , [facility], OFFICE [address] [facility] [place] [address] 02/22/2020 09:02:39 02/22/2020 09:45:40 Benign essential hypertension 7210445 I10 Previously controlled , goal < 140/90. Continue meds and self care plan. Buy home cuff. Uncontroll ed type 2 diabetes mellitus 937725367 E11.65 Improved and controlled , likely disease progressio n, but maybe also less active due to PD, goal A1C <7-7.5. Continue metformin. Up to date eye, foot, ACR. Has labs next month scheduled. Hyperlipidemia 42644289 E78.5 Controlled , goal LDL < 100. Continue efforts at healthier diet, activity, and weight loss. Continue lipitor. Obesity 995420147 E66.9 Work on improved diet and more activity. Alcohol in take above recommended sensible limits 822118808 F10.10 Excellent success with moderation . Parkinson's disease 4904 9000 G20 On meds with Rossen Chest pain 08688235 R07. 9 Typical chest pain. Needs ischemic work up. Restart ASA now. In office visit today for EKG. If reassuring , could probably have out patient stress this week as asymptomat ic for 4 days. ED precaution s should pain recur, new or worsening SOB, palps, pre-syncop e/syncope, nausea, weakness. He agrees. [id number] Ortega Pina MD , [facility], OFFICE [address] [place] [address] 02/22/2020 13:48:09 02/22/2020 15:52:10 Benign essential hypertension 0758091 I10 Controlled , goal < 140/90. Continue meds and self care plan. Buy home cuff. Chest pain 59074907 R07. 9 Typical chest pain without ischemia on EKG. Out patient stress tomorrow. ED precaution s should pain recur, new or worsening SOB, palps, pre-syncop e/syncope, nausea, weakness. He agrees. Bifascicular block 20557 003 I45.2 Noted. Unlikely significan t in absence of presyncope /syncope. [id number] Mignon Grande RN, BSN, [facility] , [address] [address] 04/19/2020 08:33:17 04/19/2020 16:22:26 Type 2 diabetes mellitus without complication 937980294 E11.9 Spoke with Sohail today for diabetes education, kindly referred by Dr. Pina- A1c 7.5% in November, down from 8.5% in August. He is due for updated lab work, he was encouraged to make an appt.- Medication s: Metformin ER 500mg 2 tabs BID, no SE's.- Checking BG sporadical ly, tries for 3 times per week fasting and 2 hours after dinner. Avg is 116 mg/dl for last 48 days.- Feeling like he currently has more energy than he has in the past.- He continues to use the Plate Method for dinner, is mindful of the amount of carbs he is eating, and taking smaller portions for evening snacks.- Reports that he has lost a few pounds, is currently 184, attributes this to staying active and drinking less beer.- Walks twice per week. States he doesn't sit around, he is always doing sometime, working on his shed and painting, or doing other small projects around the house. - Had a 66 one time, did not feel symptoms. Enc to call if he has lows more often. Recent BG, fasting and 2 hours after dinner. Dates are unclear. 102, 97 107, 127 98, 116 106, 140 91, 117 105, 128 85, 173 Reviewed the following: - Appropriat e times to test blood sugar, target blood sugars, evaluation of BG results, the Plate Method, portion control, the effects of carbs on blood sugar [id number] Ortega Pina MD , [facility], OFFICE [address] [place] [address] 08/18/2020 10:47:17 08/18/2020 14:22:54 Benign essential hypertension 8148767 I10 Previously controlled , goal < 140/90. Continue meds and self care plan. Buy home cuff. In person for BP check 3-6 months. Chest pain 92448811 R07. 9 Typical chest pain without ischemia on stress test 02/10, has resolved. Etiology unclear but well medically managed. Return precaution s reviewed. Bifascicular block 97795 003 I45.2 Noted. Unlikely significan t in absence of presyncope /syncope. Hyperlipidemia 54782554 E78.5 Controlled , goal LDL < 100. Continue efforts at healthier diet, activity, and weight loss. Continue lipitor. Obesity 024619672 E66.9 Work on improved diet and more activity. Alcohol in take above recommended sensible limits 194679779 F10.10 Excellent success with moderation . Parkinson's disease 4904 9000 G20 On meds with Rossen Type 2 zac betes mellitus without complication 144681597 E11.9 Improved and controlled , goal A1C <7-7.5. Continue metformin. Schedule eye exam, will call if needs referral. Needs foot exam when next in person. Up to date ACR. Cobalamin deficiency 190 773727 E53.8 New diagnosis per [facility] labs, discussed with patient. Started on oral B12 from [place]. Recommend he get close serologic follow up by 09/22 and start SC if B12 not normal . Cataract 918153188 H26.9 Patient is at low risk of perioperat marbella cardiopulm onary complicati ons of a low risk surgery. S/he can proceed without further risk stratifica tion. Routine EKGs are not medically indicated in the absence of symptoms of heart disease. The [place] [employer] recommends against routine EKGs other than for those wit heart disease. The patient may stop aspirin and fish oil 7-10 days prior to surgery and NSAIDs 3-5 days prior to surgery if necessary. S/he should discuss other cardiac medication s with anesthesia pre-op as needed. Health Concerns Section Related Observation LastModified by Organization Detai ls LastModified Time None Recorded Concern Status LastModified by Organization Details LastModified Time None Recorded Advance Directives Directive None Recorded Payers Encounter Date Sequence Insurance Name Policy Number Policy Mills Covered Member ID Mills Member ID Guarantor Name 02/18/2020 1 [place] [facility] [id number] Wilmer Oliavres [id number] Dustin Olivares 02/22/2020 1 [place] [facility] [id number] Wilmer Olivares [id number] Dustin Olivares 02/22/2020 1 [place] [facility] [id number] Wilmer Olivares [id number] Dustin Olivares 04/19/2020 1 [place] [facility] – [place]) [id number] Wilmer Olivares [id number] Dustin Olivares 08/18/2020 1 [place]: [facility] [place] [id number] Wilmer Olivares [id number] Dustin Olivares Notes Date Note Type Note Provider Name and Address Organization Details Recorded Time 0 text/html DSME Evaluation, Plan and GoalsReported bypatient.DSME Goal #1Medications (Taper metformin up as ordered, contact [facility] if develops bothersome SE's.); Goal Success Completed DSME Goal #2Monitoring (Start checking BG BID 3-4 times per week); Goal Success Completed Diabetes Ed Classespatient not appropriate (declines)Diabetes Self Management History & IntakeReported bypatient.Patient HistoryPatient chief complaint today:Elevated blood sugars; has a family history of diabetes (2 sisters and brother are diabetic) Recent Lab Tests:Hemoglobin A1C:7.5% CoMorbidities & Other Complicating FactorsHyperlipidemia;Hyper tension Associated Symptoms:no polyuria; no burning or discomfort with urination; no polydypsia; no blurred vision; no weight gain; no weight loss; no confusion; no increased appetite; no numbness of feet;nocturia: 1 times per night Hypoglycemia SymptomsNo hypoglycemia reported. Home Glucose Monitoring:monitoring glucose (BID 3-4 times per week) Diabetes Medications:metformin er (2 tabs twice daily) Physical Activityworking out in the yard, kayaking back is feeling better continuing to do exercises for his back a few times per week Nutrtition/dietaryB: egg sandwich or cheerioes with fruit L: sandwich and soup with some veggies D: pork chops with au gratin potatoes and broccoli Snacks: apple or other fruit Drinks mostly water, sometimes has a glass of milk in the morning or with dinner, occasionally a low sodium V8 juice with breakfast. Mignon Grande RN, BSN, [address], [phone], [facility] 02/18/2020 09:53:40 0 text/html [facility] HypertensionReported bypatient.Context:No ischemic heart disease; No kidney disease; No history of CVA; No congestive heart failure; No history of transient ischemic attacks; No peripheral vascular disease;Diabetes Control:BP Goal less than (<140/90); Treated with medications; Patient understands medications are to lower blood pressure Compliance:Compliant with medications; Compliant with diet; Compliant with exercise; Compliant with follow-up visits Barriers to CareNo identified barriers to care Self Care:Cuff is inaccurate, home cuff not covered by insurance Associated Symptoms:No shortness of breath; No edema; No fatigue; No decline in exercise capacity; No snoring;Chest pain;Exertional dyspnea SOB/CP: Started 3 weeks ago, better, then worse. Notes no SOB at rest, gets TOLENTINO going up a flight stairs, able to complete but notes his breathing. Complains of intermittent pressure in his central chest every few days, not clearly exertional, might correspond to breathlessness. Non-radiating. Thinks maybe after meals. He has not had this in a few days. Pressure can last minutes to a few hours. Paddled in kayak yesterday for a few hours, no limitation of breathing or chest pain. No nausea, sweats, lightheaded. He has a chronic dry cough for years, unchanged, relates to ACEI. No wheezing. Ortega Pina MD [address] [place] [address], [phone], [facility] 02/22/2020 14:27:34 0 text/html [facility] DiabetesReported bypatient.Review finger sticks:Average BS 98-133 (see visit) Duration:chronic Control:usually well controlled (borderline); improved since last visit; treated with diet and oral medications; Hemoglobin A1C has been 7-8; Hemoglobin A1C goal is less than 7.5; High dose statin; BP usually runs less than 120/80; BP goal is less than 140/90 Compliance:compliant with medications; compliant with follow-up visits; compliant with diet (whole grains: brown rice 1x/week, wheat bread daily, WW pasta 1x/week, increased fruits (for snacks) and veg ( loves them), less sweets, non-alcoholic beer (4/week)); compliant with home glucose monitoring;noncompliant with exercise(less active with back pain); Taking BLAS or ARB; Taking a statin medications Barriers to CareNo identified barriers to care Self Care:monitoring glucose (3-4x/week, random AM and PC dinner) Context:seeing eye doctor regularly; checking feet regularly; not missing doses of medications; no side effects from medications;not taking aspirin daily Associated Symptoms:no dizziness; no sweats; no increased thirst; no numbness of feet; no calluses on feet; no coronary artery disease; no kidney disease; no peripheral vascular disease; no retinopathy; no neuropathy;weight gain ( lbs);weight loss (40 lbs)(due to better habits)[facility] HyperlipidemiaReported bypatient.Duration:chronic Control:well controlled; improved since last visit; unchanged since last visit; LDL has been <70, goal is <100; treated with medications; Patient understands medications are to lower cholesterol Compliance:compliant with medications (reports gets from [facility]); compliant with follow-up visits; compliant with diet Barriers to CareNo identified barriers to care Context:Diabetes; Nonsmoker; No ischemic heart disease; No peripheral vascular disease (03373); No carotid artery stenosis Associated Symptoms:no muscle pain; no fatigue; no change in exercise capacityVMG HypertensionReported bypatient.Context:No ischemic heart disease; No kidney disease; No history of CVA; No congestive heart failure; No history of transient ischemic attacks; No peripheral vascular disease;Diabetes Control:BP Goal less than (<140/90); Treated with medications; Patient understands medications are to lower blood pressure Compliance:Compliant with medications; Compliant with diet; Compliant with exercise; Compliant with follow-up visits Barriers to CareNo identified barriers to care Self Care:Cuff is inaccurate, home cuff not covered by insurance Associated Symptoms:No shortness of breath; No edema; No fatigue; No decline in exercise capacity; No snoring;Chest pain;Exertional dyspnea PD: Seeing [facility] for Parkinson's. Sohail tells me he was in the 's 3638-8571, a period during which he was exposed to contaminated water at [facility]. He was exposed to VOCs (TCE, PCE, viyl chloride, benzene). He finds meds helps quite a bit. No side effects. Able to do usual activities. Did BIG, might try LOUD. ALLERGY: Intermittent sinus congestion and nasal obstruction better than last month. Humidity bothers him. Some chest congestion but not raspy and rare dry cough which he relates to ACEI. Some subjective response to MDI. SOB/CP: Started 3 weeks ago, better, then worse. Notes no SOB at rest, gets TOLENTINO going up a flight stairs, able to complete but notes his breathing. Complains of intermittent pressure in his central chest every few days, not clearly exertional, might correspond to breathlessness. Non-radiating. He has not had this in a few days. Pressure can last minutes to a few hours. Paddled in kayak yesterday for a few hours, no limitation of breathing or chest pain. No nausea, sweats, lightheaded. He has a chronicdry cough for years, unchanged, relates to ACEI. No wheezing. Time for intake: {{1 2 3 4 5 6 7 8* 9 10 11 12 13 14 15 16 17 18 19 20 21 22 23 24 25}} minutes. Ortega Pina MD [address] [place] [address], [phone], [facility] 02/22/2020 09:36:53 0 text/html DSME Evaluation, Plan and GoalsReported bypatient.DSME Goal #1Medications (Taper metformin up as ordered, contact [facility] if develops bothersome SE's.); Goal Success Completed DSME Goal #2Monitoring (Start checking BG BID 3-4 times per week); Goal Success Completed Diabetes Ed Classespatient not appropriate (declines)Diabetes Self Management History & IntakeReported bypatient.Patient HistoryPatient chief complaint today:Elevated blood sugars; has a family history of diabetes (2 sisters and brother are diabetic) Recent Lab Tests:Hemoglobin A1C:7.5% CoMorbidities & Other Complicating FactorsHyperlipidemia;Hyper tension Associated Symptoms:no polyuria; no burning or discomfort with urination; no polydypsia; no blurred vision; no weight gain; no weight loss; no confusion; no increased appetite; no numbness of feet;nocturia: 1 times per night Hypoglycemia SymptomsNo hypoglycemia reported. Home Glucose Monitoring:monitoring glucose (BID 3-4 times per week) Diabetes Medications:metformin er (2 tabs twice daily) Physical Activityworking out in the yard, kayaking back is feeling better continuing to do exercises for his back a few times per week Nutrtition/dietaryB: eggs with an tajik muffin or ham, or plain cheerioes L: leftovers, or a ham sandwich with fruit D: pizza, shepherds pie Snack: once in awhile will have some nuts in the evening Drinks mostly water and milk, once in awhile a non-alcoholic beer Retired, lives with is .no recent illness or hospitalizations Mignon Grande RN, BSN, [address], [phone], [facility] 04/19/2020 11:42:47 1 text/html [facility] DiabetesReported bypatient.Review finger sticks:Average BS 85-110 from recall Duration:chronic Control:usually well controlled; improved since last visit; treated with diet and oral medications; Hemoglobin A1C has been less than 7; Hemoglobin A1C goal is less than 7.5; High dose statin; BP usually runs 120-130/80-85; BP goal is less than 140/90 Compliance:compliant with medications; compliant with follow-up visits; compliant with diet (whole grains: brown rice 1x/week, wheat bread daily, WW pasta 1x/week, increased fruits (for snacks) and veg ( loves them), less sweets, non-alcoholic beer (4/week)); Compliant with exercise; compliant with home glucose monitoring; Taking BLAS or ARB; Taking a statin medications Barriers to CareNo identified barriers to care Self Care:monitoring glucose (3-4x/week, random AM and PC dinner) Context:checking feet regularly; taking aspirin daily; not missing doses of medications; no side effects from medications;not seeing eye doctor yearly(03/[address] Roblero) Associated Symptoms:no dizziness; no sweats; no increased thirst; no numbness of feet; no calluses on feet; no coronary artery disease; no kidney disease; no peripheral vascular disease; no retinopathy; no neuropathy;weight loss (40 lbs)(due to better habits over 4 yrs)[facility] HyperlipidemiaReported bypatient.Duration:chronic Control:well controlled; unchanged since last visit; LDL has been <70, goal is <100; treated with medications; Patient understands medications are to lower cholesterol Compliance:compliant with medications (gets from [facility]); compliant with follow-up visits; compliant with diet Barriers to CareNo identified barriers to care Context:Diabetes; Nonsmoker; No ischemic heart disease; No peripheral vascular disease (37004); No carotid artery stenosis Associated Symptoms:no muscle pain; no fatigue; no change in exercise capacityVMG HypertensionReported bypatient.Context:No ischemic heart disease; No kidney disease; No history of CVA; No congestive heart failure; No history of transient ischemic attacks; No peripheral vascular disease;Diabetes Control:BP Goal less than (<140/90); Treated with medications; Patient understands medications are to lower blood pressure Compliance:Compliant with medications; Compliant with diet; Compliant with exercise; Compliant with follow-up visits Barriers to CareNo identified barriers to care Self Care:Cuff is inaccurate, home cuff not covered by insurance Associated Symptoms:No chest pain; No shortness of breath; No edema; No fatigue; No decline in exercise capacity Time for intake: {{1 2 3 4* 5 6 7 8 9 10 11 12 13 14 15 16 17 18 19 20 21 22 23 24 25}} minutes.SOB/CP: Reviewed nml stress test. No CP, SOB, no TOLENTINO going up a flight stairs PD: Seeing [facility] for Parkinson's. Sohail tells me he was in [place] [employer] [address], a period during which he was exposed to contaminated water at [facility]. He was exposed to VOCs (TCE, PCE, vinyl chloride, benzene). He finds meds helps quite a bit. No side effects. Able to do usual activities. Did BIG, might try LOUD. Time for intake: {{1 2 3 4 5 6 7 8* 9 10 11 12 13 14 15 16 17 18 19 20 21 22 23 24 25}} minutes. Ortega Pina MD [address] [place] [address], [phone], [facility] 09/13/2020 12:37:25
--- OUTSIDE RECORDS SUMMARY | 2024-08-12 08:47 | XMS_ITS ---
Author Name [facility] Organization [facility] [place] Address [address] [place] [address] Care Team Providers Care Dispatcher Maintenance Service Name Role Phone LUCITA BLANCHARD Primary Care [...] Relationship to [place] ANTHEM [place] OF [place] ([place]ARD) [facility] ORGANIZAT ION HAMPS HIRE COUNT Y INS Dec 22, 2020 [id number] [phone] BRNALLELY , SPOUSE BCBS [place] [employer] CE ORGANIZAT ION HAMPS HIRE COUNT Y INS Dec 22, 2020 [id number] BEULAH ALMANZA SPOUSE BCBS OF [facility] [employer] CE ORGANIZAT ION HAMPS HIRE COUNT Y INS Dec 22, 2020 [id number] ALEJANDRA ALMANZA SPOUSE [place] PRESCRIPT ION HAMPS HIRE COUNT Y INS Dec 22, 2020 RX21AT [id number] BEULAH ALMANZA SPOUSE [place] PRESCRIPT ION HAMPS HIRE COUNT Y INS Dec 22, 2020 RX21AT [id number] BEULAH ALMANZA SPOUSE [employer] PRESCRIPT ION HAMPS HIRE COUNT Y INS Dec 22, 2020 RX21AT [id number] JOSETTE ALMANZA PATIENT [employer] PRESCRIPT ION HAMPS HIRE COUNT Y INS Dec 22, 2020 RX21AT [id number] BEULAH ALMANZA SPOUSE [employer] ([id number]) PRESCRIPT ION L4TA* Sep 22, 2013 L4TA [id number] [phone] BEULAH ALMANZA SPOUSE [employer] ([id number]) PRESCRIPT ION L4TA* Sep 22, 2013 L4TA [id number] [phone] BEULAH ALMANZA SPOUSE MEDICARE (WNR) MEDICARE (M) PART A Feb 23, 2016 PART A [id number] [facility] JOSETTE ALMANZA PATIENT MEDICARE (WNR) MEDICARE (M) PART A Feb 23, 2016 PART A [id number] [facility] JOSETTE ALMANZA PATIENT Selected Encounter This section includes the information on record at [place] for the Encounter. Date/Time Encounter Type Encounter Description Reason Provider Source Feb 03, 2024 12:30 PM INTRM OPH EXAM EST PATIENT OPTOMETRY ICD-10-CM H00.015 Hordeolum externum left lower eyelid CÉSAR TEJEDA IHE Encounter Template Text not used by DC Assessments - Encounter Diagnoses This section includes the primary and secondary diagnoses documented for the Encounter. Date/Time Primary/Secondary Diagnosis Diagnosis Name Provider Source Feb 03, 2024 02:32 PM PRIMARY Hordeolum externum left lower eyelid CÉSAR TEJEDA [place] [facility] [place] [facility] Plan of Treatment: Future Appointments [...] 20 appointments. The data comes from all [place] treatment facilities. Appointment Date/Time Appointment Type Appointme nt Facility Name Feb 11, 2024 01:00 PM AMBULATORY - MEDICINE [facility] Feb 19, 2024 12:00 PM AMBULATORY - MEDICINE [place] [facility] [place] [facility] Feb 26, 2024 10:00 AM AMBULATORY - MEDICINE [place] [facility] [place] [facility] Apr 29, 2024 01:30 PM AMBULATORY - MEDICINE [facility] ([facility] Jun 02, 2024 10:45 AM AMBULATORY - MEDICINE [place] [facility] [place] [facility] Jun 05, 2024 01:30 PM AMBULATORY - MEDICINE [place] [facility] [place] [facility] Jul 09, 2024 10:30 AM AMBULATORY - MEDICINE [place] [facility] [place] [facility] Jul 27, 2024 01:30 PM AMBULATORY - MEDICINE [facility] ([facility]) Lab Results: +/- 30 days of the encounter This section includes the Chemistry and Hematology Lab Results on record with DC for the patient. Radiology Reports and Pathology Reports are provided separately, in subsequent sections. Lab Results This section contains the Chemistry/Hematology Results that were resulted 30 days before or 30 daysafter the date of the Encounter. Date/Time Source Result Type Result - Unit Interpretation Reference Range Comment Feb 03, 2024 01:49 PM [facility] ([facility]) MICROALBUMIN CREATININE RATIO PANEL Specimen Type: URINE No comment entered. Ordering Provider: NEHEMIAS BLANCHARD Report Released Date/Time: Jan 27, 2024 11:47 AM Reporting Lab: [facility] [place] [facility] [address] [facility] [address] [facility]forming [facility]: [facility] [address] [address] MICROALBUMIN/C REATININE RATIO 89.4 mg/g H 0-29.9 MICROALBUMIN,Q UANTITATIVE 9.0 mg/dL RR UNAVAIL CREATININE URINE 100.67 mg/dL Feb 03, 2024 01:49 PM [facility] ([facility]) URINALYSIS Specimen Type: URINE Comment: If Glucose = >500 and Ketones are positive, please alert the Physician. Ordering Provider: NEHEMIAS BLANCHARD Report Released Date/Time: Jan 27, 2024 11:47 AM Reporting Lab: [address] [address] Performing Lab: [address] [address] UA COLOR Light-Yellow Yellow UA APPEARANCE Clear [...] Jan 27, 2024 11:47 AM Reporting Lab: [address] [address] Performing Lab: [address] [address] VITAMIN B12 869 pg/mL 200-900 Feb 03, 2024 01:41 PM [facility] ([facility]) VITAMIN D (25-OH) Specimen Type: SERUM No comment entered. Ordering Provider: NEHEMIAS BLANCHARD Report Released Date/Time: Jan 27, 2024 11:47 AM Reporting Lab: [address] [address] Performing Lab: [address] [address] VITAMIN D (25-OH) 25 ng/mL 20-50 Feb [...] Jan 27, 2024 11:47 AM Reporting [facility]: [facility] [address] [address] Performing Lab: [facility] [address] [address] HEMOGLOBIN A1C 6.1 H 4.0-5.6 Feb 03, 2024 01:41 PM [facility] ([facility]) TSH Specimen Type: SERUM No comment entered. Ordering Provider: NEHEMIAS BLANCHARD Report Released Date/Time: Jan 27, 2024 11:47 AM Reporting Lab: [facility] [address] [address] Performing Lab: [facility] [address] [address] TSH 1.45 u[IU]/mL 0.35-5.00 Feb 03, 2024 01:41 PM [facility] ([facility]) PSA Specimen Type: SERUM No comment entered. Ordering Provider: NEHEMIAS BLANCHARD Report Released Date/Time: Jan 27, 2024 11:47 AM Reporting Lab: [facility] [address] [address] Performing Lab: [facility] [address] [address] PSA 221.85 ng/mL H 0.00-4.00 Feb 03, 2024 01:41 PM [facility] ([facility]) CBC AND DIFF (AUTO) Specimen Type: BLOOD No comment entered. Ordering Provider: NEHEMIAS BLANCHARD Report Released Date/Time: Jan 27, 2024 11:47 AM Reporting Lab: [facility] [address] [address] Performing [facility]: [facility] [address] [address] WBC 8.15 10*3/uL 4.50-11.00 RBC 4.59 10*6/uL [...] 10*3/uL 0.00-0.00 Feb 03, 2024 01:41 PM [facility] ([facility]) LIVER FUNCTION Specimen Type: SERUM No comment entered. Ordering Provider: NEHEMIAS BLANCHARD Report Released Date/Time: Jan 27, 2024 11:47 AM Reporting Lab: [address] [address] Performing Lab: [address] [address] PROTEIN,TOTAL 7.0 g/dL 6.0-8.3 ALBUMIN 4.1 g/dL 3.5-5.0 ALKALINE PHOSPHATASE 170 U/L H 40-150 AST 15 U/L 5-34 ALT 9 U/L BILIRUBIN, TOTAL 0.7 mg/dL 0.2-1.2 Feb 03, 2024 01:41 PM [facility] ([facility]) LIPID PANEL, NON FASTING Specimen Type: SERUM No comment entered. Ordering Provider: NEHEMIAS BLANCHARD Report Released Date/Time: Jan 27, 2024 11:47 AM Reporting Lab: [address] [address] Performing Lab: [address] [address] CHOLESTEROL 126 mg/dL TRIGLYCERIDE 71 mg/dL 0-150 LDL calculated 54 mg/dL 0-129 CHOL/HDL 2.2 HDL CHOLESTEROL 58 mg/dL 40-60 Feb 03, 2024 01:41 PM [facility] ([facility]) BASIC METABOLIC PANEL (non-fasting) Specimen Type: SERUM No comment entered. Ordering Provider: NEHEMIAS BLANCHARD Report Released Date/Time: Jan 27, 2024 11:47 AM Reporting Lab: [address] [address] Performing Lab: [address] [address] UREA NITROGEN 21 mg/dL 7-25 GLUCOSE 166 mg/dL H 65-100 SODIUM 139 mmol/L 135-145 POTASSIUM 4.3 mmol/L 3.5-5.0 CHLORIDE 103 mmol/L 100-110 CO2 25 meq/L 20-30 CREATININE, Serum 0.77 mg/dL 0.50-1.40 eGFR(CKD-EPI 2020) >90 mL/min >60 Encounter Notes: All associated encounter notes This section contains the clinical notes associated to the Encounter. Date/Time Encounter Note(s) Provider Source Feb 03, 2024 12:12 PM OPTOMETRY NOTE: LOCAL TITLE: OPTOMETRY NOTE STANDARD TITLE: OPTOMETRY NOTE DATE OF NOTE: FEB 03, 2024@12:12 ENTRY DATE: FEB 03, 2024@12:12:59 AUTHOR: CÉSAR TEJEDA EXP COSIGNER: URGENCY: STATUS: COMPLETED 73 WHITE MALE NOT OR Last eye exam: 01/16/24 Reason for Visit/CC: patient here for a follow up visit. Using polytrim QID OS, finished doxycycline (he is not sure if he took it once or twice a day but he used it up). Eye feels much better, no watering, swelling, tenderness. 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 ([facility] [id number]) E55.9 Vitamin D Deficiency ([facility] [id number]) E53.8 Vitamin B12 Deficiency ([facility] [id number]) I35.0 Aortic valve stenosis ([facility] [id number]) Q61.8 Kidney lesion ([facility] [id number]) Q45.2 Pancreatic cyst ([facility] [id number]) M54.16 Lumbar radiculopathy ([facility] [id number]) K76.0 Fatty liver ([facility] [id number]) E11.9 Diabetes mellitus type 2 ([facility] [id number]) E78.5 Hyperlipidemia ([facility] 63101305) G20.A1 Parkinsons disease ([facility] 12086817) I10. Benign hypertension ([facility] [id number]) Other: SYSTEMIC MEDICATIONS/OCULAR MEDICATIONS: Active and Recently Outpatient Medications (excluding Supplies): [...] ACTIVE ONCE DAILY FOR VITAMIN SUPPLEMENTATION 9) DOXYCYCLINE HYCLATE 100MG TAB TAKE ONE TABLET BY ACTIVE MOUTH TWICE DAILY FOR INFECTION CAUSED BY BACTERIA 10) LISINOPRIL 5MG TAB TAKE ONE TABLET BY MOUTH ONCE ACTIVE DAILY TO CONTROL BLOOD PRESSURE (NOTE DOSE) 11) MELATONIN 3MG CAP/TAB TAKE ONE TABLET BY MOUTH AT ACTIVE BEDTIME 12) METFORMIN HCL 1000MG TAB TAKE ONE TABLET BY MOUTH ACTIVE ONCE DAILY FOR TYPE 2 DIABETES MELLITUS (NOTE DOSE) 13) POLYMYXIN/TRIMETHOPRIM 0.1% OPH SOLN INSTILL 1 DROP ACTIVE INTO THE LEFT EYE FOUR TIMES A DAY FOR EYE INFECTION CAUSED BY BACTERIA 14) PRAMIPEXOLE DIHYDROCHLORIDE 0.5MG TAB TAKE ONE TABLET ACTIVE BY MOUTH THREE TIMES A DAY 15) RASAGILINE MESYLATE 0.5MG TAB TAKE ONE TABLET BY ACTIVE MOUTH ONCE DAILY 16) TAMSULOSIN HCL 0.4MG CAP TAKE ONE CAPSULE [...] THIN LAYER ACTIVE TOPICALLY TWICE DAILY NEEDED 20 Total Medications ALLERGIES: PENICILLIN LAST BP: 133/80 (11/26/2023 12:56) PERTINENT LABS: HEMOGLOBIN A1C; BLOOD Alessandro. Date: 10/04/23 09:55 03/05/23 07:25 Test Name Result Units Range HEMOGLOBIN A1C 6.5 H 6.7 H % 4.0 - 5.6 DVA ( )sc ( x )cc OD 20/30-1 OS 20/30-2 Pupils: PERRL (-)APD EOM: Full all meridia OU, (-) pain/diplopia Confrontation Visual Yuan: Full all meridia OU SLE: Lids/Lashes: dermatochalasis OU, moderate scruf OU, moderate mucous over caruncle OS, mild mucous in tearm film OS, erythema LLL nasally with pus point just temporal to puncta, mild LL ectropion OS due to thickening nasally Conjunctiva: white and quiet OU Corneas: moderate guttata OU Iris: flat and clear OU Anterior Chamber: deep and quiet OU Angles: open OU Lens: PCIOL OU Assessment/Plan: 1. External hordeolum, left lower lid - some improvement since 2 weeks ago, no tenderness. Continue polytrim QID OS. Start tobradex ana to eyelids OS BID. Recommend warm compresses BID-TID OS. Will recheck in 2 weeks - if no improvement will enter consult for oculoplastics (pt deferred consult today). He also requests refraction - deferred today due to ocular surface issues. RTC 2 weeks or earlier PRN patient offered and declined printed medication list Medication Reconciliation: Outpatient: Has the patient been taking medications as documented in the EMLR? YES: The patient has been taking medications as documented in the EMLR. Essential Medication List for Review used to complete this medication reconciliation. INCLUDED IN THIS LIST: Alphabetical list of active outpatient prescriptions [facility] from this [facility] (local) and dispensed from another DC or DoD facility (remote) as well as [...] Remote Allergy/ADR Data available for this patient [facility] Med Recon NoGlossary (Tool #1) INCLUDED IN THIS LIST: Alphabetical list of active outpatient prescriptions dispensed from this DC (local) and dispensed from another DC or [facility] facility (remote) as well as inpatient orders (local pending and active), local clinic medications, locally documented non-VA medications, and local prescriptions that have or been discontinued in the past 90 days. Non-VA Meds Last Documented On: Sep 19, 2020 NOTE The display of VA prescriptions dispensed from another DC or [facility] facility (remote) is limited to active outpatient prescription entries matched to National Drug File at the originating site and may not include some items such as investigational drugs, compounds, etc. NOT INCLUDED IN THIS LIST: Medications self-entered by the patient into personal health records (i.e. SigFig) are NOT included in this list. Non-VA medications documented outside this DC, remote inpatient orders (regardless of status) and [...] FEET ANKLE AND LOWER LEGS DAILY Rx# [id number] Last Released: 01/10/24 Qty/Days Supply: Rx Expiration Date: 01/08/25 Refills Remainin Indication: FOR DRY SKIN OUTPT ATORVASTATIN CALCIUM 80MG TAB (Status = Active) TAKE ONE-HALF TABLET BY MOUTH AT BEDTIME FOR CHOLESTEROL Rx# [id number] Last Released: 09/16/23 Qty/Days Supply: Rx Expiration Date: 03/13/24 Refills Remainin OUTPT CARBIDOPA 25/LEVODOPA 100MG TAB (Status = Active) TAKE 3 TABLETS BY MOUTH FOUR TIMES A DAY ### Rx# [id number] Last Released: 12/23/23 Qty/Days Supply: Rx Expiration Date: 08/05/24 Refills Remainin OUTPT CARBIDOPA 50/LEVODOPA 200MG SA TAB (Status = Active/Suspended) TAKE 1 TABLET BY MOUTH AT BEDTIME FOR PARKINSON'S DISEASE Rx# [id number] Last Released: 11/23/23 Qty/Days Supply: Rx Expiration Date: 08/05/24 Refills Remainin Indication: FOR PARKINSON'S DISEASE OUTPT CHOLECALCIF 25MCG (D3-1,000UNIT) TAB (Status = Active) TAKE ONE TABLET BY MOUTH ONCE DAILY FOR VITAMIN SUPPLEMENTATION Rx# [id number] Last Released: 11/23/23 Qty/Days Supply: Rx Expiration Date: 03/13/24 Refills Remainin OUTPT CLOTRIMAZOLE 1% TOP SOLN (Status = Active) APPLY 1 DROP TOPICALLY ONCE DAILY FOR FUNGAL INFECTION APPLY TO TOE NAIL WHEN DRY Rx# [id number] Last Released: 01/10/24 Qty/Days Supply: Rx Expiration Date: 01/08/25 Refills Remainin Indication: TOE NAIL FUNGUS OUTPT CYANOCOBALAMIN 1000MCG TAB (Status = Active) TAKE ONE TABLET BY MOUTH ONCE DAILY FOR VITAMIN SUPPLEMENTATION Rx# [id number] Last Released: 11/23/23 Qty/Days Supply: Rx Expiration Date: 03/13/24 Refills Remainin OUTPT DEXAMETHASONE 0.1/TOBRAMYC 0.3% OPH OINT (Status = Pending) 0.1/TOBRAMYC 0.3% OPH OINT APPLY SMALL AMOUNT INTO THE LEFT EYE TWICE DAILY Login Date: 02/03/24 Qty/Days Supply: 07/03 Refills Ordered: 0 OUTPT DOXYCYCLINE HYCLATE 100MG TAB (Status = Active) TAKE ONE TABLET BY MOUTH TWICE DAILY FOR INFECTION CAUSED BY BACTERIA Rx# [id number] Last Released: 01/16/24 Qty/Days Supply: Rx Expiration [...] TO CONTROL BLOOD PRESSURE (NOTE DOSE) Rx# [id number] Last Released: 10/10/23 Qty/Days Supply: 90 Rx Expiration Date: 10/08/24 Refills Remainin Indication: FOR HIGH BLOOD PRESSURE OUTPT MELATONIN 3MG CAP/TAB (Status = Active) TAKE ONE TABLET BY MOUTH AT BEDTIME Rx# [id number] Last Released: 08/09/23 Qty/Days Supply: 120/ Rx Expiration Date: 08/05/24 Refills Remainin OUTPT METFORMIN HCL 1000MG TAB (Status = Active) TAKE ONE TABLET BY MOUTH ONCE DAILY FOR TYPE 2 DIABETES MELLITUS (NOTE DOSE) Rx# [id number] Last Released: 12/23/23 Qty/Days Supply: 90 Rx Expiration Date: 10/08/24 Refills Remainin Indication: FOR TYPE 2 DIABETES MELLITUS OUTPT POLYMYXIN/TRIMETHOPRIM 0.1% OPH SOLN (Status = Active) INSTILL 1 DROP INTO THE LEFT EYE FOUR TIMES A DAY FOR EYE INFECTION CAUSED BY BACTERIA Rx# [id number] Last Released: 01/16/24 Qty/Days Supply: 03/30 Rx Expiration Date: 01/16/25 Refills Remainin Indication: FOR EYE INFECTION CAUSED BY BACTERIA OUTPT PRAMIPEXOLE DIHYDROCHLORIDE 0.5MG TAB (Status = Active) TAKE ONE TABLET BY MOUTH THREE TIMES A DAY Rx# [id number] Last Released: 12/05/23 Qty/Days Supply: 270/ Rx Expiration Date: 08/05/24 Refills Remainin OUTPT RASAGILINE MESYLATE 0.5MG TAB (Status = Active) TAKE ONE TABLET BY MOUTH ONCE DAILY Rx# [id number] Last Released: 11/23/23 Qty/Days Supply: Rx Expiration Date: 08/05/24 Refills Remainin OUTPT TAMSULOSIN HCL 0.4MG CAP (Status = Active) TAKE ONE CAPSULE BY MOUTH ONCE DAILY FOR ENLARGED PROSTATE Rx# [id number] Last Released: 11/22/23 Qty/Days Supply: Rx Expiration Date: 11/19/24 Refills Remainin Indication: FOR ENLARGED PROSTATE Non-VA TRIAMCINOLONE ACETONIDE 0.1% CREAM APPLY A THIN LAYER TOPICALLY TWICE DAILY NEEDED SUPPLIES OUTPT ACCU-CHEK GUIDE (GLUCOSE) TEST STRIP (Status = Active) USE 1 STRIP TO TEST BLOOD SUGARS TWICE A WEEK NEEDED DIABETES Rx# [id number] Last Released: 09/18/23 Qty/Days Supply: 50/180 Rx Expiration Date: 09/15/24 Refills Remainin Indication: DIABETES OUTPT LANCET,SOFTCLIX (Status = ) USE 1 LANCET DIRECTED TWICE A WEEK NEEDED TO TEST BLOOD SUGAR Rx# [id number] Last Released: 09/18/23 Qty/Days Supply: Rx Expiration Date: 12/14/23 Refills Remainin /rashid/ CÉSAR TEJEDA OD [employer] Signed: 02/03/2024 14:33 [facility]ED[facility]
--- OUTSIDE RECORDS SUMMARY | 2024-08-12 08:47 | XMS_ITS ---
Author Name [facility] [place] Organization [facility] [place] Address [address] [place] [address] Care Team Providers Care Electronic Specialist Name Role Phone LUCITA BLANCHARD Primary Care [...] Relationship to Policy [place] ANTHEM [place] ([place] [facility] CE ORGANIZAT ION HAMPS HIRE COUNT Y INS Dec 22, 2020 [id number] ARCHIE , SPOUSE [place] [employer] [facility]GAN[facility] ION HAMPS HIRE COUNT Y INS Dec 22, 2020 [id number] BEULAH ALMANZA SPOUSE [facility] [employer] [facility] CE ORGANIZAT ION HAMPS HIRE COUNT Y INS Dec 22, 2020 [id number] [phone] ALEJANDRA ALMANZA SPOUSE [employer] PRESCRIPT ION HAMPS HIRE COUNT Y INS Dec 22, 2020 RX21AT [id number] BEULAH ALMANZA SPOUSE [employer] PRESCRIPT ION HAMPS HIRE COUNT Y INS Dec 22, 2020 RX21AT [id number] BEULAH ALMANZA SPOUSE [place] PRESCRIPT ION HAMPS HIRE COUNT Y INS Dec 22, 2020 RX21AT [id number] [phone] JOSETTE ALMANZA PATIENT [employer] PRESCRIPT ION HAMPS HIRE COUNT Y INS Dec 22, 2020 RX21AT [id number] BEULAH ALMANZA SPOUSE [employer] ([id number]) PRESCRIPT ION L4TA* Sep 22, 2013 L4TA [id number] [phone] BEULAH ALMANZA SPOUSE [employer] ([id number]) PRESCRIPT ION L4TA* Sep 22, 2013 L4TA [id number] BEULAH ALMANZA SPOUSE MEDICARE (WNR) MEDICARE (M) PART A Feb 23, 2016 PART A [id number] [id number] JOSETTE ALMANZA PATIENT MEDICARE (WNR) MEDICARE (M) PART A Feb 23, 2016 PART A [id number] JOSETTE ALMANZA PATIENT Selected Encounter This section includes the information on record at [place] for the Encounter. Date/Time Encounter Type Encounter Description Reason Provider Source Feb 19, 2024 12:00 PM OFFICE O/P EST MOD 30 MIN OPTOMETRY ICD-10-CM H00.015 Hordeolum externum left lower eyelid CÉSAR TEJEDA E Encounter Template Text not used by [place] Assessments - Encounter Diagnoses This section includes the primary and secondary diagnoses documented for the Encounter. Date/Time Primary/Secondary Diagnosis Diagnosis Name Provider Source Mar 08, 2024 07:55 AM PRIMARY Hordeolum externum left lower eyelid CÉSAR TEJEDA [place] [facility] [place] [facility] Mar 08, 2024 07:55 AM SECONDARY Endothelial corneal dystrophy, bilateral CÉSAR TEJEDA [facility] [place] [facility] Mar 08, 2024 07:55 AM SECONDARY Presence of intraocular lens CÉSAR TEJEDA [facility] [place] [facility] Mar 08, 2024 07:55 AM SECONDARY Type 2 diabetes mellitus without complications CÉSAR TEJEDA [facility] Mar 08, 2024 07:55 AM SECONDARY Vitreous degeneration, bilateral [facility]EDA [facility] Plan of Treatment: Future Appointments (+ 6 months) and Future Tests (+/- 45 days) The Plan of Treatment section includes future care activities for the patient from all [place] treatmentfacilities. This section includes future appointments and future orders which are active, pending or scheduled. Future Appointments This section includes appointments that were scheduled to occur 6 months from the date of the Encounter, up to a maximum of 20 appointments. The data comes from all [place] treatment facilities. Appointment Date/Time Appointment Type Appointme nt Facility Name Feb 26, 2024 10:00 AM AM[facility] Apr 29, 2024 01:30 PM AMBULATORY - MEDICINE [facility] Jun 02, 2024 10:45 AM AMBULATORY - MEDICINE [facility] [place] [facility] Jun 05, 2024 01:30 PM AMBULATORY - MEDICINE [place] [facility] [place] [facility] Jul 09, 2024 10:30 AM AMBULATORY - MEDICINE [facility] C [facility] [place] [facility] Jul 27, 2024 01:30 PM AMBULATORY - MEDICINE [facility] Aug 12, 2024 08:30 AM [facility] Lab Results: +/- 30 days of the encounter This section includes the Chemistry and Hematology Lab Results on record with [place] for the patient. Radiology Reports and Pathology Reports are provided separately, in subsequent sections. Lab Results This section contains the Chemistry/Hematology Results that were resulted 30 days before or 30 daysafter the date of the Encounter. Date/Time Source Result Type Result - Unit Interpretation Reference Range Comment Feb 03, 2024 01:49 PM [facility] ([facility]) MICROALBUMIN CREATININE RATIO PANEL Specimen Type: URINE No comment entered. Ordering Provider: NEHEMIAS BLANCHARD Report Released Date/Time: Jan 27, 2024 11:47 AM Reporting Lab: [facility] [address] [address] Performing Lab: [address] [address] MICROALBUMIN/C REATININE RATIO 89.4 mg/g H 0-29.9 MICROALBUMIN,Q UANTITATIVE 9.0 mg/dL RR UNAVAIL CREATININE URINE 100.67 mg/dL Feb 03, 2024 01:49 PM [facility] ([facility]) URINALYSIS Specimen Type: URINE Comment: If Glucose = >500 and Ketones are positive, please alert the Physician. Ordering Provider: NEHEMIAS BLANCHARD Report Released Date/Time: Jan 27, 2024 11:47 AM Reporting Lab: [address] [address] Performing Lab: [address] [address] UA COLOR Light-Yellow Yellow UA APPEARANCE Clear Clear UA GLUCOSE Normal mg/dL Negative UA KETONES TRACE mg/dL Negative UA BLOOD NEGATIVE mg/dL Negative UA PROTEIN 20 mg/dL Negative UA NITRITE NEGATIVE mg/dL Negative UA BILIRUBIN NEGATIVE mg/dL Negative UA SPECIFIC GRAVITY 1.026 H 1.016-1.022 UA pH 5.5 5.0-9.0 UA UROBILINOGEN Normal mg/dL <2.0 UA LEUKOCYTE NEGATIVE Negative Feb 03, 2024 01:41 PM [facility] ([facility]) VITAMIN B12 Specimen Type: SERUM No comment entered. Ordering Provider: NEHEMIAS BLANCHARD Report Released Date/Time: Jan 27, 2024 11:47 AM Reporting Lab: [address] [address] Performing Lab: [address] [address] VITAMIN B12 869 pg/mL 200-900 Feb 03, [...] Jan 27, 2024 11:47 AM Reporting Lab: [address] [address] Performing Lab: [address] [address] HEMOGLOBIN A1C 6.1 H 4.0-5.6 Feb 03, 2024 01:41 PM [facility] ([facility]) VITAMIN D (25-OH) Specimen Type: SERUM No comment entered. Ordering Provider: NEHEMIAS BLANCHARD Report Released Date/Time: Jan 27, 2024 11:47 AM Reporting Lab: [address] [address] Performing Lab: [address] [address] VITAMIN D (25-OH) 25 ng/mL 20-50 Feb 03, 2024 01:41 PM [facility] ([facility]) TSH Specimen Type: SERUM No comment entered. Ordering Provider: NEHEMIAS BLANCHARD Report Released Date/Time: Jan 27, 2024 11:47 AM Reporting Lab: [address] [address] Performing Lab: [address] [address] TSH 1.45 u[IU]/mL 0.35-5.00 Feb 03, 2024 01:41 PM [facility] ([facility]) PSA Specimen Type: SERUM No comment entered. Ordering Provider: NEHEMIAS BLANCHARD Report Released Date/Time: Jan 27, 2024 11:47 AM Reporting Lab: [address] [address] Performing Lab: [address] [address] PSA 221.85 ng/mL H 0.00-4.00 Feb 03, 2024 01:41 PM [facility] ([facility]) CBC AND DIFF (AUTO) Specimen Type: BLOOD No comment entered. Ordering Provider: NEHEMIAS BLANCHARD Report Released Date/Time: Jan 27, 2024 11:47 AM Reporting Lab: [facility] [address] [address] Performing Lab: [facility] [address] [address] WBC 8.15 10*3/uL 4.50-11.00 RBC 4.59 10*6/uL [...] 10*3/uL 0.00-0.00 Feb 03, 2024 01:41 PM [facility] ([facility]) LIVER FUNCTION Specimen Type: SERUM No comment entered. Ordering Provider: NEHEMIAS BLANCHARD Report Released Date/Time: Jan 27, 2024 11:47 AM Reporting Lab: [address] [address] Performing Lab: [address] [address] PROTEIN,TOTAL 7.0 g/dL 6.0-8.3 ALBUMIN 4.1 g/dL 3.5-5.0 ALKALINE PHOSPHATASE 170 U/L H 40-150 AST 15 U/L 5-34 ALT 9 U/L BILIRUBIN, TOTAL 0.7 mg/dL 0.2-1.2 Feb 03, 2024 01:41 PM [facility] ([facility]) BASIC METABOLIC PANEL (non-fasting) Specimen Type: SERUM No comment entered. Ordering Provider: NEHEMIAS BLANCHARD Report Released Date/Time: Jan 27, 2024 11:47 AM Reporting Lab: [address] [address] Performing Lab: [address] [address] UREA NITROGEN 21 mg/dL 7-25 GLUCOSE 166 mg/dL H 65-100 SODIUM 139 mmol/L 135-145 POTASSIUM 4.3 mmol/L 3.5-5.0 CHLORIDE 103 mmol/L 100-110 CO2 25 meq/L 20-30 CREATININE, Serum 0.77 mg/dL 0.50-1.40 eGFR(CKD-EPI 2020) >90 mL/min >60 Feb 03, 2024 01:41 PM [facility] ([facility]) LIPID PANEL, NON FASTING Specimen Type: SERUM No comment entered. Ordering Provider: NEHEMIAS BLANCHARD Report Released Date/Time: Jan 27, 2024 11:47 AM Reporting Lab: [address] [address] Performing Lab: [address] [address] CHOLESTEROL 126 mg/dL TRIGLYCERIDE 71 mg/dL 0-150 LDL calculated 54 mg/dL 0-129 CHOL/HDL 2.2 HDL CHOLESTEROL 58 mg/dL 40-60 Encounter Notes: All associated encounter notes This section contains the clinical notes associated to the Encounter. Date/Time Encounter Note(s) Provider Source Feb 19, 2024 11:56 AM OPTOMETRY NOTE: LOCAL TITLE: OPTOMETRY NOTE STANDARD TITLE: OPTOMETRY NOTE DATE OF NOTE: FEB 19, 2024@11:56 ENTRY DATE: FEB 19, 2024@11:56:50 AUTHOR: CÉSAR TEJEDA EXP COSIGNER: URGENCY: STATUS: COMPLETED 73 WHITE MALE NOT OR Last eye exam: 02/03/2024 Reason for Visit/CC: patient here for a follow up visit. Eye feels better - using polytrim 2-3x a day and tobradex ana OS BID, warm compresses BID no symptoms now but vision is still sketchy OHx: Left dacryocystitis vs. hordeolum LLL Type II diabetes without retinopathy OU Pseudophakia OU Fuch's endothelial corneal dystrophy OU refractive error (-) Pain: (-) VELEZ: (-) Diplopia: (-) Flashes: (-) Floaters: (-) Amaurosis Fugax/Tia's: (-) Eye Injury: (+) Eye Surgery: CE OU (-) TBI (-) FOHx: MHx: Code Description R97.20 Elevated PSA ([facility] [id number]) C61. 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 ([facility] [id number]) E55.9 Vitamin D Deficiency ([facility] [id number]) E53.8 Vitamin B12 Deficiency ([facility] [id number]) I35.0 Aortic valve stenosis ([facility] [id number]) Q61.8 Kidney lesion ([facility] [id number]) Q45.2 Pancreatic cyst ([facility] [id number]) M54.16 Lumbar radiculopathy ([facility] [id number]) K76.0 Fatty liver ([facility] [id number]) E11.9 Diabetes mellitus type 2 ([facility] [id number]) E78.5 Hyperlipidemia ([facility] [id number]) G20.A1 Parkinsons disease ([facility] [id number]) I10. Benign hypertension ([facility] [id number]) Other: SYSTEMIC MEDICATIONS/OCULAR MEDICATIONS: Active and Recently [...] 80MG TAB TAKE ONE-HALF TABLET BY ACTIVE (S) MOUTH AT BEDTIME FOR CHOLESTEROL 4) CARBIDOPA 25/LEVODOPA 100MG TAB TAKE 3 TABLETS BY ACTIVE MOUTH FOUR TIMES A DAY ### 5) CARBIDOPA 50/LEVODOPA 200MG SA TAB TAKE 1 TABLET BY ACTIVE MOUTH AT BEDTIME FOR PARKINSON'S DISEASE 6) CHOLECALCIF 25MCG (D3-1,000UNIT) TAB TAKE ONE TABLET ACTIVE BY MOUTH ONCE DAILY FOR VITAMIN SUPPLEMENTATION 7) CLOTRIMAZOLE 1% TOP SOLN APPLY 1 DROP TOPICALLY ONCE ACTIVE DAILY FOR FUNGAL INFECTION APPLY TO TOE NAIL WHEN DRY 8) CYANOCOBALAMIN 1000MCG TAB TAKE ONE TABLET BY MOUTH ACTIVE ONCE DAILY FOR VITAMIN SUPPLEMENTATION 9) DEXAMETHASONE 0.1/TOBRAMYC 0.3% OPH OINT APPLY SMALL ACTIVE AMOUNT INTO THE LEFT EYE TWICE DAILY FOR INFECTION OF THE EYE 10) LISINOPRIL 5MG TAB TAKE ONE TABLET [...] MOUTH ACTIVE ONCE DAILY FOR ENLARGED PROSTATE Inactive Outpatient Medications Status 1) DOXYCYCLINE HYCLATE 100MG TAB TAKE ONE TABLET BY MOUTH TWICE DAILY FOR INFECTION CAUSED BY BACTERIA Active Non-VA Medications Status 1) Non-VA ALBUTEROL [...] DAILY NEEDED 21 Total Medications ALLERGIES: PENICILLIN LAST BP: 115/71 (02/11/2024 12:51) PERTINENT LABS: HEMOGLOBIN A1C; BLOOD Alessandro. Date: 02/03/24 13:41 10/04/23 09:55 Test Name Result Units Range HEMOGLOBIN A1C 6.1 H 6.5 H % 4.0 - 5.6 Current Rx with last BCVA: OD:plano - 0.50 x150 20/30-1 OS:-0.50-0.79p827 20/30-2 Add:+3.00 DVA ( )sc ( x )cc OD 20/30+1 OS 20/40-2 Pupils: PERRL (-)APD EOM: Full all meridia OU, (-) pain/diplopia Confrontation Visual Yuan: Full all meridia OU Subjective: OD plano -0.75 x 140 20/25-2 OS -0.50 -0.50 x 165 20/40-2 notes screen is difficult to see due to black spider webs over everything SLE: Lids/Lashes: dermatochalasis OU, moderate scruf OU with erythema, pus point LLL nasally just temporal to puncta with expression, mild LL ectropion OS Conjunctiva: white and quiet OU Corneas: moderate guttata OU Iris: flat and clear OU (-)NVI OU Anterior Chamber: deep and quiet OU Angles: open OU Lens: PCIOL OU TAP @ 12:19pm Néstor OD 12 mm Hg OS 12 mm Hg Dilating Drops: 1 gtt 1% Tropicamide OU, 2.5% phenylephrine OU (Pt. ed. on side effects) Vitreous: Syneresis OU, PVD OU C/D (Size and Rim Description) OD 0.15 pink & healthy OS 0.15 pink & healthy (-)NVD OU Macula OD flat and clear OS flat and clear (-)CSME OU A/V: normal caliber OU Posterior Pole: clear OU Periphery: Flat and intact (-)NVE, holes, tears, detachments 360 OU Assessment/Plan: 1. External hordeolum left lower lid, mostly resolved, with chronic ocular rosacea. Discontinue polytrim drops and tobradex ana. Will restart doxycycline 50mg BID for at least 3 months until his next visit with Dr. Carr in May. Continue warm compresses 1-2x a day. Previously discussed oculoplastics consult but he would like to defer if possible. 2. Posterior vitreous detachment OU, no retinal breaks or detachments seen OU. Monitor 3. Fuch's endothelial corneal dystrophy OU - likely contributing to the slightly reduced acuity. Condition briefly explained to patient. Depending on acuity next visit after rosacea has been treated may need to consider Ricky. 4. Type II diabetes without retinopathy or macular edema OU. Pt ed on findings and importance of good blood glucose control. Monitor annually 5. Pseudophakia OU - stable, monitor Deferred glasses as there was no significant change or improvement with refraction. Will recheck at next visit. Pt noticing more issues with reading/needing more light - if acuity still reduced may want to consider LV consult RTC 05/2024 as scheduled or earlier PRN Patient Education: Diabetes: Patient was educated regarding diabetes and related ocular complications including retinopathy and cataract formation as well as other related systemic complications. The importance of good blood sugar control, blood sugar testing as recommended by their PCP and the importance of timely follow up were all emphasized. patient offered and declined printed medication list [...] (local) and dispensed from another [facility] or [facility] facility (remote) as well as inpatient orders [...] Remote Allergy/ADR Data available for this patient [place] [facility] [place] [facility] PENICILLIN Med Recon NoGlossary [...] the patient into personal health records (i.e. [employer]) are NOT included in this list. Non-VA medications documented outside this [place], remote inpatient orders (regardless of status) and [...] FEET ANKLE AND LOWER LEGS DAILY Rx# [id number] Last Released: 01/10/24 Qty/ Supply: Rx Expiration Date: 01/08/25 Refills Remainin Indication: FOR DRY SKIN OUTPT ATORVASTATIN CALCIUM 80MG TAB (Status = Discontinued) TAKE ONE-HALF TABLET BY MOUTH AT BEDTIME FOR CHOLESTEROL Rx# [id number] Last Released: 02/10/24 Qty/Days Supply: Rx Expiration Date: 03/13/24 Refills Remainin OUTPT ATORVASTATIN CALCIUM 80MG TAB (Status = Active/Suspended) TAKE ONE-HALF TABLET BY MOUTH AT BEDTIME FOR CHOLESTEROL Rx# [id number] Last Released: Supply: Rx Expiration Date: 02/12/25 Refills Remainin OUTPT CARBIDOPA 25/LEVODOPA 100MG TAB (Status = Active) TAKE 3 TABLETS BY MOUTH FOUR TIMES A DAY ### Rx# [id number] Last Released: 12/23/23 Qty/Days Supply: Rx Expiration Date: 08/05/24 Refills Remainin OUTPT CARBIDOPA 50/LEVODOPA 200MG SA TAB (Status = Active) TAKE 1 TABLET BY MOUTH AT BEDTIME FOR PARKINSON'S DISEASE Rx# [id number] Last Released: 02/05/24 Qty/Days Supply: Rx Expiration Date: 08/05/24 Refills Remainin Indication: FOR PARKINSON'S DISEASE OUTPT CHOLECALCIF 25MCG (D3-1,000UNIT) TAB (Status = Active) TAKE ONE TABLET BY MOUTH ONCE DAILY FOR VITAMIN SUPPLEMENTATION Rx# [id number] Last Released: 11/23/23 Qty/Days Supply: Rx Expiration Date: 03/13/24 Refills Remainin OUTPT CLOTRIMAZOLE 1% TOP SOLN (Status = Active) APPLY 1 DROP TOPICALLY ONCE DAILY FOR FUNGAL INFECTION APPLY TO TOE NAIL WHEN DRY Rx# [id number] Last Released: 01/10/24 Qty/Days Supply: Rx Expiration Date: 01/08/25 Refills Remainin Indication: TOE NAIL FUNGUS OUTPT CYANOCOBALAMIN 1000MCG TAB (Status = Active) TAKE ONE TABLET BY MOUTH ONCE DAILY FOR VITAMIN SUPPLEMENTATION Rx# [id number] Last Released: 11/23/23 Qty/Days Supply: Rx Expiration Date: 03/13/24 Refills Remainin OUTPT DEXAMETHASONE 0.1/TOBRAMYC 0.3% OPH OINT (Status = Discontinued) APPLY SMALL AMOUNT INTO THE LEFT EYE TWICE DAILY FOR INFECTION OF THE EYE Rx# [id number] Last Released: 02/05/24 Qty/Days Supply: 07/03 Rx Expiration Date: 03/04/24 Refills Remainin Indication: FOR INFECTION OF THE EYE OUTPT DOXYCYCLINE HYCLATE 100MG TAB (Status = Discontinued) TAKE ONE TABLET BY MOUTH TWICE DAILY FOR INFECTION CAUSED BY BACTERIA Rx# [id number] Last Released: 01/16/24 Qty/Days Supply: Rx Expiration Date: 02/15/24 Refills Remainin Indication: FOR INFECTION CAUSED BY BACTERIA OUTPT DOXYCYCLINE HYCLATE 50MG CAP (Status = Active/Suspended) TAKE ONE CAPSULE BY MOUTH TWICE DAILY FOR INFECTION CAUSED BY BACTERIA Rx# [id number] Last Released: Qt/Days Supply: Rx Expiration Date: 02/19/25 Refills Remainin [...] TO CONTROL BLOOD PRESSURE (NOTE DOSE) Rx# [id number] Last Released: 10/10/23 Qty/Days Supply: Rx Expiration Date: 10/08/24 Refills Remainin Indication: FOR HIGH BLOOD PRESSURE OUTPT MELATONIN 3MG CAP/TAB (Status = Active) TAKE ONE TABLET BY MOUTH AT BEDTIME Rx# [id number] Last Released: 08/09/23 Qty/Days Supply: 120 Rx Expiration Date: 08/05/24 Refills Remainin OUTPT METFORMIN HCL 1000MG TAB (Status = Active) TAKE ONE TABLET BY MOUTH ONCE DAILY FOR TYPE 2 DIABETES MELLITUS (NOTE DOSE) Rx# [id number] Last Released: 12/23/23 Qty/Days Supply: Rx Expiration Date: 10/08/24 Refills Remainin Indication: FOR TYPE 2 DIABETES MELLITUS OUTPT POLYMYXIN/TRIMETHOPRIM 0.1% OPH SOLN (Status = Discontinued) INSTILL 1 DROP INTO THE LEFT EYE FOUR TIMES A DAY FOR EYE INFECTION CAUSED BY BACTERIA Rx# [id number] Last Released: 01/16/24 Qty/Days Supply: 03/30 Rx Expiration Date: 01/16/25 Refills Remainin Indication: FOR EYE INFECTION CAUSED BY BACTERIA OUTPT PRAMIPEXOLE DIHYDROCHLORIDE 0.5MG TAB (Status = Active) TAKE ONE TABLET BY MOUTH THREE TIMES A DAY Rx# [id number] Last Released: 12/05/23 Qty/Days Supply: 270 Rx Expiration Date: 08/05/24 Refills Remainin OUTPT RASAGILINE MESYLATE 0.5MG TAB (Status = Active) TAKE ONE TABLET BY MOUTH ONCE DAILY Rx# [id number] Last Released: 11/23/23 Qty/Days Supply: Rx Expiration Date: 08/05/24 Refills Remainin OUTPT TAMSULOSIN HCL 0.4MG CAP (Status = Active) TAKE ONE CAPSULE BY MOUTH ONCE DAILY FOR ENLARGED PROSTATE Rx# [id number] Last Released: 02/10/24 Qty/Days Supply: Rx Expiration Date: 11/19/24 Refills Remainin Indication: FOR ENLARGED PROSTATE Non-VA TRIAMCINOLONE ACETONIDE 0.1% CREAM APPLY A THIN LAYER TOPICALLY TWICE DAILY NEEDED SUPPLIES OUTPT ACCU-CHEK GUIDE (GLUCOSE) TEST STRIP (Status = Active) USE 1 STRIP TO TEST BLOOD SUGARS TWICE A WEEK NEEDED DIABETES Rx# [id number] Last Released: 09/18/23 Qty/Days Supply: 50/180 Rx Expiration Date: 09/15/24 Refills Remainin Indication: DIABETES OUTPT BRIEF,PROTECTIVE SUPER ABS LG ATTENDS (Status = Active) USE 1 BRIEF DIRECTED ONCE DAILY NEEDED FOR PERSONAL CARE Rx# [id number] Last Released: 02/13/24 Qty/Days Supply: 144/60 Rx Expiration Date: 02/11/25 Refills Remainin OUTPT LANCET,SOFTCLIX (Status = ) USE 1 LANCET DIRECTED TWICE A WEEK NEEDED TO TEST BLOOD SUGAR Rx# [id number] Last Released: 09/18/23 Qty/Days Supply: 100/90 Rx Expiration Date: 12/14/23 Refills Remainin /es/ CÉSAR TEJEDA 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
--- OUTSIDE RECORDS SUMMARY | 2024-08-12 08:47 | XMS_ITS | Encounter Summary ---
Author Name [facility] [facility] [place] [facility] [place] [facility] [place] Address [address] [place] [address] Care Team Providers Care Functional Support Analyst Name Role Phone LUCITA BLANCHARD Primary Care [...] Relationship to [employer] ([place]) [employer] [facility] CE ORGANIZAT ION HAMPS HIRE COUNT Y INS Dec 22, 2020 [id number] ARCHIE , SPOUSE [place] [employer] CE ORGANIZAT ION HAMPS HIRE COUNT Y INS Dec 22, 2020 [id number] [phone] BEULAH ALMANZA SPOUSE BCBS OF [facility] [place] [employer]IN[employer]NA[employer] CE ORGANIZAT ION HAMPS HIRE COUNT Y INS Dec 22, 2020 [id number] ALEJANDRA ALMANZA SPOUSE [place] PRESCRIPT ION HAMPS HIRE COUNT Y INS Dec 22, 2020 RX21AT [id number] [phone] BEULAH ALMANZA SPOUSE [place] PRESCRIPT ION HAMPS HIRE COUNT Y INS Dec 22, 2020 RX21AT [id number] [phone] BEULAH ALMANZA SPOUSE [place] PRESCRIPT ION HAMPS HIRE COUNT Y INS Dec 22, 2020 RX21AT [id number] [phone] JOSETTE ALMANZA PATIENT [place] PRESCRIPT ION HAMPS HIRE COUNT Y INS Dec 22, 2020 RX21AT [id number] [phone] BEULAH ALMANZA SPOUSE [employer] ([id number]) PRESCRIPT ION L4TA* Sep 22, 2013 L4TA [id number] [phone] BEULAH ALMANZA SPOUSE [employer] ([id number]) PRESCRIPT ION L4TA* Sep 22, 2013 L4TA [id number] BEULAH ALMANZA SPOUSE MEDICARE (WNR) MEDICARE (M) PART A Feb 23, 2016 PART A [id number] JOSETTE ALMANZA PATIENT MEDICARE (WNR) MEDICARE (M) PART A Feb 23, 2016 PART A [id number] JOSETTE ALMANZA PATIENT Selected Encounter This section includes the information on record at [place] for the Encounter. Date/Time Encounter Type Encounter Description Reason Provider Source Feb 11, 2024 01:00 PM OFFICE O/P EST MOD 30 MIN PRIMARY CARE/MEDICINE ICD-10-CM R97.20 Elevated prostate specific antigen [PSA] NEHEMIAS BLANCHARD Encounter Template Text not used by [place] Assessments - Encounter Diagnoses This section includes the primary and secondary diagnoses documented for the Encounter. Date/Time Primary/Secondary Diagnosis Diagnosis Name Provider Source Feb 27, 2024 08:30 AM PRIMARY Elevated prostate specific antigen [PSA] KEITH BLANCHARD ([facility]) Feb 27, 2024 08:30 AM SECONDARY Essential (primary) hypertension KEITH BLANCHARD ([facility]) Feb 27, 2024 08:30 AM SECONDARY Fatty (change of) liver, not elsewhere classified KEITH BLANCHARD ([facility]) Feb 27, 2024 08:30 AM SECONDARY Hyperlipidemia, unspecified KEITH BLANCHARD [place] ([facility]) Feb 27, 2024 08:30 AM SECONDARY Malignant neoplasm of prostate KEITH BLANCHARD [place] ([facility]) Feb 27, 2024 08:30 AM SECONDARY Nonrheumatic aortic (valve) stenosis KEITH BLANCHARD [place] ([facility]) Feb 27, 2024 08:30 AM SECONDARY Parkinson's dis w/o dyskinesia, w/o mention of fluctuations KEITH BLANCHARD [place] ([facility]) Feb 27, 2024 08:30 AM SECONDARY Radiculopathy, lumbar region KEITH BLANCHARD [place] ([facility]) Feb 27, 2024 08:30 AM SECONDARY Type 2 diabetes mellitus without complications KEITH BLANCHARD [place] ([facility]) Plan of Treatment: Future Appointments (+ 6 months) and Future Tests (+/- 45 days) The Plan of Treatment section includes future care activities for the [facility] [place] [facility] This section includes future appointments and future orders which are active, pending or scheduled. Future Appointments This section includes appointments that were scheduled to occur 6 months from the date of the Encounter, up to a maximum of 20 appointments. The data comes from all [place] treatment facilities. Appointment Date/Time Appointment Type Appointme nt Facility Name Feb 19, 2024 12:00 PM [place] [facility] [place] [facility] Feb 26, 2024 10:00 AM AM[place]ULATORY [place]IC[place] [facility] [place] [facility] Apr 29, 2024 01:30 PM AMBULATORY - MEDICINE [facility] ([facility]) Jun 02, 2024 10:45 AM AMBULATORY - MEDICINE [place] [facility] [place] [facility] Jun 05, 2024 01:30 PM AM[place]ULATORY [place]ICINE [place] [facility] [place] [facility] Jul 09, 2024 10:30 AM AMBULATORY - MEDICINE [place] [facility] [place] [facility] Jul 27, 2024 01:30 PM AMBULATORY - MEDICINE [facility] ([facility]) Aug 12, 2024 08:30 AM AMBULATORY - MEDICINE [place] [facility] [place] [facility] Lab Results: +/- 30 days of [...] Range Comment Feb 03, 2024 01:49 PM [place] ([facility]) MICROALBUMIN CREATININE RATIO PANEL Specimen Type: URINE No comment entered. Ordering Provider: NEHEMIAS BLANCHARD Report Released Date/Time: Jan 27, 2024 11:47 AM Reporting Lab: [address] [address] Performing Lab: [address] [address] MICROALBUMIN/C REATININE RATIO 89.4 mg/g H 0-29.9 MICROALBUMIN,Q UANTITATIVE 9.0 mg/dL RR UNAVAIL CREATININE URINE 100.67 mg/dL Feb 03, 2024 01:49 PM [place] ([facility]) URINALYSIS Specimen Type: URINE Comment: If Glucose = >500 and Ketones are positive, please alert the Physician. Ordering Provider: NEHEMIAS BLANCHARD Report Released Date/Time: Jan 27, 2024 11:47 AM Reporting Lab: [address] [address] Performing Lab: [address] [address] UA COLOR Light-Yellow Yellow UA APPEARANCE Clear [...] Jan 27, 2024 11:47 AM Reporting Lab: [address] [address] Performing Lab: [address] [address] VITAMIN B12 869 pg/mL 200-900 Feb 03, 2024 01:41 PM [place] ([facility]) VITAMIN D (25-OH) Specimen Type: SERUM No comment entered. Ordering Provider: NEHEMIAS BLANCHARD Report Released Date/Time: Jan 27, 2024 11:47 AM Reporting Lab: [address] [address] Performing Lab: [address] [address] VITAMIN D (25-OH) 25 ng/mL 20-50 Feb [...] Jan 27, 2024 11:47 AM Reporting Lab: [address] [address] Performing Lab: [address] [address] HEMOGLOBIN A1C 6.1 H 4.0-5.6 Feb 03, 2024 01:41 PM [place] ([facility]) TSH Specimen Type: SERUM No comment entered. Ordering Provider: NEHEMIAS BLANCHARD Report Released Date/Time: Jan 27, 2024 11:47 AM Reporting Lab: [address] [address] Performing Lab: [address] [address] TSH 1.45 u[IU]/mL 0.35-5.00 Feb 03, 2024 01:41 PM [place] ([facility]) PSA Specimen Type: SERUM No comment entered. Ordering Provider: NEHEMIAS BLANCHARD Report Released Date/Time: Jan 27, 2024 11:47 AM Reporting Lab: [address] [address] Performing Lab: [address] [address] PSA 221.85 ng/mL H 0.00-4.00 Feb 03, 2024 01:41 PM [place] ([facility]) CBC AND DIFF (AUTO) Specimen Type: BLOOD No comment entered. Ordering Provider: NEHEMIAS BLANCHARD Report Released Date/Time: Jan 27, 2024 11:47 AM Reporting Lab: [address] [address] Performing Lab: [address] [address] WBC 8.15 10*3/uL 4.50-11.00 RBC 4.59 10*6/uL [...] 10*3/uL 0.00-0.00 Feb 03, 2024 01:41 PM [place] ([facility]) BASIC METABOLIC PANEL (non-fasting) Specimen Type: SERUM No comment entered. Ordering Provider: NEHEMIAS BLANCHARD Report Released Date/Time: Jan 27, 2024 11:47 AM Reporting Lab: [address] [address] Performing Lab: [address] [address] UREA NITROGEN 21 mg/dL 7-25 GLUCOSE 166 mg/dL H 65-100 SODIUM 139 mmol/L 135-145 POTASSIUM 4.3 mmol/L 3.5-5.0 CHLORIDE 103 mmol/L 100-110 CO2 25 meq/L 20-30 CREATININE, Serum 0.77 mg/dL 0.50-1.40 eGFR(CKD-EPI 2020) >90 mL/min >60 Feb 03, 2024 01:41 PM [place] ([facility]) LIVER FUNCTION Specimen Type: SERUM No comment entered. Ordering Provider: NEHEMIAS BLANCHARD Report Released Date/Time: Jan 27, 2024 11:47 AM Reporting Lab: [address] [address] Performing Lab: [address] [address] PROTEIN,TOTAL 7.0 g/dL 6.0-8.3 ALBUMIN 4.1 g/dL 3.5-5.0 ALKALINE PHOSPHATASE 170 U/L H 40-150 AST 15 U/L 5-34 ALT 9 U/L BILIRUBIN, TOTAL 0.7 mg/dL 0.2-1.2 Feb 03, 2024 01:41 PM [place] ([facility]) LIPID PANEL, NON FASTING Specimen Type: SERUM No comment entered. Ordering Provider: NEHEMIAS BLANCHARD Report Released Date/Time: Jan 27, 2024 11:47 AM Reporting Lab: [address] [address] [facility] [address] [facility] [address] CHOLESTEROL 126 mg/dL TRIGLYCERIDE 71 mg/dL 0-150 LDL calculated 54 mg/dL 0-129 CHOL/HDL 2.2 HDL CHOLESTEROL 58 mg/dL 40-60 Vital Signs: All taken on the encounter date This section contains inpatient and outpatient Vital Signs collected on the date of the Encounter. Date/Time Temperature Pulse Blood Pressure Respiratory Rate SP02 Pain Height Weight Body Mass Index Source Feb 11, 2024 12:51 PM 96.9 74 115/71 20 97 0 168.8 26 [place] [facility] ([facility]) Social History: Smoking Status (Most current) and Tobacco Use (All prior to encounter date) This section includes the most current, and the historical, smoking and tobacco- related health factors from the [place] facility where the Encounter took place. Current Smoking Status This section includes the most current smoking, or tobacco-related health factor, from the [place] facility where the Encounter took place. Date/Time Current Smoking Status Comment Facil ity Oct 07, 2023 03:00 PM VA-TOBACCO NEVER USED [place] ([facility]) Tobacco Use History This section includes a history of the smoking, or tobacco-related health factors, that were collected on or before the date of the Encounter. The data comes from the [place] facility where the Encounter took place. Date/Time [...] Encounter. Date/Time Encounter Note(s) Provider Source Feb 13, 2024 09:54 AM ADDENDUM: LOCAL TITLE: Addendum STANDARD TITLE: ADDENDUM DATE OF NOTE: FEB 13, 2024@09:54:05 ENTRY DATE: FEB 13, 2024@09:54:06 AUTHOR: LUCITA BLANCHARD EXP COSIGNER: URGENCY: STATUS: COMPLETED Pact team please place nutrition consult for weight loss and physical therapy for strength and lower back pain /es/ LUCITA BLANCHARD MD PHYSICIAN Signed: 02/13/2024 09:54 Receipt Acknowledged By: 02/13/2024 10:17 /es/ SARAH WALKER RN REGISTERED NURSE 02/13/2024 10:28 /es/ ANAMARIA MARTIN LPN LICENSED PRACTICAL NURSE --- Original Document --- 02/11/24 NOTE: PRIMARY CARE VISIT JOSETTE ALMANZA, is a 73 yo WHITE MALE who [facility] the [place] [facility]. TYPE OF VISIT: Face to face 73-year-old male with vitamins D and B12 deficiency, HTN, HLD, aortic valve stenosis, lumbar radiculopathy, hepatic steatosis/fibrosis, DM2, PAD He was referred to urology after found to have high PSA. Diagnosis of prostate cancer with metastases to the bone and lymph node involvement. He is to start therapy immediately and is following up with Dr. Maravilla oncology. Urinary symptoms have gotten worse with Incontinience, urgency, nocturia. HEALTHCARE PROVIDERS: Urology: Dr. Victor PCP - [place] [facility] non-[place] PCP - [facility] - Dr. Jean DIABETES - [facility] - Dr. Pruett - [facility] in [place], [place] OPHTHAMOLOGY - Dr. Barrera in [place], [place] Podiatry - [place] Social Hx: MARITAL STATUS - HISTORY: PERIOD OF SERVICE - [place] [facility] [employer] FROM May TO May COMBAT SERVICE INDICATED: No VITAL SIGNS: Temperature 96.9 F [36.1 C] (02/11/2024 12:51) Blood Pressure 115/71 (02/11/2024 12:51) Pulse 74 (02/11/2024 12:51) Respiration 20 (02/11/2024 12:51) Pain 0 (02/11/2024 12:51) BMI BMI: 26.5 Weight 168.8 lb [76.57 kg] (02/11/2024 12:51) Pulse Oximetry 97% (02/11/2024 12:51) ASSISTIVE DEVICES: REVIEW OF SYSTEMS: CONSTITUTIONAL: No fevers, chills, ++weight loss ENT: No sore throat, sneezing, congestion, rhinorrhea, anosmia, or ageusia. CARDIOVASCULAR: No chest pain, palpitations, or increased pedal edema RESPIRATORY: No SOB, cough, sputum, wheeze. GASTROINTESTINAL: Denies abd pain, N/V/D. No melena or hematochezia. No tenesmus or constipation. GENITOURINARY: + Nocturia ++incontinence MUSCULOSKELETAL: No myalgias or arthralgias. PSYCHIATRIC: No [...] and expansion. CV: Heart sounds S1, S2. RRR.++ systolic murmur No peripheral edema : No CVA tenderness. Ext: No cyanosis [...] the followin. 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 Vitamin D Deficiency ([facility] [id number]) 4. Vitamin B12 Deficiency ([facility] [id number]) 5. Aortic valve stenosis 6. Kidney lesion 7. Pancreatic cyst 8. Lumbar radiculopathy 9. Fatty liver 10. Diabetes mellitus type 2 11. Hyperlipidemia 12. Parkinsons disease 13. Benign hypertension ==Metastatuc Prostate Cancer: started hormone therapy. Scheduled to see Dr Camilo February. His diet has been poor and he would like to see clinical data specialist. He has lost about 25 pounds. ==Liver fibrosis: 12/10/23 Fibroscan interpretation Agree with [...] 40 mg daily ==. Parkinsons disease: . Has follow-up with [facility] in February. Continue Sinemet, rasagaline, pramipexole. == Benign hypertension: BP at goal. Lisinpril 5mg daily =AORTIC VALVE STENOSIS : up to date with echo last echo September 2023 showing moderate aortic stenosis and normal ejection fraction. Asymptomatic ==PT for lower back and strength HCM: ==Colonoscopy July 2023 FOLLOW UP: RTC Below & sooner PRN UPCOMING APPOINTMENTS: 02/11/2024 13:00 CWM/GO/PACT 1 WH 02/19/2024 12:00 CWM/NO/OPTOMETRY/MERHAR 02/26/2024 11:00 [facility]-NEUROLOGY 04/27/2024 13:00 CWM/NO/PODIATRY/NAIL 06/05/2024 13:30 NHM/OPTOMETRY/ZAMORA/ minutes spent in patient evaluation, data review, and patient education. All medications were reconciled during this visit. No barriers; Patient understands and agrees to current treatment plan. If pt has any questions, concerns, or changes in current health status he/she will call or [facility]. /rashid/ LUCITA BLANCHARD MD PHYSICIAN Signed: 02/13/2024 09:53 02/13/2024 ADDENDUM STATUS: COMPLETED Consults entered and held for PCP review and signature. /rashid/ SARAH WALKER RN REGISTERED NURSE Signed: 02/13/2024 10:18 LUCITA BLANCHARD ([facility]) Feb 11, 2024 12:53 PM PHYSICIAN NOTE: LOCAL TITLE: MD NOTE STANDARD TITLE: PHYSICIAN NOTE DATE OF NOTE: FEB 11, 2024@12:53 ENTRY DATE: FEB 11, 2024@12:53:48 AUTHOR: LUCITA BLANCHARD EXP COSIGNER: URGENCY: STATUS: COMPLETED NOTE Has ADDENDA PRIMARY CARE VISIT JOSETTE ALMANZA, is a 73 yo WHITE MALE who [place] at the [place] [facility]. TYPE OF VISIT: Face to face 73-year-old male with vitamins D and B12 deficiency, HTN, HLD, aortic valve stenosis, lumbar radiculopathy, hepatic steatosis/fibrosis, DM2, PAD He was referred to urology after found to have high PSA. Diagnosis of prostate cancer with metastases to the bone and lymph node involvement. He is to start therapy immediately and is following up with Dr. Maravilla oncology. Urinary symptoms have gotten worse with Incontinience, urgency, nocturia. HEALTHCARE PROVIDERS: Urology: Dr. Victor PCP - [place] [facility] non-[facility] PCP - [facility] - Dr. Jean DIABETES - [facility] - Dr. Pruett - [facility] in [place], [place] OPHTHAMOLOGY - Dr. Barrera in [place], [place] Podiatry - [place] Social Hx: MARITAL STATUS - HISTORY: PERIOD OF SERVICE - [place] [facility] [employer] FROM May TO May COMBAT SERVICE INDICATED: No VITAL SIGNS: Temperature 96.9 F [36.1 C] (02/11/2024 12:51) Blood Pressure 115/71 (02/11/2024 12:51) Pulse 74 (02/11/2024 12:51) Respiration 20 (02/11/2024 12:51) Pain 0 (02/11/2024 12:51) BMI BMI: 26.5 Weight 168.8 lb [76.57 kg] (02/11/2024 12:51) Pulse Oximetry 97% (02/11/2024 12:51) ASSISTIVE DEVICES: REVIEW OF SYSTEMS: CONSTITUTIONAL: No fevers, chills, ++weight loss ENT: No sore throat, sneezing, congestion, rhinorrhea, anosmia, or ageusia. CARDIOVASCULAR: No chest pain, palpitations, or increased pedal edema RESPIRATORY: No SOB, cough, sputum, wheeze. GASTROINTESTINAL: Denies abd pain, N/V/D. No melena or hematochezia. No tenesmus or constipation. GENITOURINARY: + Nocturia ++incontinence MUSCULOSKELETAL: No myalgias or arthralgias. PSYCHIATRIC: No [...] and expansion. CV: Heart sounds S1, S2. RRR.++ systolic murmur No peripheral edema : No CVA tenderness. Ext: No cyanosis [...] the followin. 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 Vitamin D Deficiency ([facility] [id number]) 4. Vitamin B12 Deficiency ([facility] [id number]) 5. Aortic valve stenosis 6. Kidney lesion 7. Pancreatic cyst 8. Lumbar radiculopathy 9. Fatty liver 10. Diabetes mellitus type 2 11. Hyperlipidemia 12. Parkinsons disease 13. Benign hypertension ==Metastatuc Prostate Cancer: started hormone therapy. Scheduled to see Dr Camilo February. His diet has been poor and he would like to see clinical data specialist. He has lost about 25 pounds. ==Liver fibrosis: 12/10/23 Fibroscan interpretation Agree with [...] 40 mg daily ==. Parkinsons disease: . [facility]. Continue Sinemet, rasagaline, pramipexole. == Benign hypertension: BP at goal. Lisinpril 5mg daily =AORTIC VALVE STENOSIS : up to date with echo last echo September 2023 showing moderate aortic stenosis and normal ejection fraction. Asymptomatic ==PT for lower back and strength HCM: ==Colonoscopy July 2023 FOLLOW UP: RTC Below & sooner PRN UPCOMING APPOINTMENTS: 02/11/2024 13:00 CWM/GO/PACT 1 WH 02/19/2024 12:00 CWM/NO/OPTOMETRY/MERHAR 02/26/2024 11:00 [facility]-NEUROLOGY 04/27/2024 13:00 CWM/NO/PODIATRY/NAIL 06/05/2024 13:30 NHM/OPTOMETRY/ZAMORA/ minutes spent in patient evaluation, data review, and patient education. All medications were reconciled during this visit. No barriers; Patient understands and agrees to current treatment plan. If pt has any questions, concerns, or changes in current health status he/she will call or come [facility]. /rashid/ LUCITA BLANCHARD MD PHYSICIAN Signed: 02/13/2024 09:53 02/13/2024 ADDENDUM STATUS: COMPLETED Pact team please place nutrition consult for weight loss and physical therapy for strength and lower back pain /rashid/ LUCITA BLANCHARD MD PHYSICIAN Signed: 02/13/2024 09:54 Receipt Acknowledged By: 02/13/2024 10:17 /rashid/ SARAH WALKER RN REGISTERED NURSE * AWAITING SIGNATURE * ANAMARIA MARTIN 02/13/2024 ADDENDUM STATUS: COMPLETED Consults entered and held for PCP review and signature. /rashid/ SARAH WALKER RN REGISTERED NURSE Signed: 02/13/2024 10:18 LUCITA BLANCHARD ([facility]) Feb 11, 2024 12:52 PM PREVENTIVE MEDICIN E NURSING NOTE: LOCAL TITLE: CLINICAL REMINDERS/NURSING STANDARD TITLE: PREVENTIVE MEDICINE NURSING NOTE DATE OF NOTE: FEB 11, 2024@12:52 ENTRY DATE: FEB 11, 2024@12:52:27 AUTHOR: ANAMARIA MARTIN EXP COSIGNER: URGENCY: STATUS: COMPLETED COVID-19 Immunization: Defer due to a PRECAUTION Reason: wants to wait PAVE Foot Check: A complete foot check was completed at this encounter. VISUAL INSPECTION: Includes inspection for skin breaks, deformity, erythema, trauma, pallor on elevation, dependent rubor, nail deformities, extensive callus and pitting edema. Visual exam results: Normal PEDAL PULSES: Includes palpation of dorsalis and posterior tibial pulses and signs/symptoms of vascular compromise like pain, pallor, parasthesia or paralysis. Present (even if diminished) SENSORY CHECK: Includes 10 gram Monofilament (Couch-Pita) test of sensation. Intact (Greater than or equal to 80% of sites checked) Abnormal (Less than 80% of sites checked): Intact LOW-RISK: LOW RISK INFORMATION PROVIDED: 1. Advised patient not to walk barefoot. 2. Explained the importance of daily foot checks for changes. 3. Stressed the importance of daily foot hygiene, including bathing and complete drying. Advance Directive Screen MH AD: Patient does not have an Advance Directive completed and is requesting more information. [place] has paper copy and will fill out and return to clinic The patient received education about Advance Directives and written notification of his/her rights. /rashid/ ANAMARIA MARTIN LPN LICENSED PRACTICAL NURSE Signed: 02/11/2024 12:54 ANAMARIA MARTIN ([facility])
== END 2024-08-12 09:34 | disposition home or self-care (01) ==
PROVIDERS: Visit Provider Psychiatry & Neurology Neurology
DX: G20.B2 Parkinson's disease with dyskinesia, with fluctuations (principal); G47.52 REM sleep behavior disorder
CPT/HCPCS: 99204; G2211

== ENCOUNTER → 2024-08-12 08:40 | Outpatient (BNVA) | payer OTHER, SELFPAY | PROVIDERS: Visit Provider Nurse Practitioner Family | DX: G20.B2 Parkinson's disease with dyskinesia, with fluctuations (principal); G47.52 REM sleep behavior disorder | CPT/HCPCS: 99202 ==

== ENCOUNTER 2024-12-10 13:01 | Outpatient (AMB) | payer OTHER, SELFPAY ==
--- OUTSIDE RECORDS SUMMARY | 2024-10-19 12:00 | XMS_ITS ---
Author Name [facility] [place] Address [address] [place] [address] Care Team Providers Care House Wirer Helper Name Role Phone LUCITA BLANCHARD Primary Care [...] Relationship to Policy [place] [employer] [place] ([employer]) ASI System Integration [facility] CE ORGANIZAT ION HAMPS HIRE COUNT Y INS Dec 22, 2020 [id number] BRNALLELY , SPOUSE BCBS OF [employer] Communication [facility] CE ORGANIZAT ION HAMPS HIRE COUNT Y INS Dec 22, 2020 [id number] ALEJANDRA OLIVARES SPOUSE [place] PRESCRIPT ION HAMPS HIRE COUNT Y INS Dec 22, 2020 RX21AT [id number] BEULAH OLIVARES SPOUSE [place] PRESCRIPT ION HAMPS HIRE COUNT Y INS Dec 22, 2020 RX21AT [id number] [phone] BEULAH OLIVARES SPOUSE [place] PRESCRIPT ION HAMPS HIRE COUNT Y INS Dec 22, 2020 RX21AT [id number] JOSETTE OLIVARES PATIENT [place] PRESCRIPT ION HAMPS HIRE COUNT Y INS Dec 22, 2020 RX21AT [id number] BEULAH OLIVARES SPOUSE EXPRESS SCRIPTS ([id number]) PRESCRIPT ION L4TA* Sep 22, 2013 L4TA [id number] BEULAH OLIVARES SPOUSE MEDICARE (WNR) MEDICARE (M) PART A Feb 23, 2016 PART A [id number] JOSETTE OLIVARES PATIENT MEDICARE (WNR) MEDICARE (M) PART A Feb 23, 2016 PART A [id number] [phone] JOSETTE OLIVARES PATIENT Selected Encounter This section includes the information on record at [place] for the Encounter. Date/Time Encounter Type Encounter Description Reason Provider Source Oct 19, 2024 04:00 PM SYNCH AUDIO-VIDEO EST MOD 30 PAIN CLINIC ICD-10-CM M54.16 Radiculopathy , lumbar region MELISSAFERSCHLESLY,SE TH B E Encounter Template Text not used by VA Assessments - Encounter Diagnoses This section includes the primary and secondary diagnoses documented for the Encounter. Date/Time Primary/Secondary Diagnosis Diagnosis Name Provider Source Oct 19, 2024 04:42 PM PRIMARY Radiculopathy, lumbar region [facility] Oct 19, 2024 04:42 PM SECONDARY Malignant neoplasm of prostate [facility] [place] [facility] Oct 19, 2024 04:42 PM SECONDARY Parkinson's dis w/o dyskinesia, w/o mention of fluctuations [facility] Plan of Treatment: Future Appointments [...] 20 appointments. The data comes from all [facility]. Appointment Date/Time Appointment Type Appointme nt Facility Name October 28, 2024 09:30 AM AMBULATORY - MEDICINE [facility] NTRL TRN [facility] October 28, 2024 11:30 AM AMBULATORY - MEDICINE [facility] [place] [facility] November 12, 2024 02:00 PM [facility]ONE [facility] [place] [facility] Jan 01, 2025 02:00 PM [facility] [place] [facility] Feb 04, 2025 10:00 AM AMBULATORY - MEDICINE [facility] Feb 08, 2025 01:00 PM [facility] Active, Pending, and Scheduled Orders This section includes a listing of several types of active, pending, and scheduled orders, including clinic medications orders, diagnostic test orders, procedure orders and consult orders; where the start date of the order is 45 days before the date of the Encounter or 45 days after the date of theEncounter. The data comes from all [facility]. Test Date/Time Test Type Test Details Facility Name November 12, 2024 02:12 PM Procedure Order ECHO CP CA RDIOLOGY ECHO/ [facility] Proc Barrel [facility] Encounter Notes: All associated encounter notes This section contains the clinical notes associated to the Encounter. Date/Time Encounter Note(s) Provider Source Oct 19, 2024 03:59 PM PAIN MEDICINE OUTPATIENT NOTE: LOCAL TITLE: PAIN CLINIC NOTE STANDARD TITLE: PAIN MEDICINE OUTPATIENT NOTE DATE OF NOTE: OCT 19, 2024@15:59 ENTRY DATE: OCT 19, 2024@15:59:38 AUTHOR: LV FRANKLIN EXP COSIGNER: URGENCY: STATUS: COMPLETED CURRENT ======= First visit after initial consult. Only using Tylenol. Did not try pregabalin or hydrocodone/APAP. A lot less pain. Mood is better with less pain. He went to [place] and did well with HISTORY PAIN Here with [place]. Pain in left hip for about a year, started using a cane. Diagnosed with prostate carcinoma with sclerotic mets to left inferior pubic ramus and right intertrochanteric proximal femur. Previously seen at [facility] around 2020 for DDD. Some days are worse. Ibu and APAP help at times, not always. Tried 1 dose of gabapentin. Does not like meds in general. Stoic and stubborn, grits it out. Decline in recent years due to Parkinson's. Oncologist - Dr. Maravilla, [facility] Urologist - Dr. Victor, [facility] Chiro Acupuncture Relaxation/Meditation CHART REVIEW JLV SLEEP ----- Interrupted by nocturia, not pain ASSISTIVE DEVICES Cane (wooden stick) PAIN-RELATED PROBLEMS Low back pain -Xray 06/2024, DDD, no metastatic findings -Seen at [facility] around 2020 Prostate Cancer diagnosed 01/2024, extensive bone mets 01/2024, sclerotic lesion left inferior pubic ramus, also peripheral sclerosis in the right intertrochanteric proximal femur. Parkinson's Disease, [place] exposure Weight 08/2022 wasw 208 lbs; 08/2024 160 lbs Generally avoided medications in past SURGICAL HISTORY RELEVANT MEDICATION HISTORY - No past opioids TREATMENTS/THERAPIES (eg, PT, CBT, groups, etc) RISK MITIGATION PDMP last date: 09/10/2024 UDS last date: LTOT consent: 09/10/2024 SERVICE [employer] FROM May TO May Service Connected Disabilities with % Eligibility: SERVICE CONNECTED 50% to 100% VERIFIED Total S/C %: 90 SPONDYLOLISTHESIS OR SEGMENTAL INSTABILITY 10% PARALYSIS OF ALL RADICULAR NERVE GROUPS 40% PARALYSIS OF EXTERNAL POPLITEAL NERVE 20% NEUROSIS 50% TINNITUS 10% SOCIAL HISTORY around 1999, Keyanna (2nd marriage). Retired. Son Josette age 43 in 2020; daughter in [place]. Likes hunting and fishing. FAMILY HISTORY SUBSTANCE USE HISTORY Tobacco: ETOH: Minimal Marijuana: None Illicit drugs: None ASSESSMENT and PLAN Mr. Olivares [place] 74 [place] [facility] [place] with worsening pain over the last year in his left hip and low back. The pain in his left hip developed last year; he was diagnosed with prostate carcinoma that was metastatic to bone, including his left inferior ramus. He previously saw [facility] for low back pain in 2019. The pain varies from day to day and significantly within a day. Mr. Olivares also has prominent Parkinson's Disease. He enjoys hunting and fishing but his endurance and balance was declining before his prostate cancer diagnosis. PAIN More arthritic than oncologic at this time. -Trial of hydrocodone/APAP for use as needed. -Trial of pregabalin -Naproxen and APAP as needed. Consider PT Consider [facility] PROSTATE CANCER with METS to BONE PSA has decreased from 270 at time of diagnosis to less than 10 with treatment. PARKINSON'S DISEASE Greatly affects ambulation, balance LEFT HIP PAIN Imaging suggests components of degenerative joint disease (bilaterally) as well as sclerotic lesions left inferior pubic ramus and right intertrochanter GENERAL This first meeting was to establish a relationship, build trust, educate regarding the goals of pain management in relation to other conditions like PTSD and sleep issues. This visit included supportive listening, education about pain neuroscience, counseling, coaching, and shared medical decision making for more than 30 minutes. repeated the plan back to me and had no further questions at end of appointment. APPOINTMENT LENGTH: minutes (Includes time with [place] as well as review of appropriate notes, consults, results, PDMP, etc, entering orders, and documenting encounter. FOLLOW-UP: weeks Any quotations may not be exact and are intended to convey the effect of what the [place] was saying. 10/19/2024 16:00 NH[facility] VVC PAIN MD 2 10/28/2024 11:30 COM CARE-ONCOLOGY 11/12/2024 14:00 CWM V01 VVC CRH CARD 1 02/08/2025 13:00 [facility] PACT FIRM MEDICAL AND SCIENTIFIC ILLUSTRATOR 06/15/2025 13:30 [facility] OPTOMETRY 3 === MEDICATION and RECONCILIATION === Active Outpatient Medications (including Supplies): Active Outpatient Medications Status 1) ABIRATERONE ACETATE 250MG TAB TAKE FOUR TABLETS BY MOUTH ACTIVE ONCE DAILY DIRECTED BY PROVIDER 2) ACETAMINOPHEN 500MG TAB TAKE ONE TABLET BY MOUTH THREE TIMES ACTIVE DAILY NEEDED Indication: FOR PAIN 3) AMMONIUM LACTATE 12% LOTION APPLY SMALL [...] 100MG TAB TAKE 3 TABLETS BY MOUTH ACTIVE DIRECTED BY PROVIDER AT 8AM, 2 TABLETS AT 12PM, 3 TABLETS AT 4PM, AND 2 TABLETS AT 8PM. 7) CARBIDOPA 50/LEVODOPA 200MG SA TAB TAKE [...] FOR INFECTION CAUSED BY BACTERIA 12) MELATONIN 5MG CAP/TAB TAKE ONE CAPSULE/TABLET BY MOUTH AT ACTIVE BEDTIME 13) METFORMIN HCL 1000MG TAB TAKE ONE TABLET BY MOUTH ONCE DAILY ACTIVE (NOTE DOSE) Indication: FOR TYPE 2 DIABETES MELLITUS 14) NAPROXEN 500MG TAB TAKE ONE TABLET BY MOUTH THREE TIMES ACTIVE DAILY NEEDED ### Indication: FOR PAIN 15) PRAMIPEXOLE DIHYDROCHLORIDE 0.5MG TAB TAKE ONE TABLET BY ACTIVE MOUTH THREE TIMES A DAY 16) PREDNISONE 5MG TAB TAKE ONE TABLET BY MOUTH ONCE DAILY ACTIVE DIRECTED WITH ABIRATERONE. TAKE WITH FOOD OR MILK. 17) PREGABALIN 25MG ORAL CAP TAKE ONE CAPSULE BY MOUTH TWICE ACTIVE DAILY Indication: FOR PAIN 18) RASAGILINE MESYLATE 0.5MG TAB TAKE ONE TABLET BY MOUTH ONCE ACTIVE DAILY 19) TAMSULOSIN HCL 0.4MG CAP TAKE ONE CAPSULE [...] THIN LAYER ACTIVE TOPICALLY TWICE DAILY NEEDED 23 Total Medications ACTIVE PROBLEMS Active problems - Computerized Problem List is the source for the followin. Elevated PSA 2. Prostate carcinoma 3. 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 Vitamin D Deficiency ([facility] [id number]) 6. Vitamin B12 Deficiency ([facility] [id number]) 7. Aortic valve stenosis 8. Kidney lesion 9. Pancreatic cyst 10. Lumbar radiculopathy 11. Fatty liver 12. Diabetes mellitus type 2 13. Hyperlipidemia 14. Parkinsons disease 15. Benign hypertension /rashid/ LV FRANKLIN MD PHYSICIAN Signed: 10/19/2024 16:42 [facility]
--- NOTE | 2024-12-10 12:48 | MHC.OFFVIS ---
Vital Signs 12/10/24 12:50 Height 5 ft 8 in Weight 154 lb BMI 23.4 BP 130/82 Blood Pressure Location Rt brachial Position Sitting Intake Visit Reasons: 4 mo follow up Intake Note: patient presents for 4 month follow up. MVPT notes requested. patient attended 1 PT appointment Allergies Penicillins Allergy (Unknown, Verified 12/10/24 12:52) Unknown Medication List - Last Reconciled 12/10/24 by Erendira Shafer MD abiraterone 500 mg PO DAILY aspirin 81 mg PO DAILY atorvastatin 40 mg (1/2 x 80 mg) PO BEDTIME carbidopa-levodopa 25-100 mg 3 tabs at 8am 2 tabs at 12 noon 3tabs 4 pm,2 tabs at 8 pm orally 4 times a day; carbidopa-levodopa 50-200 mg ER 1 tab PO BEDTIME cholecalciferol (vitamin D3) 25 mcg PO DAILY clotrimazole 1% 1 appl topical BID cyanocobalamin (vitamin B-12) 1,000 mcg PO DAILY doxycycline hyclate 50 mg PO BID metformin 1,000 mg PO BID pramipexole 0.5 mg PO TID prednisone 5 mg PO DAILY rasagiline 0.5 mg PO DAILY tamsulosin mg PO HPI Comments Details: 74y/o Right handed male comes for follow up of parkinsons disease. he felt the decrease in crabidopa/levodopa dose from 12 tabs to 10 tabs a day - he feels worse.He has more balance issues and dyskinesias . He was diagnosed with Parkinsons about 7-8 years ago. His first symptoms were tremors in his left hand . He was seen by Dr. Dior which treated him with carbidopa/levodopa , pramipexole and rasagiline. He also has REM behavior disorder- fighting in sleep, screaming , yeling etc. Memory- slow thinking , word finding Mood- normal Drooling- none Speech- softer and slurred Handwriting- fluctuates, smaller Dressing- difficult Showering- slower Turning in bed- OK Using utensils- slower Gait- slower , off balance , uses a cane , no recent falls. Bowel movements- constipation Urinary - increased frequency He also has prostrate cancer and that contributes also. No hallucinations Mild dizziness with position change No diplopia or vertigo. He has dyskinesias when he is stressed. Sinemet CR 50/200 1 tab 9-11pm Pramipexole 0.5 mg 8am - 12 noon, 4pm He exercises regularly . COUNTS INCLUDE 234 BEDS AT THE [facility] Medical History REM behavioral disorder Parkinson's disease with dyskinesia Vitamin D deficiency Type 2 diabetes mellitus Radiculopathy, lumbar region Parkinson's disease without dyskinesia Other ehrlichiosis Other cystic kidney diseases Nonrheumatic aortic (valve) stenosis Other and unspecified hyperlipidemia Fatty liver HTN (hypertension) Deficiency of other specified B group vitamins Congenital pancreatic cyst Surgical History H/O hand surgery Hx of appendectomy Family History Mother HTN (hypertension) Father HTN (hypertension) Sister Diabetes Social History Alcohol intake: current Patient Tobacco Use Status: Never used Tobacco Physical Exam Vital Signs: Last Vital Signs BP 130/82 12/10/24 12:50 BMI result Body Mass Index 23.4 Const General: cooperative, healthy appearing, comfortable and no acute distress Nutritional Appearance: average body habitus Orientation/consciousness: patient oriented x3 Eyes Pupils: Equal, round and reactive pupils present Neuro Other: Mild decreased facial expression and blink Moderate dyskinesias. No tremors Mild hypophonia Mild to moderate bradykinesia FFM and foot taps - decreased gait- can walk without cane , mild stoop, narrow based ,dyskinetic and mild off balance General: patient oriented x3, tone normal, moves all extremities and no focal motor deficits Cranial nerves: Yes Facial sensation intact/muscles of mastication intact, Yes Equal, round and reactive pupils present, Yes Bilaterally intact EOM present, Yes Nystagmus not present, Yes Normal facial strength present, Yes Midline tongue present, Yes Symmetric palate elevation present and Yes Ability to bilaterally elevate shoulders present Cognition (Neuro): normal cognition Motor exam (neuro): 5/5 motor strength present throughout and Normal motor muscle tone present throughout Coordination: [id number] test normal Assessment & Plan Assessment & Plan (1) Parkinson's disease with dyskinesia: Code(s): G20.B1 - Parkinson's disease with dyskinesia, without mention of fluctuations Category: Medical Qualifiers: Fluctuating manifestations: with fluctuating manifestations Qualified Code(s): G20.B2 - Parkinson's disease with dyskinesia, with fluctuations (2) REM behavioral disorder: Code(s): G47.52 - REM sleep behavior disorder Category: Medical Plan Increase Carbidopa/levodopa 25/100 to 3 tabs tabs qid Carbidopa/levodopa ER 50/200 at 10 pm Pramipexole 0.5 mg 8am, 1 2, 4pm rasagiline 0.5 mg 8am melatonin 5mg qhs for RBD discussed about Isaac PT for gait and balance training Medications: Changed From pramipexole 0.5 mg PO TID To pramipexole 0.5 mg PO QID Coding Level of Care Code Est Pt Level 4 (95517) Complex EM visit Add On G2211 Diagnoses Parkinson's disease with dyskinesia and fluctuating manifestations G20.B2 Fluctuating manifestations: with fluctuating manifestations REM behavioral disorder G47.52
[2024-12-10 12:50] VITALS: BP 130/82; BMI 23.4
== END 2024-12-10 13:45 | disposition home or self-care (01) ==
PROVIDERS: Visit Provider Psychiatry & Neurology Neurology
DX: G20.B2 Parkinson's disease with dyskinesia, with fluctuations (principal); G47.52 REM sleep behavior disorder
CPT/HCPCS: 99214; G2211

== ENCOUNTER → 2024-12-10 13:01 | Outpatient (BNVA) | payer OTHER, SELFPAY | PROVIDERS: Visit Provider Psychiatry & Neurology Neurology | DX: G20.B2 Parkinson's disease with dyskinesia, with fluctuations (principal); G47.52 REM sleep behavior disorder | CPT/HCPCS: 99212 ==

== ENCOUNTER 2025-02-02 15:34 | Outpatient (AMB) | payer OTHER, SELFPAY ==
--- OUTSIDE RECORDS SUMMARY | 2024-10-19 12:00 | XMS_ITS ---
Author Name [place] Address [address] [place] [address] Care Team Providers Care Equity Structurer Name Role Phone MASON BODY Primary Care Provider Unavailabl e Insurance Providers: All historical and current Section [...] Relationship to Policy Mills [employer] ([employer] [facility] CE ORGANIZAT ION HAMPS HIRE COUNT Y INS Dec 22, 2020 [id number] ARCHIE , SPOUSE BCBS OF [place] [facility] CE ORGANIZAT ION HAMPS HIRE COUNT Y INS Dec 22, 2020 [id number] ALEJANDRA OLIVARES SPOUSE [employer] PRESCRIPT ION HAMPS HIRE COUNT Y INS Dec 22, 2020 RX21AT [id number] BEULAH OLIVARES SPOUSE [place] PRESCRIPT ION HAMPS HIRE COUNT Y INS Dec 22, 2020 RX21AT [id number] [phone] BEULAH OLIVARES SPOUSE [place] PRESCRIPT ION HAMPS HIRE COUNT Y INS Dec 22, 2020 RX21AT [id number] [phone] JOSETTE OLIVARES PATIENT [place] PRESCRIPT ION HAMPS HIRE COUNT Y INS Dec 22, 2020 RX21AT [id number] BEULAH OLIVARES SPOUSE EXPRESS SCRIPTS ([id number]) PRESCRIPT ION L4TA* Sep 22, 2013 L4TA [id number] BEULAH OLIVARES SPOUSE MEDICARE (WNR) MEDICARE (M) PART A Feb 23, 2016 PART A [id number] JOSETTE OLIVARES PATIENT MEDICARE (WNR) MEDICARE (M) PART A Feb 23, 2016 PART A [id number] JOSETTE OLIVARES PATIENT Selected Encounter This section includes the information on record at [place] for the Encounter. Date/Time Encounter Type Encounter Description Reason Provider Source Oct 19, 2024 04:00 PM SYNCH AUDIO-VIDEO EST MOD 30 PAIN CLINIC ICD-10-CM M54.16 Radiculopathy , lumbar region KUPFERSCHLESLY,SE TH B IHE Encounter Template Text not used by VA Assessments - Encounter Diagnoses This section includes the primary and secondary diagnoses documented for the Encounter. Date/Time Primary/Secondary Diagnosis Diagnosis Name Provider Source Jan 12, 2025 12:34 PM PRIMARY Radiculopathy, lumbar region [facility] [place] [facility] Jan 12, 2025 12:34 PM SECONDARY Malignant neoplasm of prostate [facility]O [facility] [place] [facility] Jan 12, 2025 12:34 PM SECONDARY Parkinson's dis w/o dyskinesia, w/o mention of fluctuations [facility]O [facility] Plan of Treatment: Future Appointments (+ 6 [...] 20 appointments. The data comes from all [place] treatment facilities. Appointment Date/Time Appointment Type Appointme nt Facility Name October 28, 2024 09:30 AM AMBULATORY - MEDICINE [facility] [place] [facility] October 28, 2024 11:30 AM AMBULATORY - MEDICINE [facility] [place] [facility] November 12, 2024 02:00 PM AMBULATORY - NONE [facility] [place] [place] [facility] Jan 01, 2025 02:00 PM AMBULATORY - NONE [facility] [place] [facility] Jan 26, 2025 10:30 AM AMBULATORY - MEDICINE [facility] [place] [facility] Feb 04, 2025 10:00 AM AMBULATORY - MEDICINE [place] [facility] [place] [facility] Feb 08, 2025 01:00 PM AMBULATORY - MEDICINE [place] C [place] [facility] Encounter Notes: All associated encounter notes This [...] better with less pain. He went to [place] and did well with HISTORY PAIN Here with [place]. Pain in left hip for about a year, started using a cane. Diagnosed with prostate carcinoma with sclerotic mets to left inferior pubic ramus and right intertrochanteric proximal femur. Previously seen at [facility] around 2020 for DDD. Some days are worse. Ibu and APAP help at times, not always. Tried 1 dose of gabapentin. Does not like meds in general. Stoic and stubborn, grits it out. Decline in recent years due to Parkinson's. Oncologist - Dr. Maravilla, [facility] Urologist - Dr. Victor, [facility] Chiro Acupuncture Relaxation/Meditation CHART REVIEW JLV SLEEP ----- Interrupted by nocturia, not pain ASSISTIVE DEVICES Cane (wooden stick) PAIN-RELATED PROBLEMS Low back pain -Xray 06/2024, DDD, no metastatic findings -Seen at [facility] around 2020 Prostate Cancer diagnosed 01/2024, extensive bone mets 01/2024, sclerotic lesion left inferior pubic ramus, also peripheral sclerosis in the right intertrochanteric proximal femur. Parkinson's Disease, [place] exposure Weight 08/2022 wasw 208 lbs; 08/2024 160 lbs Generally avoided medications in past SURGICAL HISTORY RELEVANT MEDICATION HISTORY - No past opioids TREATMENTS/THERAPIES (eg, PT, CBT, groups, etc) RISK MITIGATION PDMP last date: 09/10/2024 UDS last date: LTOT consent: 09/10/2024 SERVICE [employer] FROM May TO May Service Connected Disabilities [...] Mr. Olivares is a 74 year old [facility] [place] with worsening pain over the last year in his left hip and low back. The pain in his left hip developed last year; he was diagnosed with prostate carcinoma that was metastatic to bone, including his left inferior ramus. He previously saw [facility] for low back pain [...] decision making for more than 30 minutes. [place] repeated the plan back to me and had no further questions at end of appointment. APPOINTMENT LENGTH: minutes (Includes time with as well as review of appropriate notes, consults, results, PDMP, etc, entering orders, and documenting encounter. FOLLOW-UP: weeks Any quotations may not be exact and are intended to convey the effect of what the [place] was saying. 10/19/2024 16:00 NHM EWELINAC PAIN 2 10/28/2024 11:30 [facility]-ONCOLOGY 11/12/2024 14:00 CWM 1 VVC CRH CARD 1 02/08/2025 13:00 [facility] PACT FIRM TURNSTILE ATTENDANT 06/15/2025 13:30 NHM OPTOMETRY 3 === MEDICATION [...] carcinoma 3. 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 Vitamin D Deficiency ([facility] [id number]) 6. Vitamin B12 Deficiency ([facility] [id number]) 7. Aortic valve stenosis 8. Kidney lesion 9. Pancreatic cyst 10. Lumbar radiculopathy 11. Fatty liver 12. Diabetes mellitus type 2 13. Hyperlipidemia 14. Parkinsons disease 15. Benign hypertension /rashid/ LV FRANKLIN MD PHYSICIAN Signed: 10/19/2024 16:42 LV FRANKLIN [place] [facility] [place] [facility]
--- NOTE | 2025-02-02 15:31 | A.OFFVIS_ITS ---
Intake Visit Reasons: 2 mo follow up Allergies Penicillins Allergy (Unknown, Verified 02/02/25 15:33) Unknown HPI Comments Details: 74y/o Right handed male calls for follow up of parkinsons disease. He was recently in the hospital for upper GI bleed and is currently at rehab. He is feeling better now. Increase in carbidopa/levodopa 25/100 3tabs qid is helping No falls, no dizziness , no hallucinations. History from last visit 11/2024- He was diagnosed with Parkinsons about 7-8 years ago. His first symptoms were tremors in his left hand . He was seen by Dr. Dior which treated him with carbidopa/levodopa , pramipexole and rasagiline. He also has REM behavior disorder- fighting in sleep, screaming , yeling etc. Memory- slow thinking , word finding Mood- normal Drooling- none Speech- softer and slurred Handwriting- fluctuates, smaller Dressing- difficult Showering- slower Turning in bed- OK Using utensils- slower Gait- slower , off balance , uses a cane , no recent falls. Bowel movements- constipation Urinary - increased frequency He also has prostrate cancer and that contributes also. No hallucinations Mild dizziness with position change No diplopia or vertigo. He has dyskinesias when he is stressed. Sinemet CR 50/200 1 tab 9-11pm Pramipexole 0.5 mg 8am - 12 noon, 4pm He exercises regularly . [facility]LY [facility], [facility] Medical History REM behavioral disorder Parkinson's disease with dyskinesia Vitamin D deficiency Type 2 diabetes mellitus Radiculopathy, lumbar region Parkinson's disease without dyskinesia Other ehrlichiosis Other cystic kidney diseases Nonrheumatic aortic (valve) stenosis Other and unspecified hyperlipidemia Fatty liver HTN (hypertension) Deficiency of other specified B group vitamins Congenital pancreatic cyst Surgical History H/O hand surgery Hx of appendectomy Family History Mother HTN (hypertension) Father HTN (hypertension) Sister Diabetes Social History Alcohol intake: current Patient Tobacco Use Status: Never used Tobacco Physical Exam Const Other: Mood - stable speech- clear General: cooperative Orientation/consciousness: patient oriented x3 Neuro General: patient oriented x3 Telehealth Telehealth Telehealth Platform: Telephone Location of provider rendering services: practice address Location of patient: address on file Patient Identification confirmed using: Name, : Yes Telehealth method: voice only Patient verbally consented to treatment: Yes Patient verbally consented to billing insurance company: Yes Patient informed of any privacy concerns related to visit: Yes Minutes spent on Phone/Video with Pt.: 22 Assessment & Plan Assessment & Plan (1) Parkinson's disease with dyskinesia: Code(s): G20.B1 - Parkinson's disease with dyskinesia, without mention of fluctuations Category: Medical Qualifiers: Fluctuating manifestations: with fluctuating manifestations Qualified Code(s): G20.B2 - Parkinson's disease with dyskinesia, with fluctuations (2) REM behavioral disorder: Code(s): G47.52 - REM sleep behavior disorder Category: Medical Plan Continue Carbidopa/levodopa 25/100 to 3 tabs tabs qid Carbidopa/levodopa ER 50/200 at 10 pm Pramipexole 0.5 mg 8am, 1 2, 4pm rasagiline 0.5 mg 8am melatonin 5mg qhs for RBD Coding Level of Care Code Tele Est Pt Level 4 (14790) Diagnoses Parkinson's disease with dyskinesia and fluctuating manifestations G20.B2 Fluctuating manifestations: with fluctuating manifestations REM behavioral disorder G47.52
== END 2025-02-02 16:22 | disposition home or self-care (01) ==
PROVIDERS: Referring Provider Psychiatry & Neurology Neurology; Visit Provider Psychiatry & Neurology Neurology
DX: G20.B2 Parkinson's disease with dyskinesia, with fluctuations (principal); G47.52 REM sleep behavior disorder
CPT/HCPCS: 99214